=== PATIENT | male | born 1960 | race American Indian/Alaskan Native ===

== ENCOUNTER 2016-06-05 17:28 | Emergency (ER) | payer OTHER ==
[2016-06-05] MEDS ORDERED: Sodium Chloride 0.9% 10 ML Syringe FLUSH PRN (17:48)
[2016-06-05] MEDS ORDERED: Nitroglycerin 0.4 MG Tab.SL SL ONE (17:48)
[2016-06-05] MEDS ORDERED: Aspirin 81 MG Tab.Chew PO ONE (17:48)
[2016-06-05 18:03] VITALS: BP 148/91
[2016-06-05 18:21] LABS: CHLORIDE,CL 102 mmol/L (101-111); SODIUM,NA 136 mmol/L (135-145)
--- NOTE | 2016-06-05 18:34 | EDM.PDOC ---
ED HISTORY OF PRESENT ILLNESS - General Chief Complaint: Chest Pain Stated Complaint: HARD TIME BREATHING Time Seen by Provider: 06/05/16 17:44 Source of Information: Reports: Patient, RN, RN notes reviewed History Limitations: Reports: No limitations - History of Present Illness INITIAL COMMENTS - FREE TEXT/NARRATIVE: Patient complaining of shortness of breath with exertion x2 months, and getting worse. Seen 05/28/16 for similar symptoms. Treated at [facility] about 2 months ago. They gave him Zithromax x7 days for pneumonia. Went back to [facility] as on 05/30/16 and treated with prednisone and doxycycline. Admits to substernal chest pressure and dyspnea at rest. Severity: severe Location, General: Reports: chest Quality: Reports: Ache Improves with: Reports: None Worsens with: Reports: None Associated Symptoms (General): Reports: no other symptoms - Related Data Allergies/ADRs: Allergies Allergy/AdvReac Type Severity Reaction Status Date / Time No Known Allergies Allergy Verified 06/05/16 17:39 Home Meds: Home Meds Gabapentin [Neurontin] 600 mg PO TID 03/13/13 [History] Past Medical History HEENT History: Reports: Impaired vision Other HEENT History: wears reading glasses Cardiovascular History: Reports: Hypertension Respiratory History: Reports: None Gastrointestinal History: Reports: None Genitourinary History: Reports: None Musculoskeletal History: Reports: None Neurological History: Reports: Neuropathy, diabetic Psychiatric History: Reports: None Endocrine/Metabolic History: Reports: Diabetes, type II (insulin dependent) Hematologic History: Reports: None Immunologic History: Reports: None Oncologic (Cancer) History: Reports: None Dermatologic History: Reports: None - Infectious Disease History Infectious Disease History: Reports: Hepatitis C - Past Surgical History Musculoskeletal Surgical History: Reports: Amputation (right and left 5th toes.) Other Musculoskeletal Surgeries/Procedures:: bilateral small toe Social & Family History - Family History Family Medical History: Noncontributory - Tobacco Use Smoking Status *Q: Former Smoker Second Hand Smoke Exposure: No - Caffeine Use Caffeine Use: Reports: Coffee, Soda, Tea - Alcohol Use Days Per Week of Alcohol Use: 0 - Recreational Drug Use Recreational Drug Use: No - Living Situation & Occupation Living situation: Reports: Occupation: unemployed (recently lost job and as well) ED ROS GENERAL - Review of Systems Review Of Systems: ROS reveals no pertinent complaints other than HPI. ED EXAM, GENERAL - Physical Exam Exam: See Below Exam Limited By: No limitations General Appearance: other (chronically ill appearing. No distress.) Eye Exam: bilateral eye: normal inspection Ears: normal external exam, normal canal, hearing grossly normal, normal TMs Nose: normal inspection, normal mucosa, no blood Throat/Mouth: Normal inspection, Normal lips, Normal teeth, Normal gums, Normal oropharynx, Normal voice, No airway compromise Head: atraumatic, normocephalic Neck: normal inspection, supple, non-tender, full range of motion Respiratory/Chest: crackles (bibasilar cracles. ), wheezing (rare mild scattered wheezes.) Cardiovascular: normal peripheral pulses, regular rate, rhythm, no edema, no gallop, no JVD, no murmur, no rub GI/Abdominal: normal bowel sounds, soft, non tender, no organomegaly, no distention, no abnormal bruit, no mass Back Exam: normal inspection, full range of motion, NT Extremities: no pedal edema Neurological: alert, oriented, CN II-XII intact, normal cognition, normal gait, normal reflexes, no motor/sensory deficits Psychiatric: normal affect, normal mood Skin Exam: Warm, Dry, Intact, Normal color, No rash EKG INTERPRETATION EKG Date: 06/05/16 Time: 17:49 Rhythm: other (sinus rhythm) Rate (beats/min): 79 [place]: normal P-wave: present QRS: LBBB ST-T: normal QT: normal Comparison: NA - no prior EKG Course - Vital Signs Last Recorded V/S: Last Vital Signs Temp 36.8 C 06/05/16 17:36 Pulse 76 06/05/16 17:36 Resp 20 06/05/16 17:36 BP 148/91 H 06/05/16 18:03 Pulse Ox 100 06/05/16 17:36 - Orders/Labs/Meds Orders: Active Orders 24 hr Category Date Time Status EKG 12 Lead [EKG Documentation Completion] [RC] STAT Care 06/05/16 17:47 Active Overnight Pulse Oximetry [RC] Click To Edit Care 06/05/16 17:48 Active Peripheral IV Care [RC] . DIRECTED Care 06/05/16 17:48 Active Chest 1V Frontal [CR] Stat Exams 06/05/16 17:47 Taken CULTURE STREP A CONFIRMATION [RM] Stat Lab 06/05/16 18:10 Results STREP SCRN A RAPID W CULT CONF [] Stat Lab 06/05/16 18:10 Results Sodium Chloride 0.9% [Saline Flush] Med 06/05/16 17:48 Active 10 ml FLUSH ASDIRECTED PRN Peripheral IV Insertion Adult [OM.PC] Stat Oth 06/05/16 17:47 Ordered Pulse Oximetry Continuous Monitoring [OM.PC] Routine Oth 06/05/16 17:47 Ordered RT Supplemental Oxygen Titration [RESPCARE] Stat Ot 06/05/16 17:47 Active Medication Orders Sodium Chloride (Saline Flush) 10 ml FLUSH ASDIRECTED PRN PRN Reason: Keep Vein Open Last Admin: 06/05/16 18:02 Dose: 10 ml Labs: Laboratory Tests 06/05/16 06/05/16 06/05/16 Range/Units 17:50 17:50 17:50 WBC 6.8 (5.0-10.0) 10^3/uL RBC 4.59 L (4.6-6.2) 10^6/uL Hgb 13.0 L (14.0-18.0) g/dL Hct 37.5 L (40.0-54.0) % MCV 81.7 (80-100) fL MCH 28.3 (27.0-34.0) pg MCHC 34.7 (33.0-35.0) g/dL Plt Count 167 (150-450) 10^3/uL Neut % (Auto) 58.5 (42.2-75.2) % Lymph % (Auto) 26.7 (20.5-50.1) % [place] % (Auto) 10.4 H (2-8) % Eos % (Auto) 3.7 H (1.0-3.0) % Baso % (Auto) 0.7 (0.0-1.0) % PT 10.6 (9.0-12.0) SEC INR 1.1 (0.9-1.2) APTT 27.4 (22.0-34.0) SEC D-Dimer, Quantitative (0-400) ng/mL Sodium 136 (135-145) mmol/L Potassium 3.8 (3.6-5.0) mmol/L Chloride 102 (101-111) mmol/L Carbon Dioxide 27.0 (21.0-31.0) mmol/L Anion Gap 10.8 BUN 15 (7-18) mg/dL Creatinine 1.0 (0.6-1.3) mg/dL Est Cr Clr Drug Dosing 88.90 mL/min Estimated GFR (MDRD) > 60 BUN/Creatinine Ratio 15.00 Glucose 397 H (74-105) mg/dL Calcium 8.5 (8.4-10.2) mg/dl Total Bilirubin 0.6 (0.2-1.0) mg/dL AST 24 (10-42) IU/L ALT 15 (10-60) IU/L Alkaline Phosphatase 93 (42-121) IU/L Creatine Kinase (26-174) IU/L Creatine Kinase Index (0-2.4) % CK-MB (CK-2) (0.4-4.7) ng/mL Troponin I 0.03 H* (0.00-0.02) ng/ml B-Natriuretic Peptide 241 H (0-100) pg/ml Total Protein 6.7 (6.7-8.2) g/dl Albumin 3.2 (3.2-5.5) g/dl Globulin 3.5 Albumin/Globulin Ratio 0.91 Amylase 43 (28-100) U/L Lipase 26 (22-51) U/L Urine Color (YELLOW) Urine Appearance (CLEAR) Urine pH (5.0-9.0) Ur Specific [place] (1.005-1.030) Urine Protein (NEGATIVE) Urine Glucose (UA) (NEGATIVE) Urine Ketones (NEGATIVE) Urine Occult Blood (NEGATIVE) Urine Nitrite (NEGATIVE) Urine Bilirubin (NEGATIVE) Urine Urobilinogen (0.2-1.0) mg/dL Ur Leukocyte Esterase (NEGATIVE) Urine RBC /HPF Urine WBC (0-5/HPF) /HPF Urine Bacteria (0-FEW/HPF) /HPF Urine Opiates Screen (NEGATIVE) Ur Oxycodone Screen (NEGATIVE) Urine Methadone Screen (NEGATIVE) Ur Barbiturates Screen (NEGATIVE) U Tricyclic Antidepress (NEGATIVE) Ur Phencyclidine Scrn (NEGATIVE) Ur Amphetamine Screen (NEGATIVE) U Methamphetamines Scrn (NEGATIVE) Urine MDMA Screen (NEGATIVE) U Benzodiazepines Scrn (NEGATIVE) Urine Cocaine Screen (NEGATIVE) U Marijuana (THC) Screen (NEGATIVE) Ethyl Alcohol < 5 mg/dL 03/05/17 03/05/17 03/05/17 Range/Units 17:50 17:50 18:10 WBC (5.0-10.0) 10^3/uL RBC (4.6-6.2) 10^6/uL Hgb (14.0-18.0) g/dL Hct (40.0-54.0) % MCV (80-100) fL MCH (27.0-34.0) pg MCHC (33.0-35.0) g/dL Plt Count (150-450) 10^3/uL Neut % (Auto) (42.2-75.2) % Lymph % (Auto) (20.5-50.1) % [place] % (Auto) (2-8) % Eos % (Auto) (1.0-3.0) % Baso % (Auto) (0.0-1.0) % PT (9.0-12.0) SEC INR (0.9-1.2) APTT (22.0-34.0) SEC D-Dimer, Quantitative 656 H (0-400) ng/mL Sodium (135-145) mmol/L Potassium (3.6-5.0) mmol/L Chloride (101-111) mmol/L Carbon Dioxide (21.0-31.0) mmol/L Anion Gap BUN (7-18) mg/dL Creatinine (0.6-1.3) mg/dL Est Cr Clr Drug Dosing mL/min Estimated GFR (MDRD) BUN/Creatinine Ratio Glucose (74-105) mg/dL Calcium (8.4-10.2) mg/dl Total Bilirubin (0.2-1.0) mg/dL AST (10-42) IU/L ALT (10-60) IU/L Alkaline Phosphatase (42-121) IU/L Creatine Kinase 88 (26-174) IU/L Creatine Kinase Index 3.5 H (0-2.4) % CK-MB (CK-2) 3.10 (0.4-4.7) ng/mL Troponin I (0.00-0.02) ng/ml B-Natriuretic Peptide (0-100) pg/ml Total Protein (6.7-8.2) g/dl Albumin (3.2-5.5) g/dl Globulin Albumin/Globulin Ratio Amylase (28-100) U/L Lipase (22-51) U/L Urine Color Yellow (YELLOW) Urine Appearance Clear (CLEAR) Urine pH 5.5 (5.0-9.0) Ur Specific [place] 1.020 (1.005-1.030) Urine Protein >=300 H (NEGATIVE) Urine Glucose (UA) 500 H (NEGATIVE) Urine Ketones Negative (NEGATIVE) Urine Occult Blood Trace-intact H (NEGATIVE) Urine Nitrite Negative (NEGATIVE) Urine Bilirubin Negative (NEGATIVE) Urine Urobilinogen 1.0 (0.2-1.0) mg/dL Ur Leukocyte Esterase Negative (NEGATIVE) Urine RBC 0-5 /HPF Urine WBC 0-5 (0-5/HPF) /HPF Urine Bacteria Occasional (0-FEW/HPF) /HPF Urine Opiates Screen (NEGATIVE) Ur Oxycodone Screen (NEGATIVE) Urine Methadone Screen (NEGATIVE) Ur Barbiturates Screen (NEGATIVE) U Tricyclic Antidepress (NEGATIVE) Ur Phencyclidine Scrn (NEGATIVE) Ur Amphetamine Screen (NEGATIVE) U Methamphetamines Scrn (NEGATIVE) Urine MDMA Screen (NEGATIVE) U Benzodiazepines Scrn (NEGATIVE) Urine Cocaine Screen (NEGATIVE) U Marijuana (THC) Screen (NEGATIVE) Ethyl Alcohol mg/dL 06/05/16 Range/Units 18:10 WBC (5.0-10.0) 10^3/uL RBC (4.6-6.2) 10^6/uL Hgb (14.0-18.0) g/dL Hct (40.0-54.0) % MCV (80-100) fL MCH (27.0-34.0) pg MCHC (33.0-35.0) g/dL Plt Count (150-450) 10^3/uL Neut % (Auto) (42.2-75.2) % Lymph % (Auto) (20.5-50.1) % [place] % (Auto) (2-8) % Eos % (Auto) (1.0-3.0) % Baso % (Auto) (0.0-1.0) % PT (9.0-12.0) SEC INR (0.9-1.2) APTT (22.0-34.0) SEC D-Dimer, Quantitative (0-400) ng/mL Sodium (135-145) mmol/L Potassium (3.6-5.0) mmol/L Chloride (101-111) mmol/L Carbon Dioxide (21.0-31.0) mmol/L Anion Gap BUN (7-18) mg/dL Creatinine (0.6-1.3) mg/dL Est Cr Clr Drug Dosing mL/min Estimated GFR (MDRD) BUN/Creatinine Ratio Glucose (74-105) mg/dL Calcium (8.4-10.2) mg/dl Total Bilirubin (0.2-1.0) mg/dL AST (10-42) IU/L ALT (10-60) IU/L Alkaline Phosphatase (42-121) IU/L Creatine Kinase (26-174) IU/L Creatine Kinase Index (0-2.4) % CK-MB (CK-2) (0.4-4.7) ng/mL Troponin I (0.00-0.02) ng/ml B-Natriuretic Peptide (0-100) pg/ml Total Protein (6.7-8.2) g/dl Albumin (3.2-5.5) g/dl Globulin Albumin/Globulin Ratio Amylase (28-100) U/L Lipase (22-51) U/L Urine Color (YELLOW) Urine Appearance (CLEAR) Urine pH (5.0-9.0) Ur Specific [place] (1.005-1.030) Urine Protein (NEGATIVE) Urine Glucose (UA) (NEGATIVE) Urine Ketones (NEGATIVE) Urine Occult Blood (NEGATIVE) Urine Nitrite (NEGATIVE) Urine Bilirubin (NEGATIVE) Urine Urobilinogen (0.2-1.0) mg/dL Ur Leukocyte Esterase (NEGATIVE) Urine RBC /HPF Urine WBC (0-5/HPF) /HPF Urine Bacteria (0-FEW/HPF) /HPF Urine Opiates Screen Negative (NEGATIVE) Ur Oxycodone Screen Negative (NEGATIVE) Urine Methadone Screen Negative (NEGATIVE) Ur Barbiturates Screen Negative (NEGATIVE) U Tricyclic Antidepress Negative (NEGATIVE) Ur Phencyclidine Scrn Negative (NEGATIVE) Ur Amphetamine Screen Negative (NEGATIVE) U Methamphetamines Scrn Negative (NEGATIVE) Urine MDMA Screen Negative (NEGATIVE) U Benzodiazepines Scrn Negative (NEGATIVE) Urine Cocaine Screen Negative (NEGATIVE) U Marijuana (THC) Screen Negative (NEGATIVE) Ethyl Alcohol mg/dL Meds: Medications Generic Name Dose Route Start Last Admin Trade Name Freq PRN Reason Stop Dose Admin Sodium Chloride 10 ml 06/05/16 17:48 06/05/16 18:02 Saline Flush FLUSH 10 ml ASDIRECTED PRN Administration Keep Vein Open Discontinued Medications Generic Name Dose Route Start Last Admin Trade Name Freq PRN Reason Stop Dose Admin Aspirin 324 mg 06/05/16 17:48 06/05/16 18:03 Aspirin PO 06/05/16 17:49 324 mg ONETIME ONE Administration Nitroglycerin 0.4 mg 06/05/16 17:48 06/05/16 18:03 Nitrostat SL 06/05/16 17:49 0.4 mg Q5M ONE Administration - Radiology Interpretation Free Text/Narrative:: Chest x-ray per rad report shows no active disease of the chest. No significant interval change when compared to film of 05/28/16. Departure - Departure Time of Disposition: 18:45 Disposition: DC/Tfer to Acute Hospital 02 Reason for Transfer *Q: Primary PCI Indicated Condition: serious Clinical Impression: Acute coronary syndrome Forms: ED Department Discharge, Interfacility Transfer EMTALA - My Orders Last 24 Hours: My Active Orders 06/05/16 17:47 EKG 12 Lead [EKG Documentation Completion] [RC] STAT Chest 1V Frontal [CR] Stat Peripheral IV Insertion Adult [OM.PC] Stat Pulse Oximetry Continuous Monitoring [OM.PC] Routine RT Supplemental Oxygen Titration [RESPCARE] Stat 06/05/16 17:48 Overnight Pulse Oximetry [RC] Click To Edit Peripheral IV Care [RC] . DIRECTED Sodium Chloride 0.9% [Saline Flush] 10 ml FLUSH ASDIRECTED PRN 06/05/16 18:10 CULTURE STREP A CONFIRMATION [RM] Stat STREP SCRN A RAPID W CULT CONF [RM] Stat - Assessment/Plan Last 24 Hours: My Active Orders 06/05/16 17:47 EKG 12 Lead [EKG Documentation Completion] [RC] STAT Chest 1V Frontal [CR] Stat Peripheral IV Insertion Adult [OM.PC] Stat Pulse Oximetry Continuous Monitoring [OM.PC] Routine RT Supplemental Oxygen Titration [RESPCARE] Stat 06/05/16 17:48 Overnight Pulse Oximetry [RC] Click To Edit Peripheral IV Care [RC] . DIRECTED Sodium Chloride 0.9% [Saline Flush] 10 ml FLUSH ASDIRECTED PRN 06/05/16 18:10 CULTURE STREP A CONFIRMATION [RM] Stat STREP SCRN A RAPID W CULT CONF [RM] Stat
--- NOTE | 2016-06-12 15:02 | EKG ---
06/05/2016 - MIAH CAIN - TIME OF EK hours. I reviewed the EKG and agree with the machine's reading. [facility] /[id number]
== END 2016-06-05 19:13 ==
LOC: DL.ED 17:28
DX: I24.9 Acute ischemic heart disease, unspecified (principal); I10 Essential (primary) hypertension; E11.40 Type 2 diabetes mellitus with diabetic neuropathy, unspecified; Z79.4 Long term (current) use of insulin; B19.20 Unspecified viral hepatitis C without hepatic coma; Z87.891 Personal history of nicotine dependence; Z79.899 Other long term (current) drug therapy
CPT/HCPCS: 36415; 71010; 80053; 80305; 81001; 82150; 82550; 82553; 83690; 83880; 84484; 85025; 85379; 85610; 85730; 87081; 87430; 87804; 93005; 99285; A9270; G0480; J7050

== ENCOUNTER 2016-07-30 13:00 | Emergency (ER) | payer OTHER ==
[2016-07-30 13:14] VITALS: BP 164/92
--- NOTE | 2016-07-30 14:15 | EDM.PDOC ---
ED HISTORY OF PRESENT ILLNESS - General Chief Complaint: Chest Pain Stated Complaint: [id number] TIGHTNESS IN CHEST STINTS PUT IN JUNE Time Seen by Provider: 07/30/16 14:20 Source of Information: Reports: Patient, Family History Limitations: Reports: No limitations - History of Present Illness INITIAL COMMENTS - FREE TEXT/NARRATIVE: He developed left anterior chest pain today initially rated at 3/10 and gradually decreased to 0/10 similar to that for which 2 stents were placed at [facility]. No nausea. No diaphoresis. He and his noted wheezing. They have noticed ankle swelling. 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.) Associated Symptoms (General): Denies: cough (wheezing), nausea/vomiting, rash Treatments TAKER [employer]RAK[employer] MACHINE: Denies: Aspirin - Related Data Allergies/ADRs: Allergies Allergy/AdvReac Type Severity Reaction Status Date / Time No Known Allergies Allergy Verified 07/30/16 13:14 Home Meds: Home Meds Gabapentin [Neurontin] 600 mg PO TID 03/13/13 [History] Lisinopril [Lisinopril] 1 tab PO DAILY 06/08/16 [History] metFORMIN HCl [Metformin HCl] 2 tab PO BID 06/08/16 [History] Clopidogrel [Plavix] 75 mg PO DAILY 07/30/16 [History] Insulin Detemir [Levemir Flextouch] 35 unit SQ DAILY 07/30/16 [History] Metoprolol Succinate [Toprol Xl] 100 mg PO DAILY 07/30/16 [History] atorvaSTATin [Lipitor] 40 mg PO DAILY 07/30/16 [History] Past Medical History HEENT History: Reports: Impaired vision Other HEENT History: wears reading glasses Cardiovascular History: Reports: Heart Failure, Hypertension, Stents Respiratory History: Reports: None Gastrointestinal History: Reports: None Genitourinary History: Reports: None Musculoskeletal History: Reports: None Neurological History: Reports: Neuropathy, diabetic Psychiatric History: Reports: None Endocrine/Metabolic History: Reports: Diabetes, type II Hematologic History: Reports: None Immunologic History: Reports: None Oncologic (Cancer) History: Reports: None Dermatologic History: Reports: None - Infectious Disease History Infectious Disease History: Reports: Hepatitis C - Past Surgical History Head Surgeries/Procedures: Reports: None Cardiovascular Surgical History: Reports: Coronary artery stent Other Cardiovascular Surgeries/Procedures: in June Musculoskeletal Surgical History: Reports: Amputation Other Musculoskeletal Surgeries/Procedures:: bilateral small toe Social & Family History - Family History Family Medical History: Noncontributory - Tobacco Use Smoking Status *Q: Never Smoker Second Hand Smoke Exposure: No - Caffeine Use Caffeine Use: Reports: Coffee, Tea - Alcohol Use Days Per Week of Alcohol Use: 0 - Recreational Drug Use Recreational Drug Use: No - Living Situation & Occupation Living situation: Reports: Occupation: unemployed (recently lost job and as well) ED ROS GENERAL - Review of Systems Review Of Systems: See Below Constitutional: Reports: no symptoms HEENT: Reports: No symptoms Respiratory: Reports: No Symptoms Cardiovascular: Reports: Chest pain, Other (wheeing). Denies: Lightheadedness, Orthopnea, Palpitations Musculoskeletal: Reports: other (swellng in legs/ ankles) Skin: Reports: no symptoms Neurological: Reports: No Symptoms ED EXAM, GENERAL - Physical Exam Exam: See Below Exam Limited By: No limitations General Appearance: alert Eye Exam: bilateral eye: normal inspection, PERRL Ears: normal external exam Nose: normal inspection Throat/Mouth: Normal inspection, Normal lips, Normal teeth, Normal gums, Normal oropharynx, Normal voice, No airway compromise Head: atraumatic, normocephalic Neck: normal inspection, supple, non-tender, full range of motion Respiratory/Chest: no respiratory distress, lungs clear, normal breath sounds, no accessory muscle use, rhonchi (bibasilar crackles). No: chest non-tender Cardiovascular: normal peripheral pulses. No: no edema (1-2 mm ankle and distal leg edema) GI/Abdominal: normal bowel sounds, soft, non tender, no organomegaly, no distention, no abnormal bruit, no mass Extremities: normal inspection Neurological: alert, oriented, normal cognition Psychiatric: normal affect, normal mood Skin Exam: Warm, Dry, Intact, Normal color, No rash Lymphatic: no adenopathy Course - Vital Signs Last Recorded V/S: Last Vital Signs Temp 97.2 F 07/30/16 13:10 Pulse 70 07/30/16 13:10 Resp 14 07/30/16 13:10 BP 164/92 H 07/30/16 13:10 Pulse Ox 99 07/30/16 13:10 - Orders/Labs/Meds Labs: Laboratory Tests 07/30/16 07/30/16 Range/Units 14:12 14:12 WBC 7.7 (5.0-10.0) 10^3/uL RBC 4.20 L (4.6-6.2) 10^6/uL Hgb 12.2 L (14.0-18.0) g/dL Hct 35.3 L (40.0-54.0) % MCV 84.0 (80-100) fL MCH 29.0 (27.0-34.0) pg MCHC 34.6 (33.0-35.0) g/dL Plt Count 209 (150-450) 10^3/uL Neut % (Auto) 65.6 (42.2-75.2) % Lymph % (Auto) 23.2 (20.5-50.1) % [place] % (Auto) 7.6 (2-8) % Eos % (Auto) 3.1 H (1.0-3.0) % Baso % (Auto) 0.5 (0.0-1.0) % Sodium 138 (135-145) mmol/L Potassium 4.1 (3.6-5.0) mmol/L Chloride 105 (101-111) mmol/L Carbon Dioxide 28.0 (21.0-31.0) mmol/L Anion Gap 9.1 BUN 16 (7-18) mg/dL Creatinine 0.9 (0.6-1.3) mg/dL Est Cr Clr Drug Dosing 97.61 mL/min Estimated GFR (MDRD) > 60 BUN/Creatinine Ratio 17.77 Glucose 228 H (74-105) mg/dL Calcium 8.5 (8.4-10.2) mg/dl Total Bilirubin 0.8 (0.2-1.0) mg/dL AST 23 (10-42) IU/L ALT 18 (10-60) IU/L Alkaline Phosphatase 80 (42-121) IU/L Troponin I 0.02 (0.00-0.02) ng/ml Total Protein 6.6 L (6.7-8.2) g/dl Albumin 3.2 (3.2-5.5) g/dl Globulin 3.4 Albumin/Globulin Ratio 0.94 Meds: Medications Discontinued Medications Generic Name Dose Route Start Last Admin Trade Name [place] PRN Reason Stop Dose Admin Aspirin 325 mg 07/30/16 15:01 07/30/16 15:08 Aspirin PO 07/30/16 15:02 325 mg ONETIME ONE Administration Departure - Departure Time of Disposition: 15:15 Disposition: DC/Tfer to Acute Hospital 02 Reason for Transfer *Q: Primary PCI Indicated Condition: good Clinical Impression: Chest pain, Chest pain Instructions: Angina Pectoris, [id number] Forms: ED Department Discharge Additional Instructions: Go to [facility] to the admitting area.
[2016-07-30 14:39] LABS: CHLORIDE,CL 105 mmol/L (101-111); SODIUM,NA 138 mmol/L (135-145)
[2016-07-30] MEDS ORDERED: Aspirin 325 MG Tab PO ONE (15:01)
--- NOTE | 2016-10-03 08:58 | EKG ---
07/30/2016- MIAH CANI PAVEL - This is a standard 12-lead EKG showing normal sinus rhythm. Ventricular rate 71 beats per minute. Normal PA interval. Normal QRS duration and showing left bundle branch block. [facility] /[id number]
== END 2016-07-30 15:30 ==
LOC: DL.ED 13:00
DX: R07.9 Chest pain, unspecified (principal); I50.9 Heart failure, unspecified; I10 Essential (primary) hypertension; Z95.5 Presence of coronary angioplasty implant and graft; E11.40 Type 2 diabetes mellitus with diabetic neuropathy, unspecified; Z79.84 Long term (current) use of oral hypoglycemic drugs; Z79.4 Long term (current) use of insulin; Z79.899 Other long term (current) drug therapy
CPT/HCPCS: 36415; 71020; 80053; 84484; 85025; 99285; A9270

== ENCOUNTER 2017-05-01 02:57 | Emergency (ER) | payer OTHER ==
[2017-05-01 03:02] VITALS: BP 197/110
--- NOTE | 2017-05-01 03:14 | EDM.PDOC ---
ED HPI GENERAL MEDICAL PROBLEM - General Chief Complaint: Cardiovascular Problem Stated Complaint: SOB [id number] Time Seen by Provider: 05/01/17 03:09 Source of Information: Reports: Patient History Limitations: Reports: No Limitations - History of Present Illness INITIAL COMMENTS - FREE TEXT/NARRATIVE: 2 days h/o sob not getting better and last episode last year and req' stent placement. denies pain perse. - Related Data Allergies Allergy/AdvReac Type Severity Reaction Status Date / Time No Known Allergies Allergy Verified 05/01/17 03:02 Home Meds: Home Meds Gabapentin [Neurontin] 600 mg PO TID 03/13/13 [History] Lisinopril [Lisinopril] 1 tab PO DAILY 06/08/16 [History] metFORMIN HCl [Metformin HCl] 2 tab PO BID 06/08/16 [History] Clopidogrel [Plavix] 75 mg PO DAILY 07/30/16 [History] Insulin Detemir [Levemir Flextouch] 35 unit SQ DAILY 07/30/16 [History] Metoprolol Succinate [Toprol Xl] 100 mg PO DAILY 07/30/16 [History] atorvaSTATin [Lipitor] 40 mg PO DAILY 07/30/16 [History] Past Medical History HEENT History: Reports: Impaired Vision Other HEENT History: wears reading glasses Cardiovascular History: Reports: Heart Failure, Hypertension, Stents Respiratory History: Reports: None Gastrointestinal History: Reports: None Genitourinary History: Reports: None Musculoskeletal History: Reports: None Neurological History: Reports: Neuropathy, Diabetic Psychiatric History: Reports: None Endocrine/Metabolic History: Reports: Diabetes, Type II Hematologic History: Reports: None Immunologic History: Reports: None Oncologic (Cancer) History: Reports: None Dermatologic History: Reports: None - Infectious Disease History Infectious Disease History: Reports: Hepatitis C - Past Surgical History Cardiovascular Surgical History: Reports: Coronary Artery Stent Social & Family History - Family History Family Medical History: Noncontributory - Tobacco Use Smoking Status *Q: Never Smoker Second Hand Smoke Exposure: No - Caffeine Use Caffeine Use: Reports: Coffee, Tea - Alcohol Use Days Per Week of Alcohol Use: 0 - Recreational Drug Use Recreational Drug Use: No - Living Situation & Occupation Living situation: Reports: Occupation: Unemployed ED ROS GENERAL - Review of Systems Review Of Systems: ROS reveals no pertinent complaints other than HPI. ED EXAM, GENERAL - Physical Exam Exam: See Below Exam Limited By: No Limitations General Appearance: Alert, WD/WN, Anxious Ears: Hearing Grossly Normal Throat/Mouth: Normal Voice, No Airway Compromise Head: Atraumatic Neck: Non-Tender, Full Range of Motion Respiratory/Chest: No Respiratory Distress, No Accessory Muscle Use, Rales, Rhonchi Cardiovascular: Regular Rate, Rhythm GI/Abdominal: Soft, Non-Tender Extremities: Pedal Edema, Other (1+) Neurological: Alert, Oriented, Normal Cognition, Normal Gait, No Motor/Sensory Deficits Psychiatric: Anxious Skin Exam: Warm, Dry, Normal Color Lymphatic: No Adenopathy Course - Vital Signs Last Recorded V/S: Last Vital Signs Temp 36.2 C 05/01/17 02:59 Pulse 87 05/01/17 02:59 Resp 20 05/01/17 02:59 BP 197/110 H 05/01/17 02:59 Pulse Ox 96 05/01/17 02:59 - Orders/Labs/Meds Orders: Active Orders 24 hr Category Date Time Status EKG 12 Lead [EKG Documentation Completion] [RC] STAT Care 05/01/17 03:07 Ordered B-TYPE NATRIURETIC PEPTIDE,BNP [CHEM] Stat Lab 05/01/17 03:12 Received Labs: Laboratory Tests 05/01/17 05/01/17 Range/Units 03:12 03:12 WBC 8.4 (5.0-10.0) 10^3/uL RBC 5.25 (4.6-6.2) 10^6/uL Hgb 14.9 D (14.0-18.0) g/dL Hct 42.5 (40.0-54.0) % MCV 81.0 D (80-100) fL MCH 28.4 (27.0-34.0) pg MCHC 35.1 H (33.0-35.0) g/dL Plt Count 169 (150-450) 10^3/uL Neut % (Auto) 55.6 (42.2-75.2) % Lymph % (Auto) 29.3 (20.5-50.1) % [place] % (Auto) 8.1 H (2-8) % Eos % (Auto) 6.0 H (1.0-3.0) % Baso % (Auto) 1.0 (0.0-1.0) % Sodium 136 (135-145) mmol/L Potassium 3.1 L (3.6-5.0) mmol/L Chloride 99 L (101-111) mmol/L Carbon Dioxide 31.0 (21.0-31.0) mmol/L Anion Gap 9.1 BUN 15 (7-18) mg/dL Creatinine 1.1 (0.6-1.3) mg/dL Est Cr Clr Drug Dosing 79.86 mL/min Estimated GFR (MDRD) > 60 BUN/Creatinine Ratio 13.63 Glucose 390 H (74-105) mg/dL Calcium 8.6 (8.4-10.2) mg/dl Total Bilirubin 0.8 (0.2-1.0) mg/dL AST 21 (10-42) IU/L ALT 15 (10-60) IU/L Alkaline Phosphatase 114 (42-121) IU/L Troponin I 0.03 H* (0.00-0.02) ng/ml Total Protein 7.5 (6.7-8.2) g/dl Albumin 3.6 (3.2-5.5) g/dl Globulin 3.9 Albumin/Globulin Ratio 0.92 Meds: Medications Discontinued Medications Generic Name Dose Route Start Last Admin Trade Name Freq PRN Reason Stop Dose Admin Furosemide 40 mg 05/01/17 03:56 Lasix IVPUSH 05/01/17 03:57 NOW ONE - Re-Assessments/Exams Free Text/Narrative Re-Assessment/Exam: 05/01/17 03:[address] Laboy who kindly accepted pt. Departure - Departure Time of Disposition: 03:58 Disposition: DC/Tfer to Acute Hospital 02 Reason for Transfer *Q: Other Condition: Fair Clinical Impression: Pulmonary edema cardiac cause, Elevated troponin I level, Hyperglycemia Dyspnea Qualifiers: Dyspnea type: shortness of breath Qualified Code(s): R06.02 - Shortness of breath; R06.00 - Dyspnea, unspecified; R06.01 - Orthopnea Forms: Interfacility Transfer EMTALA - My Orders Last 24 Hours: My Active Orders 05/01/17 03:07 EKG 12 Lead [EKG Documentation Completion] [RC] STAT 05/01/17 03:12 B-TYPE NATRIURETIC PEPTIDE,BNP [CHEM] Stat - Assessment/Plan Last 24 Hours: My Active Orders 05/01/17 03:07 EKG 12 Lead [EKG Documentation Completion] [RC] STAT 05/01/17 03:12 B-TYPE NATRIURETIC PEPTIDE,BNP [CHEM] Stat
[2017-05-01 03:37] LABS: ANION GAP 9.1; CHLORIDE,CL 99 mmol/L (101-111); SODIUM,NA 136 mmol/L (135-145)
[2017-05-01] MEDS ORDERED: Furosemide 40 MG/4 ML VIAL IVPUSH ONE (03:56)
--- NOTE | 2017-05-02 14:19 | EKG ---
05/01/2017 - MIAH CAIN - FINDINGS: EKG done on a 56-year-old male showing sinus rhythm, heart rate of 77 beats per minute, right bundle branch block and left anterior fascicular block noted, left ventricular hypertrophy noted, PVCs noted. [facility] /[id number]
== END 2017-05-01 04:36 ==
LOC: DL.ED 02:57
DX: J81.1 Chronic pulmonary edema (principal); E11.65 Type 2 diabetes mellitus with hyperglycemia; R79.89 Other specified abnormal findings of blood chemistry; I11.0 Hypertensive heart disease with heart failure; I50.9 Heart failure, unspecified; E11.40 Type 2 diabetes mellitus with diabetic neuropathy, unspecified; Z95.5 Presence of coronary angioplasty implant and graft; Z79.02 Long term (current) use of antithrombotics/antiplatelets; Z79.4 Long term (current) use of insulin; Z79.899 Other long term (current) drug therapy
CPT/HCPCS: 36415; 71045; 80053; 83880; 84484; 85025; 93005; 96374; 99285; J1940

== ENCOUNTER 2017-05-08 12:50 | Emergency (ER) | payer OTHER ==
--- NOTE | 2017-05-08 12:52 | EDM.PDOC ---
ED HPI GENERAL MEDICAL PROBLEM - General Chief Complaint: Chest Pain Stated Complaint: CHEST PAIN- BY AMBULANCE Time Seen by Provider: 05/08/17 12:51 Source of Information: Reports: Patient, EMS, Old Records, RN, RN Notes Reviewed History Limitations: Reports: No Limitations - History of Present Illness INITIAL COMMENTS - FREE TEXT/NARRATIVE: Arrives by ambulance from [facility] where he was seeing the brush painter for care of a foot ulcer when he developed a sharp chest pain while at rest. The paramedics gave him aspirin 324mg x1 and NTG 0.4mg SL x1. Pt does not think the nitroglycerin relieved the pain, but by the time he arrived to the ER the was completely gone. He denies radiating pain, shortness of breath, N/V, cough, or any other symptoms. Onset: Today Duration: Resolved Prior to Arrival Location: Reports: Chest Quality: Reports: Sharp Severity: Mild Improves with: Reports: None Worsens with: Reports: None Associated Symptoms: Reports: No Other Symptoms Treatments ADOPTION MANAGER: Reports: Aspirin, Nitroglycerin Chest Pain Score (Numeric/FACES): 0 - Related Data Allergies Allergy/AdvReac Type Severity Reaction Status Date / Time No Known Allergies Allergy Verified 05/08/17 12:55 Home Meds: Home Meds Gabapentin [Neurontin] 600 mg PO TID 03/13/13 [History] metFORMIN HCl [Metformin HCl] 500 tab PO BID 06/08/16 [History] Clopidogrel [Plavix] 75 mg PO DAILY 07/30/16 [History] Insulin Detemir [Levemir Flextouch] 30 unit SQ DAILY 07/30/16 [History] Metoprolol Succinate [Toprol Xl] 100 mg PO DAILY 07/30/16 [History] atorvaSTATin [Lipitor] 40 mg PO DAILY 07/30/16 [History] Insuln Asp Prot/Insulin Aspart [NovoLOG Mix 70-30] 6 unit SQ TID 05/08/17 [ History] Past Medical History HEENT History: Reports: Impaired Vision Other HEENT History: wears reading glasses Cardiovascular History: Reports: Heart Failure, Hypertension, Stents Respiratory History: Reports: None Gastrointestinal History: Reports: None Genitourinary History: Reports: None Musculoskeletal History: Reports: None Neurological History: Reports: Neuropathy, Diabetic Psychiatric History: Reports: None Endocrine/Metabolic History: Reports: Diabetes, Type II Hematologic History: Reports: None Immunologic History: Reports: None Oncologic (Cancer) History: Reports: None Dermatologic History: Reports: None - Infectious Disease History Infectious Disease History: Reports: Hepatitis C - Past Surgical History Cardiovascular Surgical History: Reports: Coronary Artery Stent Social & Family History - Family History Family Medical History: Noncontributory - Tobacco Use Smoking Status *Q: Never Smoker Second Hand Smoke Exposure: No - Caffeine Use Caffeine Use: Reports: Coffee, Tea - Alcohol Use Days Per Week of Alcohol Use: 0 - Recreational Drug Use Recreational Drug Use: No - Living Situation & Occupation Living situation: Reports: Occupation: Unemployed ED ROS GENERAL - Review of Systems Review Of Systems: ROS reveals no pertinent complaints other than HPI. ED EXAM, GENERAL - Physical Exam Exam: See Below Exam Limited By: No Limitations General Appearance: Alert, WD/WN, No Apparent Distress Nose: Normal Inspection Throat/Mouth: Normal Inspection, Normal Lips, Normal Oropharynx, Normal Voice, No Airway Compromise Head: Atraumatic, Normocephalic Neck: Normal Inspection, Supple, Non-Tender, Full Range of Motion Respiratory/Chest: No Respiratory Distress, Lungs Clear, Normal Breath Sounds, No Accessory Muscle Use, Chest Non-Tender Cardiovascular: Normal Peripheral Pulses, Regular Rate, Rhythm, No Edema, No Gallop, No JVD, No Murmur, No Rub GI/Abdominal: Normal Bowel Sounds, Soft, Non-Tender, No Distention, No Abnormal Bruit Back Exam: Normal Inspection. No: CVA Tenderness (L), CVA Tenderness (R) Extremities: Normal Range of Motion, No Pedal Edema, Normal Capillary Refill Neurological: Alert, Oriented, CN II-XII Intact, Normal Cognition, Normal Gait, No Motor/Sensory Deficits Psychiatric: Normal Affect, Normal Mood Skin Exam: Warm, Dry, Normal Color, No Rash EKG INTERPRETATION EKG Date: 05/08/17 Time: 12:55 Rhythm: Other (SR) Rate (Beats/Min): 73 [place]: Normal P-Wave: Present QRS: RBBB (and LAFB) ST-T: Normal QT: Normal Comparison: No Change Course - Vital Signs Last Recorded V/S: Last Vital Signs Temp 36.8 C 05/08/17 12:56 Pulse 74 05/08/17 13:26 Resp 16 05/08/17 13:26 BP 151/87 H 05/08/17 13:26 Pulse Ox 99 05/08/17 13:26 - Orders/Labs/Meds Orders: Active Orders 24 hr Category Date Time Status EKG 12 Lead [EKG Documentation Completion] [] STAT Care 05/08/17 12:55 Active Peripheral IV Care [RC] . DIRECTED Care 05/08/17 12:55 Active Sodium Chloride 0.9% [Saline Flush] Med 05/08/17 12:54 Active 10 ml FLUSH ASDIRECTED PRN Peripheral IV Insertion Adult [OM.PC] Stat Oth 05/08/17 12:55 Ordered Medication Orders Sodium Chloride (Saline Flush) 10 ml FLUSH ASDIRECTED PRN PRN Reason: Keep Vein Open Last Admin: 05/08/17 13:01 Dose: 10 ml Labs: Laboratory Tests 05/08/17 05/08/17 05/08/17 Range/Units 13:07 13:07 13:07 WBC 7.5 (5.0-10.0) 10^3/uL RBC 4.86 (4.6-6.2) 10^6/uL Hgb 13.9 L (14.0-18.0) g/dL Hct 40.7 (40.0-54.0) % MCV 83.7 (80-100) fL MCH 28.6 (27.0-34.0) pg MCHC 34.2 (33.0-35.0) g/dL Plt Count 184 (150-450) 10^3/uL Neut % (Auto) 60.4 (42.2-75.2) % Lymph % (Auto) 24.1 (20.5-50.1) % [place] % (Auto) 9.2 H (2-8) % Eos % (Auto) 5.2 H (1.0-3.0) % Baso % (Auto) 1.1 H (0.0-1.0) % PT 10.0 (9.0-12.0) SEC INR 1.0 (0.9-1.2) APTT 28.3 (22.0-34.0) SEC Sodium 137 (135-145) mmol/L Potassium 4.2 (3.6-5.0) mmol/L Chloride 104 (101-111) mmol/L Carbon Dioxide 29.0 (21.0-31.0) mmol/L Anion Gap 8.2 BUN 33 H (7-18) mg/dL Creatinine 1.4 H (0.6-1.3) mg/dL Est Cr Clr Drug Dosing 62.75 mL/min Estimated GFR (MDRD) 52 BUN/Creatinine Ratio 23.57 Glucose 215 H (74-105) mg/dL Calcium 8.3 L (8.4-10.2) mg/dl Total Bilirubin 0.4 (0.2-1.0) mg/dL AST 23 (10-42) IU/L ALT 15 (10-60) IU/L Alkaline Phosphatase 78 (42-121) IU/L Troponin I 0.02 (0.00-0.02) ng/ml Total Protein 6.7 (6.7-8.2) g/dl Albumin 3.2 (3.2-5.5) g/dl Globulin 3.5 Albumin/Globulin Ratio 0.91 Meds: Medications Generic Name Dose Route Start Last Admin Trade Name Freq PRN Reason Stop Dose Admin Sodium Chloride 10 ml 05/08/17 12:54 05/08/17 13:01 Saline Flush FLUSH 10 ml ASDIRECTED PRN Administration Keep Vein Open - Radiology Interpretation Free Text/Narrative:: CXR: no acute process, see Rad. report. - Re-Assessments/Exams Free Text/Narrative Re-Assessment/Exam: 05/08/17 14:51 Discussed extended stay ER for chest pain rule out with pt. He declines and prefers to be d/c'd home. He agrees to f/u this week with his clinic doctor for recheck and to return to the ER if any chest pain returns. Departure - Departure Time of Disposition: 14:25 Disposition: Home, Self-Care 01 Condition: Good Clinical Impression: Chest pain Qualifiers: Chest pain type: unspecified Qualified Code(s): R07.9 - Chest pain, unspecified Instructions: Nonspecific Chest Pain, [id number] Forms: ED Department Discharge Additional Instructions: Follow up in clinic for recheck this week. Return to ER if any chest pain returns. - My Orders Last 24 Hours: My Active Orders 05/08/17 12:54 Sodium Chloride 0.9% [Saline Flush] 10 ml FLUSH ASDIRECTED PRN 05/08/17 12:55 EKG 12 Lead [EKG Documentation Completion] [RC] STAT Peripheral IV Care [RC] . DIRECTED Peripheral IV Insertion Adult [OM.PC] Stat - Assessment/Plan Last 24 Hours: My Active Orders 05/08/17 12:54 Sodium Chloride 0.9% [Saline Flush] 10 ml FLUSH ASDIRECTED PRN 05/08/17 12:55 EKG 12 Lead [EKG Documentation Completion] [RC] STAT Peripheral IV Care [RC] . DIRECTED Peripheral IV Insertion Adult [OM.PC] Stat
[2017-05-08] MEDS ORDERED: Sodium Chloride 0.9% 10 ML Syringe FLUSH PRN (12:54)
[2017-05-08 13:27] VITALS: BP 151/87
--- NOTE | 2017-05-08 13:53 | CR ---
CLINICAL HISTORY: 56-year-old male with chest pain. INTERPRETATION: Less than optimal inspiratory effort and mild ectasia dorsal aorta. Ross thorax unre markable this AP projection. Normal cardiac silhouette and no new signs of heart failure, lung mass, hilar lymphadenopathy or foca l lobar pneumonia when compared directly to 01 May 2017 AP chest (no residual evidence of apparen t congestion demonstrated earlier). CONCLUSION: No acute cardiopulmonary abnormality.
--- NOTE | 2017-05-10 13:37 | EKG ---
05/08/2017- MIAH CAIN PAVEL - FINDINGS: A 12-lead EKG shows normal sinus rhythm with heart rate of 73. No significant ST elevation or ST depression noted on this 12-lead EKG. Shows some changes for right bundle-branch block and left anterior fascicular block. [facility] /[id number]
== END 2017-05-08 14:40 | disposition home or self-care (01) ==
LOC: DL.ED 12:50
DX: R07.9 Chest pain, unspecified (principal); I11.0 Hypertensive heart disease with heart failure; I50.9 Heart failure, unspecified; E11.40 Type 2 diabetes mellitus with diabetic neuropathy, unspecified; Z79.82 Long term (current) use of aspirin; Z79.4 Long term (current) use of insulin; Z79.899 Other long term (current) drug therapy
CPT/HCPCS: 36415; 71045; 80053; 84484; 85025; 85610; 85730; 93005; 99285; J7050

== ENCOUNTER 2017-05-14 19:31 | Emergency (ER) | payer OTHER ==
--- NOTE | 2017-05-14 20:04 | EDM.PDOC ---
ED HPI GENERAL MEDICAL PROBLEM - General Chief Complaint: Respiratory Problem Stated Complaint: HARD TIME BREATHING [id number] Time Seen by Provider: 05/14/17 20:03 Source of Information: Reports: Patient History Limitations: Reports: No Limitations - History of Present Illness INITIAL COMMENTS - FREE TEXT/NARRATIVE: ED with c/o high blood pressure after using Albuterol inhaler. Had been SOB after lying flat this gus, got up used inhaler then checked BP. Denied chest pain. Recent hospitalization for pneumonia and CHF. Notes weight increased approximately 10#. Has not taken this eves dose of lasix as takes with bedtime medications. Continues on Augmentin for diabetic ulcer that was debrided last week. Had completed course for pneumonia. Blood sugar 118 yesterday. 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 TRAINING: Reports: Breathing Treatments - Related Data Allergies Allergy/AdvReac Type Severity Reaction Status Date / Time No Known Allergies Allergy Verified 05/08/17 12:55 Home Meds: Home Meds Gabapentin [Neurontin] 600 mg PO TID 03/13/13 [History] metFORMIN HCl [Metformin HCl] 500 tab PO BID 06/08/16 [History] Clopidogrel [Plavix] 75 mg PO DAILY 07/30/16 [History] Insulin Detemir [Levemir Flextouch] 30 unit SQ DAILY 07/30/16 [History] Metoprolol Succinate [Toprol Xl] 100 mg PO DAILY 07/30/16 [History] atorvaSTATin [Lipitor] 40 mg PO DAILY 07/30/16 [History] Insuln Asp Prot/Insulin Aspart [NovoLOG Mix 70-30] 6 unit SQ TID 05/08/17 [ History] Albuterol [Proventil HFA] 200 puff INH Q6H 05/14/17 [History] Enalapril [Vasotec] 10 mg PO BID 05/14/17 [History] Past Medical History HEENT History: Reports: Impaired Vision Other HEENT History: wears reading glasses Cardiovascular History: Reports: Heart Failure, Hypertension, Stents Respiratory History: Reports: None Gastrointestinal History: Reports: None Genitourinary History: Reports: None Musculoskeletal History: Reports: None Neurological History: Reports: Neuropathy, Diabetic Psychiatric History: Reports: None Endocrine/Metabolic History: Reports: Diabetes, Type II Hematologic History: Reports: None Immunologic History: Reports: None Oncologic (Cancer) History: Reports: None Dermatologic History: Reports: None - Infectious Disease History Infectious Disease History: Reports: Hepatitis C - Past Surgical History Head Surgeries/Procedures: Reports: None Cardiovascular Surgical History: Reports: Coronary Artery Stent Social & Family History - Family History Family Medical History: Noncontributory - Tobacco Use Smoking Status *Q: Never Smoker Second Hand Smoke Exposure: No - Caffeine Use Caffeine Use: Reports: Coffee - Alcohol Use Days Per Week of Alcohol Use: 0 - Recreational Drug Use Recreational Drug Use: No - Living Situation & Occupation Living situation: Reports: Occupation: Unemployed ED ROS GENERAL - Review of Systems Review Of Systems: ROS reveals no pertinent complaints other than HPI. ED EXAM, GENERAL - Physical Exam Exam: See Below Exam Limited By: No Limitations General Appearance: Alert, No Apparent Distress Eye Exam: Bilateral Eye: EOMI Ears: Normal External Exam Back Exam: Normal Inspection Extremities: Pedal Edema (trace) Neurological: Alert, Oriented, Normal Cognition Psychiatric: Flat Affect Skin Exam: Warm, Dry, Wound/Incision (diabetic ulcer right lateral metatarsal open 5mm clean scant clear pink drainage.) Course - Vital Signs Last Recorded V/S: Last Vital Signs Temp 96.2 F 05/14/17 20:55 Pulse 66 05/14/17 20:55 Resp 19 05/14/17 20:55 BP 156/89 H 05/14/17 20:55 Pulse Ox 99 05/14/17 20:55 - Orders/Labs/Meds Orders: Active Orders 24 hr Category Date Time Status EKG 12 Lead [EKG Documentation Completion] [RC] URGENT Care 05/14/17 19:47 Active Labs: Laboratory Tests 05/14/17 05/14/17 Range/Units 19:56 19:56 WBC 7.9 (5.0-10.0) 10^3/uL RBC 4.91 (4.6-6.2) 10^6/uL Hgb 14.0 (14.0-18.0) g/dL Hct 40.9 (40.0-54.0) % MCV 83.3 (80-100) fL MCH 28.5 (27.0-34.0) pg MCHC 34.2 (33.0-35.0) g/dL Plt Count 170 (150-450) 10^3/uL Neut % (Auto) 59.7 (42.2-75.2) % Lymph % (Auto) 26.6 (20.5-50.1) % [place] % (Auto) 7.9 (2-8) % Eos % (Auto) 5.2 H (1.0-3.0) % Baso % (Auto) 0.6 (0.0-1.0) % Sodium 138 (135-145) mmol/L Potassium 4.2 (3.6-5.0) mmol/L Chloride 104 (101-111) mmol/L Carbon Dioxide 28.0 (21.0-31.0) mmol/L Anion Gap 10.2 BUN 25 H (7-18) mg/dL Creatinine 1.1 (0.6-1.3) mg/dL Est Cr Clr Drug Dosing 79.86 mL/min Estimated GFR (MDRD) > 60 BUN/Creatinine Ratio 22.72 Glucose 191 H (74-105) mg/dL Calcium 8.3 L (8.4-10.2) mg/dl Total Bilirubin 0.6 (0.2-1.0) mg/dL AST 27 (10-42) IU/L ALT 15 (10-60) IU/L Alkaline Phosphatase 86 (42-121) IU/L Troponin I < 0.02 (0.00-0.02) ng/ml B-Natriuretic Peptide 451 H (0-100) pg/ml Total Protein 7.0 (6.7-8.2) g/dl Albumin 3.4 (3.2-5.5) g/dl Globulin 3.6 Albumin/Globulin Ratio 0.94 Meds: Medications Discontinued Medications Generic Name Dose Route Start Last Admin Trade Name Freq PRN Reason Stop Dose Admin Furosemide 40 mg 05/14/17 20:37 05/14/17 20:43 Lasix IVPUSH 05/14/17 20:38 40 mg NOW ONE Administration - Radiology Interpretation Free Text/Narrative:: CXR negative - Re-Assessments/Exams Free Text/Narrative Re-Assessment/Exam: 05/14/17 21:31 BP improved upon presentation and through ED stay. Mild elevation of BNP. IV dose Lasix with good urine output following. Symptoms resolved at discharge. Departure - Departure Time of Disposition: 21:33 Disposition: Home, Self-Care 01 Condition: Good Clinical Impression: CHF (congestive heart failure) Qualifiers: Congestive heart failure type: unspecified Congestive heart failure chronicity : acute on chronic Qualified Code(s): I50.9 - Heart failure, unspecified Hypertension Qualifiers: Hypertension type: unspecified Qualified Code(s): I10 - Essential (primary) hypertension - Discharge Information Instructions: Heart Failure, [id number] Forms: ED Department Discharge Additional Instructions: Monitor fluid intake Limit sodium and salt intake continue to monitor weights follow up with primary care if weights continue to increase Do not take Furosemide tonight - My Orders Last 24 Hours: My Active Orders 05/14/17 19:47 EKG 12 Lead [EKG Documentation Completion] [RC] URGENT - Assessment/Plan Last 24 Hours: My Active Orders 05/14/17 19:47 EKG 12 Lead [EKG Documentation Completion] [RC] URGENT
[2017-05-14 20:21] LABS: CHLORIDE,CL 104 mmol/L (101-111); SODIUM,NA 138 mmol/L (135-145)
[2017-05-14] MEDS ORDERED: Furosemide 40 MG/4 ML VIAL IVPUSH ONE (20:37)
[2017-05-14 20:55] VITALS: BP 156/89
--- NOTE | 2017-05-17 19:12 | EKG ---
05/14/2017 - MIAH CAIN I reviewed the EKG and agree with the machine reading. [facility] /[id number]
== END 2017-05-14 21:29 | disposition home or self-care (01) ==
LOC: DL.ED 19:31
DX: I11.0 Hypertensive heart disease with heart failure (principal); I50.9 Heart failure, unspecified; E11.40 Type 2 diabetes mellitus with diabetic neuropathy, unspecified; Z79.899 Other long term (current) drug therapy; Z79.4 Long term (current) use of insulin
CPT/HCPCS: 36415; 71045; 80053; 83880; 84484; 85025; 93005; 96374; 99285; J1940

== ENCOUNTER 2017-06-08 17:14 | Emergency (ER) | payer OTHER ==
[2017-06-08 18:14] VITALS: BP 156/84
--- NOTE | 2017-06-08 18:49 | EDM.PDOC ---
Scribed by Jeanne Ambriz 06/08/17 [id number] for Juarez Whittington MD ED HPI GENERAL MEDICAL PROBLEM - General Chief Complaint: Cardiovascular Problem Stated Complaint: [id number] BP REALLY HIGH TODAY CHF Time Seen by Provider: 06/08/17 17:35 Source of Information: Reports: Patient, RN, RN Notes Reviewed History Limitations: Reports: No Limitations - History of Present Illness INITIAL COMMENTS - FREE TEXT/NARRATIVE: Patient arrives from home by POV with patient stating that he feels completely fine but was instructed to come to the emergency department by home health nurse because his blood pressure was found to be 174/110 earlier today when the nurse was at his home. The patient states that he has congestive heart failure and is on a pioneer drug trial. Patient states that he forgot to take his trial medication today at noon. Home health nurse reported to the triage nurse that according to instruction of the patient's medication dispenser at home he has forgot to take the medication for the past 4 days. Patient denies any chest pain , shortness of breath, orthopnea or edema. Patient denies any symptoms or complaints at this time. Severity: Mild - Related Data Allergies Allergy/AdvReac Type Severity Reaction Status Date / Time No Known Allergies Allergy Verified 06/08/17 17:41 Home Meds: Home Meds Gabapentin [Neurontin] 600 mg PO TID 03/13/13 [History] metFORMIN HCl [Metformin HCl] 500 tab PO BID 06/08/16 [History] Clopidogrel [Plavix] 75 mg PO DAILY 07/30/16 [History] Insulin Detemir [Levemir Flextouch] 40 unit SQ DAILY 07/30/16 [History] Metoprolol Succinate [Toprol Xl] 100 mg PO DAILY 07/30/16 [History] atorvaSTATin [Lipitor] 40 mg PO DAILY 07/30/16 [History] Insuln Asp Prot/Insulin Aspart [NovoLOG Mix 70-30] 6 unit SQ TID 05/08/17 [ History] Albuterol [Proventil HFA] 200 puff INH Q6H 05/14/17 [History] Enalapril [Vasotec] 10 mg PO BID 05/14/17 [History] Furosemide [Lasix] 40 mg PO BID 06/08/17 [History] Past Medical History HEENT History: Reports: Impaired Vision Other HEENT History: wears reading glasses Cardiovascular History: Reports: Heart Failure, Hypertension, Stents Respiratory History: Reports: None Gastrointestinal History: Reports: None Genitourinary History: Reports: None Musculoskeletal History: Reports: None Neurological History: Reports: Neuropathy, Diabetic Psychiatric History: Reports: None Endocrine/Metabolic History: Reports: Diabetes, Type II Hematologic History: Reports: None Immunologic History: Reports: None Oncologic (Cancer) History: Reports: None Dermatologic History: Reports: None - Infectious Disease History Infectious Disease History: Reports: Hepatitis C - Past Surgical History Head Surgeries/Procedures: Reports: None Cardiovascular Surgical History: Reports: Coronary Artery Stent Social & Family History - Family History Family Medical History: Noncontributory - Tobacco Use Smoking Status *Q: Never Smoker Second Hand Smoke Exposure: No - Caffeine Use Caffeine Use: Reports: Coffee - Alcohol Use Days Per Week of Alcohol Use: 0 - Recreational Drug Use Recreational Drug Use: No - Living Situation & Occupation Living situation: Reports: Occupation: Unemployed ED ROS GENERAL - Review of Systems Review Of Systems: ROS reveals no pertinent complaints other than HPI. ED EXAM, GENERAL - Physical Exam Exam: See Below Exam Limited By: No Limitations General Appearance: Alert, WD/WN, No Apparent Distress Head: Atraumatic, Normocephalic Neck: Normal Inspection, Supple, Non-Tender, Full Range of Motion Respiratory/Chest: No Respiratory Distress, Lungs Clear, Normal Breath Sounds, No Accessory Muscle Use, Chest Non-Tender Cardiovascular: Regular Rate, Rhythm, No Edema. No: JVD GI/Abdominal: Normal Bowel Sounds, Soft, Non-Tender Extremities: Normal Inspection, Normal Range of Motion, Non-Tender, Normal Capillary Refill, No Pedal Edema Neurological: Alert, Oriented, CN II-XII Intact, Normal Cognition, Normal Gait, No Motor/Sensory Deficits Psychiatric: Normal Mood Skin Exam: Warm, Dry, Intact, Normal Color, No Rash Course - Vital Signs Last Recorded V/S: Last Vital Signs Temp 36.9 C 06/08/17 17:31 Pulse 67 06/08/17 17:31 Resp 18 06/08/17 17:31 BP 156/84 H 06/08/17 18:14 Pulse Ox 100 06/08/17 17:31 - Re-Assessments/Exams Free Text/Narrative Re-Assessment/Exam: 06/08/17 18:05 Patient with no complaints. Blood pressure 161/82, heart rate 67, oxygen saturation 100% on room air. Patient has missed at least one dose of his antihypertensive and CHF medications today. I find no indication for further diagnostic evaluation at this time. I have advised the patient to take his next scheduled dose of medication and monitor his blood pressure tomorrow. Follow up with his primary doctor and/or teradata developer if any further concerns. Departure - Departure Time of Disposition: 18:07 Disposition: Home, Self-Care 01 Condition: Good Clinical Impression: Noncompliance with medication regimen Hypertension Qualifiers: Hypertension type: unspecified Qualified Code(s): I10 - Essential (primary) hypertension CHF (congestive heart failure) Qualifiers: Heart failure type: unspecified Heart failure chronicity: chronic Qualified Code(s): I50.9 - Heart failure, unspecified Instructions: Hypertension, [id number], Heart Failure, [id number] Referrals: Ron Isbell MD [Primary Care Provider] - Forms: ED Department Discharge Additional Instructions: Take your next scheduled dose of medications as prescribed. Monitor your blood pressure tomorrow. Report the findings to your primary doctor or teradata developer if higher then expected. Return to the emergency department if you develop blood pressure readings with the top number greater than 200 or less than 90, or the bottom number greater than 110 or less than 50. Also return to the emergency room if you develop chest pain, shortness of breath , increasing leg edema or weight gain of more than 2.5 pounds in a 24 hours period. I have read and agree with the documentation that has been completed regarding this visit. By signing this record, I attest that the documentation was completed in my physical presence and is an accurate record of the encounter.
== END 2017-06-08 18:14 | disposition home or self-care (01) ==
LOC: DL.ED 17:14
DX: I11.0 Hypertensive heart disease with heart failure (principal); I50.9 Heart failure, unspecified; E11.40 Type 2 diabetes mellitus with diabetic neuropathy, unspecified; Z79.4 Long term (current) use of insulin; Z79.899 Other long term (current) drug therapy; Z91.14 Patient's other noncompliance with medication regimen
CPT/HCPCS: 99283

== ENCOUNTER 2017-08-22 09:14 | Observation (INO) | payer OTHER ==
[2017-08-22] MEDS ORDERED: Sodium Chloride 0.9% 10 ML Syringe FLUSH PRN (09:22)
--- NOTE | 2017-08-22 09:29 | EDM.PDOC ---
ED HPI GENERAL MEDICAL PROBLEM - General Chief Complaint: Chest Pain Stated Complaint: IN BY AMBULANCE CHEST PAIN Time Seen by Provider: 08/22/17 09:15 Source of Information: Reports: Patient, EMS, EMS Notes Reviewed, RN, RN Notes Reviewed History Limitations: Reports: No Limitations - History of Present Illness INITIAL COMMENTS - FREE TEXT/NARRATIVE: Pt presents to the ER per [facility] from the [facility] with c/o chest pain and SOB. Patient states his mid sternal chest pressure began about 5am today. He states he went to the clinic as soon as it opened. He states after being given Nitro, oxygen, and ASA, the patient felt somewhat better and his breathing began to get better. Dr. Isbell from [facility] reports Twave inversion in anterior leads new from EKG in May. Patient reportedly has hx of uncontrolled DM, CAD, CHF, hx of stents. Denies fever, chills, N/V/D. States he has had a cough for a couple of weeks. Onset: Today, Sudden Duration: Constant Location: Reports: Chest Quality: Reports: Dull, Pressure Severity: Moderate Improves with: Reports: Medication (Nitro and O2) Worsens with: Reports: None Associated Symptoms: Reports: Chest Pain, Shortness of Breath Treatments [employer] EXECUTIVE DIRECTOR: Reports: Aspirin, Nitroglycerin, Oxygen - Related Data Allergies Allergy/AdvReac Type Severity Reaction Status Date / Time No Known Allergies Allergy Verified 08/22/17 09:27 Home Meds: Home Meds Gabapentin [Neurontin] 600 mg PO TID 03/13/13 [History] metFORMIN HCl [Metformin HCl] 500 tab PO BID 06/08/16 [History] Clopidogrel [Plavix] 75 mg PO DAILY 07/30/16 [History] Insulin Detemir [Levemir Flextouch] 40 unit SQ DAILY 07/30/16 [History] Metoprolol Succinate [Toprol Xl] 100 mg PO DAILY 07/30/16 [History] atorvaSTATin [Lipitor] 40 mg PO DAILY 07/30/16 [History] Insuln Asp Prot/Insulin Aspart [NovoLOG Mix 70-30] 8 unit SQ TID 05/08/17 [ History] Albuterol [Proventil HFA] 200 puff INH Q6H 05/14/17 [History] Furosemide [Lasix] 40 mg PO BID 06/08/17 [History] Amoxicillin/Clavulanate K [Augmentin 875-125 MG] 1 tab PO BID 08/22/17 [History] Aspirin 1 tab PO DAILY 08/22/17 [History] Brimonidine Tartrate [Brimonidine Tartrate 0.2% Ophth Soln] 1 drop EYEBOTH BID 08/22/17 [History] DULoxetine HCl [Duloxetine HCl] 1 cap PO DAILY 08/22/17 [History] Magnesium Oxide [Magnesium] 1 tab PO DAILY 08/22/17 [History] Potassium Chloride 1 tab PO DAILY 08/22/17 [History] Saxagliptin HCl [Onglyza] 1 tab PO DAILY 08/22/17 [History] Timolol Maleate [Timoptic 0.5% Ophth Soln] 1 drop EYEBOTH BID 08/22/17 [History] Past Medical History HEENT History: Reports: Impaired Vision Other HEENT History: wears reading glasses Cardiovascular History: Reports: Heart Failure, Hypertension, Stents Respiratory History: Reports: None Gastrointestinal History: Reports: None Genitourinary History: Reports: None Musculoskeletal History: Reports: None Neurological History: Reports: Neuropathy, Diabetic Psychiatric History: Reports: None Endocrine/Metabolic History: Reports: Diabetes, Type II Hematologic History: Reports: None Immunologic History: Reports: None Oncologic (Cancer) History: Reports: None Dermatologic History: Reports: None - Infectious Disease History Infectious Disease History: Reports: Hepatitis C - Past Surgical History Head Surgeries/Procedures: Reports: None Cardiovascular Surgical History: Reports: Coronary Artery Stent Social & Family History - Family History Family Medical History: Noncontributory - Caffeine Use Caffeine Use: Reports: Coffee - Living Situation & Occupation Living situation: Reports: Occupation: Unemployed ED ROS GENERAL - Review of Systems Review Of Systems: ROS reveals no pertinent complaints other than HPI. ED EXAM, GENERAL - Physical Exam Exam: See Below Exam Limited By: No Limitations General Appearance: Alert, WD/WN, No Apparent Distress Eye Exam: Bilateral Eye: EOMI, Normal Inspection Ears: Normal External Exam, Hearing Grossly Normal Nose: Normal Inspection Throat/Mouth: Normal Inspection, Normal Voice, No Airway Compromise Head: Atraumatic, Normocephalic Neck: Normal Inspection, Supple, Non-Tender, Full Range of Motion Respiratory/Chest: No Respiratory Distress, No Accessory Muscle Use, Chest Non- Tender, Rhonchi (throughout, bilateral) Cardiovascular: Normal Peripheral Pulses, Regular Rate, Rhythm, No Edema, No Gallop, No JVD, No Murmur, No Rub Peripheral Pulses: 2+: Radial (L), Radial (R) GI/Abdominal: Normal Bowel Sounds, Soft, Non-Tender (Male) Exam: Deferred Rectal (Males) Exam: Deferred Back Exam: Normal Inspection, Full Range of Motion Extremities: Normal Inspection, Normal Range of Motion, Non-Tender, No Pedal Edema, Normal Capillary Refill Neurological: Alert, Oriented, CN II-XII Intact, Normal Cognition, Normal Gait, Normal Reflexes, No Motor/Sensory Deficits Psychiatric: Normal Affect, Normal Mood Skin Exam: Wound/Incision (diabetic ulcer, right foot) Lymphatic: No Adenopathy EKG INTERPRETATION EKG Date: 08/22/17 Time: 09:19 Rhythm: Other (sinus rhythm, PAC, RBBB, LBBB) Rate (Beats/Min): 74 P-Wave: Present Comparison: Change From Previous EKG (Twave inversion in V1, V2, V3, new from 02-18) Course - Vital Signs Last Recorded V/S: Last Vital Signs Temp 98 F 08/22/17 09:17 Pulse 74 08/22/17 09:17 Resp 22 H 08/22/17 09:17 BP 152/99 H 08/22/17 09:17 Pulse Ox 94 L 08/22/17 09:17 - Orders/Labs/Meds Orders: Active Orders 24 hr Category Date Time Status EKG Documentation Completion [RC] STAT Care 08/22/17 09:22 Active Peripheral IV Care [RC] . DIRECTED Care 08/22/17 09:22 Active Chest 1V Frontal [CR] Stat Exams 08/22/17 09:22 Taken UA W/MICROSCOPIC [URIN] Stat Lab 08/22/17 09:22 Ordered Sodium Chloride 0.9% [Saline Flush] Med 08/22/17 09:22 Active 10 ml FLUSH ASDIRECTED PRN Peripheral IV Insertion Adult [OM.PC] Stat Oth 08/22/17 09:22 Ordered Medication Orders Sodium Chloride (Saline Flush) 10 ml FLUSH ASDIRECTED PRN PRN Reason: Keep Vein Open Labs: Laboratory Tests 08/22/17 08/22/17 08/22/17 Range/Units 09:34 09:34 09:34 WBC 7.2 (5.0-10.0) 10^3/uL RBC 4.23 L (4.6-6.2) 10^6/uL Hgb 12.1 L D (14.0-18.0) g/dL Hct 36.6 L (40.0-54.0) % MCV 86.5 D (80-100) fL MCH 28.6 (27.0-34.0) pg MCHC 33.1 (33.0-35.0) g/dL Plt Count 162 (150-450) 10^3/uL Neut % (Auto) 62.4 (42.2-75.2) % Lymph % (Auto) 21.1 (20.5-50.1) % Weber % (Auto) 10.7 H (2-8) % Eos % (Auto) 4.7 H (1.0-3.0) % Baso % (Auto) 1.1 H (0.0-1.0) % PT 10.5 (9.0-12.0) SEC INR 1.1 (0.9-1.2) Sodium 140 (135-145) mmol/L Potassium 4.3 (3.6-5.0) mmol/L Chloride 104 (101-111) mmol/L Carbon Dioxide 27.0 (21.0-31.0) mmol/L Anion Gap 13.3 BUN 27 H (7-18) mg/dL Creatinine 1.1 (0.6-1.3) mg/dL Est Cr Clr Drug Dosing 78.91 mL/min Estimated GFR (MDRD) > 60 BUN/Creatinine Ratio 24.54 Glucose 125 H (74-105) mg/dL Calcium 8.8 (8.4-10.2) mg/dl Total Bilirubin 0.6 (0.2-1.0) mg/dL AST 26 (10-42) IU/L ALT 13 (10-60) IU/L Alkaline Phosphatase 80 (42-121) IU/L Troponin I 0.02 (0.00-0.02) ng/ml B-Natriuretic Peptide 2330 H (0-100) pg/ml Total Protein 7.6 (6.7-8.2) g/dl Albumin 3.5 (3.2-5.5) g/dl Globulin 4.1 Albumin/Globulin Ratio 0.85 Meds: Medications Generic Name Dose Route Start Last Admin Trade Name Freq PRN Reason Stop Dose Admin Sodium Chloride 10 ml 08/22/17 09:22 Saline Flush FLUSH ASDIRECTED PRN Keep Vein Open - Radiology Interpretation Free Text/Narrative:: Chest xray: See Rad report Departure - Departure Time of Disposition: 10:19 Disposition: Home, Self-Care 01 Condition: Fair Clinical Impression: Chest pain Qualifiers: Chest pain type: unspecified Qualified Code(s): R07.9 - Chest pain, unspecified CHF (congestive heart failure) Qualifiers: Heart failure type: unspecified Heart failure chronicity: chronic Qualified Code(s): I50.9 - Heart failure, unspecified Diabetes mellitus Qualifiers: Diabetes mellitus type: type 2 Diabetes mellitus longterm insulin use: with longterm use Diabetes mellitus complication status: with skin complications Diabetes mellitus complication detail: with foot ulcer Qualified Code(s): E11.621 - Type 2 diabetes mellitus with foot ulcer; L97.509 - Non-pressure chronic ulcer of other part of unspecified foot with unspecified severity; 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 DIRECTED Chest 1V Frontal [CR] Stat UA W/MICROSCOPIC [URIN] Stat Sodium Chloride 0.9% [Saline Flush] 10 ml FLUSH ASDIRECTED PRN Peripheral IV Insertion Adult [OM.PC] Stat - Assessment/Plan Last 24 Hours: My Active Orders 08/22/17 09:22 EKG Documentation Completion [RC] STAT Peripheral IV Care [RC] . DIRECTED Chest 1V Frontal [CR] Stat UA W/MICROSCOPIC [URIN] Stat Sodium Chloride 0.9% [Saline Flush] 10 ml FLUSH ASDIRECTED PRN Peripheral IV Insertion Adult [OM.PC] Stat
[2017-08-22 10:03] LABS: CHLORIDE,CL 104 mmol/L (101-111); SODIUM,NA 140 mmol/L (135-145)
--- NOTE | 2017-08-22 10:25 | CR ---
CLINICAL HISTORY: 57-year-old male with chest pain. INTERPRETATION: Poor inspiratory effort crowding and accentuating the perihilar and left lower lobe l bailey markings when compared to 14 May 2014 exam. Perihilar pneumonitis a differential considerati on and close clinical correlation requested. Normal cardiac silhouette without alveolar edema or dependent pleural effusion. Ross thorax unremark able. No new lung mass or peripheral focal lobar consolidation. CONCLUSION: Pulmonary venous congestion (versus perihilar pneumonitis). Clinical? No current signs of alveolar edema, dependent pleural effusion or peripheral pneumonic consolidation. See interval change described above since 14 May 2017 AP portable chest film.
--- NOTE | 2017-08-22 11:17 | PCM.HP ---
H&P History of Present Illness - General Date of Service: 08/22/17 - History of Present Illness Initial Comments - Free Text/Narative: The patient is a 57-year-old gentleman with a history of hypertension, dyslipidemia, diabetes with complication of retinopathy and neuropathy. He has a history of chronic congestive heart failure with systolic dysfunction, last echocardiogram (04/2017) has shown an ejection fraction of 30-35%, moderate global hypokinesis of the left ventricle. The patient's last hospitalization for CHF exacerbation was in May at [facility]. She has been followed by cardiology at [facility] and are dissipating in an open label trial of Entresto versus enalapril. The patient presented on the morning of 22 August with onset of shortness of breath associated with chest tightness. Symptoms started 2-3 days prior to admission, were worse at night, improved after oxygen, nitroglycerin, aspirin administration. He also noted increased lower extremity swelling. Shortness of breath was better when he was laying on his abdomen. He denies cough, fever, sputum production. He went to the local clinic from where he was sent to the emergency room at [facility]. - Related Data Allergies/Adverse Reactions: Allergies Allergy/AdvReac Type Severity Reaction Status Date / Time No Known Allergies Allergy Verified 08/22/17 09:27 Home Medications: Home Meds Gabapentin [Neurontin] 600 mg PO TID 03/13/13 [History] metFORMIN HCl [Metformin HCl] 500 mg PO BID 06/08/16 [History] Clopidogrel [Plavix] 75 mg PO DAILY 07/30/16 [History] Insulin Detemir [Levemir Flextouch] 40 unit SQ BEDTIME 07/30/16 [History] Metoprolol Succinate [Toprol Xl] 100 mg PO DAILY 07/30/16 [History] atorvaSTATin [Lipitor] 40 mg PO BEDTIME 07/30/16 [History] Insuln Asp Prot/Insulin Aspart [NovoLOG Mix 70-30] 8 unit SQ TID 05/08/17 [ History] Furosemide [Lasix] 40 mg PO BID 06/08/17 [History] Aspirin 81 mg PO DAILY 08/22/17 [History] Brimonidine Tartrate [Brimonidine Tartrate 0.2% Ophth Soln] 1 drop EYEBOTH BID 08/22/17 [History] DULoxetine HCl [Duloxetine HCl] 60 mg PO DAILY 08/22/17 [History] Magnesium Oxide [Magnesium] 400 mg PO DAILY 08/22/17 [History] Potassium Chloride 10 meq PO DAILY 08/22/17 [History] Saxagliptin HCl [Onglyza] 5 mg PO DAILY 08/22/17 [History] Timolol Maleate [Timoptic 0.5% Ophth Soln] 1 drop EYEBOTH BID 08/22/17 [History] Past Medical History HEENT History: Reports: Cataract, Glaucoma, Impaired Vision Other HEENT History: wears reading glasses Cardiovascular History: Reports: Heart Failure, Hypertension, Stents Other Cardiovascular History: LBBB Respiratory History: Reports: SOB, Other (See Below) Other Respiratory History: with CHF Gastrointestinal History: Reports: None Genitourinary History: Reports: None Musculoskeletal History: Reports: None Neurological History: Reports: Neuropathy, Diabetic Other Neuro History: memory lapses Psychiatric History: Reports: None Endocrine/Metabolic History: Reports: Diabetes, Type II Hematologic History: Reports: None Immunologic History: Reports: None Oncologic (Cancer) History: Reports: None Dermatologic History: Reports: None Other Dermatologic History: Diabetic foot ulcer - Infectious Disease History Infectious Disease History: Reports: Hepatitis C - Past Surgical History Head Surgeries/Procedures: Reports: None HEENT Surgical History: Reports: Cataract Surgery, Other (See Below) Other HEENT Surgeries/Procedures: scheduled for September 2017 Cardiovascular Surgical History: Reports: Coronary Artery Stent Respiratory Surgical History: Reports: None GI Surgical History: Reports: None Male Surgical History: Reports: None Neurological Surgical History: Reports: None Musculoskeletal Surgical History: Reports: None Social & Family History - Family History Family Medical History: Noncontributory - Caffeine Use Caffeine Use: Reports: Coffee - Living Situation & Occupation Living situation: Reports: Occupation: Unemployed H&P Review of Systems - Review of Systems: Review Of Systems: See Below General: Denies: Fever, Chills Pulmonary: Reports: Shortness of Breath. Denies: Wheezing, Pleuritic Chest Pain , Cough, Sputum Cardiovascular: Reports: Chest Pain (Chest tightness), Dyspnea on Exertion, Orthopnea, Edema Gastrointestinal: Denies: Abdominal Pain Genitourinary: Denies: Dysuria Musculoskeletal: Denies: Neck Pain Skin: Reports: No Symptoms Psychiatric: Reports: No Symptoms Neurological: Reports: No Symptoms Exam - Exam Exam: See Below - Vital Signs Vital Signs: Last Vital Signs Temp 36.6 C 08/22/17 09:17 Pulse 74 08/22/17 09:17 Resp 22 H 08/22/17 09:17 BP 152/99 H 08/22/17 09:17 Pulse Ox 94 L 08/22/17 09:17 Weight: 107.501 kg - Exam General: Alert, Oriented HEENT: EOMI Neck: Supple Lungs: Rales (Bilateral) Cardiovascular: Regular Rate, Regular Rhythm GI/Abdominal Exam: Normal Bowel Sounds, Soft, Non-Tender Extremities: Pedal Edema (Trace to 1+ bilateral) Neuro Extensive - Mental Status: Alert, Oriented x3, Normal Mood/Affect Psychiatric: Alert, Normal Affect, Normal Mood - Patient Data Lab Results Last 24 hrs: Laboratory Results - last 24 hr 08/22/17 08/22/17 08/22/17 Range/Units 09:34 09:34 09:34 WBC 7.2 (5.0-10.0) 10^3/uL RBC 4.23 L (4.6-6.2) 10^6/uL Hgb 12.1 L D (14.0-18.0) g/dL Hct 36.6 L (40.0-54.0) % MCV 86.5 D (80-100) fL MCH 28.6 (27.0-34.0) pg MCHC 33.1 (33.0-35.0) g/dL Plt Count 162 (150-450) 10^3/uL Neut % (Auto) 62.4 (42.2-75.2) % Lymph % (Auto) 21.1 (20.5-50.1) % [place] % (Auto) 10.7 H (2-8) % Eos % (Auto) 4.7 H (1.0-3.0) % Baso % (Auto) 1.1 H (0.0-1.0) % PT 10.5 (9.0-12.0) SEC INR 1.1 (0.9-1.2) Sodium 140 (135-145) mmol/L Potassium 4.3 (3.6-5.0) mmol/L Chloride 104 (101-111) mmol/L Carbon Dioxide 27.0 (21.0-31.0) mmol/L Anion Gap 13.3 BUN 27 H (7-18) mg/dL Creatinine 1.1 (0.6-1.3) mg/dL Est Cr Clr Drug Dosing 78.91 mL/min Estimated GFR (MDRD) > 60 BUN/Creatinine Ratio 24.54 Glucose 125 H (74-105) mg/dL Calcium 8.8 (8.4-10.2) mg/dl Total Bilirubin 0.6 (0.2-1.0) mg/dL AST 26 (10-42) IU/L ALT 13 (10-60) IU/L Alkaline Phosphatase 80 (42-121) IU/L Troponin I 0.02 (0.00-0.02) ng/ml B-Natriuretic Peptide 2330 H (0-100) pg/ml Total Protein 7.6 (6.7-8.2) g/dl Albumin 3.5 (3.2-5.5) g/dl Globulin 4.1 Albumin/Globulin Ratio 0.85 Result Diagrams: 08/22/17 09:34 08/22/17 09:34 Imaging Impressions Last 24 hrs: Chest x-ray per reading showed congestive heart failure. No effusions. - Problem List (1) CHF (congestive heart failure) SNOMED Code(s): 49581918 ICD Code: I50.9 - HEART FAILURE, UNSPECIFIED Status: Acute Current Visit : No Qualifiers: Qualified Code(s): I50.9 - Heart failure, unspecified (2) Chest pain SNOMED Code(s): 88946700 ICD Code: R07.9 - CHEST PAIN, UNSPECIFIED Status: Acute Current Visit: No Qualifiers: Chest pain type: unspecified Qualified Code(s): R07.9 - Chest pain, unspecified Problem List Initiated/Reviewed/Updated: Yes Orders Last 24hrs: Active Orders 24 hr Category Date Time Status EKG Documentation Completion [RC] STAT Care 08/22/17 09:22 Active Peripheral IV Care [RC] . DIRECTED Care 08/22/17 09:22 Active TROPONIN I [CHEM] AM Lab 08/23/17 05:11 Ordered TROPONIN I [CHEM] Timed Lab 08/22/17 15:00 Ordered UA W/MICROSCOPIC [URIN] Stat Lab 08/22/17 09:22 Ordered Sodium Chloride 0.9% [Saline Flush] Med 08/22/17 09:22 Active 10 ml FLUSH ASDIRECTED PRN Peripheral IV Insertion Adult [OM.PC] Stat [facility] 08/22/17 09:22 Ordered Medication Orders Sodium Chloride (Saline Flush) 10 ml FLUSH ASDIRECTED PRN PRN Reason: Keep Vein Open Assessment/Plan Comment:: The patient is a 57-year-old gentleman with a history of hypertension, dyslipidemia, diabetes with complication of retinopathy and neuropathy. He has a history of chronic congestive heart failure with systolic dysfunction, last echocardiogram (04/2017) has shown an ejection fraction of 30-35%, moderate global hypokinesis of the left ventricle. The patient's last hospitalization for CHF exacerbation was in May at [facility]. She has been followed by cardiology at [facility] and are dissipating in an open label trial of Entresto versus enalapril. The patient presented on the morning of 22 August with onset of shortness of breath associated with chest tightness. Symptoms started 2-3 days prior to admission, were worse at night, improved after oxygen, nitroglycerin, aspirin administration. He also noted increased lower extremity swelling. Shortness of breath was better when he was laying on his abdomen. Acute exacerbation of systolic congestive heart failure Last ejection fraction 30-35% The patient ran out of his study medication. He thinks this was enalapril. I will increase the patient's diuretic, use IV Lasix. Resume enalapril Continue metoprolol Coronary artery disease With chest tightness, likely related to CHF Monitor troponins Continue aspirin, beta dora, SKYLA inhibitor, Lipitor Monitor on telemetry Diabetes Hold metformin Continue Lantus and short-acting Humalog Follow blood sugars DVT prophylaxis will be with subcutaneous heparin
[2017-08-22] MEDS ORDERED: Zolpidem 5 MG Tab PO PRN (11:19)
[2017-08-22] MEDS ORDERED: Acetaminophen 325 MG Tab PO PRN (11:19)
[2017-08-22] MEDS: [UNRECOGNIZED DRUG - REMARK] SUBCUT SCH ×2 (13:08→17:43)
[2017-08-22] MEDS: Heparin Sodium 5,000 Units/ML Vial SUBCUT SCH ×2 (13:10→21:02)
[2017-08-22] MEDS: Gabapentin 300 MG Cap PO SCH ×2 (13:10→20:31)
[2017-08-22] MEDS: Furosemide 40 MG/4 ML VIAL IVPUSH SCH ×2 (13:12→20:32)
[2017-08-22] MEDS: Sodium Chloride 0.9% 10 ML Syringe FLUSH PRN ×2 (13:13→20:32)
[2017-08-22] MEDS ORDERED: Furosemide 40 MG/4 ML VIAL IVPUSH ONE (14:00)
[2017-08-22] MEDS: Insulin Aspart 100 Units/ML 3 ML Pen SUBCUT SCH (17:44)
--- NOTE | 2017-08-22 19:17 | EKG ---
08/22/2017 - MIAH CAIN - FINDINGS: EKG per my reading, shows sinus rhythm, with PVC. There is right bundle branch block. [facility] /[id number]
[2017-08-22] MEDS: Timolol Maleate 0.5% Ophth Soln 5 ML Bottle EYEBOTH SCH (20:32)
[2017-08-22] MEDS ORDERED: atorvaSTATin 20 MG Tab PO SCH (21:00)
[2017-08-22] MEDS ORDERED: BRIMONIDINE TARTRATE EYEBOTH SCH (21:00)
[2017-08-22] MEDS ORDERED: Insulin Detemir 100 Units/ML 3 ML Pen SUBCUT SCH (21:00)
[2017-08-23] MEDS: Heparin Sodium 5,000 Units/ML Vial SUBCUT SCH (05:44)
[2017-08-23 06:52] LABS: CHLORIDE,CL 102 mmol/L (101-111); SODIUM,NA 137 mmol/L (135-145)
[2017-08-23] MEDS: Insulin Aspart 100 Units/ML 3 ML Pen SUBCUT SCH ×2 (07:33→11:35)
[2017-08-23] MEDS: [UNRECOGNIZED DRUG - REMARK] SUBCUT SCH ×2 (07:54→12:19)
[2017-08-23] MEDS ORDERED: Potassium Chloride 10 MEQ Tab.ER PO SCH (08:00)
[2017-08-23] MEDS: Gabapentin 300 MG Cap PO SCH (08:50)
[2017-08-23] MEDS: Furosemide 40 MG/4 ML VIAL IVPUSH SCH (08:52)
[2017-08-23] MEDS: Timolol Maleate 0.5% Ophth Soln 5 ML Bottle EYEBOTH SCH (08:52)
[2017-08-23] MEDS: Sodium Chloride 0.9% 10 ML Syringe FLUSH PRN (08:53)
[2017-08-23] MEDS ORDERED: DULoxetine 30 MG Cap PO SCH (09:00)
[2017-08-23] MEDS ORDERED: Clopidogrel 75 MG Tab PO SCH (09:00)
[2017-08-23] MEDS ORDERED: Metoprolol Succinate 50 MG Tab.ER PO SCH (09:00)
[2017-08-23] MEDS ORDERED: Enalapril 5 MG Tab PO SCH (09:00)
[2017-08-23] MEDS ORDERED: Aspirin 81 MG Tab.Chew PO SCH (09:00)
--- NOTE | 2017-08-23 11:09 | PCM.DCSUM1 ---
Discharge Summary - Hospital Course Free Text/Narrative:: The patient is a 57-year-old gentleman with a history of hypertension, dyslipidemia, diabetes with complication of retinopathy and neuropathy. He has a history of chronic congestive heart failure with systolic dysfunction, last echocardiogram (04/2017) has shown an ejection fraction of 30-35%, moderate global hypokinesis of the left ventricle. The patient's last hospitalization for CHF exacerbation was in May at [facility]. She has been followed by cardiology at [facility] and are participating in an open label trial of Entresto versus enalapril. The patient presented on the morning of 22 August with onset of shortness of breath associated with chest tightness. Symptoms started 2-3 days prior to admission, were worse at night, improved after oxygen, nitroglycerin, aspirin administration. He also noted increased lower extremity swelling. Shortness of breath was better when he was laying on his abdomen. Acute exacerbation of systolic congestive heart failure Last ejection fraction 30-35% The patient ran out of his study medication. He thinks this was enalapril. I increased the dose of diuretics to 60 mg 2 times a day, Lasix Coronary artery disease Chest tightness is probably related to congestive heart failure Cardiac enzymes were obtained and they were negative Diabetes Restart patient on metformin Also restart patient on insulin Lantus and Humalog - Discharge Data Discharge Date: 08/23/17 Discharge Disposition: Home, Self-Care 01 Condition: Good - Patient Instructions Fluid Restriction: 2000 mL Driving: May Drive Today Showering/Bathing: August Shower Notify Provider of: Swelling and Redness, Nausea and/or Vomiting - Discharge Plan Prescriptions/Med Rec: Furosemide [Lasix] 60 mg PO BID #90 tablet Home Medications: Home Meds Gabapentin [Neurontin] 600 mg PO TID 03/13/13 [History] metFORMIN HCl [Metformin HCl] 500 mg PO BID 06/08/16 [History] Clopidogrel [Plavix] 75 mg PO DAILY 07/30/16 [History] Insulin Detemir [Levemir Flextouch] 40 unit SQ BEDTIME 07/30/16 [History] Metoprolol Succinate [Toprol Xl] 100 mg PO DAILY 07/30/16 [History] atorvaSTATin [Lipitor] 40 mg PO BEDTIME 07/30/16 [History] Insuln Asp Prot/Insulin Aspart [NovoLOG Mix 70-30] 8 unit SQ TID 05/08/17 [ History] Aspirin 81 mg PO DAILY 08/22/17 [History] Brimonidine Tartrate [Brimonidine Tartrate 0.2% Ophth Soln] 1 drop EYEBOTH BID 08/22/17 [History] DULoxetine HCl [Duloxetine HCl] 60 mg PO DAILY 08/22/17 [History] Magnesium Oxide [Magnesium] 400 mg PO DAILY 08/22/17 [History] Potassium Chloride 10 meq PO DAILY 08/22/17 [History] Saxagliptin HCl [Onglyza] 5 mg PO DAILY 08/22/17 [History] Timolol Maleate [Timoptic 0.5% Ophth Soln] 1 drop EYEBOTH BID 08/22/17 [History] Enalapril [Vasotec] 5 mg PO DAILY tablet 08/23/17 [Rx] Furosemide [Lasix] 60 mg PO BID #90 tablet 08/23/17 [Rx] Referrals: PCP,Unobtain [Primary Care Provider] - - Patient Data Vitals - Most Recent: Last Vital Signs Temp 36.7 C 08/23/17 07:41 Pulse 88 08/23/17 08:51 Resp 20 08/23/17 07:41 BP 151/87 H 08/23/17 08:51 Pulse Ox 98 08/23/17 07:41 Weight - Most Recent: 102.603 kg I&O - Last 24 hours: Intake & Output 08/22/17 08/23/17 08/23/17 22:59 06:59 14:59 Intake Total 240 600 560 Output Total 2000 250 Balance -1760 350 560 Lab Results - Last 24 hrs: Laboratory Results - last 24 hr 08/22/17 08/22/17 08/22/17 Range/Units 15:00 16:45 20:48 WBC (5.0-10.0) 10^3/uL RBC (4.6-6.2) 10^6/uL Hgb (14.0-18.0) g/dL Hct (40.0-54.0) % MCV (80-100) fL MCH (27.0-34.0) pg MCHC (33.0-35.0) g/dL Plt Count (150-450) 10^3/uL Neut % (Auto) (42.2-75.2) % Lymph % (Auto) (20.5-50.1) % [place] % (Auto) (2-8) % Eos % (Auto) (1.0-3.0) % Baso % (Auto) (0.0-1.0) % Sodium (135-145) mmol/L Potassium (3.6-5.0) mmol/L Chloride (101-111) mmol/L Carbon Dioxide (21.0-31.0) mmol/L Anion Gap BUN (7-18) mg/dL Creatinine (0.6-1.3) mg/dL Est Cr Clr Drug Dosing mL/min Estimated GFR (MDRD) Glucose (74-105) mg/dL POC Glucose 151 H 110 H (70-105) mg/dl Calcium (8.4-10.2) mg/dl Troponin I < 0.02 (0.00-0.08) ng/mL Urine Color (YELLOW) Urine Appearance (CLEAR) Urine pH (5.0-9.0) Ur Specific [place] (1.005-1.030) Urine Protein (NEGATIVE) Urine Glucose (UA) (NEGATIVE) Urine Ketones (NEGATIVE) Urine Occult Blood (NEGATIVE) Urine Nitrite (NEGATIVE) Urine Bilirubin (NEGATIVE) Urine Urobilinogen (0.2-1.0) mg/dL Ur Leukocyte Esterase (NEGATIVE) Urine RBC /HPF Urine WBC (0-5/HPF) /HPF Ur Epithelial Cells /HPF Urine Bacteria (0-FEW/HPF) /HPF Urine Mucus /LPF 08/22/17 08/23/17 08/23/17 Range/Units 20:55 02:31 03:20 WBC (5.0-10.0) 10^3/uL RBC (4.6-6.2) 10^6/uL Hgb (14.0-18.0) g/dL Hct (40.0-54.0) % MCV (80-100) fL MCH (27.0-34.0) pg MCHC (33.0-35.0) g/dL Plt Count (150-450) 10^3/uL Neut % (Auto) (42.2-75.2) % Lymph % (Auto) (20.5-50.1) % [place] % (Auto) (2-8) % Eos % (Auto) (1.0-3.0) % Baso % (Auto) (0.0-1.0) % Sodium (135-145) mmol/L Potassium (3.6-5.0) mmol/L Chloride (101-111) mmol/L Carbon Dioxide (21.0-31.0) mmol/L Anion Gap BUN (7-18) mg/dL Creatinine (0.6-1.3) mg/dL Est Cr Clr Drug Dosing mL/min Estimated GFR (MDRD) Glucose (74-105) mg/dL POC Glucose 67 L 79 (70-105) mg/dl Calcium (8.4-10.2) mg/dl Troponin I (0.00-0.08) ng/mL Urine Color Yellow (YELLOW) Urine Appearance Clear (CLEAR) Urine pH 5.5 (5.0-9.0) Ur Specific [place] 1.015 (1.005-1.030) Urine Protein >=300 H (NEGATIVE) Urine Glucose (UA) Negative (NEGATIVE) Urine Ketones Negative (NEGATIVE) Urine Occult Blood Negative (NEGATIVE) Urine Nitrite Negative (NEGATIVE) Urine Bilirubin Negative (NEGATIVE) Urine Urobilinogen 1.0 (0.2-1.0) mg/dL Ur Leukocyte Esterase Negative (NEGATIVE) Urine RBC 0-5 /HPF Urine WBC 0-5 (0-5/HPF) /HPF Ur Epithelial Cells Rare /HPF Urine Bacteria Rare (0-FEW/HPF) /HPF Urine Mucus Rare /LPF 08/23/17 08/23/17 08/23/17 Range/Units 04:00 06:23 06:23 WBC 8.0 (5.0-10.0) 10^3/uL RBC 4.35 L (4.6-6.2) 10^6/uL Hgb 12.4 L (14.0-18.0) g/dL Hct 37.2 L (40.0-54.0) % MCV 85.5 (80-100) fL MCH 28.5 (27.0-34.0) pg MCHC 33.3 (33.0-35.0) g/dL Plt Count 165 (150-450) 10^3/uL Neut % (Auto) 73.7 (42.2-75.2) % Lymph % (Auto) 16.0 L (20.5-50.1) % [place] % (Auto) 7.1 (2-8) % Eos % (Auto) 2.6 (1.0-3.0) % Baso % (Auto) 0.6 (0.0-1.0) % Sodium 137 (135-145) mmol/L Potassium 3.6 (3.6-5.0) mmol/L Chloride 102 (101-111) mmol/L Carbon Dioxide 30.0 (21.0-31.0) mmol/L Anion Gap 8.6 BUN 30 H (7-18) mg/dL Creatinine 1.1 (0.6-1.3) mg/dL Est Cr Clr Drug Dosing 78.91 mL/min Estimated GFR (MDRD) > 60 Glucose 169 H (74-105) mg/dL POC Glucose 146 H (70-105) mg/dl Calcium 8.8 (8.4-10.2) mg/dl Troponin I 0.02 (0.00-0.08) ng/mL Urine Color (YELLOW) Urine Appearance (CLEAR) Urine pH (5.0-9.0) Ur Specific [place] (1.005-1.030) Urine Protein (NEGATIVE) Urine Glucose (UA) (NEGATIVE) Urine Ketones (NEGATIVE) Urine Occult Blood (NEGATIVE) Urine Nitrite (NEGATIVE) Urine Bilirubin (NEGATIVE) Urine Urobilinogen (0.2-1.0) mg/dL Ur Leukocyte Esterase (NEGATIVE) Urine RBC /HPF Urine WBC (0-5/HPF) /HPF Ur Epithelial Cells /HPF Urine Bacteria (0-FEW/HPF) /HPF Urine Mucus /LPF 08/23/17 Range/Units 07:25 WBC (5.0-10.0) 10^3/uL RBC (4.6-6.2) 10^6/uL Hgb (14.0-18.0) g/dL Hct (40.0-54.0) % MCV (80-100) fL MCH (27.0-34.0) pg MCHC (33.0-35.0) g/dL Plt Count (150-450) 10^3/uL Neut % (Auto) (42.2-75.2) % Lymph % (Auto) (20.5-50.1) % [place] % (Auto) (2-8) % Eos % (Auto) (1.0-3.0) % Baso % (Auto) (0.0-1.0) % Sodium (135-145) mmol/L Potassium (3.6-5.0) mmol/L Chloride (101-111) mmol/L Carbon Dioxide (21.0-31.0) mmol/L Anion Gap BUN (7-18) mg/dL Creatinine (0.6-1.3) mg/dL Est Cr Clr Drug Dosing mL/min Estimated GFR (MDRD) Glucose (74-105) mg/dL POC Glucose 141 H (70-105) mg/dl Calcium (8.4-10.2) mg/dl Troponin I (0.00-0.08) ng/mL Urine Color (YELLOW) Urine Appearance (CLEAR) Urine pH (5.0-9.0) Ur Specific [place] (1.005-1.030) Urine Protein (NEGATIVE) Urine Glucose (UA) (NEGATIVE) Urine Ketones (NEGATIVE) Urine Occult Blood (NEGATIVE) Urine Nitrite (NEGATIVE) Urine Bilirubin (NEGATIVE) Urine Urobilinogen (0.2-1.0) mg/dL Ur Leukocyte Esterase (NEGATIVE) Urine RBC /HPF Urine WBC (0-5/HPF) /HPF Ur Epithelial Cells /HPF Urine Bacteria (0-FEW/HPF) /HPF Urine Mucus /LPF Med Orders - Current: Current Medications Acetaminophen (Tylenol) 650 mg PO Q4H PRN PRN Reason: Pain (Mild 1-3)/fever Aspirin (Aspirin) 81 mg PO DAILY [facility] Last Admin: 08/23/17 08:49 Dose: 81 mg Atorvastatin Calcium (Lipitor) 40 mg PO BEDTIME [facility] Last Admin: 08/22/17 20:31 Dose: 40 mg Clopidogrel Bisulfate (Plavix) 75 mg PO DAILY [facility] Last Admin: 08/23/17 08:50 Dose: 75 mg Duloxetine HCl (Cymbalta) 60 mg PO DAILY [facility] Last Admin: 08/23/17 08:50 Dose: 60 mg Enalapril Maleate (Vasotec) 5 mg PO DAILY [facility] Last Admin: 08/23/17 08:51 Dose: 5 mg Furosemide (Lasix) 40 mg IVPUSH TID [facility] Last Admin: 08/23/17 08:52 Dose: 40 mg Gabapentin (Neurontin) 600 mg PO TID [facility] Last Admin: 08/23/17 08:50 Dose: 600 mg Heparin Sodium (Porcine) (Heparin Sodium) 5,000 units SUBCUT Q8HR [facility] Last Admin: 08/23/17 05:44 Dose: 5,000 units Insulin Aspart (Novolog) 0 unit SUBCUT TIDAC [facility]; Protocol Last Admin: 08/23/17 07:33 Dose: Not Given Insulin Detemir (Levemir) 40 unit SUBCUT BEDTIME [facility] Last Admin: 08/22/17 21:00 Dose: 40 units Magnesium Oxide (Magnesium Oxide) 500 mg PO DAILY [facility] Last Admin: 08/23/17 08:50 Dose: 500 mg Metoprolol Succinate (Toprol Xl) 150 mg PO DAILY [facility] Last Admin: 08/23/17 08:51 Dose: 150 mg Non-Formulary Medication (Brimonidine Tartrate [Brimonidine Tartrate 0.2% Ophth Soln]) 1 drop EYEBOTH BID [facility] Insuln Asp Prot/Insulin Aspart [ Novolog Mix 70-30] * Non Form Med 8 each SUBCUT TIDMEALS [facility] Last Admin: 08/23/17 07:54 Dose: 8 each Potassium Chloride (Klor-Con 10) 10 meq PO DAILY@0800 [facility] Last Admin: 08/23/17 07:56 Dose: 10 meq Sodium Chloride (Saline Flush) 10 ml FLUSH ASDIRECTED PRN PRN Reason: Keep Vein Open Last Admin: 08/23/17 08:53 Dose: 10 ml Timolol Maleate (Timoptic 0.5% Ophth Soln) 0 ml EYEBOTH BID [facility] Last Admin: 08/23/17 08:52 Dose: 1 drop Zolpidem Tartrate (Ambien) 5 mg PO BEDTIME PRN PRN Reason: Sleep Discontinued Medications Furosemide (Lasix) 40 mg IVPUSH TID ONE Stop: 08/22/17 14:01
[2017-08-23 11:37] VITALS: BP 148/84
== END 2017-08-23 13:15 | disposition home or self-care (01) ==
LOC: DL.ED 09:14 → UNDOADMOB 10:23 → DL.MS 10:23 → EEVIPCON 11:20 → DL.MS 11:20
PROVIDERS: ADMIT Internal Medicine; ATTEND Internal Medicine
DX: I11.0 Hypertensive heart disease with heart failure (principal); I50.23 Acute on chronic systolic (congestive) heart failure; E11.40 Type 2 diabetes mellitus with diabetic neuropathy, unspecified; E11.319 Type 2 diabetes mellitus with unspecified diabetic retinopathy without macular edema; E11.621 Type 2 diabetes mellitus with foot ulcer; L97.509 Non-pressure chronic ulcer of other part of unspecified foot with unspecified severity; E78.5 Hyperlipidemia, unspecified; I25.10 Atherosclerotic heart disease of native coronary artery without angina pectoris; Z79.899 Other long term (current) drug therapy; Z79.4 Long term (current) use of insulin; Z79.02 Long term (current) use of antithrombotics/antiplatelets; Z79.82 Long term (current) use of aspirin; Z95.5 Presence of coronary angioplasty implant and graft
CPT/HCPCS: 36415; 71045; 80048; 80053; 81001; 82962; 83880; 84484; 85025; 85610; 93005; 93010; 96372; 96374; 96376; 99284; 99285; A9270; G0378; J1644; J1815; J1940; J7050

== ENCOUNTER 2017-10-23 18:29 | Inpatient (IN) | payer OTHER ==
[2017-10-23 19:58] LABS: ANION GAP 14.2
--- NOTE | 2017-10-23 19:58 | EDM.PDOC ---
ED HPI GENERAL MEDICAL PROBLEM - General Chief Complaint: General Stated Complaint: BODY ACHES [id number] Time Seen by Provider: 10/23/17 19:40 Source of Information: Reports: Patient, Family History Limitations: Reports: No Limitations - History of Present Illness INITIAL COMMENTS - FREE TEXT/NARRATIVE: This 57 yo male patient reports to the ED with increased weakness, generalized body aches and a headache over the past 2 days. The patient's reports that he looks more pale than normally. The patient reports he was seen in the [facility] last week, but was advised to wait for possible future referral due to his history (previous [place], CHF and reduced EF). The patient reports he has been bitten by several mosquitos this year. The patient denies any dark stools and denies any blood in his stools. The patient reports he has also had an intermittent fever with aching in all of his joints. This morning the patient reports that he did have some left lower quadrant pain that lasted for about 2 hours, but he currently does not have any abdominal pain or tenderness. Onset Date: 10/22/17 Duration: Constant, Getting Worse Location: Reports: Head, Generalized Quality: Reports: Ache, Dull Severity: Moderate Improves with: Reports: None Worsens with: Reports: None Context: Reports: Other Associated Symptoms: Reports: Fever/Chills, Weakness Generalized Pain Score (Numeric/FACES): 7 - Related Data Allergies Allergy/AdvReac Type Severity Reaction Status Date / Time No Known Allergies Allergy Verified 10/23/17 19:06 Home Meds: Home Meds Gabapentin [Neurontin] 600 mg PO TID 03/13/13 [History] metFORMIN HCl [Metformin HCl] 500 mg PO BID 06/08/16 [History] Clopidogrel [Plavix] 75 mg PO DAILY 07/30/16 [History] Insulin Detemir [Levemir Flextouch] 40 unit SQ BEDTIME 07/30/16 [History] Metoprolol Succinate [Toprol Xl] 100 mg PO DAILY 07/30/16 [History] atorvaSTATin [Lipitor] 40 mg PO BEDTIME 07/30/16 [History] Aspirin 81 mg PO DAILY 08/22/17 [History] Brimonidine Tartrate [Brimonidine Tartrate 0.2% Ophth Soln] 1 drop EYEBOTH BID 08/22/17 [History] DULoxetine HCl [Duloxetine HCl] 60 mg PO DAILY 08/22/17 [History] Magnesium Oxide [Magnesium] 400 mg PO DAILY 08/22/17 [History] Potassium Chloride 10 meq PO DAILY 08/22/17 [History] Saxagliptin HCl [Onglyza] 5 mg PO DAILY 08/22/17 [History] Timolol Maleate [Timoptic 0.5% Ophth Soln] 1 drop EYEBOTH BID 08/22/17 [History] Enalapril [Vasotec] 5 mg PO DAILY tablet 08/23/17 [Rx] Insulin Aspart [NovoLOG] 8 unit SUBCUT TIDMEALS 09/30/17 [History] Furosemide [Lasix] 80 mg PO BID #90 tablet 10/02/17 [Rx] Past Medical History HEENT History: Reports: Cataract, Glaucoma, Impaired Vision Other HEENT History: wears reading glasses Cardiovascular History: Reports: Heart Failure, Hypertension, [place], Stents Other Cardiovascular History: LBBB Respiratory History: Reports: SOB, Other (See Below) Other Respiratory History: with CHF Gastrointestinal History: Reports: None Genitourinary History: Reports: None Musculoskeletal History: Reports: None Neurological History: Reports: Neuropathy, Diabetic Other Neuro History: memory lapses Psychiatric History: Reports: None Endocrine/Metabolic History: Reports: Diabetes, Type II Hematologic History: Reports: None Immunologic History: Reports: None Oncologic (Cancer) History: Reports: None Dermatologic History: Reports: None Other Dermatologic History: Diabetic foot ulcer - Infectious Disease History Infectious Disease History: Reports: Hepatitis C - Past Surgical History Head Surgeries/Procedures: Reports: None HEENT Surgical History: Reports: Cataract Surgery, Other (See Below) Other HEENT Surgeries/Procedures: scheduled for 2017 Cardiovascular Surgical History: Reports: Coronary Artery Stent Respiratory Surgical History: Reports: None GI Surgical History: Reports: None Male Surgical History: Reports: None Neurological Surgical History: Reports: None Musculoskeletal Surgical History: Reports: None, Other (See Below) Other Musculoskeletal Surgeries/Procedures:: maryann toe amp. Little toe maryann. Social & Family History - Family History Family Medical History: Noncontributory - Tobacco Use Smoking Status *Q: Never Smoker - Caffeine Use Caffeine Use: Reports: Coffee - Recreational Drug Use Recreational Drug Use: No - Living Situation & Occupation Living situation: Reports: Occupation: Unemployed ED ROS GENERAL - Review of Systems Review Of Systems: ROS reveals no pertinent complaints other than HPI. ED EXAM, GENERAL - Physical Exam Exam: See Below Exam Limited By: No Limitations General Appearance: Alert, WD/WN, Moderate Distress Eye Exam: Bilateral Eye: EOMI, Normal Inspection, PERRL Ears: Normal External Exam, Normal Canal, Hearing Grossly Normal, Normal TMs Nose: Normal Inspection, Normal Mucosa, No Blood Throat/Mouth: Normal Inspection, Normal Lips, Normal Teeth, Normal Gums, Normal Oropharynx, Normal Voice, No Airway Compromise Head: Atraumatic, Normocephalic Neck: Normal Inspection, Supple, Non-Tender, Full Range of Motion Respiratory/Chest: No Respiratory Distress, Lungs Clear, Normal Breath Sounds, No Accessory Muscle Use, Chest Non-Tender Cardiovascular: Normal Peripheral Pulses, Regular Rate, Rhythm, No Edema, No Gallop, No JVD, No Murmur, No Rub GI/Abdominal: Normal Bowel Sounds, Soft, Non-Tender, No Organomegaly, No Distention, No Abnormal Bruit, No Mass (Male) Exam: Deferred Rectal (Males) Exam: Deferred Back Exam: Normal Inspection, Full Range of Motion, NT Extremities: Normal Inspection, Normal Range of Motion, Non-Tender, Normal Capillary Refill, No Pedal Edema Neurological: Alert, Oriented, CN II-XII Intact, Normal Cognition, Normal Gait, Normal Reflexes, No Motor/Sensory Deficits Psychiatric: Normal Affect, Normal Mood Skin Exam: Warm, Dry, Intact, No Rash, Pallor Lymphatic: No Adenopathy Course - Vital Signs Last Recorded V/S: Last Vital Signs Temp 36.9 C 10/23/17 19:58 Pulse 89 10/23/17 19:58 Resp 30 H 10/23/17 19:58 BP 170/105 H 10/23/17 19:58 Pulse Ox 96 10/23/17 19:58 - Orders/Labs/Meds Orders: Active Orders 24 hr Category Date Time Status EKG Documentation Completion [RC] URGENT Care 10/23/17 19:20 Active CULTURE BLOOD [BC] Stat Lab 10/23/17 19:29 Received CULTURE BLOOD [BC] Stat Lab 10/23/17 20:25 Received PROCALCITONIN [REF] Urgent Lab 10/23/17 20:34 Ordered [facility] [REF] Urgent Lab 10/23/17 18:29 Received Blood Culture x2 Reflex Set [OM.PC] Stat Oth 10/23/17 20:01 Ordered Labs: Laboratory Tests 10/23/17 10/23/17 10/23/17 Range/Units 19:13 19:29 19:29 WBC 12.7 H (5.0-10.0) 10^3/uL RBC 4.85 (4.6-6.2) 10^6/uL Hgb 13.4 L (14.0-18.0) g/dL Hct 41.7 (40.0-54.0) % MCV 86.0 (80-100) fL MCH 27.6 (27.0-34.0) pg MCHC 32.1 L (33.0-35.0) g/dL Plt Count 161 (150-450) 10^3/uL Neut % (Auto) 90.1 H (42.2-75.2) % Lymph % (Auto) 4.8 L (20.5-50.1) % [place] % (Auto) 4.7 (2-8) % Eos % (Auto) 0.2 L (1.0-3.0) % Baso % (Auto) 0.2 (0.0-1.0) % Sodium 136 (135-145) mmol/L Potassium 4.2 (3.6-5.0) mmol/L Chloride 99 L (101-111) mmol/L Carbon Dioxide 27.0 (21.0-31.0) mmol/L Anion Gap 14.2 BUN 28 H (7-18) mg/dL Creatinine 1.5 H (0.6-1.3) mg/dL Est Cr Clr Drug Dosing 57.87 mL/min Estimated GFR (MDRD) 48 BUN/Creatinine Ratio 18.66 Glucose 199 H (74-105) mg/dL POC Glucose 159 H (70-105) mg/dl Lactic Acid (0.5-2.2) mmol/L Calcium 8.9 (8.4-10.2) mg/dl Total Bilirubin 1.5 H (0.2-1.0) mg/dL AST 61 H (10-42) IU/L ALT 26 (10-60) IU/L Alkaline Phosphatase 95 (42-121) IU/L Troponin I 0.02 (0.00-0.02) ng/ml B-Natriuretic Peptide 3130 H (0-100) pg/ml Total Protein 8.7 H (6.7-8.2) g/dl Albumin 3.8 (3.2-5.5) g/dl Globulin 4.9 Albumin/Globulin Ratio 0.78 Amylase 42 (28-100) U/L Lipase 18 L (22-51) U/L 07//18 Range/Units 19:29 WBC (5.0-10.0) 10^3/uL RBC (4.6-6.2) 10^6/uL Hgb (14.0-18.0) g/dL Hct (40.0-54.0) % MCV (80-100) fL MCH (27.0-34.0) pg MCHC (33.0-35.0) g/dL Plt Count (150-450) 10^3/uL Neut % (Auto) (42.2-75.2) % Lymph % (Auto) (20.5-50.1) % [place] % (Auto) (2-8) % Eos % (Auto) (1.0-3.0) % Baso % (Auto) (0.0-1.0) % Sodium (135-145) mmol/L Potassium (3.6-5.0) mmol/L Chloride (101-111) mmol/L Carbon Dioxide (21.0-31.0) mmol/L Anion Gap BUN (7-18) mg/dL Creatinine (0.6-1.3) mg/dL Est Cr Clr Drug Dosing mL/min Estimated GFR (MDRD) BUN/Creatinine Ratio Glucose (74-105) mg/dL POC Glucose (70-105) mg/dl Lactic Acid 2.1 (0.5-2.2) mmol/L Calcium (8.4-10.2) mg/dl Total Bilirubin (0.2-1.0) mg/dL AST (10-42) IU/L ALT (10-60) IU/L Alkaline Phosphatase (42-121) IU/L Troponin I (0.00-0.02) ng/ml B-Natriuretic Peptide (0-100) pg/ml Total Protein (6.7-8.2) g/dl Albumin (3.2-5.5) g/dl Globulin Albumin/Globulin Ratio Amylase (28-100) U/L Lipase (22-51) U/L Departure - Departure Time of Disposition: 20:50 Disposition: Admitted As Inpatient 66 Condition: Fair Clinical Impression: Generalized weakness, Elevated brain natriuretic peptide (BNP) level Leukocytosis Qualifiers: Leukocytosis type: bandemia Qualified Code(s): D72.825 - Bandemia - Discharge Information *PRESCRIPTION DRUG MONITORING PROGRAM REVIEWED*: Not Applicable *COPY OF PRESCRIPTION DRUG MONITORING REPORT IN PATIENT [place]: Not Applicable Care Plan Goals: Discussed the examination, history, lab, EKG and x-ray results with Dr. Laws. Dr. Laws accepted the patient for continued evaluation and further management as an inpatient at [facility]. - My Orders Last 24 Hours: My Active Orders 10/23/17 18:29 [facility] [REF] Urgent 10/23/17 19:20 EKG Documentation Completion [RC] URGENT 10/23/17 19:29 CULTURE BLOOD [BC] Stat 10/23/17 20:01 Blood Culture x2 Reflex Set [OM.PC] Stat 10/23/17 20:25 CULTURE BLOOD [BC] Stat 10/23/17 20:34 PROCALCITONIN [REF] Urgent - Assessment/Plan Last 24 Hours: My Active Orders 10/23/17 18:29 [facility] [REF] Urgent 10/23/17 19:20 EKG Documentation Completion [RC] URGENT 10/23/17 19:29 CULTURE BLOOD [BC] Stat 10/23/17 20:01 Blood Culture x2 Reflex Set [OM.PC] Stat 10/23/17 20:25 CULTURE BLOOD [BC] Stat 10/23/17 20:34 PROCALCITONIN [REF] Urgent
[2017-10-23] MEDS ORDERED: Ondansetron 4 MG/2 ML SDV IVPUSH PRN (21:35)
[2017-10-23] MEDS ORDERED: Sodium Chloride 0.9% 10 ML Syringe FLUSH PRN (21:35)
[2017-10-23] MEDS ORDERED: oxyCODONE 5 MG Tab PO PRN (21:35)
[2017-10-23] MEDS ORDERED: Ondansetron 4 MG Tab.DIS PO PRN (21:35)
[2017-10-23] MEDS ORDERED: Acetaminophen 325 MG Tab PO PRN (21:35)
[2017-10-23] MEDS ORDERED: Albuterol 0.083% 2.5 MG/3 ML Neb Soln NEB PRN (21:35)
[2017-10-23] MEDS ORDERED: Zolpidem 5 MG Tab PO PRN (21:35)
--- NOTE | 2017-10-23 21:47 | PCM.HP ---
H&P History of Present Illness - General Date of Service: 10/23/17 Admit Problem/Dx: Admission Diagnosis/Problem Admission Diagnosis/Problem Leukocytosis Source of Information: Patient - History of Present Illness Initial Comments - Free Text/Narative: The patient is a 57-year-old gentleman with a history of CVA systolic congestive heart failure with ejection fraction around 25-30%, diabetes, hypertension, diabetic neuropathy The patient presented to the emergency room with the complaints of generalized achiness, mostly the joints, no associated joint swelling, When reviewing the review of system the patient admits sore throat that has resolved lower left-sided abdominal pain today that has resolved, 2 loose bowel movements today, No chest pain, no shortness of breath. No unusual redness or swelling in the lower extremities. The did notice some areas with the small wounds and scabs but there is no erythema around these. Has chronic wounds on the lower extremities which did not change recently. The patient lives with a grand child who has had upper respiratory tract infections with the stuffy nose lately. Generalized Pain Score (Numeric/FACES): 7 - Related Data Allergies/Adverse Reactions: Allergies Allergy/AdvReac Type Severity Reaction Status Date / Time No Known Allergies Allergy Verified 10/23/17 19:06 Home Medications: Home Meds Gabapentin [Neurontin] 600 mg PO TID 03/13/13 [History] metFORMIN HCl [Metformin HCl] 500 mg PO BID 06/08/16 [History] Clopidogrel [Plavix] 75 mg PO DAILY 07/30/16 [History] Insulin Detemir [Levemir Flextouch] 40 unit SQ BEDTIME 07/30/16 [History] Metoprolol Succinate [Toprol Xl] 100 mg PO DAILY 07/30/16 [History] atorvaSTATin [Lipitor] 40 mg PO BEDTIME 07/30/16 [History] Aspirin 81 mg PO DAILY 08/22/17 [History] Brimonidine Tartrate [Brimonidine Tartrate 0.2% Ophth Soln] 1 drop EYEBOTH BID 08/22/17 [History] DULoxetine HCl [Duloxetine HCl] 60 mg PO DAILY 08/22/17 [History] Magnesium Oxide [Magnesium] 400 mg PO DAILY 08/22/17 [History] Potassium Chloride 10 meq PO DAILY 08/22/17 [History] Saxagliptin HCl [Onglyza] 5 mg PO DAILY 08/22/17 [History] Timolol Maleate [Timoptic 0.5% Ophth Soln] 1 drop EYEBOTH BID 08/22/17 [History] Enalapril [Vasotec] 5 mg PO DAILY tablet 08/23/17 [Rx] Insulin Aspart [NovoLOG] 8 unit SUBCUT TIDMEALS 09/30/17 [History] Furosemide [Lasix] 80 mg PO BID #90 tablet 10/02/17 [Rx] Past Medical History HEENT History: Reports: Cataract, Glaucoma, Impaired Vision Other HEENT History: wears reading glasses Cardiovascular History: Reports: Heart Failure, Hypertension, ID, Stents Other Cardiovascular History: LBBB Respiratory History: Reports: SOB, Other (See Below) Other Respiratory History: with CHF Gastrointestinal History: Reports: None Genitourinary History: Reports: None Musculoskeletal History: Reports: None Neurological History: Reports: Neuropathy, Diabetic Other Neuro History: memory lapses Psychiatric History: Reports: None Endocrine/Metabolic History: Reports: Diabetes, Type II Hematologic History: Reports: None Immunologic History: Reports: None Oncologic (Cancer) History: Reports: None Dermatologic History: Reports: None Other Dermatologic History: Diabetic foot ulcer - Infectious Disease History Infectious Disease History: Reports: Hepatitis C - Past Surgical History Head Surgeries/Procedures: Reports: None HEENT Surgical History: Reports: Cataract Surgery, Other (See Below) Other HEENT Surgeries/Procedures: scheduled for 2017 Cardiovascular Surgical History: Reports: Coronary Artery Stent Respiratory Surgical History: Reports: None GI Surgical History: Reports: None Male Surgical History: Reports: None Neurological Surgical History: Reports: None Musculoskeletal Surgical History: Reports: None, Other (See Below) Other Musculoskeletal Surgeries/Procedures:: maryann toe amp. Little toe maryann. Social & Family History - Family History Family Medical History: Noncontributory - Tobacco Use Smoking Status *Q: Never Smoker - Caffeine Use Caffeine Use: Reports: Coffee - Recreational Drug Use Recreational Drug Use: No - Living Situation & Occupation Living situation: Reports: Occupation: Unemployed H&P Review of Systems - Review of Systems: Review Of Systems: See Below General: Reports: Fever (99 Fahrenheit), Chills, Weakness Pulmonary: Denies: Shortness of Breath, Wheezing Cardiovascular: Denies: Chest Pain Gastrointestinal: Reports: Abdominal Pain (Left-sided lower quadrant lasted about 2 hours has resolved), Diarrhea (2 loose bowel movements on the day of admission), Nausea. Denies: Vomiting Genitourinary: Denies: Dysuria Psychiatric: Denies: Confusion Neurological: Reports: Other (Headache which is improving now). Denies: Dizziness Exam - Exam Exam: See Below - Vital Signs Vital Signs: Last Vital Signs Temp 37.7 C 10/23/17 20:49 Pulse 88 10/23/17 20:49 Resp 17 10/23/17 20:49 BP 164/100 H 10/23/17 20:49 Pulse Ox 98 10/23/17 20:49 Weight: 99.337 kg - Exam Quality Assessment: No: Supplemental Oxygen General: Alert, Oriented HEENT: EOMI. No: Rhinitis, Scleral Icterus Neck: Supple Lungs: Clear to Auscultation, Normal Respiratory Effort. No: Rhonchi, Wheezing Cardiovascular: Regular Rate, Regular Rhythm GI/Abdominal Exam: Normal Bowel Sounds, Soft, Non-Tender Extremities: No Pedal Edema Skin: Warm, Dry, Other (Bilateral lower extremity with areas of the dry scab but no redness or cellulitis changes) Neuro Extensive - Mental Status: Alert, Oriented x3 - Patient Data Lab Results Last 24 hrs: Laboratory Results - last 24 hr 10/23/17 10/23/17 10/23/17 Range/Units 19:13 19:29 19:29 WBC 12.7 H (5.0-10.0) 10^3/uL RBC 4.85 (4.6-6.2) 10^6/uL Hgb 13.4 L (14.0-18.0) g/dL Hct 41.7 (40.0-54.0) % MCV 86.0 (80-100) fL MCH 27.6 (27.0-34.0) pg MCHC 32.1 L (33.0-35.0) g/dL Plt Count 161 (150-450) 10^3/uL Neut % (Auto) 90.1 H (42.2-75.2) % Lymph % (Auto) 4.8 L (20.5-50.1) % Geary % (Auto) 4.7 (2-8) % Eos % (Auto) 0.2 L (1.0-3.0) % Baso % (Auto) 0.2 (0.0-1.0) % Sodium 136 (135-145) mmol/L Potassium 4.2 (3.6-5.0) mmol/L Chloride 99 L (101-111) mmol/L Carbon Dioxide 27.0 (21.0-31.0) mmol/L Anion Gap 14.2 BUN 28 H (7-18) mg/dL Creatinine 1.5 H (0.6-1.3) mg/dL Est Cr Clr Drug Dosing 57.87 mL/min Estimated GFR (MDRD) 48 BUN/Creatinine Ratio 18.66 Glucose 199 H (74-105) mg/dL POC Glucose 159 H (70-105) mg/dl Lactic Acid (0.5-2.2) mmol/L Calcium 8.9 (8.4-10.2) mg/dl Total Bilirubin 1.5 H (0.2-1.0) mg/dL AST 61 H (10-42) IU/L ALT 26 (10-60) IU/L Alkaline Phosphatase 95 (42-121) IU/L Troponin I 0.02 (0.00-0.02) ng/ml B-Natriuretic Peptide 3130 H (0-100) pg/ml Total Protein 8.7 H (6.7-8.2) g/dl Albumin 3.8 (3.2-5.5) g/dl Globulin 4.9 Albumin/Globulin Ratio 0.78 Amylase 42 (28-100) U/L Lipase 18 L (22-51) U/L 07/23/18 Range/Units 19:29 WBC (5.0-10.0) 10^3/uL RBC (4.6-6.2) 10^6/uL Hgb (14.0-18.0) g/dL Hct (40.0-54.0) % MCV (80-100) fL MCH (27.0-34.0) pg MCHC (33.0-35.0) g/dL Plt Count (150-450) 10^3/uL Neut % (Auto) (42.2-75.2) % Lymph % (Auto) (20.5-50.1) % Geary % (Auto) (2-8) % Eos % (Auto) (1.0-3.0) % Baso % (Auto) (0.0-1.0) % Sodium (135-145) mmol/L Potassium (3.6-5.0) mmol/L Chloride (101-111) mmol/L Carbon Dioxide (21.0-31.0) mmol/L Anion Gap BUN (7-18) mg/dL Creatinine (0.6-1.3) mg/dL Est Cr Clr Drug Dosing mL/min Estimated GFR (MDRD) BUN/Creatinine Ratio Glucose (74-105) mg/dL POC Glucose (70-105) mg/dl Lactic Acid 2.1 (0.5-2.2) mmol/L Calcium (8.4-10.2) mg/dl Total Bilirubin (0.2-1.0) mg/dL AST (10-42) IU/L ALT (10-60) IU/L Alkaline Phosphatase (42-121) IU/L Troponin I (0.00-0.02) ng/ml B-Natriuretic Peptide (0-100) pg/ml Total Protein (6.7-8.2) g/dl Albumin (3.2-5.5) g/dl Globulin Albumin/Globulin Ratio Amylase (28-100) U/L Lipase (22-51) U/L Result Diagrams: 10/23/17 19:29 10/23/17 19:29 Problem List Initiated/Reviewed/Updated: Yes Orders Last 24hrs: Active Orders 24 hr Category Date Time Status Patient Status [ADT] Routine ADT 10/23/17 21:35 Ordered EKG Documentation Completion [RC] URGENT Care 10/23/17 19:20 Active Glucose [Blood Glucose Check, Bedside] [RC] QIDACANDBED Care 10/23/17 21:32 Ordered Oxygen Therapy [RC] PRN Care 10/23/17 21:35 Ordered Peripheral IV Care [RC] . DIRECTED Care 10/23/17 21:37 Ordered RT Aerosol Therapy [RC] ASDIRECTED Care 10/23/17 21:37 Ordered Up With Assistance [RC] ASDIRECTED Care 10/23/17 21:35 Ordered VTE/DVT Education [RC] PER UNIT ROUTINE Care 10/23/17 21:35 Ordered Vital Signs [RC] Q4H Care 10/23/17 21:35 Ordered Consistent Carbohydrate Diet [DIET] Diet 10/23/17 Breakfast Ordered BASIC METABOLIC PANEL,BMP [CHEM] AM Lab 10/24/17 05:15 Ordered CBC WITH AUTO DIFF [HEME] AM Lab 10/24/17 05:15 Ordered CULTURE BLOOD [BC] Stat Lab 10/23/17 19:29 Received CULTURE BLOOD [BC] Stat Lab 10/23/17 20:25 Received CULTURE URINE [RM] Routine Lab 10/23/17 21:27 Ordered PROCALCITONIN [REF] Urgent Lab 10/23/17 19:29 Received UA W/MICROSCOPIC [URIN] Routine Lab 10/23/17 21:27 Ordered [facility] [REF] Urgent Lab 10/23/17 18:29 Received Acetaminophen [Tylenol] Med 10/23/17 21:35 Ordered 650 mg PO Q4H PRN Albuterol [Proventil Neb Soln] Med 10/23/17 21:35 Ordered 2.5 mg NEB Q2H PRN Aspirin Med 10/24/17 09:00 Ordered 81 mg PO DAILY Brimonidine Tartrate [Brimonidine Tartrate 0.2% Ophth Med 10/24/17 09:00 Ordered Soln] 1 drop EYEBOTH BID Clopidogrel [Plavix] Med 10/24/17 09:00 Ordered 75 mg PO DAILY DULoxetine HCl [Duloxetine HCl] Med 10/24/17 09:00 Ordered 60 mg PO DAILY Enalapril [Vasotec] Med 10/24/17 09:00 Ordered 5 mg PO DAILY Furosemide [Lasix] Med 10/23/17 21:30 Ordered 80 mg PO BID Gabapentin [Neurontin] Med 10/23/17 22:00 Ordered 600 mg PO TID Heparin Sodium Med 10/23/17 22:00 Ordered 5,000 units SUBCUT Q8HR Insulin Aspart [NovoLOG] Med 10/24/17 08:00 Ordered 8 unit SUBCUT TIDMEALS Insulin Aspart [NovoLOG] Med 10/23/17 21:45 Ordered See Protocol SUBCUT .QID Insulin Detemir [Levemir] Med 10/23/17 22:00 Ordered 40 unit SUBCUT BEDTIME Magnesium Oxide [Magnesium] Med 10/24/17 09:00 Ordered 400 mg PO DAILY Metoprolol Succinate [Toprol Xl] Med 10/24/17 09:00 Ordered 100 mg PO DAILY Ondansetron [Zofran ODT] Med 10/23/17 21:35 Ordered 4 mg PO Q6H PRN Ondansetron [Zofran] Med 10/23/17 21:35 Ordered 4 mg IVPUSH Q6H PRN Potassium Chloride [Potassium Chloride] Med 10/24/17 09:00 Ordered 10 meq PO DAILY Sodium Chloride 0.9% [Saline Flush] Med 10/23/17 21:35 Ordered 10 ml FLUSH ASDIRECTED PRN Timolol Maleate [Timoptic 0.5% Ophth Soln] Med 10/23/17 22:00 Ordered 1 drop EYEBOTH BID Zolpidem [Ambien] Med 10/23/17 21:35 Ordered 5 mg PO BEDTIME PRN atorvaSTATin [Lipitor] Med 10/24/17 21:00 Ordered 40 mg PO BEDTIME oxyCODONE Med 10/23/17 21:35 Ordered 5 mg PO Q4H PRN Antiembolic Hose [OM.PC] Per Unit Routine Ot 10/23/17 21:36 Ordered Blood Culture x2 Reflex Set [OM.PC] Stat Ot 10/23/17 20:01 Ordered Peripheral IV Insertion Adult [OM.PC] Routine Oth 10/23/17 21:35 Ordered Saline Lock Insert [OM.PC] Routine Oth 10/23/17 21:35 Ordered Resuscitation Status Routine Resus Stat 10/23/17 21:35 Ordered Medication Orders Acetaminophen (Tylenol) 650 mg PO Q4H PRN PRN Reason: Pain (Mild 1-3)/fever Albuterol (Proventil Neb Soln) 2.5 mg NEB Q2H PRN PRN Reason: shortness of breath/wheezing Aspirin (Aspirin) 81 mg PO DAILY [facility] Clopidogrel Bisulfate (Plavix) 75 mg PO DAILY [facility] Enalapril Maleate (Vasotec) 5 mg PO DAILY [facility] Furosemide (Lasix) 80 mg PO BID [facility] Gabapentin (Neurontin) 600 mg PO TID [facility] Heparin Sodium (Porcine) (Heparin Sodium) 5,000 units SUBCUT Q8HR [facility] Insulin Aspart (Novolog) 8 unit SUBCUT TIDMEALS [facility] Insulin Aspart (Novolog) 0 unit SUBCUT .QID [facility]; Protocol Insulin Detemir (Levemir) 40 unit SUBCUT BEDTIME [facility] Non-Formulary Medication (Atorvastatin [Lipitor]) 40 mg PO BEDTIME [facility] Non-Formulary Medication (Brimonidine Tartrate [Brimonidine Tartrate 0.2% Ophth Soln]) 1 drop EYEBOTH BID [facility] Non-Formulary Medication (Duloxetine Hcl [Duloxetine Hcl]) 60 mg PO DAILY [facility] Non-Formulary Medication (Magnesium Oxide [Magnesium]) 400 mg PO DAILY [facility] Non-Formulary Medication (Metoprolol Succinate [Toprol Xl]) 100 mg PO DAILY [facility] Non-Formulary Medication (Potassium Chloride [Potassium Chloride]) 10 meq PO DAILY [facility] Ondansetron HCl (Zofran Odt) 4 mg PO Q6H PRN PRN Reason: nausea, able to take PO Ondansetron HCl (Zofran) 4 mg IVPUSH Q6H PRN PRN Reason: Nausea/Vomiting Oxycodone HCl (Oxycodone) 5 mg PO Q4H PRN PRN Reason: Pain (moderate 4-6) Sodium Chloride (Saline Flush) 10 ml FLUSH ASDIRECTED PRN PRN Reason: Keep Vein Open Timolol Maleate (Timoptic 0.5% Ophth Soln) ml EYEBOTH BID [facility] Zolpidem Tartrate (Ambien) 5 mg PO BEDTIME PRN PRN Reason: Sleep Assessment/Plan Comment:: The patient presented with nonspecific symptoms of subjective fever, temperature of 99, chills, headache, transient left lower quadrant pain, Joint pain. The patient is noted to have leukocytosis, neutrophil predominance At this point had a source of an infection is unclear This might be a viral infection, sick contact is a grandchild with upper respiratory tract infection symptoms Obtain blood cultures Obtain urinalysis and culture Obtain pro-calcitonin Chest x-ray shows no infiltrate No apparent cellulitis or infected wounds The patient had transient abdominal pain but it has resolved, has a benign examination now For now I will hold off on antibiotic Admit for observation and follow temperature elevation and use symptoms Repeat CBC in the morning Chronic systolic congestive heart failure with ejection fraction of around 30% This appears compensated Continue the patient on ARB, Statin, Lasix, aspirin, Diabetes Due to elevated creatinine we will hold the metformin Continue on Levemir and short-acting insulin Chronic kidney disease stage III Baseline creatinine around 1.3-1.5 we'll follow the electrolytes in the morning Coronary artery disease Appears compensated Treat with aspirin, Cozaar, metoprolol, Lipitor, Plavix DVT prophylaxis will be with subcutaneous heparin
[2017-10-23] MEDS: Heparin Sodium 5,000 Units/ML Vial SUBCUT SCH (23:07)
[2017-10-23] MEDS: Insulin Aspart 100 Units/ML 3 ML Pen SUBCUT SCH (23:31)
[2017-10-23] MEDS: Insulin Detemir 100 Units/ML 3 ML Pen SUBCUT SCH (23:47)
[2017-10-23] MEDS: Timolol Maleate 0.5% Ophth Soln 5 ML Bottle EYEBOTH SCH (23:50)
[2017-10-23] MEDS: Furosemide 80 MG Tab PO SCH (23:51)
[2017-10-23] MEDS: Gabapentin 300 MG Cap PO SCH (23:52)
[2017-10-24] MEDS: Heparin Sodium 5,000 Units/ML Vial SUBCUT SCH ×4 (06:03→22:14)
[2017-10-24 06:58] LABS: ANION GAP 13.2
[2017-10-24] MEDS: Insulin Aspart 100 Units/ML 3 ML Pen SUBCUT SCH ×7 (08:07→22:15)
[2017-10-24] MEDS: Gabapentin 300 MG Cap PO SCH ×2 (08:21→14:58)
[2017-10-24] MEDS: Furosemide 80 MG Tab PO SCH (08:21)
[2017-10-24] MEDS: Aspirin 81 MG Tab.Chew PO SCH (08:21)
[2017-10-24] MEDS: Potassium Chloride 10 MEQ Tab.ER PO SCH (08:21)
[2017-10-24] MEDS: DULoxetine 30 MG Cap PO SCH (08:22)
[2017-10-24] MEDS: Metoprolol Succinate 50 MG Tab.ER PO SCH (08:22)
[2017-10-24] MEDS: Clopidogrel 75 MG Tab PO SCH (08:22)
[2017-10-24] MEDS: Timolol Maleate 0.5% Ophth Soln 5 ML Bottle EYEBOTH SCH ×2 (08:30→22:17)
[2017-10-24] MEDS ORDERED: Enalapril 5 MG Tab PO SCH (09:00)
[2017-10-24] MEDS ORDERED: Non-Formulary Medication 1 Each (Magnesium Oxide [Magnesium] 400 MG) PO SCH (09:00)
[2017-10-24] MEDS ORDERED: BRIMONIDINE TARTRATE EYEBOTH SCH (09:00)
--- NOTE | 2017-10-24 11:51 | PCM.PN ---
- General Info Date of Service: 10/24/17 Admission Dx/Problem (Free Text): Admission Diagnosis/Problem Admission Diagnosis/Problem Leukocytosis Subjective Update: Had no fever overnight. He is feeling well. No diarrhea, no shortness of breath, no chest pain. Noted to have redness on the right lower extremity. No nasal drainage, no headache, no sore throat. No abdominal pain Functional Status: Reports: Pain Controlled, Tolerating Diet - Review of Systems General: Denies: Fever, Weakness Pulmonary: Denies: Shortness of Breath Cardiovascular: Denies: Chest Pain Gastrointestinal: Denies: Abdominal Pain Genitourinary: Denies: Dysuria Musculoskeletal: Denies: Joint Swelling Skin: Reports: Other (Right lower extremity erythematous area noted) Neurological: Denies: Confusion - Patient Data Vitals - Most Recent: Last Vital Signs Temp 37.0 C 10/24/17 10:46 Pulse 71 10/24/17 10:46 Resp 20 10/24/17 10:46 BP 128/79 10/24/17 10:46 Pulse Ox 97 10/24/17 10:46 Weight - Most Recent: 99.881 kg I&O - Last 24 Hours: Intake & Output 10/23/17 10/24/17 10/24/17 22:59 06:59 14:59 Intake Total 500 200 Output Total 100 Balance 400 200 Lab Results Last 24 Hours: Laboratory Results - last 24 hr 10/23/17 10/23/17 10/23/17 Range/Units 19:13 19:29 19:29 WBC 12.7 H (5.0-10.0) 10^3/uL RBC 4.85 (4.6-6.2) 10^6/uL Hgb 13.4 L (14.0-18.0) g/dL Hct 41.7 (40.0-54.0) % MCV 86.0 (80-100) fL MCH 27.6 (27.0-34.0) pg MCHC 32.1 L (33.0-35.0) g/dL Plt Count 161 (150-450) 10^3/uL Neut % (Auto) 90.1 H (42.2-75.2) % Lymph % (Auto) 4.8 L (20.5-50.1) % Coos % (Auto) 4.7 (2-8) % Eos % (Auto) 0.2 L (1.0-3.0) % Baso % (Auto) 0.2 (0.0-1.0) % Sodium 136 (135-145) mmol/L Potassium 4.2 (3.6-5.0) mmol/L Chloride 99 L (101-111) mmol/L Carbon Dioxide 27.0 (21.0-31.0) mmol/L Anion Gap 14.2 BUN 28 H (7-18) mg/dL Creatinine 1.5 H (0.6-1.3) mg/dL Est Cr Clr Drug Dosing 57.87 mL/min Estimated GFR (MDRD) 48 BUN/Creatinine Ratio 18.66 Glucose 199 H (74-105) mg/dL POC Glucose 159 H (70-105) mg/dl Lactic Acid (0.5-2.2) mmol/L Calcium 8.9 (8.4-10.2) mg/dl Total Bilirubin 1.5 H (0.2-1.0) mg/dL AST 61 H (10-42) IU/L ALT 26 (10-60) IU/L Alkaline Phosphatase 95 (42-121) IU/L Troponin I 0.02 (0.00-0.02) ng/ml B-Natriuretic Peptide 3130 H (0-100) pg/ml Total Protein 8.7 H (6.7-8.2) g/dl Albumin 3.8 (3.2-5.5) g/dl Globulin 4.9 Albumin/Globulin Ratio 0.78 Amylase 42 (28-100) U/L Lipase 18 L (22-51) U/L Urine Color (YELLOW) Urine Appearance (CLEAR) Urine pH (5.0-9.0) Ur Specific Section (1.005-1.030) Urine Protein (NEGATIVE) Urine Glucose (UA) (NEGATIVE) Urine Ketones (NEGATIVE) Urine Occult Blood (NEGATIVE) Urine Nitrite (NEGATIVE) Urine Bilirubin (NEGATIVE) Urine Urobilinogen (0.2-1.0) mg/dL Ur Leukocyte Esterase (NEGATIVE) Urine RBC /HPF Urine WBC (0-5/HPF) /HPF Ur Epithelial Cells /HPF Amorphous Sediment (0/HPF) /HPF Urine Bacteria (0-FEW/HPF) /HPF 07/23/18 07/23/18 07/24/18 Range/Units 19:29 22:48 00:55 WBC (5.0-10.0) 10^3/uL RBC (4.6-6.2) 10^6/uL Hgb (14.0-18.0) g/dL Hct (40.0-54.0) % MCV (80-100) fL MCH (27.0-34.0) pg MCHC (33.0-35.0) g/dL Plt Count (150-450) 10^3/uL Neut % (Auto) (42.2-75.2) % Lymph % (Auto) (20.5-50.1) % Coos % (Auto) (2-8) % Eos % (Auto) (1.0-3.0) % Baso % (Auto) (0.0-1.0) % Sodium (135-145) mmol/L Potassium (3.6-5.0) mmol/L Chloride (101-111) mmol/L Carbon Dioxide (21.0-31.0) mmol/L Anion Gap BUN (7-18) mg/dL Creatinine (0.6-1.3) mg/dL Est Cr Clr Drug Dosing mL/min Estimated GFR (MDRD) BUN/Creatinine Ratio Glucose (74-105) mg/dL POC Glucose 138 H (70-105) mg/dl Lactic Acid 2.1 (0.5-2.2) mmol/L Calcium (8.4-10.2) mg/dl Total Bilirubin (0.2-1.0) mg/dL AST (10-42) IU/L ALT (10-60) IU/L Alkaline Phosphatase (42-121) IU/L Troponin I (0.00-0.02) ng/ml B-Natriuretic Peptide (0-100) pg/ml Total Protein (6.7-8.2) g/dl Albumin (3.2-5.5) g/dl Globulin Albumin/Globulin Ratio Amylase (28-100) U/L Lipase (22-51) U/L Urine Color Dark yellow (YELLOW) Urine Appearance Slightly cloudy (CLEAR) Urine pH 5.0 (5.0-9.0) Ur Specific Section >= 1.030 (1.005-1.030) Urine Protein >=300 H (NEGATIVE) Urine Glucose (UA) Negative (NEGATIVE) Urine Ketones Trace H (NEGATIVE) Urine Occult Blood Moderate H (NEGATIVE) Urine Nitrite Negative (NEGATIVE) Urine Bilirubin Moderate H (NEGATIVE) Urine Urobilinogen 2.0 H (0.2-1.0) mg/dL Ur Leukocyte Esterase Negative (NEGATIVE) Urine RBC 5-10 H /HPF Urine WBC 0-5 (0-5/HPF) /HPF Ur Epithelial Cells Rare /HPF Amorphous Sediment Moderate (0/HPF) /HPF Urine Bacteria Moderate H (0-FEW/HPF) /HPF 10/24/17 10/24/17 10/24/17 Range/Units 06:07 06:07 07:58 WBC 14.8 H (5.0-10.0) 10^3/uL RBC 4.66 (4.6-6.2) 10^6/uL Hgb 12.8 L (14.0-18.0) g/dL Hct 40.1 (40.0-54.0) % MCV 86.1 (80-100) fL MCH 27.5 (27.0-34.0) pg MCHC 31.9 L (33.0-35.0) g/dL Plt Count 135 L (150-450) 10^3/uL Neut % (Auto) 86.8 H (42.2-75.2) % Lymph % (Auto) 7.0 L (20.5-50.1) % Coos % (Auto) 6.1 (2-8) % Eos % (Auto) 0.0 L (1.0-3.0) % Baso % (Auto) 0.1 (0.0-1.0) % Sodium 134 L (135-145) mmol/L Potassium 4.2 (3.6-5.0) mmol/L Chloride 98 L (101-111) mmol/L Carbon Dioxide 27.0 (21.0-31.0) mmol/L Anion Gap 13.2 BUN 33 H (7-18) mg/dL Creatinine 1.9 H (0.6-1.3) mg/dL Est Cr Clr Drug Dosing 45.69 mL/min Estimated GFR (MDRD) 37 BUN/Creatinine Ratio Glucose 146 H (74-105) mg/dL POC Glucose 127 H (70-105) mg/dl Lactic Acid (0.5-2.2) mmol/L Calcium 8.7 (8.4-10.2) mg/dl Total Bilirubin (0.2-1.0) mg/dL AST (10-42) IU/L ALT (10-60) IU/L Alkaline Phosphatase (42-121) IU/L Troponin I (0.00-0.02) ng/ml B-Natriuretic Peptide (0-100) pg/ml Total Protein (6.7-8.2) g/dl Albumin (3.2-5.5) g/dl Globulin Albumin/Globulin Ratio Amylase (28-100) U/L Lipase (22-51) U/L Urine Color (YELLOW) Urine Appearance (CLEAR) Urine pH (5.0-9.0) Ur Specific Section (1.005-1.030) Urine Protein (NEGATIVE) Urine Glucose (UA) (NEGATIVE) Urine Ketones (NEGATIVE) Urine Occult Blood (NEGATIVE) Urine Nitrite (NEGATIVE) Urine Bilirubin (NEGATIVE) Urine Urobilinogen (0.2-1.0) mg/dL Ur Leukocyte Esterase (NEGATIVE) Urine RBC /HPF Urine WBC (0-5/HPF) /HPF Ur Epithelial Cells /HPF Amorphous Sediment (0/HPF) /HPF Urine Bacteria (0-FEW/HPF) /HPF Med Orders - Current: Current Medications Acetaminophen (Tylenol) 650 mg PO Q4H PRN PRN Reason: Pain (Mild 1-3)/fever Albuterol (Proventil Neb Soln) 2.5 mg NEB Q2H PRN PRN Reason: shortness of breath/wheezing Aspirin (Aspirin) 81 mg PO DAILY [facility] Last Admin: 10/24/17 08:21 Dose: 81 mg Clopidogrel Bisulfate (Plavix) 75 mg PO DAILY [facility] Last Admin: 10/24/17 08:22 Dose: 75 mg Duloxetine HCl (Cymbalta) 60 mg PO DAILY [facility] Last Admin: 10/24/17 08:22 Dose: 60 mg Enalapril Maleate (Vasotec) 5 mg PO DAILY [facility] Last Admin: 10/24/17 08:22 Dose: 5 mg Furosemide (Lasix) 80 mg PO BIDDIURETIC [facility] Gabapentin (Neurontin) 600 mg PO TID [facility] Last Admin: 10/24/17 08:21 Dose: 600 mg Heparin Sodium (Porcine) (Heparin Sodium) 5,000 units SUBCUT Q8HR [facility] Last Admin: 10/24/17 06:03 Dose: 5,000 units Ceftriaxone Sodium 1,000 mg/ (Sodium Chloride) 100 mls @ 200 mls/hr IV Q24H [facility] Insulin Aspart (Novolog) 8 unit SUBCUT TIDMEALS [facility] Last Admin: 10/24/17 08:24 Dose: 8 units Insulin Aspart (Novolog) 0 unit SUBCUT QIDACANDBED [facility]; Protocol Last Admin: 10/24/17 08:07 Dose: Not Given Insulin Detemir (Levemir) 40 unit SUBCUT BEDTIME [facility] Last Admin: 10/23/17 23:47 Dose: 40 units Magnesium Oxide (Magnesium Oxide) 250 mg PO WITHBREAKFAST [facility] Metoprolol Succinate (Toprol Xl) 100 mg PO DAILY [facility] Last Admin: 10/24/17 08:22 Dose: 100 mg Non-Formulary Medication (Atorvastatin [Lipitor]) 40 mg PO BEDTIME [facility] Non-Formulary Medication (Brimonidine Tartrate [Brimonidine Tartrate 0.2% Ophth Soln]) 1 drop EYEBOTH BID [facility] Ondansetron HCl (Zofran Odt) 4 mg PO Q6H PRN PRN Reason: nausea, able to take PO Ondansetron HCl (Zofran) 4 mg IVPUSH Q6H PRN PRN Reason: Nausea/Vomiting Last Admin: 10/23/17 23:06 Dose: 4 mg Oxycodone HCl (Oxycodone) 5 mg PO Q4H PRN PRN Reason: Pain (moderate 4-6) Potassium Chloride (Klor-Con 10) 10 meq PO DAILY@0800 [facility] Last Admin: 10/24/17 08:21 Dose: 10 meq Sodium Chloride (Saline Flush) 10 ml FLUSH ASDIRECTED PRN PRN Reason: Keep Vein Open Timolol Maleate (Timoptic 0.5% Ophth Soln) 0 ml EYEBOTH BID [facility] Last Admin: 10/24/17 08:30 Dose: 1 drop Trimethoprim/Sulfamethoxazole (Septra Ds) 1 tab PO BID [facility] Zolpidem Tartrate (Ambien) 5 mg PO BEDTIME PRN PRN Reason: Sleep Discontinued Medications Furosemide (Lasix) 80 mg PO BIDDIURETIC [facility] Last Admin: 10/24/17 08:21 Dose: 80 mg Non-Formulary Medication (Magnesium Oxide [Magnesium]) 400 mg PO DAILY [facility] - Exam General: Alert, Oriented Neck: Supple Lungs: Clear to Auscultation, Normal Respiratory Effort. No: Rales, Wheezing Cardiovascular: Regular Rate, Regular Rhythm GI/Abdominal Exam: Normal Bowel Sounds, Soft, Non-Tender Extremities: No Pedal Edema Skin: Warm, Other (Right leg erythematous area) Psy/Mental Status: Alert, Normal Affect, Normal Mood - Problem List Review Problem List Initiated/Reviewed/Updated: Yes - My Orders Last 24 Hours: My Active Orders 10/23/17 21:32 Glucose [Blood Glucose Check, Bedside] [RC] QIDACANDBED 10/23/17 21:35 Patient Status [ADT] Routine Oxygen Therapy [RC] PRN Up With Assistance [RC] ASDIRECTED VTE/DVT Education [RC] PER UNIT ROUTINE Vital Signs [RC] Q4H Acetaminophen [Tylenol] 650 mg PO Q4H PRN Albuterol [Proventil Neb Soln] 2.5 mg NEB Q2H PRN Ondansetron [Zofran ODT] 4 mg PO Q6H PRN Ondansetron [Zofran] 4 mg IVPUSH Q6H PRN Sodium Chloride 0.9% [Saline Flush] 10 ml FLUSH ASDIRECTED PRN Zolpidem [Ambien] 5 mg PO BEDTIME PRN oxyCODONE 5 mg PO Q4H PRN Peripheral IV Insertion Adult [OM.PC] Routine Saline Lock Insert [OM.PC] Routine Resuscitation Status Routine 10/23/17 21:36 Antiembolic Hose [OM.PC] Per Unit Routine 10/23/17 21:37 Peripheral IV Care [RC] 0820 RT Aerosol Therapy [RC] ASDIRECTED 10/23/17 22:00 Gabapentin [Neurontin] 600 mg PO TID Heparin Sodium 5,000 units SUBCUT Q8HR Insulin Aspart [NovoLOG] See Protocol SUBCUT QIDACANDBED Insulin Detemir [Levemir] 40 unit SUBCUT BEDTIME Timolol Maleate [Timoptic 0.5% Ophth Soln] 0 ml EYEBOTH BID 10/24/17 00:55 CULTURE URINE [RM] Routine UA W/MICROSCOPIC [URIN] Routine 10/24/17 08:00 Insulin Aspart [NovoLOG] 8 unit SUBCUT TIDMEALS Potassium Chloride [Klor-Con 10] 10 meq PO DAILY@0800 10/24/17 09:00 Aspirin 81 mg PO DAILY Brimonidine Tartrate [Brimonidine Tartrate 0.2% Ophth Soln] 1 drop EYEBOTH BID Clopidogrel [Plavix] 75 mg PO DAILY DULoxetine [Cymbalta] 60 mg PO DAILY Enalapril [Vasotec] 5 mg PO DAILY Metoprolol Succinate [Toprol XL] 100 mg PO DAILY 10/24/17 11:45 Sulfamethoxazole/Trimethoprim [Septra DS] 1 tab PO BID cefTRIAXone [Rocephin] 1,000 mg Sodium Chloride 0.9% [Normal Saline] 100 ml IV Q24H 10/24/17 21:00 atorvaSTATin [Lipitor] 40 mg PO BEDTIME 10/25/17 05:15 BASIC METABOLIC PANEL,BMP [CHEM] AM CBC WITH AUTO DIFF [HEME] AM 10/25/17 08:00 Furosemide [Lasix] 80 mg PO BIDDIURETIC Magnesium Oxide 250 mg PO WITHBREAKFAST - Plan Plan:: The patient presented with nonspecific symptoms of subjective fever, temperature of 99, chills, headache, transient left lower quadrant pain, Joint pain. The patient is noted to have leukocytosis, neutrophil predominance Appears to have right lower extremity cellulitis Pending blood cultures urinalysis: Appears contaminant. Urine culture is pending Pending pro-calcitonin Chest x-ray shows no infiltrate The patient had transient abdominal pain but it has resolved, has a benign examination now Start ceftriaxone and Bactrim for cellulitis The patient is in an area where MRSA is common Repeat CBC in the morning Chronic systolic congestive heart failure with ejection fraction of around 30% This appears compensated Continue the patient on ARB, Statin, Lasix, aspirin, Diabetes Due to elevated creatinine we will hold the metformin Continue on Levemir and short-acting insulin Chronic kidney disease stage III with acute renal failure component Baseline creatinine around 1.3-1.5 We'll hold off on diuretic tonight we'll follow the electrolytes in the morning Coronary artery disease Appears compensated Treat with aspirin, Cozaar, metoprolol, Lipitor, Plavix DVT prophylaxis will be with subcutaneous heparin
[2017-10-24] MEDS: Sulfamethoxazole/Trimethoprim 800-160 MG Tab PO SCH ×3 (13:40→22:14)
[2017-10-24] MEDS: cefTRIAXone 1 GM Vial IV SCH ×2 (13:40→14:13)
[2017-10-24] MEDS ORDERED: Albuterol/Ipratropium 3.0-0.5 MG/3 ML Neb Soln NEB ONE (13:57)
[2017-10-24 15:13] LABS: BASE EXCESS ARTERIAL -1 mmol/L ((-2)-(+3)); BICARBONATE,ARTERIAL 20.5 mmol/L (22-26); O2 DELIVERY DEVICE NASAL CANNULA; O2 SATURATION ARTERIAL 96 % (95-100); PCO2 ARTERIAL 27 mmHg (35-45); PO2 ARTERIAL 71 mmHg (70-100)
[2017-10-24 15:16] LABS: O2 FLOW RATE 0
[2017-10-24] MEDS: Sodium Chloride 0.9% 1,000 ML IV SCH (16:40)
[2017-10-24] MEDS ORDERED: atorvaSTATin 20 MG Tab PO SCH (21:00)
[2017-10-24] MEDS: Insulin Detemir 100 Units/ML 3 ML Pen SUBCUT SCH (22:15)
[2017-10-25] MEDS: Sodium Chloride 0.9% 1,000 ML IV SCH (03:22)
[2017-10-25] MEDS: Heparin Sodium 5,000 Units/ML Vial SUBCUT SCH (06:33)
[2017-10-25 06:59] LABS: ANION GAP 12.6
[2017-10-25] MEDS ORDERED: Furosemide 80 MG Tab PO SCH (08:00)
[2017-10-25] MEDS: Insulin Aspart 100 Units/ML 3 ML Pen SUBCUT SCH ×4 (08:37→14:08)
[2017-10-25] MEDS: Aspirin 81 MG Tab.Chew PO SCH (08:38)
[2017-10-25] MEDS: DULoxetine 30 MG Cap PO SCH (08:38)
[2017-10-25] MEDS: Sulfamethoxazole/Trimethoprim 800-160 MG Tab PO SCH (08:38)
[2017-10-25] MEDS: Clopidogrel 75 MG Tab PO SCH (08:38)
[2017-10-25] MEDS: Potassium Chloride 10 MEQ Tab.ER PO SCH (08:38)
[2017-10-25] MEDS: Metoprolol Succinate 50 MG Tab.ER PO SCH (08:39)
[2017-10-25] MEDS: Timolol Maleate 0.5% Ophth Soln 5 ML Bottle EYEBOTH SCH (08:40)
[2017-10-25 11:04] VITALS: BP 143/101
--- NOTE | 2017-10-25 12:04 | PCM.DCSUM1 ---
Discharge Summary - Hospital Course Free Text/Narrative:: The patient presented with nonspecific symptoms of subjective fever, temperature of 99, chills, headache, transient left lower quadrant pain, Joint pain. The patient is noted to have leukocytosis, neutrophil predominance Appeared to have right lower extremity cellulitis Pending blood cultures urinalysis: Appears contaminant. Urine culture is pending pro-calcitonin .17 Chest x-ray shows no infiltrate The patient had transient abdominal pain but it has resolved, has a benign examination now Started ceftriaxone and Bactrim for cellulitis on 10/24 The patient is in an area where MRSA is common Chronic systolic congestive heart failure with ejection fraction of around 30% This appears compensated Continue the patient on metoprolol, Statin, Lasix, aspirin, Diabetes Due to elevated creatinine we will hold the metformin Continue on Levemir and short-acting insulin Chronic kidney disease stage III with acute renal failure component with oliguria Baseline creatinine around 1.3-1.5 - on admission 1.5 - 10/24 Cr. 1.9 - 10/25 cr 2.9 started IVFluids - still low Uo balance fluids with renal failure, low uo and CHF with EF 30% Coronary artery disease Appears compensated Treat with aspirin, metoprolol, Lipitor, Plavix DVT prophylaxis will be with subcutaneous heparin Diagnosis: Stroke: No - Discharge Data Discharge Date: 10/25/17 Discharge Disposition: DC/Tfer to Acute Hospital 02 Condition: Fair - Patient Instructions Diet: Usual Diet as Tolerated Activity: As Tolerated - Discharge Plan *PRESCRIPTION DRUG MONITORING PROGRAM REVIEWED*: Not Applicable *COPY OF PRESCRIPTION DRUG MONITORING REPORT IN PATIENT GUA[place]: Not Applicable Home Medications: Home Meds Clopidogrel [Plavix] 75 mg PO DAILY 07/30/16 [History] Insulin Detemir [Levemir Flextouch] 40 unit SQ BEDTIME 07/30/16 [History] Metoprolol Succinate [Toprol Xl] 100 mg PO DAILY 07/30/16 [History] atorvaSTATin [Lipitor] 40 mg PO BEDTIME 07/30/16 [History] Aspirin 81 mg PO DAILY 08/22/17 [History] Brimonidine Tartrate [Brimonidine Tartrate 0.2% Ophth Soln] 1 drop EYEBOTH BID 08/22/17 [History] DULoxetine HCl [Duloxetine HCl] 60 mg PO DAILY 08/22/17 [History] Magnesium Oxide [Magnesium] 400 mg PO DAILY 08/22/17 [History] Potassium Chloride 10 meq PO DAILY 08/22/17 [History] Timolol Maleate [Timoptic 0.5% Ophth Soln] 1 drop EYEBOTH BID 08/22/17 [History] Insulin Aspart [NovoLOG] 8 unit SUBCUT TIDMEALS 09/30/17 [History] Furosemide [Lasix] 80 mg PO BID #90 tablet 10/02/17 [Rx] Acetaminophen [Tylenol] 650 mg PO Q4H PRN tablet 10/25/17 [Rx] Albuterol [Proventil Neb Soln] 2.5 mg NEB Q2H PRN neb 10/25/17 [Rx] Heparin Sodium 5,000 units SUBCUT Q8HR vial 10/25/17 [Rx] Insulin Aspart [NovoLOG] 0 unit SUBCUT QIDACANDBED pen 10/25/17 [Rx] Magnesium Oxide 250 mg PO WITHBREAKFAST tablet 10/25/17 [Rx] Ondansetron [Zofran ODT] 4 mg PO Q6H PRN tab.dis 10/25/17 [Rx] Sodium Chloride 0.9% [Saline Flush] 10 ml FLUSH ASDIRECTED PRN syringe [Rx] Sulfamethoxazole/Trimethoprim [Septra DS] 1 tab PO BID tablet 10/25/17 [Rx] cefTRIAXone [Rocephin] 1 gm IV Q24H vial 10/25/17 [Rx] oxyCODONE 5 mg PO Q4H PRN tablet 10/25/17 [Rx] Referrals: PCP,None [Ordering Only Provider] - - Discharge Summary/Plan Comment DC Time >30 min.: Yes (arranging transfer to [facility]) - General Info Date of Service: 10/25/17 Functional Status: Reports: Pain Controlled, Tolerating Diet - Review of Systems General: Reports: Weakness. Denies: Fever Pulmonary: Denies: Shortness of Breath Cardiovascular: Denies: Chest Pain Gastrointestinal: Denies: Abdominal Pain Genitourinary: Reports: Other (low uo) Neurological: Denies: Dizziness - Patient Data Vitals - Most Recent: Last Vital Signs Temp 36.2 C 10/25/17 11:04 Pulse 92 10/25/17 11:04 Resp 20 10/25/17 11:04 BP 143/101 H 10/25/17 11:04 Pulse Ox 100 10/25/17 11:04 Weight - Most Recent: 101.605 kg I&O - Last 24 hours: Intake & Output 10/24/17 10/25/17 10/25/17 22:59 06:59 14:59 Intake Total 100 900 625 Output Total 200 Balance 100 700 625 Lab Results - Last 24 hrs: Laboratory Results - last 24 hr 10/23/17 10/24/17 10/24/17 Range/Units 19:29 11:04 13:46 WBC (5.0-10.0) 10^3/uL RBC (4.6-6.2) 10^6/uL Hgb (14.0-18.0) g/dL Hct (40.0-54.0) % MCV (80-100) fL MCH (27.0-34.0) pg MCHC (33.0-35.0) g/dL Plt Count (150-450) 10^3/uL Neut % (Auto) (42.2-75.2) % Lymph % (Auto) (20.5-50.1) % [place] % (Auto) (2-8) % Eos % (Auto) (1.0-3.0) % Baso % (Auto) (0.0-1.0) % ABG pH (7.35-7.45) ABG pCO2 (35-45) mmHg ABG pO2 (70-100) mmHg ABG HCO3 (22-26) mmol/L ABG O2 Saturation (95-100) % ABG Base Excess ((-2)-(+3)) mmol/L O2 Delivery Device Oxygen Flow Rate Sodium (135-145) mmol/L Potassium (3.6-5.0) mmol/L Chloride (101-111) mmol/L Carbon Dioxide (21.0-31.0) mmol/L Anion Gap BUN (7-18) mg/dL Creatinine (0.6-1.3) mg/dL Est Cr Clr Drug Dosing mL/min Estimated GFR (MDRD) Glucose (74-105) mg/dL POC Glucose 97 88 (70-105) mg/dl Calcium (8.4-10.2) mg/dl Procalcitonin 0.17 H (<0.10) ng/mL 10/24/17 10/24/1718 Range/Units 15:10 16:58 21:00 WBC (5.0-10.0) 10^3/uL RBC (4.6-6.2) 10^6/uL Hgb (14.0-18.0) g/dL Hct (40.0-54.0) % MCV (80-100) fL MCH (27.0-34.0) pg MCHC (33.0-35.0) g/dL Plt Count (150-450) 10^3/uL Neut % (Auto) (42.2-75.2) % Lymph % (Auto) (20.5-50.1) % [place] % (Auto) (2-8) % Eos % (Auto) (1.0-3.0) % Baso % (Auto) (0.0-1.0) % ABG pH 7.49 H (7.35-7.45) ABG pCO2 27 L (35-45) mmHg ABG pO2 71 (70-100) mmHg ABG HCO3 20.5 L (22-26) mmol/L ABG O2 Saturation 96 (95-100) % ABG Base Excess -1 ((-2)-(+3)) mmol/L O2 Delivery Device Nasal cannula Oxygen Flow Rate 0 Sodium (135-145) mmol/L Potassium (3.6-5.0) mmol/L Chloride (101-111) mmol/L Carbon Dioxide (21.0-31.0) mmol/L Anion Gap BUN (7-18) mg/dL Creatinine (0.6-1.3) mg/dL Est Cr Clr Drug Dosing mL/min Estimated GFR (MDRD) Glucose (74-105) mg/dL POC Glucose 96 124 H (70-105) mg/dl Calcium (8.4-10.2) mg/dl Procalcitonin (<0.10) ng/mL 10/25/17 10/25/17 10/25/17 Range/Units 06:12 06:12 08:09 WBC 12.8 H (5.0-10.0) 10^3/uL RBC 4.81 (4.6-6.2) 10^6/uL Hgb 13.2 L (14.0-18.0) g/dL Hct 41.1 (40.0-54.0) % MCV 85.4 (80-100) fL MCH 27.4 (27.0-34.0) pg MCHC 32.1 L (33.0-35.0) g/dL Plt Count 123 L (150-450) 10^3/uL Neut % (Auto) 74.3 (42.2-75.2) % Lymph % (Auto) 13.2 L (20.5-50.1) % [place] % (Auto) 12.0 H (2-8) % Eos % (Auto) 0.2 L (1.0-3.0) % Baso % (Auto) 0.3 (0.0-1.0) % ABG pH (7.35-7.45) ABG pCO2 (35-45) mmHg ABG pO2 (70-100) mmHg ABG HCO3 (22-26) mmol/L ABG O2 Saturation (95-100) % ABG Base Excess ((-2)-(+3)) mmol/L O2 Delivery Device Oxygen Flow Rate Sodium 135 (135-145) mmol/L Potassium 4.6 (3.6-5.0) mmol/L Chloride 99 L (101-111) mmol/L Carbon Dioxide 28.0 (21.0-31.0) mmol/L Anion Gap 12.6 BUN 48 H (7-18) mg/dL Creatinine 2.9 H (0.6-1.3) mg/dL Est Cr Clr Drug Dosing 29.93 mL/min Estimated GFR (MDRD) 23 Glucose 95 (74-105) mg/dL POC Glucose 80 (70-105) mg/dl Calcium 8.8 (8.4-10.2) mg/dl Procalcitonin (<0.10) ng/mL 10/25/17 10/25/17 Range/Units 11:03 11:44 WBC (5.0-10.0) 10^3/uL RBC (4.6-6.2) 10^6/uL Hgb (14.0-18.0) g/dL Hct (40.0-54.0) % MCV (80-100) fL MCH (27.0-34.0) pg MCHC (33.0-35.0) g/dL Plt Count (150-450) 10^3/uL Neut % (Auto) (42.2-75.2) % Lymph % (Auto) (20.5-50.1) % [place] % (Auto) (2-8) % Eos % (Auto) (1.0-3.0) % Baso % (Auto) (0.0-1.0) % ABG pH (7.35-7.45) ABG pCO2 (35-45) mmHg ABG pO2 (70-100) mmHg ABG HCO3 (22-26) mmol/L ABG O2 Saturation (95-100) % ABG Base Excess ((-2)-(+3)) mmol/L O2 Delivery Device Oxygen Flow Rate Sodium (135-145) mmol/L Potassium (3.6-5.0) mmol/L Chloride (101-111) mmol/L Carbon Dioxide (21.0-31.0) mmol/L Anion Gap BUN (7-18) mg/dL Creatinine (0.6-1.3) mg/dL Est Cr Clr Drug Dosing mL/min Estimated GFR (MDRD) Glucose (74-105) mg/dL POC Glucose 55 L 81 (70-105) mg/dl Calcium (8.4-10.2) mg/dl Procalcitonin (<0.10) ng/mL SIM Results - Last 24 hrs: Microbiology 10/24/17 00:55 Urine Culture - Preliminary Urine, Clean Catch NO GROWTH AFTER 1 DAY 10/23/17 20:25 Aerobic Blood Culture - Preliminary Blood - Venous - Lab Draw NO GROWTH AFTER 1 DAY Anaerobic Blood Culture - Preliminary NO GROWTH AFTER 1 DAY 10/23/17 19:29 Aerobic Blood Culture - Preliminary Blood - Venous NO GROWTH AFTER 1 DAY Anaerobic Blood Culture - Preliminary NO GROWTH AFTER 1 DAY Med Orders - Current: Current Medications Acetaminophen (Tylenol) 650 mg PO Q4H PRN PRN Reason: Pain (Mild 1-3)/fever Albuterol (Proventil Neb Soln) 2.5 mg NEB Q2H PRN PRN Reason: shortness of breath/wheezing Aspirin (Aspirin) 81 mg PO DAILY [facility] Last Admin: 10/25/17 08:38 Dose: 81 mg Atorvastatin Calcium (Lipitor) 40 mg PO BEDTIME [facility] Last Admin: 10/24/17 22:14 Dose: 40 mg Ceftriaxone Sodium (Rocephin) 1 gm IV Q24H [facility] Last Admin: 10/24/17 14:13 Dose: 1 gm Clopidogrel Bisulfate (Plavix) 75 mg PO DAILY [facility] Last Admin: 10/25/17 08:38 Dose: 75 mg Duloxetine HCl (Cymbalta) 60 mg PO DAILY [facility] Last Admin: 10/25/17 08:38 Dose: 60 mg Furosemide (Lasix) 80 mg PO BIDDIURETIC [facility] Last Admin: 10/25/17 08:37 Dose: 80 mg Heparin Sodium (Porcine) (Heparin Sodium) 5,000 units SUBCUT Q8HR [facility] Last Admin: 10/25/17 06:33 Dose: 5,000 units Sodium Chloride (Normal Saline) 1,000 mls @ 100 mls/hr IV ASDIRECTED [facility] Last Admin: 10/25/17 03:22 Dose: 100 mls/hr Insulin Aspart (Novolog) 8 unit SUBCUT TIDMEALS [facility] Last Admin: 10/25/17 08:45 Dose: 8 units Insulin Aspart (Novolog) 0 unit SUBCUT QIDACANDBED [facility]; Protocol Last Admin: 10/25/17 08:37 Dose: Not Given Insulin Detemir (Levemir) 40 unit SUBCUT BEDTIME [facility] Last Admin: 10/24/17 22:15 Dose: 40 units Magnesium Oxide (Magnesium Oxide) 250 mg PO WITHBREAKFAST [facility] Last Admin: 10/25/17 08:37 Dose: 250 mg Metoprolol Succinate (Toprol Xl) 100 mg PO DAILY [facility] Last Admin: 10/25/17 08:39 Dose: 100 mg Non-Formulary Medication (Brimonidine Tartrate [Brimonidine Tartrate 0.2% [facility]]) 1 drop EYEBOTH BID [facility] Ondansetron HCl (Zofran Odt) 4 mg PO Q6H PRN PRN Reason: nausea, able to take PO Ondansetron HCl (Zofran) 4 mg IVPUSH Q6H PRN PRN Reason: Nausea/Vomiting Last Admin: 10/23/17 23:06 Dose: 4 mg Oxycodone HCl (Oxycodone) 5 mg PO Q4H PRN PRN Reason: Pain (moderate 4-6) Potassium Chloride (Klor-Con 10) 10 meq PO DAILY@0800 [facility] Last Admin: 10/25/17 08:38 Dose: 10 meq Sodium Chloride (Saline Flush) 10 ml FLUSH ASDIRECTED PRN PRN Reason: Keep Vein Open Timolol Maleate (Timoptic 0.5% Ophth Soln) 0 ml EYEBOTH BID [facility] Last Admin: 10/25/17 08:40 Dose: 2 drop Trimethoprim/Sulfamethoxazole (Septra Ds) 1 tab PO BID [facility] Last Admin: 10/25/17 08:38 Dose: 1 tab Zolpidem Tartrate (Ambien) 5 mg PO BEDTIME PRN PRN Reason: Sleep Discontinued Medications Albuterol/Ipratropium (Duoneb 3.0-0.5 Mg/3 Ml) 3 ml NEB ONETIME ONE Stop: 10/24/17 13:58 Last Admin: 10/24/17 14:26 Dose: 3 ml Enalapril Maleate (Vasotec) 5 mg PO DAILY [facility] Last Admin: 10/24/17 08:22 Dose: 5 mg Furosemide (Lasix) 80 mg PO BIDDIURETIC [facility] Last Admin: 10/24/17 08:21 Dose: 80 mg Gabapentin (Neurontin) 600 mg PO TID [facility] Last Admin: 10/24/17 14:58 Dose: Not Given Non-Formulary Medication (Magnesium Oxide [Magnesium]) 400 mg PO DAILY [facility] Last Admin: 10/24/17 12:55 Dose: Not Given - Exam General: Reports: Alert, Oriented Neck: Reports: Supple Lungs: Reports: Clear to Auscultation, Normal Respiratory Effort Cardiovascular: Reports: Regular Rate GI/Abdominal Exam: Normal Bowel Sounds, Soft, Non-Tender Extremities: No Pedal Edema Skin: Reports: Other (r. leg erythema)
[2017-10-25] MEDS: cefTRIAXone 1 GM Vial IV SCH (14:08)
--- NOTE | 2017-10-25 19:25 | EKG ---
10/24/2017 - MIAH CAIN - TIME: 2:11 p.m. FINDINGS: EKG per my reading, shows sinus rhythm at a rate of 67 with left bundle-branch block. [facility] /[id number]
--- NOTE | 2017-10-26 11:46 | EKG ---
10/23/2017 - MIAH CAIN - TIME: 7:22 p.m. FINDINGS: EKG per my reading, shows sinus rhythm at the rate of 90. [facility] /[id number]
== END 2017-10-25 12:08 | DRG 603 ==
LOC: DL.ED 18:29 → DL.MS 21:08 → UNDOADMOB 21:08 → DL.MS 21:35 → OBSVTOIN 10-24 11:53
PROVIDERS: ADMIT Internal Medicine; ATTEND Internal Medicine
DX: R53.1 Weakness (principal); R79.89 Other specified abnormal findings of blood chemistry; D72.825 Bandemia; L03.115 Cellulitis of right lower limb; I11.0 Hypertensive heart disease with heart failure; I50.9 Heart failure, unspecified; I13.0 Hypertensive heart and chronic kidney disease with heart failure and stage 1 through stage 4 chronic kidney disease, or unspecified chronic kidney disease; Z95.5 Presence of coronary angioplasty implant and graft; I50.22 Chronic systolic (congestive) heart failure; N17.9 Acute kidney failure, unspecified; R06.02 Shortness of breath; N18.3 Chronic kidney disease, stage 3 (moderate); E11.22 Type 2 diabetes mellitus with diabetic chronic kidney disease; R10.32 Left lower quadrant pain; E11.40 Type 2 diabetes mellitus with diabetic neuropathy, unspecified; E11.621 Type 2 diabetes mellitus with foot ulcer; H40.9 Unspecified glaucoma; H54.7 Unspecified visual loss; I44.7 Left bundle-branch block, unspecified; B19.20 Unspecified viral hepatitis C without hepatic coma; I25.2 Old myocardial infarction; Z79.4 Long term (current) use of insulin; Z79.899 Other long term (current) drug therapy; Z79.02 Long term (current) use of antithrombotics/antiplatelets; Z89.422 Acquired absence of other left toe(s); Z89.421 Acquired absence of other right toe(s)
CPT/HCPCS: 36415 ×2; 71045; 80048; 80053; 81001; 82150; 82962 ×4; 83605; 83690; 83880; 84145; 84484; 85025 ×2; 86788; 87040 ×2; 87086; 93005; 93010; 99285; A9270 ×11; J1644 ×2; J1815 ×3; J2405; 36600; 82803; 96372; 96374; 99284; G0378; J0696; J7030

== ENCOUNTER 2018-11-24 23:18 | Emergency (ER) | payer OTHER ==
[2018-11-24 23:54] VITALS: BP 129/83
[2018-11-25 00:40] LABS: ANION GAP 11.1; CHLORIDE,CL 102 mmol/L (101-111); SODIUM,NA 137 mmol/L (135-145)
[2018-11-25] MEDS ORDERED: Furosemide 40 MG Tab PO ONE (00:52)
--- NOTE | 2018-11-25 00:56 | EDM.PDOC ---
ED HPI GENERAL MEDICAL PROBLEM - General Chief Complaint: Respiratory Problem Stated Complaint: SHORT WINDED Time Seen by Provider: 11/25/18 00:53 Source of Information: Reports: Patient History Limitations: Reports: No Limitations - History of Present Illness INITIAL COMMENTS - FREE TEXT/NARRATIVE: c/o sob and unable find his neb. - Related Data Allergies Allergy/AdvReac Type Severity Reaction Status Date / Time No Known Allergies Allergy Verified 11/12/18 11:05 Home Meds: Home Meds Clopidogrel [Plavix] 75 mg PO DAILY 07/30/16 [History] Metoprolol Succinate [Toprol Xl] 200 mg PO DAILY 07/30/16 [History] atorvaSTATin [Lipitor] 40 mg PO BEDTIME 07/30/16 [History] Aspirin 81 mg PO DAILY 08/22/17 [History] Brimonidine Tartrate [Brimonidine Tartrate 0.2% Ophth Soln] 1 drop EYEBOTH BID 08/22/17 [History] DULoxetine HCl [Duloxetine HCl] 60 mg PO DAILY 08/22/17 [History] Magnesium Oxide [Magnesium] 400 mg PO DAILY 08/22/17 [History] Potassium Chloride 20 meq PO BIDMEALS 08/22/17 [History] Timolol Maleate [Timoptic 0.5% Ophth Soln] 1 drop EYEBOTH BID 08/22/17 [History] Acetaminophen [Tylenol] 650 mg PO Q4H PRN tablet 10/25/17 [Rx] Albuterol [Proventil Neb Soln] 2.5 mg NEB Q2H PRN neb 10/25/17 [Rx] Insulin Aspart [NovoLOG] 0 unit SUBCUT QIDACANDBED pen 10/25/17 [Rx] Gabapentin [Neurontin] 600 mg PO TID 01/19/18 [History] Ondansetron [Zofran ODT] 4 mg PO Q6H PRN 04/23/18 [History] Albuterol Sulfate [Proair Hfa] 1 - 2 inh INH Q4HR PRN 11/20/18 [History] Bumetanide 2 mg PO BID 11/20/18 [History] Calcitriol 0.25 mcg PO DAILY 11/20/18 [History] Losartan [Cozaar] 100 mg PO DAILY 11/20/18 [History] Nitroglycerin 0.4 mg PO ASDIRECTED PRN 11/20/18 [History] metOLazone [Zaroxolyn] 2.5 mg PO Q3D 11/20/18 [History] Past Medical History HEENT History: Reports: Cataract, Glaucoma, Impaired Vision Other HEENT History: Will obtain new glasses after cataract surgery Cardiovascular History: Reports: Heart Failure, Hypertension, [place], Pacemaker, Stents Other Cardiovascular History: LBBB Respiratory History: Reports: SOB Other Respiratory History: with CHF Gastrointestinal History: Reports: None Genitourinary History: Reports: Renal Disease Other Genitourinary History: stage 3 renal failure Musculoskeletal History: Reports: None Neurological History: Reports: Neuropathy, Diabetic Other Neuro History: memory lapses rarely Psychiatric History: Reports: Depression Other Psychiatric History: Pt states that he has an appt with [facility] in [place] this coming week Endocrine/Metabolic History: Reports: Diabetes, Type II Hematologic History: Reports: None Immunologic History: Reports: None Oncologic (Cancer) History: Reports: None Dermatologic History: Reports: Other (See Below) Other Dermatologic History: Diabetic foot ulcer. Pt states 6 months of skin itching to the back, arms and legs - Infectious Disease History Infectious Disease History: Reports: None Other Infectious Disease History: Pt states that he has been treated for HepC when he was 21 years of age - Past Surgical History Head Surgeries/Procedures: Reports: None Respiratory Surgical History: Reports: None GI Surgical History: Reports: None Male Surgical History: Reports: None Other Male Surgeries/Procedures: kidney biopsy done Neurological Surgical History: Reports: None Musculoskeletal Surgical History: Reports: Amputation, Other (See Below) Other Musculoskeletal Surgeries/Procedures:: maryann toe amp. 5th toe maryann. Social & Family History - Family History Family Medical History: Noncontributory - Tobacco Use Smoking Status *Q: Unknown Ever Smoked - Caffeine Use Caffeine Use: Reports: Coffee Caffeine Use Comment: 1-2cups per day - Recreational Drug Use Recreational Drug Use: No - Living Situation & Occupation Living situation: Reports: Occupation: Unemployed ED ROS GENERAL - Review of Systems Review Of Systems: ROS reveals no pertinent complaints other than HPI. ED EXAM, GENERAL - Physical Exam Exam: See Below Exam Limited By: No Limitations General Appearance: Alert, WD/WN, No Apparent Distress Ears: Hearing Grossly Normal Throat/Mouth: Normal Voice, No Airway Compromise Head: Atraumatic Neck: Non-Tender, Full Range of Motion Respiratory/Chest: No Respiratory Distress, No Accessory Muscle Use, Rales. No : Decreased Breath Sounds Cardiovascular: Regular Rate, Rhythm GI/Abdominal: Soft, Non-Tender Extremities: Pedal Edema, Other (2+ bilateral) Neurological: Alert, Oriented, Normal Cognition, Normal Gait, No Motor/Sensory Deficits Psychiatric: Normal Affect, Normal Mood Skin Exam: Warm, Dry, Normal Color Lymphatic: No Adenopathy Course - Vital Signs Last Recorded V/S: Last Vital Signs Temp 36.8 C 11/24/18 23:52 Pulse 71 11/24/18 23:52 Resp 18 11/24/18 23:52 BP 129/83 11/24/18 23:52 Pulse Ox 96 11/24/18 23:52 - Orders/Labs/Meds Orders: Active Orders 24 hr Category Date Time Status Chest 1V Frontal [CR] Urgent Exams 11/25/18 00:00 Taken Furosemide [Lasix] Med 11/25/18 00:52 Once 40 mg PO ONETIME ONE Labs: Laboratory Tests 11/25/18 11/25/18 11/25/18 Range/Units 00:10 00:10 00:10 WBC 10.6 H (5.0-10.0) 10^3/uL RBC 4.11 L (4.6-6.2) 10^6/uL Hgb 12.0 L (14.0-18.0) g/dL Hct 37.3 L (40.0-54.0) % MCV 90.8 (80-100) fL MCH 29.2 (27.0-34.0) pg MCHC 32.2 L (33.0-35.0) g/dL Plt Count 182 (150-450) 10^3/uL Neut % (Auto) 82.8 H (42.2-75.2) % Lymph % (Auto) 8.2 L (20.5-50.1) % [place] % (Auto) 8.1 H (2-8) % Eos % (Auto) 0.5 L (1.0-3.0) % Baso % (Auto) 0.4 (0.0-1.0) % Sodium 137 (135-145) mmol/L Potassium 4.1 (3.6-5.0) mmol/L Chloride 102 (101-111) mmol/L Carbon Dioxide 28.0 (21.0-31.0) mmol/L Anion Gap 11.1 BUN 27 H (7-18) mg/dL Creatinine 1.8 H (0.6-1.3) mg/dL Est Cr Clr Drug Dosing TNP Estimated GFR (MDRD) 39 BUN/Creatinine Ratio 15.00 Glucose 131 H (74-105) mg/dL Lactic Acid 1.5 (0.5-2.2) mmol/L Calcium 7.9 L (8.4-10.2) mg/dl Total Bilirubin 0.8 (0.2-1.0) mg/dL AST 42 (10-42) IU/L ALT 14 (10-60) IU/L Alkaline Phosphatase 139 H (42-121) IU/L B-Natriuretic Peptide 3760 H (0-100) pg/ml Total Protein 8.4 H (6.7-8.2) g/dl Albumin 2.5 L (3.2-5.5) g/dl Globulin 5.9 Albumin/Globulin Ratio 0.42 - Re-Assessments/Exams Free Text/Narrative Re-Assessment/Exam: 11/25/18 00:54 results discussed with pt. Departure - Departure Time of Disposition: 00:55 Disposition: Home, Self-Care 01 Condition: Good Clinical Impression: CHF (congestive heart failure) Qualifiers: Heart failure type: unspecified Heart failure chronicity: chronic Qualified Code(s): I50.9 - Heart failure, unspecified - Discharge Information Additional Instructions: 1) continue home meds 2) don't sleep flat at night. sleep in recliner if able 3) follow up at clinic - My Orders Last 24 Hours: My Active Orders 11/25/18 00:00 Chest 1V Frontal [CR] Urgent 11/25/18 00:52 Furosemide [Lasix] 40 mg PO ONETIME ONE - Assessment/Plan Last 24 Hours: My Active Orders 11/25/18 00:00 Chest 1V Frontal [CR] Urgent 11/25/18 00:52 Furosemide [Lasix] 40 mg PO ONETIME ONE
== END 2018-11-25 01:02 | disposition home or self-care (01) ==
LOC: DL.ED 23:18
DX: I13.0 Hypertensive heart and chronic kidney disease with heart failure and stage 1 through stage 4 chronic kidney disease, or unspecified chronic kidney disease (principal); E11.22 Type 2 diabetes mellitus with diabetic chronic kidney disease; N18.3 Chronic kidney disease, stage 3 (moderate); I50.9 Heart failure, unspecified; E11.40 Type 2 diabetes mellitus with diabetic neuropathy, unspecified; E11.621 Type 2 diabetes mellitus with foot ulcer; L97.509 Non-pressure chronic ulcer of other part of unspecified foot with unspecified severity; I25.2 Old myocardial infarction; F32.9 Major depressive disorder, single episode, unspecified; Z79.4 Long term (current) use of insulin; Z79.82 Long term (current) use of aspirin; Z79.02 Long term (current) use of antithrombotics/antiplatelets; Z79.899 Other long term (current) drug therapy
CPT/HCPCS: 36415; 71045; 80053; 83605; 83880; 85025; 99284; A9270

== ENCOUNTER 2018-12-18 23:05 | Observation (INO) | payer MEDICAID, OTHER ==
--- NOTE | 2018-12-18 23:52 | EDM.PDOC ---
ED HPI GENERAL MEDICAL PROBLEM - General Chief Complaint: Respiratory Problem Stated Complaint: BAD RASH ON BACK, SOB Time Seen by Provider: 12/18/18 23:15 Source of Information: Reports: Patient, Family, RN History Limitations: Reports: No Limitations - History of Present Illness INITIAL COMMENTS - FREE TEXT/NARRATIVE: ED with family with c/o generalized body rash, greater on back. has been seen in clinic for this and "treated for scabies" Stated it didn't help, reports no other family members with rash or itching, patient states has had for a few months. Additional c/o of diabetic ulcer on foot, SOB and swelling to legs. SOB ongoing, more SOB with activity. Orthopnea, Not on home oxygen. Legs swollen and right lower red. 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 Lat saw securities sales associate at endo of November, was told did not need to come back for a month. Previously being seen every 2 weeks Right Foot Pain Score (Numeric/FACES): 4 - Related Data Allergies Allergy/AdvReac Type Severity Reaction Status Date / Time No Known Allergies Allergy Verified 12/19/18 01:41 Home Meds: Home Meds Metoprolol Succinate [Toprol Xl] 200 mg PO DAILY 07/30/16 [History] atorvaSTATin [Lipitor] 40 mg PO BEDTIME 07/30/16 [History] Aspirin 81 mg PO DAILY 08/22/17 [History] Brimonidine Tartrate [Brimonidine Tartrate 0.2% Ophth Soln] 2 drop EYEBOTH BID 08/22/17 [History] DULoxetine HCl [Duloxetine HCl] 60 mg PO DAILY 08/22/17 [History] Magnesium Oxide [Magnesium] 400 mg PO DAILY 08/22/17 [History] Potassium Chloride 20 meq PO BIDMEALS 08/22/17 [History] Timolol Maleate [Timoptic 0.5% Ophth Soln] 1 drop EYEBOTH BID 08/22/17 [History] Acetaminophen [Tylenol] 650 mg PO Q4H PRN tablet 10/25/17 [Rx] Albuterol [Proventil Neb Soln] 2.5 mg NEB Q2H PRN neb 10/25/17 [Rx] Insulin Aspart [NovoLOG] 0 unit SUBCUT QIDACANDBED pen 10/25/17 [Rx] Gabapentin [Neurontin] 600 mg PO TID 01/19/18 [History] Ondansetron [Zofran ODT] 4 mg PO Q6H PRN 04/23/18 [History] Albuterol Sulfate [Proair Hfa] 1 - 2 inh INH Q4HR PRN 11/20/18 [History] Bumetanide 2 mg PO BID 11/20/18 [History] Calcitriol 0.25 mcg PO DAILY 11/20/18 [History] Losartan [Cozaar] 100 mg PO DAILY 11/20/18 [History] Nitroglycerin 0.4 mg PO ASDIRECTED PRN 11/20/18 [History] metOLazone [Zaroxolyn] 2.5 mg PO Q3D 11/20/18 [History] Past Medical History HEENT History: Reports: Cataract, Glaucoma, Impaired Vision Other HEENT History: Will obtain new glasses after cataract surgery Cardiovascular History: Reports: Heart Failure, Hypertension, [place], Pacemaker, Stents Other Cardiovascular History: LBBB Respiratory History: Reports: SOB Other Respiratory History: with CHF Gastrointestinal History: Reports: None Genitourinary History: Reports: Renal Disease Other Genitourinary History: stage 3 renal failure Musculoskeletal History: Reports: None Neurological History: Reports: Neuropathy, Diabetic Other Neuro History: memory lapses rarely Psychiatric History: Reports: Depression Other Psychiatric History: Pt states that he has an appt with mental [facility] in [place] this coming week Endocrine/Metabolic History: Reports: Diabetes, Type II Hematologic History: Reports: None Immunologic History: Reports: None Oncologic (Cancer) History: Reports: None Dermatologic History: Reports: Other (See Below) Other Dermatologic History: Diabetic foot ulcer. Pt states 6 months of skin itching to the back, arms and legs - Infectious Disease History Infectious Disease History: Reports: None, Chicken Pox, Hepatitis C Other Infectious Disease History: Pt states that he has been treated for HepC when he was 21 years of age - Past Surgical History Head Surgeries/Procedures: Reports: None Respiratory Surgical History: Reports: None GI Surgical History: Reports: None Male Surgical History: Reports: None Other Male Surgeries/Procedures: kidney biopsy done Neurological Surgical History: Reports: None Musculoskeletal Surgical History: Reports: Amputation, Other (See Below) Other Musculoskeletal Surgeries/Procedures:: maryann toe amp. 5th toe maryann. Social & Family History - Family History Family Medical History: Noncontributory - Tobacco Use Smoking Status *Q: Never Smoker Second Hand Smoke Exposure: No - Caffeine Use Caffeine Use: Reports: Coffee Caffeine Use Comment: 1-2cups per day - Recreational Drug Use Recreational Drug Use: No - Living Situation & Occupation Living situation: Reports: Occupation: Unemployed ED ROS GENERAL - Review of Systems Review Of Systems: ROS reveals no pertinent complaints other than HPI. ED EXAM, GENERAL - Physical Exam Exam: See Below Exam Limited By: No Limitations General Appearance: Alert, No Apparent Distress Eye Exam: Bilateral Eye: EOMI, PERRL Ears: Normal External Exam Nose: Normal Inspection Throat/Mouth: Normal Inspection Head: Atraumatic, Normocephalic Neck: Normal Inspection Respiratory/Chest: No Respiratory Distress, Crackles (right base) Cardiovascular: Normal Peripheral Pulses, Regular Rate, Rhythm GI/Abdominal: Normal Bowel Sounds, Soft, Non-Tender Extremities: Pedal Edema (3+ to mid calf) Neurological: Alert, Oriented, Normal Cognition Psychiatric: Flat Affect Skin Exam: Warm, Other (diabetic ulcer right lateral foot plantar surface, scant clear yellow drainage, large surrounding callous 5mm center wound, 3mm depth) Course - Vital Signs Last Recorded V/S: Last Vital Signs Temp 97.6 F 12/19/18 01:32 Pulse 64 12/19/18 01:32 Resp 16 12/19/18 01:32 BP 134/71 12/19/18 01:32 Pulse Ox 100 12/19/18 01:32 - Orders/Labs/Meds Orders: Active Orders 24 hr Category Date Time Status Chest 1V Frontal [CR] Urgent Exams 12/18/18 23:08 Taken Foot Comp Min 3V Rt [CR] Urgent Exams 12/18/18 23:14 Taken CULTURE BLOOD [BC] Stat Lab 12/18/18 23:30 Received CULTURE BLOOD [BC] Stat Lab 12/18/18 23:37 Received CULTURE WOUND [RM] Stat Lab 12/18/18 23:10 Received Blood Culture x2 Reflex Set [OM.PC] Stat Oth 12/18/18 23:08 Ordered Medication Orders Aspirin (Aspirin) 81 mg PO DAILY [facility] Calcitriol (Rocaltrol) 0.25 mcg PO DAILY [facility] Diphenhydramine HCl (Benadryl) 25 mg PO QID PRN PRN Reason: Itching Heparin Sodium (Porcine) (Heparin Sodium) 5,000 units SUBCUT Q8HR [facility] Insulin Human Lispro (Humalog) 0 unit SUBCUT QIDACANDBED [facility]; Protocol Metolazone (Zaroxolyn) 2.5 mg PO Q3D [facility] Non-Formulary Medication (Atorvastatin [Lipitor]) 40 mg PO BEDTIME [facility] Non-Formulary Medication (Brimonidine Tartrate [Brimonidine Tartrate 0.2% Ophth Soln]) 2 drop EYEBOTH BID [facility] Non-Formulary Medication (Bumetanide [Bumetanide]) 2 mg PO BID [facility] Non-Formulary Medication (Duloxetine Hcl [Duloxetine Hcl]) 60 mg PO DAILY [facility] Non-Formulary Medication (Gabapentin) 600 mg PO TID [facility] Non-Formulary Medication (Magnesium Oxide [Magnesium]) 400 mg PO DAILY [facility] Non-Formulary Medication (Metoprolol Succinate [Toprol Xl]) 200 mg PO DAILY [facility] Timolol Maleate (Timoptic 0.5% Ophth Soln) ml EYEBOTH BID [facility] Triamcinolone Acetonide (Triamcinolone Acetonide 0.1% Oint) 0 gm TOP BID [facility] Labs: Laboratory Tests 12/18/18 12/18/18 12/18/18 Range/Units 23:12 23:30 23:30 WBC 6.9 (5.0-10.0) 10^3/uL RBC 4.06 L (4.6-6.2) 10^6/uL Hgb 11.6 L (14.0-18.0) g/dL Hct 36.6 L (40.0-54.0) % MCV 90.1 (80-100) fL MCH 28.6 (27.0-34.0) pg MCHC 31.7 L (33.0-35.0) g/dL Plt Count 179 (150-450) 10^3/uL Neut % (Auto) 64.9 (42.2-75.2) % Lymph % (Auto) 14.9 L (20.5-50.1) % [place] % (Auto) 12.8 H (2-8) % Eos % (Auto) 6.5 H (1.0-3.0) % Baso % (Auto) 0.9 (0.0-1.0) % Sodium 137 (135-145) mmol/L Potassium 4.0 (3.6-5.0) mmol/L Chloride 104 (101-111) mmol/L Carbon Dioxide 27.0 (21.0-31.0) mmol/L Anion Gap 10.0 BUN 39 H (7-18) mg/dL Creatinine 1.7 H (0.6-1.3) mg/dL Est Cr Clr Drug Dosing 50.45 mL/min Estimated GFR (MDRD) 42 BUN/Creatinine Ratio 22.94 Glucose 131 H (74-105) mg/dL POC Glucose 139 H (70-105) mg/dl Lactic Acid (0.5-2.2) mmol/L Calcium 7.8 L (8.4-10.2) mg/dl Total Bilirubin 0.8 (0.2-1.0) mg/dL AST 31 (10-42) IU/L ALT 13 (10-60) IU/L Alkaline Phosphatase 153 H (42-121) IU/L Troponin I 0.04 H* (0.00-0.02) ng/ml B-Natriuretic Peptide 4300 H (0-100) pg/ml Total Protein 8.3 H (6.7-8.2) g/dl Albumin 2.3 L (3.2-5.5) g/dl Globulin 6.0 Albumin/Globulin Ratio 0.38 09/17/19 Range/Units 23:30 WBC (5.0-10.0) 10^3/uL RBC (4.6-6.2) 10^6/uL Hgb (14.0-18.0) g/dL Hct (40.0-54.0) % MCV (80-100) fL MCH (27.0-34.0) pg MCHC (33.0-35.0) g/dL Plt Count (150-450) 10^3/uL Neut % (Auto) (42.2-75.2) % Lymph % (Auto) (20.5-50.1) % [place] % (Auto) (2-8) % Eos % (Auto) (1.0-3.0) % Baso % (Auto) (0.0-1.0) % Sodium (135-145) mmol/L Potassium (3.6-5.0) mmol/L Chloride (101-111) mmol/L Carbon Dioxide (21.0-31.0) mmol/L Anion Gap BUN (7-18) mg/dL Creatinine (0.6-1.3) mg/dL Est Cr Clr Drug Dosing mL/min Estimated GFR (MDRD) BUN/Creatinine Ratio Glucose (74-105) mg/dL POC Glucose (70-105) mg/dl Lactic Acid 1.2 (0.5-2.2) mmol/L Calcium (8.4-10.2) mg/dl Total Bilirubin (0.2-1.0) mg/dL AST (10-42) IU/L ALT (10-60) IU/L Alkaline Phosphatase (42-121) IU/L Troponin I (0.00-0.02) ng/ml B-Natriuretic Peptide (0-100) pg/ml Total Protein (6.7-8.2) g/dl Albumin (3.2-5.5) g/dl Globulin Albumin/Globulin Ratio Meds: Medications Generic Name Dose Route Start Last Admin Trade Name Freq PRN Reason Stop Dose Admin Aspirin 81 mg 12/19/18 09:00 Aspirin PO DAILY [facility] Calcitriol 0.25 mcg 12/19/18 09:00 Rocaltrol PO DAILY [facility] Diphenhydramine HCl 25 mg 12/19/18 02:48 Benadryl PO QID PRN Itching Heparin Sodium (Porcine) 5,000 units 12/19/18 06:00 Heparin Sodium SUBCUT Q8HR [facility] Insulin Human Lispro 0 unit 12/19/18 07:00 Humalog SUBCUT QIDACANDBED [facility] Protocol Metolazone 2.5 mg 12/19/18 02:45 Zaroxolyn PO Q3D [facility] Non-Formulary Medication 40 mg 12/19/18 21:00 Atorvastatin [Lipitor] PO BEDTIME [facility] Non-Formulary Medication 2 drop 12/19/18 09:00 Brimonidine Tartrate [Brimonidine Tartrate 0.2% Ophth Soln] EYEBOTH BID [facility] Non-Formulary Medication 2 mg 12/19/18 09:00 Bumetanide [Bumetanide] PO BID [facility] Non-Formulary Medication 60 mg 12/19/18 09:00 Duloxetine Hcl [Duloxetine Hcl] PO DAILY [facility] Non-Formulary Medication 600 mg 12/19/18 09:00 Gabapentin PO TID [facility] Non-Formulary Medication 400 mg 12/19/18 09:00 Magnesium Oxide [Magnesium] PO DAILY [facility] Non-Formulary Medication 200 mg 12/19/18 09:00 Metoprolol Succinate [Toprol Xl] PO DAILY [facility] Timolol Maleate ml 12/19/18 09:00 Timoptic 0.5% Ophth Soln EYEBOTH BID [facility] Triamcinolone Acetonide 0 gm 12/19/18 02:45 Triamcinolone Acetonide 0.1% Oint TOP BID [facility] Discontinued Medications Generic Name Dose Route Start Last Admin Trade Name Freq PRN Reason Stop Dose Admin Furosemide 40 mg 12/19/18 00:32 12/19/18 00:37 Lasix IVPUSH 12/19/18 00:33 40 mg NOW ONE Administration - Radiology Interpretation Free Text/Narrative:: [facility] Final Radiology Report Call: [phone] assistance Online chat: [email or web address] Name: MIAH CAIN Age: 58Years M Date: 12/18/2018 SSN: -- : 1960 Study: XR CHEST 1 VIEW FRONTAL Requesting Physician: CELESTINA SAMUELS Images: 1 Addl Studies: Provided Clinical History: Contrast: Contrast Medium: Contrast Amount: Contrast Method: CONFIDENTIALITY STATEMENT This report is intended only for use by the referring physician, and only in accordance with law. If you received this in error, call [phone]. Page 1 of 1 EXAM: XR Chest, 1 View EXAM DATE/TIME: 12/18/2018 11:20 PM CLINICAL HISTORY: 58 years old, male; Shortness of breath TECHNIQUE: Imaging protocol: XR of the chest Views: 1 view. COMPARISON: CR Chest 1V Frontal 11/25/2018 12:29 AM FINDINGS: Tubes, catheters and devices: ICD. Lungs: Unremarkable. No consolidation. Left base poorly visualized. Pleural space: Unremarkable. No evidence of pneumothorax. Heart/Mediastinum: Unremarkable. Heart size within normal limits for technique. Bones/joints: Unremarkable. IMPRESSION: No acute findings. Thank you for allowing us to participate in the care of your patient. Dictated and Authenticated by: Yefri Cunningham MD 12/18/2018 11:59 PM Central Time ([place] & [place]) [facility] [place] [facility] Final Radiology Report Call: [phone] assistance Online chat: [email or web address] Name: MIAH CAIN Age: 58Years M Date: 12/18/2018 SSN: -- : [id number] Study: XR FOOT COMPLETE MIN 3 VIEWS RIGHT Requesting Physician: CELESTINA SAMUELS Images: 3 Addl Studies: Provided Clinical History: Contrast: Contrast Medium: Contrast Amount: Contrast Method: CONFIDENTIALITY STATEMENT This report is intended only for use by the referring physician, and only in accordance with law. If you received this in error, call [phone]. Page 1 of 1 EXAM: XR Right Foot Complete EXAM DATE/TIME: 12/18/2018 11:21 PM CLINICAL HISTORY: 58 years old, male; Condition or disease; Other: Diabetic ulcer TECHNIQUE: Imaging protocol: XR Right foot. Views: 3 or more views. COMPARISON: CR Foot Comp Min 3V Rt 02/07/2018 9:31 PM FINDINGS: Bones/joints: Transmetatarsal fifth digit amputation, unchanged. Small calcaneal spur. No evidence of acute fracture. No significant degenerative changes. Soft tissues: Localized focus of soft tissue gas adjacent to the fifth metatarsal bone . Vasculature: Small vessels calcified. IMPRESSION: Soft tissue swelling and soft tissue gas at the ulcer site. No acute bony pathology. Thank you for allowing us to participate in the care of your patient. Dictated and Authenticated by: Yefri Cunningham MD 12/19/2018 12:02 AM Central Time ([place] & [place]) Departure - Departure Time of Disposition: 01:20 Disposition: Admitted As Inpatient 66 Condition: Good Clinical Impression: CHF (congestive heart failure) Qualifiers: Heart failure type: unspecified Heart failure chronicity: chronic Qualified Code(s): I50.9 - Heart failure, unspecified Diabetic foot ulcer Qualifiers: Diabetic foot ulcer location: unspecified part of foot Diabetes mellitus type: type 2 Laterality: right Non-pressure ulcer stage: unspecified non-pressure ulcer stage Qualified Code(s): E11.621 - Type 2 diabetes mellitus with foot ulcer Diabetes mellitus Qualifiers: Diabetes mellitus type: type 2 Diabetes mellitus 911 emergency services dispatcher insulin use: with fci use Diabetes mellitus complication status: with skin complications Diabetes mellitus complication detail: with foot ulcer Qualified Code(s): E11.621 - Type 2 diabetes mellitus with foot ulcer - Discharge Information *PRESCRIPTION DRUG MONITORING PROGRAM REVIEWED*: No *COPY OF PRESCRIPTION DRUG MONITORING REPORT IN PATIENT GUANACO: No - My Orders Last 24 Hours: My Active Orders 12/18/18 23:08 Chest 1V Frontal [CR] Urgent Blood Culture x2 Reflex Set [OM.PC] Stat 12/18/18 23:10 CULTURE WOUND [RM] Stat 12/18/18 23:14 Foot Comp Min 3V Rt [CR] Urgent 12/18/18 23:30 CULTURE BLOOD [BC] Stat 12/18/18 23:37 CULTURE BLOOD [BC] Stat - Assessment/Plan Last 24 Hours: My Active Orders 12/18/18 23:08 Chest 1V Frontal [CR] Urgent Blood Culture x2 Reflex Set [OM.PC] Stat 12/18/18 23:10 CULTURE WOUND [RM] Stat 12/18/18 23:14 Foot Comp Min 3V Rt [CR] Urgent 12/18/18 23:30 CULTURE BLOOD [BC] Stat 12/18/18 23:37 CULTURE BLOOD [BC] Stat
[2018-12-19] MEDS ORDERED: Furosemide 40 MG/4 ML VIAL IVPUSH ONE (00:32)
--- NOTE | 2018-12-19 02:46 | PCM.HP ---
H&P History of Present Illness - General Date of Service: 12/19/18 Admit Problem/Dx: Admission Diagnosis/Problem Admission Diagnosis/Problem Chronic heart failure Source of Information: Patient, Family History Limitations: Reports: No Limitations - History of Present Illness Initial Comments - Free Text/Narative: 58 yo M with PMH of low EF CHF, DM, HTN, HLD, glaucoma who presents with pruritic rash on back, bilateral leg swelling, ambulatory dysfunction with falls. Pruritic rash on back started a few days ago. Similar to rash he has had in the past that comes and goes on it's own. No fever, no chills or rigors. Main reason he comes to the ER tonight. Bilateral leg swelling is chronic, 2/2 CHF. Had appointment with CHF clinic this month. On bumex but non-compliant. No chest pain, SOB with exertion, no cough, not on oxygen. No abdominal pain, no urinary symptoms. Has reported a few falls in the past few weeks. +ambulatory dysfunction Has a chronic ulcer on the plantar surface of right foot, has been ongoing for a year, sees arborer in clinic who treats it with collagen dressing. Right Foot Pain Score (Numeric/FACES): 4 - Related Data Allergies/Adverse Reactions: Allergies Allergy/AdvReac Type Severity Reaction Status Date / Time No Known Allergies Allergy Verified 12/19/18 01:41 Home Medications: Home Meds Metoprolol Succinate [Toprol Xl] 200 mg PO DAILY 07/30/16 [History] atorvaSTATin [Lipitor] 40 mg PO BEDTIME 07/30/16 [History] Aspirin 81 mg PO DAILY 08/22/17 [History] Brimonidine Tartrate [Brimonidine Tartrate 0.2% Ophth Soln] 2 drop EYEBOTH BID 08/22/17 [History] DULoxetine HCl [Duloxetine HCl] 60 mg PO DAILY 08/22/17 [History] Magnesium Oxide [Magnesium] 400 mg PO DAILY 08/22/17 [History] Potassium Chloride 20 meq PO BIDMEALS 08/22/17 [History] Timolol Maleate [Timoptic 0.5% Ophth Soln] 1 drop EYEBOTH BID 08/22/17 [History] Acetaminophen [Tylenol] 650 mg PO Q4H PRN tablet 10/25/17 [Rx] Albuterol [Proventil Neb Soln] 2.5 mg NEB Q2H PRN neb 10/25/17 [Rx] Insulin Aspart [NovoLOG] 0 unit SUBCUT QIDACANDBED pen 10/25/17 [Rx] Gabapentin [Neurontin] 600 mg PO TID 01/19/18 [History] Ondansetron [Zofran ODT] 4 mg PO Q6H PRN 04/23/18 [History] Albuterol Sulfate [Proair Hfa] 1 - 2 inh INH Q4HR PRN 11/20/18 [History] Bumetanide 2 mg PO BID 11/20/18 [History] Calcitriol 0.25 mcg PO DAILY 11/20/18 [History] Losartan [Cozaar] 100 mg PO DAILY 11/20/18 [History] Nitroglycerin 0.4 mg PO ASDIRECTED PRN 11/20/18 [History] metOLazone [Zaroxolyn] 2.5 mg PO Q3D 11/20/18 [History] Past Medical History HEENT History: Reports: Cataract, Glaucoma, Impaired Vision Other HEENT History: Will obtain new glasses after cataract surgery Cardiovascular History: Reports: Heart Failure, Hypertension, [place], Pacemaker, Stents Other Cardiovascular History: LBBB Respiratory History: Reports: SOB Other Respiratory History: with CHF Gastrointestinal History: Reports: None Genitourinary History: Reports: Renal Disease Other Genitourinary History: stage 3 renal failure Musculoskeletal History: Reports: None Neurological History: Reports: Neuropathy, Diabetic Other Neuro History: memory lapses rarely Psychiatric History: Reports: Depression Other Psychiatric History: Pt states that he has an appt with mental health in [place] this coming week Endocrine/Metabolic History: Reports: Diabetes, Type II Hematologic History: Reports: None Immunologic History: Reports: None Oncologic (Cancer) History: Reports: None Dermatologic History: Reports: Other (See Below) Other Dermatologic History: Diabetic foot ulcer. Pt states 6 months of skin itching to the back, arms and legs - Infectious Disease History Infectious Disease History: Reports: None, Chicken Pox, Hepatitis C Other Infectious Disease History: Pt states that he has been treated for HepC when he was 21 years of age - Past Surgical History Head Surgeries/Procedures: Reports: None Respiratory Surgical History: Reports: None GI Surgical History: Reports: None Male Surgical History: Reports: None Other Male Surgeries/Procedures: kidney biopsy done Neurological Surgical History: Reports: None Musculoskeletal Surgical History: Reports: Amputation, Other (See Below) Other Musculoskeletal Surgeries/Procedures:: maryann toe amp. 5th toe maryann. Social & Family History - Family History Family Medical History: Noncontributory - Tobacco Use Smoking Status *Q: Never Smoker Second Hand Smoke Exposure: No - Caffeine Use Caffeine Use: Reports: None Caffeine Use Comment: 1-2cups per day - Recreational Drug Use Recreational Drug Use: No - Living Situation & Occupation Living situation: Reports: Occupation: Unemployed H&P Review of Systems - Review of Systems: Review Of Systems: ROS reveals no pertinent complaints other than HPI. General: Denies: Fever, Chills HEENT: Reports: No Symptoms Pulmonary: Reports: No Symptoms Cardiovascular: Reports: No Symptoms Gastrointestinal: Reports: No Symptoms Genitourinary: Reports: No Symptoms Musculoskeletal: Reports: Other (leg swelling) Skin: Reports: Rash Psychiatric: Reports: No Symptoms Neurological: Reports: No Symptoms Exam - Exam Exam: See Below - Vital Signs Vital Signs: Last Vital Signs Temp 36.4 C 12/19/18 01:32 Pulse 64 12/19/18 01:32 Resp 16 12/19/18 01:32 BP 134/71 12/19/18 01:32 Pulse Ox 100 12/19/18 01:32 Weight: 111.947 kg - Exam General: Alert, Oriented HEENT: Conjunctiva Clear, EACs Clear Neck: Supple, Trachea Midline. No: JVD Lungs: Clear to Auscultation, Normal Respiratory Effort Cardiovascular: Regular Rate, Regular Rhythm, Normal S1, Normal S2 GI/Abdominal Exam: Normal Bowel Sounds, Soft, Non-Tender, No Organomegaly Extremities: Pedal Edema Skin: Rash Neurological: Cranial Nerves Intact Neuro Extensive - Mental Status: Alert, Oriented x3, Normal Mood/Affect, Normal Cognition, Memory Intact Neuro Extensive - Motor, Sensory, Reflexes: CN II-XII Intact - Patient Data Lab Results Last 24 hrs: Laboratory Results - last 24 hr 12/18/18 12/18/18 12/18/18 Range/Units 23:12 23:30 23:30 WBC 6.9 (5.0-10.0) 10^3/uL RBC 4.06 L (4.6-6.2) 10^6/uL Hgb 11.6 L (14.0-18.0) g/dL Hct 36.6 L (40.0-54.0) % MCV 90.1 (80-100) fL MCH 28.6 (27.0-34.0) pg MCHC 31.7 L (33.0-35.0) g/dL Plt Count 179 (150-450) 10^3/uL Neut % (Auto) 64.9 (42.2-75.2) % Lymph % (Auto) 14.9 L (20.5-50.1) % Snyder % (Auto) 12.8 H (2-8) % Eos % (Auto) 6.5 H (1.0-3.0) % Baso % (Auto) 0.9 (0.0-1.0) % Sodium 137 (135-145) mmol/L Potassium 4.0 (3.6-5.0) mmol/L Chloride 104 (101-111) mmol/L Carbon Dioxide 27.0 (21.0-31.0) mmol/L Anion Gap 10.0 BUN 39 H (7-18) mg/dL Creatinine 1.7 H (0.6-1.3) mg/dL Est Cr Clr Drug Dosing 50.45 mL/min Estimated GFR (MDRD) 42 BUN/Creatinine Ratio 22.94 Glucose 131 H (74-105) mg/dL POC Glucose 139 H (70-105) mg/dl Lactic Acid (0.5-2.2) mmol/L Calcium 7.8 L (8.4-10.2) mg/dl Total Bilirubin 0.8 (0.2-1.0) mg/dL AST 31 (10-42) IU/L ALT 13 (10-60) IU/L Alkaline Phosphatase 153 H (42-121) IU/L Troponin I 0.04 H* (0.00-0.02) ng/ml B-Natriuretic Peptide 4300 H (0-100) pg/ml Total Protein 8.3 H (6.7-8.2) g/dl Albumin 2.3 L (3.2-5.5) g/dl Globulin 6.0 Albumin/Globulin Ratio 0.38 // Range/Units 23:30 WBC (5.0-10.0) 10^3/uL RBC (4.6-6.2) 10^6/uL Hgb (14.0-18.0) g/dL Hct (40.0-54.0) % MCV (80-100) fL MCH (27.0-34.0) pg MCHC (33.0-35.0) g/dL Plt Count (150-450) 10^3/uL Neut % (Auto) (42.2-75.2) % Lymph % (Auto) (20.5-50.1) % Snyder % (Auto) (2-8) % Eos % (Auto) (1.0-3.0) % Baso % (Auto) (0.0-1.0) % Sodium (135-145) mmol/L Potassium (3.6-5.0) mmol/L Chloride (101-111) mmol/L Carbon Dioxide (21.0-31.0) mmol/L Anion Gap BUN (7-18) mg/dL Creatinine (0.6-1.3) mg/dL Est Cr Clr Drug Dosing mL/min Estimated GFR (MDRD) BUN/Creatinine Ratio Glucose (74-105) mg/dL POC Glucose (70-105) mg/dl Lactic Acid 1.2 (0.5-2.2) mmol/L Calcium (8.4-10.2) mg/dl Total Bilirubin (0.2-1.0) mg/dL AST (10-42) IU/L ALT (10-60) IU/L Alkaline Phosphatase (42-121) IU/L Troponin I (0.00-0.02) ng/ml B-Natriuretic Peptide (0-100) pg/ml Total Protein (6.7-8.2) g/dl Albumin (3.2-5.5) g/dl Globulin Albumin/Globulin Ratio Result Diagrams: 12/18/18 23:30 12/18/18 23:30 Problem List Initiated/Reviewed/Updated: Yes Orders Last 24hrs: Active Orders 24 hr Category Date Time Status Admission Diagnosis [ADT] Routine ADT 12/19/18 01:14 Ordered Admission Status [Patient Status] [ADT] Routine ADT 12/19/18 01:14 Active Accu Check [Blood Glucose Check, Bedside] [] Care 12/19/18 02:33 Ordered QIDACANDBED Ambulate [] ASDIRECTED Care 12/19/18 02:33 Ordered Height and Weight [] DAILY Care 12/19/18 02:33 Ordered Oxygen Therapy [RC] PRN Care 12/19/18 02:33 Ordered Up With Assistance [RC] ASDIRECTED Care 12/19/18 02:33 Ordered VTE/DVT Education [RC] PER UNIT ROUTINE Care 12/19/18 02:33 Ordered Vital Signs [RC] Q4H Care 12/19/18 02:33 Ordered OT Evaluation and Treatment [CONS] Routine Cons 12/19/18 02:33 Ordered PT Evaluation and Treatment [CONS] Routine Cons 12/19/18 02:33 Ordered Consistent Carbohydrate Diet [DIET] Diet 12/19/18 Breakfast Ordered Fluid Restriction [DIET] Diet 12/19/18 Breakfast Ordered Low Salt [Sodium Restricted Diet] [DIET] Diet 12/19/18 Breakfast Ordered Chest 1V Frontal [CR] Urgent Exams 12/18/18 23:08 Taken Foot Comp Min 3V Rt [CR] Urgent Exams 12/18/18 23:14 Taken CULTURE BLOOD [BC] Stat Lab 12/18/18 23:30 Received CULTURE BLOOD [BC] Stat Lab 12/18/18 23:37 Received CULTURE WOUND [RM] Stat Lab 12/18/18 23:10 Received Aspirin Med 12/19/18 09:00 Ordered 81 mg PO DAILY Brimonidine Tartrate [Brimonidine Tartrate 0.2% Ophth Med 12/19/18 09:00 Ordered Soln] 2 drop EYEBOTH BID Bumetanide [Bumetanide] Med 12/19/18 09:00 Ordered 2 mg PO BID Calcitriol [Rocaltrol] Med 12/19/18 09:00 Ordered 0.25 mcg PO DAILY DULoxetine HCl [Duloxetine HCl] Med 12/19/18 09:00 Ordered 60 mg PO DAILY Gabapentin Med 12/19/18 09:00 Ordered 600 mg PO TID Insulin Lispro [HumaLOG] Med 12/19/18 07:00 Ordered See Protocol SUBCUT QIDACANDBED Magnesium Oxide [Magnesium] Med 12/19/18 09:00 Ordered 400 mg PO DAILY Metoprolol Succinate [Toprol Xl] Med 12/19/18 09:00 Ordered 200 mg PO DAILY Timolol Maleate [Timoptic 0.5% Ophth Soln] Med 12/19/18 09:00 Ordered 1 drop EYEBOTH BID Triamcinolone Acetonide [Triamcinolone Acetonide 0.1% Med 12/19/18 02:45 Ordered Oint] 1 gm TOP BID atorvaSTATin [Lipitor] Med 12/19/18 21:00 Ordered 40 mg PO BEDTIME metOLazone [Zaroxolyn] Med 12/19/18 02:45 Ordered 2.5 mg PO Q3D Blood Culture x2 Reflex Set [OM.PC] Stat Ot 12/18/18 23:08 Ordered Peripheral IV Insertion Adult [OM.PC] Routine Oth 12/19/18 02:33 Ordered Saline Lock Insert [OM.PC] Routine Oth 12/19/18 02:33 Ordered Medication Orders Aspirin (Aspirin) 81 mg PO DAILY [facility] Calcitriol (Rocaltrol) 0.25 mcg PO DAILY [facility] Insulin Human Lispro (Humalog) 0 unit SUBCUT QIDACANDBED [facility]; Protocol Metolazone (Zaroxolyn) 2.5 mg PO Q3D [facility] Non-Formulary Medication (Atorvastatin [Lipitor]) 40 mg PO BEDTIME [facility] Non-Formulary Medication (Brimonidine Tartrate [Brimonidine Tartrate 0.2% Ophth Soln]) 2 drop EYEBOTH BID [facility] Non-Formulary Medication (Bumetanide [Bumetanide]) 2 mg PO BID [facility] Non-Formulary Medication (Duloxetine Hcl [Duloxetine Hcl]) 60 mg PO DAILY [facility] Non-Formulary Medication (Gabapentin) 600 mg PO TID [facility] Non-Formulary Medication (Magnesium Oxide [Magnesium]) 400 mg PO DAILY [facility] Non-Formulary Medication (Metoprolol Succinate [Toprol Xl]) 200 mg PO DAILY [facility] Timolol Maleate (Timoptic 0.5% Ophth Soln) ml EYEBOTH BID [facility] Triamcinolone Acetonide (Triamcinolone Acetonide 0.1% Oint) 1 gm TOP BID [facility] Assessment/Plan Comment:: Rash Likely pityriasis rosea. Start kenalog ointment bid PRN benadryl for itching Chronic CHF not in acute exacerbation continue oral bumex GDMT: continue metoprolol, ARB fluid restriction salt restriction DM2 carb controlled diet ISS, accuchecks Chronic right foot wound f/u with arborer Ambulatory dysfunction PT/OT Might need a walker HLD continue statin HTN continue home BP meds DVT ppx SC heparin
[2018-12-19] MEDS ORDERED: diphenhydrAMINE 25 MG Tab PO PRN (02:48)
[2018-12-19] MEDS: Triamcinolone Acetonide 0.1% Oint 15 GM Tube TOP SCH ×3 (03:10→20:43)
[2018-12-19] MEDS: Heparin Sodium 5,000 Units/ML Vial SUBCUT SCH ×3 (05:44→21:49)
[2018-12-19] MEDS ORDERED: BRIMONIDINE TARTRATE EYEBOTH SCH (09:00)
[2018-12-19] MEDS: DULoxetine 30 MG Cap PO SCH (09:18)
[2018-12-19] MEDS: Calcitriol 0.25 MCG Cap PO SCH (09:18)
[2018-12-19] MEDS: Bumetanide 1 MG Tab PO SCH ×2 (09:18→13:58)
[2018-12-19] MEDS: Gabapentin 300 MG Cap PO SCH ×3 (09:18→20:40)
[2018-12-19] MEDS: Aspirin 81 MG Tab.Chew PO SCH (09:19)
[2018-12-19] MEDS: Metoprolol Succinate 50 MG Tab.ER PO SCH (09:19)
[2018-12-19] MEDS: Timolol Maleate 0.5% Ophth Soln 5 ML Bottle EYEBOTH SCH ×2 (09:20→20:42)
[2018-12-19] MEDS: Insulin Lispro 100 Units/ML 3 ML Vial SUBCUT SCH ×4 (09:23→20:57)
[2018-12-19] MEDS ORDERED: atorvaSTATin 20 MG Tab PO SCH (21:00)
[2018-12-20] MEDS: Heparin Sodium 5,000 Units/ML Vial SUBCUT SCH (06:06)
[2018-12-20 06:57] LABS: ANION GAP 10.3
[2018-12-20] MEDS: Insulin Lispro 100 Units/ML 3 ML Vial SUBCUT SCH ×2 (08:44→12:19)
[2018-12-20] MEDS: Bumetanide 1 MG Tab PO SCH (08:45)
[2018-12-20] MEDS: Aspirin 81 MG Tab.Chew PO SCH (08:46)
[2018-12-20] MEDS: Calcitriol 0.25 MCG Cap PO SCH (08:46)
[2018-12-20] MEDS: DULoxetine 30 MG Cap PO SCH (08:46)
[2018-12-20] MEDS: Gabapentin 300 MG Cap PO SCH (08:47)
[2018-12-20] MEDS: Metoprolol Succinate 50 MG Tab.ER PO SCH (08:47)
[2018-12-20] MEDS: Timolol Maleate 0.5% Ophth Soln 5 ML Bottle EYEBOTH SCH (08:48)
[2018-12-20] MEDS: Triamcinolone Acetonide 0.1% Oint 15 GM Tube TOP SCH (08:49)
[2018-12-20] MEDS ORDERED: Metolazone 2.5 MG Tab PO SCH (09:00)
--- NOTE | 2018-12-20 11:13 | PCM.DCSUM1 ---
Discharge Summary - Hospital Course Free Text/Narrative:: 58 yo M with PMH of low EF CHF, DM, HTN, HLD, glaucoma who presents with pruritic rash on back, bilateral leg swelling, ambulatory dysfunction with falls. Pruritic rash on back started a few days ago. Similar to rash he has had in the past that comes and goes on it's own. No fever, no chills or rigors. Main reason he comes to the ER tonight. Bilateral leg swelling is chronic, 2/2 CHF. Had appointment with CHF clinic this month. On bumex but non-compliant. No chest pain, SOB with exertion, no cough, not on oxygen. No abdominal pain, no urinary symptoms. Has reported a few falls in the past few weeks. +ambulatory dysfunction Has a chronic ulcer on the plantar surface of right foot, has been ongoing for a year, sees nurse clinician in clinic who treats it with collagen dressing. Wound swab growing strept. Started on Keflex. Will treat for ten days Rash on back is likely pityriasis rosea. Started on kenalog cream. Follow up with dermatology clinic Follow up with PCP, Cardiology clinic Patient was evaluated by PT/OT and recommended to get walker for mobility. Diagnosis: Stroke: No Modified Harvey Scale: No Symptoms at All Modified Harvey Scale Score: 0 - Discharge Data Discharge Date: 12/20/18 Discharge Disposition: Home, Self-Care 01 Condition: Good - Referral to Home Health Primary Care Physician: Ron Isbell MD - Patient Summary/Data Consults: Consultations 12/19/18 02:33 OT Evaluation and Treatment [CONS] Routine PT Evaluation and Treatment [CONS] Routine - Patient Instructions Diet: Diabetic Diet Activity: As Tolerated - Discharge Plan *PRESCRIPTION DRUG MONITORING PROGRAM REVIEWED*: No *COPY OF PRESCRIPTION DRUG MONITORING REPORT IN PATIENT GUANACO: No Prescriptions/Med Rec: cephALEXin [Keflex] 500 mg PO Q6HR 10 Days #40 cap Triamcinolone Acetonide [Triamcinolone Acetonide 0.1% Oint] 0 gm TOP BID 14 Days #1 tube Home Medications: Home Meds Metoprolol Succinate [Toprol Xl] 200 mg PO DAILY 07/30/16 [History] atorvaSTATin [Lipitor] 40 mg PO BEDTIME 07/30/16 [History] Aspirin 81 mg PO DAILY 08/22/17 [History] Brimonidine Tartrate [Brimonidine Tartrate 0.2% Ophth Soln] 2 drop EYEBOTH BID 08/22/17 [History] DULoxetine HCl [Duloxetine HCl] 60 mg PO DAILY 08/22/17 [History] Magnesium Oxide [Magnesium] 400 mg PO DAILY 08/22/17 [History] Potassium Chloride 20 meq PO BIDMEALS 08/22/17 [History] Timolol Maleate [Timoptic 0.5% Ophth Soln] 1 drop EYEBOTH BID 08/22/17 [History] Acetaminophen [Tylenol] 650 mg PO Q4H PRN tablet 10/25/17 [Rx] Albuterol [Proventil Neb Soln] 2.5 mg NEB Q2H PRN neb 10/25/17 [Rx] Insulin Aspart [NovoLOG] 0 unit SUBCUT QIDACANDBED pen 10/25/17 [Rx] Gabapentin [Neurontin] 600 mg PO TID 01/19/18 [History] Ondansetron [Zofran ODT] 4 mg PO Q6H PRN 04/23/18 [History] Albuterol Sulfate [Proair Hfa] 1 - 2 inh INH Q4HR PRN 11/20/18 [History] Bumetanide 2 mg PO BID 11/20/18 [History] Calcitriol 0.25 mcg PO DAILY 11/20/18 [History] Losartan [Cozaar] 100 mg PO DAILY 11/20/18 [History] Nitroglycerin 0.4 mg PO ASDIRECTED PRN 11/20/18 [History] metOLazone [Zaroxolyn] 2.5 mg PO Q3D 11/20/18 [History] Triamcinolone Acetonide [Triamcinolone Acetonide 0.1% Oint] 0 gm TOP BID 14 Days #1 tube 12/20/18 [Rx] cephALEXin [Keflex] 500 mg PO Q6HR 10 Days #40 cap 12/20/18 [Rx] Patient Handouts: Cephalexin tablets or capsules, Heart Failure Forms: ED Department Discharge Referrals: PCP,None [Ordering Only Provider] - - Discharge Summary/Plan Comment DC Time >30 min.: Yes - General Info Date of Service: 12/20/18 Admission Dx/Problem (Free Text: Admission Diagnosis/Problem Admission Diagnosis/Problem Chronic heart failure Subjective Update: feels better today needs walker per PT/OT recommendations. Prescribed. - Review of Systems General: Reports: No Symptoms HEENT: Reports: No Symptoms Pulmonary: Reports: No Symptoms Cardiovascular: Reports: No Symptoms Gastrointestinal: Reports: No Symptoms Genitourinary: Reports: No Symptoms Musculoskeletal: Reports: No Symptoms Skin: Reports: No Symptoms - Patient Data Vitals - Most Recent: Last Vital Signs Temp 36.3 C 12/20/18 07:18 Pulse 66 12/20/18 08:47 Resp 18 12/20/18 07:18 BP 150/95 H 12/20/18 08:47 Pulse Ox 98 12/20/18 07:18 Weight - Most Recent: 107.411 kg I&O - Last 24 hours: Intake & Output 12/19/18 12/20/18 12/20/18 22:59 06:59 14:59 Intake Total 620 150 150 Output Total 1600 800 Balance -980 -650 150 Lab Results - Last 24 hrs: Laboratory Results - last 24 hr 12/19/18 12/19/18 12/19/18 Range/Units 12:07 16:54 20:54 WBC (5.0-10.0) 10^3/uL RBC (4.6-6.2) 10^6/uL Hgb (14.0-18.0) g/dL Hct (40.0-54.0) % MCV (80-100) fL MCH (27.0-34.0) pg MCHC (33.0-35.0) g/dL Plt Count (150-450) 10^3/uL Sodium (135-145) mmol/L Potassium (3.6-5.0) mmol/L Chloride (101-111) mmol/L Carbon Dioxide (21.0-31.0) mmol/L Anion Gap BUN (7-18) mg/dL Creatinine (0.6-1.3) mg/dL Est Cr Clr Drug Dosing mL/min Estimated GFR (MDRD) Glucose (74-105) mg/dL POC Glucose 105 112 H 118 H (70-105) mg/dl Calcium (8.4-10.2) mg/dl Phosphorus (2.5-4.6) mg/dL Magnesium (1.8-2.5) mg/dL 12/20/18 12/20/18 12/20/18 Range/Units 06:21 06:21 06:31 WBC 5.4 (5.0-10.0) 10^3/uL RBC 4.02 L (4.6-6.2) 10^6/uL Hgb 11.6 L (14.0-18.0) g/dL Hct 36.1 L (40.0-54.0) % MCV 89.8 (80-100) fL MCH 28.9 (27.0-34.0) pg MCHC 32.1 L (33.0-35.0) g/dL Plt Count 184 (150-450) 10^3/uL Sodium 136 (135-145) mmol/L Potassium 4.3 (3.6-5.0) mmol/L Chloride 100 L (101-111) mmol/L Carbon Dioxide 30.0 (21.0-31.0) mmol/L Anion Gap 10.3 BUN 43 H (7-18) mg/dL Creatinine 1.7 H (0.6-1.3) mg/dL Est Cr Clr Drug Dosing 50.45 mL/min Estimated GFR (MDRD) 42 Glucose 106 H (74-105) mg/dL POC Glucose 111 H (70-105) mg/dl Calcium 8.1 L (8.4-10.2) mg/dl Phosphorus 4.6 (2.5-4.6) mg/dL Magnesium 1.8 (1.8-2.5) mg/dL 12/20/ Range/Units 07:26 WBC (5.0-10.0) 10^3/uL RBC (4.6-6.2) 10^6/uL Hgb (14.0-18.0) g/dL Hct (40.0-54.0) % MCV (80-100) fL MCH (27.0-34.0) pg MCHC (33.0-35.0) g/dL Plt Count (150-450) 10^3/uL Sodium (135-145) mmol/L Potassium (3.6-5.0) mmol/L Chloride (101-111) mmol/L Carbon Dioxide (21.0-31.0) mmol/L Anion Gap BUN (7-18) mg/dL Creatinine (0.6-1.3) mg/dL Est Cr Clr Drug Dosing mL/min Estimated GFR (MDRD) Glucose (74-105) mg/dL POC Glucose 100 (70-105) mg/dl Calcium (8.4-10.2) mg/dl Phosphorus (2.5-4.6) mg/dL Magnesium (1.8-2.5) mg/dL SIM Results - Last 24 hrs: Microbiology 12/19/18 01:15 Wound Culture - Preliminary Foot, Unspecified 12/18/18 23:37 Aerobic Blood Culture - Preliminary Blood - Venous - Lab Draw NO GROWTH AFTER 1 DAY Anaerobic Blood Culture - Preliminary NO GROWTH AFTER 1 DAY 12/18/18 23:30 Aerobic Blood Culture - Preliminary Blood - Venous NO GROWTH AFTER 1 DAY Anaerobic Blood Culture - Preliminary NO GROWTH AFTER 1 DAY Med Orders - Current: Current Medications Aspirin (Aspirin) 81 mg PO DAILY [facility] Last Admin: 12/20/18 08:46 Dose: 81 mg Atorvastatin Calcium (Lipitor) 40 mg PO BEDTIME [facility] Last Admin: 12/19/18 20:39 Dose: 40 mg Bumetanide (Bumex) 2 mg PO BIDDIURETIC [facility] Last Admin: 12/20/18 08:45 Dose: 2 mg Calcitriol (Rocaltrol) 0.25 mcg PO DAILY [facility] Last Admin: 12/20/18 08:46 Dose: 0.25 mcg Cephalexin (Keflex) 500 mg PO Q6HR [facility] Diphenhydramine HCl (Benadryl) 25 mg PO QID PRN PRN Reason: Itching Last Admin: 12/19/18 03:04 Dose: 25 mg Duloxetine HCl (Cymbalta) 60 mg PO DAILY [facility] Last Admin: 12/20/18 08:46 Dose: 60 mg Gabapentin (Neurontin) 600 mg PO TID [facility] Last Admin: 12/20/18 08:47 Dose: 600 mg Heparin Sodium (Porcine) (Heparin Sodium) 5,000 units SUBCUT Q8HR [facility] Last Admin: 12/20/18 06:06 Dose: 5,000 units Insulin Human Lispro (Humalog) 0 unit SUBCUT QIDACANDBED [facility]; Protocol Last Admin: 12/20/18 08:44 Dose: Not Given Magnesium Oxide (Magnesium Oxide) 500 mg PO DAILY [facility] Last Admin: 12/20/18 08:45 Dose: 500 mg Metolazone (Zaroxolyn) 2.5 mg PO Q3D@0900 [facility] Last Admin: 12/20/18 08:46 Dose: 2.5 mg Metoprolol Succinate (Toprol Xl) 200 mg PO DAILY [facility] Last Admin: 12/20/18 08:47 Dose: 200 mg Non-Formulary Medication (Brimonidine Tartrate [Brimonidine Tartrate 0.2% Ophth Soln]) 2 drop EYEBOTH BID [facility] Timolol Maleate (Timoptic 0.5% Ophth Soln) 0 ml EYEBOTH BID [facility] Last Admin: 12/20/18 08:48 Dose: 1 drop Triamcinolone Acetonide (Triamcinolone Acetonide 0.1% Oint) 0 gm TOP BID [facility] Last Admin: 12/20/18 08:49 Dose: 1 applic Discontinued Medications Furosemide (Lasix) 40 mg IVPUSH NOW ONE Stop: 12/19/18 00:33 Last Admin: 12/19/18 00:37 Dose: 40 mg - Exam General: Reports: Alert, Oriented HEENT: Reports: Pupils Equal, Pupils Reactive Neck: Reports: Supple Lungs: Reports: Clear to Auscultation, Normal Respiratory Effort Cardiovascular: Reports: Regular Rate, Regular Rhythm GI/Abdominal Exam: Normal Bowel Sounds, Soft, Non-Tender, No Organomegaly Extremities: Normal Inspection, Normal Range of Motion, Non-Tender, Pedal Edema Skin: Reports: Warm, Dry, Intact, Rash
[2018-12-20 11:44] VITALS: BP 140/82; PULSE 59
[2018-12-20] MEDS ORDERED: Cephalexin 500 MG Cap PO SCH (12:00)
== END 2018-12-20 13:45 | disposition home or self-care (01) ==
LOC: DL.ED 23:05 → DL.MS 12-19 01:14
PROVIDERS: ADMIT Hospitalist; ATTEND Hospitalist
DX: I11.0 Hypertensive heart disease with heart failure (principal); I50.9 Heart failure, unspecified; R21 Rash and other nonspecific skin eruption; E11.9 Type 2 diabetes mellitus without complications; S91.301A Unspecified open wound, right foot, initial encounter; R26.89 Other abnormalities of gait and mobility; E78.5 Hyperlipidemia, unspecified; E11.40 Type 2 diabetes mellitus with diabetic neuropathy, unspecified; F32.9 Major depressive disorder, single episode, unspecified; Z79.899 Other long term (current) drug therapy; Z79.82 Long term (current) use of aspirin
CPT/HCPCS: 36415; 71045; 73630; 80048; 80053; 82962; 83605; 83735; 83880; 84100; 84484; 85025; 85027; 87040; 87070; 87077; 87186; 93005; 96372; 96374; 97162; 97165; 99285; A9270; G0378; J1644; J1815; J1940

== ENCOUNTER 2019-01-05 11:25 | Emergency (ER) | payer MEDICAID, OTHER ==
--- NOTE | 2019-01-05 11:49 | EDM.PDOC ---
ED HPI GENERAL MEDICAL PROBLEM - General Chief Complaint: Lower Extremity Injury/Pain Stated Complaint: UNK Time Seen by Provider: 01/05/19 11:49 Source of Information: Reports: Patient, Family, Old Records, RN, RN Notes Reviewed History Limitations: Reports: Altered Mental Status - History of Present Illness INITIAL COMMENTS - FREE TEXT/NARRATIVE: Pt arrives to ER from home by ambulance with report from that since waking this morning he has been confused, drowsy, and with fevers. Pt states his right lower leg is painful and feels hot. 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 Pt denies chest pain. Admits to orthopnea. Denies cough, nausea, vomiting, abdominal pain. Onset: Today Duration: Constant Location: Reports: Lower Extremity, Right Quality: Reports: Ache Severity: Moderate Improves with: Reports: None Worsens with: Reports: None Associated Symptoms: Reports: No Other Symptoms Right Leg Pain Score (Numeric/FACES): 6 - Related Data Allergies Allergy/AdvReac Type Severity Reaction Status Date / Time No Known Allergies Allergy Verified 01/05/19 11:53 Home Meds: Home Meds Metoprolol Succinate [Toprol Xl] 200 mg PO DAILY 07/30/16 [History] atorvaSTATin [Lipitor] 40 mg PO BEDTIME 07/30/16 [History] Aspirin 81 mg PO DAILY 08/22/17 [History] Brimonidine Tartrate [Brimonidine Tartrate 0.2% Ophth Soln] 2 drop EYEBOTH BID 08/22/17 [History] DULoxetine HCl [Duloxetine HCl] 60 mg PO DAILY 08/22/17 [History] Magnesium Oxide [Magnesium] 400 mg PO DAILY 08/22/17 [History] Potassium Chloride 20 meq PO BIDMEALS 08/22/17 [History] Timolol Maleate [Timoptic 0.5% Ophth Soln] 1 drop EYEBOTH BID 08/22/17 [History] Acetaminophen [Tylenol] 650 mg PO Q4H PRN tablet 10/25/17 [Rx] Albuterol [Proventil Neb Soln] 2.5 mg NEB Q2H PRN neb 10/25/17 [Rx] Insulin Aspart [NovoLOG] 0 unit SUBCUT QIDACANDBED pen 10/25/17 [Rx] Gabapentin [Neurontin] 600 mg PO TID 01/19/18 [History] Ondansetron [Zofran ODT] 4 mg PO Q6H PRN 04/23/18 [History] Albuterol Sulfate [Proair Hfa] 1 - 2 inh INH Q4HR PRN 11/20/18 [History] Bumetanide 2 mg PO BID 11/20/18 [History] Calcitriol 0.25 mcg PO DAILY 11/20/18 [History] Losartan [Cozaar] 100 mg PO DAILY 11/20/18 [History] Nitroglycerin 0.4 mg PO ASDIRECTED PRN 11/20/18 [History] metOLazone [Zaroxolyn] 2.5 mg PO Q3D 11/20/18 [History] Triamcinolone Acetonide [Triamcinolone Acetonide 0.1% Oint] 0 gm TOP BID 14 Days #1 tube 12/20/18 [Rx] cephALEXin [Keflex] 500 mg PO Q6HR 10 Days #40 cap 12/20/18 [Rx] Past Medical History HEENT History: Reports: Cataract, Glaucoma, Impaired Vision Other HEENT History: Will obtain new glasses after cataract surgery Cardiovascular History: Reports: CAD, Heart Failure, Hypertension, [place], Pacemaker , Stents Other Cardiovascular History: LBBB Respiratory History: Reports: SOB Other Respiratory History: with CHF Gastrointestinal History: Reports: None Genitourinary History: Reports: Renal Disease Other Genitourinary History: stage 3 renal failure Musculoskeletal History: Reports: Other (See Below) (Chronic diabetic ulcer Rt foot) Neurological History: Reports: Neuropathy, Diabetic Other Neuro History: memory lapses rarely Psychiatric History: Reports: Depression Other Psychiatric History: Pt states that he has an appt with mental health in [place] this coming week Endocrine/Metabolic History: Reports: Diabetes, Type II Hematologic History: Reports: None Immunologic History: Reports: None Oncologic (Cancer) History: Reports: None Dermatologic History: Reports: Other (See Below) Other Dermatologic History: Diabetic foot ulcer. Pt states 6 months of skin itching to the back, arms and legs - Infectious Disease History Infectious Disease History: Reports: None, Chicken Pox, Hepatitis C Other Infectious Disease History: Pt states that he has been treated for HepC when he was 21 years of age - Past Surgical History Head Surgeries/Procedures: Reports: None Respiratory Surgical History: Reports: None GI Surgical History: Reports: None Male Surgical History: Reports: None Other Male Surgeries/Procedures: kidney biopsy done Neurological Surgical History: Reports: None Musculoskeletal Surgical History: Reports: Amputation, Other (See Below) Other Musculoskeletal Surgeries/Procedures:: maryann toe amp. 5th toe maryann. Social & Family History - Family History Family Medical History: Noncontributory - Caffeine Use Caffeine Use: Reports: Coffee Caffeine Use Comment: 1-2cups per day - Living Situation & Occupation Living situation: Reports: , with Spouse Occupation: Disabled Review of Systems - Review of Systems Review Of Systems: ROS reveals no pertinent complaints other than HPI. ED EXAM, GENERAL - Physical Exam Exam: See Below Exam Limited By: Altered Mental Status General Appearance: Alert, No Apparent Distress, Lethargic, Other (Chronically ill appearing) Eye Exam: Bilateral Eye: Normal Inspection Nose: Normal Inspection Throat/Mouth: Normal Inspection, Normal Lips, Normal Voice, No Airway Compromise Head: Atraumatic, Normocephalic Neck: Normal Inspection, Supple, Non-Tender, Full Range of Motion Respiratory/Chest: No Respiratory Distress, Lungs Clear, No Accessory Muscle Use , Chest Non-Tender, Decreased Breath Sounds Cardiovascular: Regular Rate, Rhythm, No Edema GI/Abdominal: Normal Bowel Sounds, Soft, Non-Tender, No Distention Extremities: Normal Range of Motion, Slow Capillary Refill, Leg Pain (Rt lower leg from ankle to inferior knee with erythema and increased warmth. Chronic appearing ulcer to Rt plantar foot.). No: Joint Swelling, Roscoe's Sign Neurological: Alert (but drowsy, responds to verbal stimuli, answers most questions appropriately with some mild confusion), No Motor/Sensory Deficits EKG INTERPRETATION EKG Date: 01/05/19 Time: 13:07 Rhythm: Other (PACED) Rate (Beats/Min): 72 Comparison: No Change EKG Interpretation Comments: PACED rhythm, no further interpretation attempted. Course - Vital Signs Last Recorded V/S: Last Vital Signs Temp 101.5 F H 01/05/19 11:48 Pulse 70 01/05/19 11:48 Resp 20 01/05/19 11:48 BP 157/92 H 01/05/19 11:48 Pulse Ox 97 01/05/19 11:48 - Orders/Labs/Meds Orders: Active Orders 24 hr Category Date Time Status Blood Glucose Check, Bedside [RC] ONETIME Care 01/05/19 11:50 Active EKG 12 Lead [EKG Documentation Completion] [RC] STAT Care 01/05/19 12:58 Active Peripheral IV Care [RC] . DIRECTED Care 01/05/19 11:52 Active Peripheral IV Care [RC] . DIRECTED Care 01/05/19 12:31 Active Chest 1V Frontal [CR] Stat Exams 01/05/19 11:49 Taken CULTURE BLOOD [BC] Stat Lab 01/05/19 11:41 Received CULTURE BLOOD [BC] Stat Lab 01/05/19 12:16 Received Heparin Sodium/0.45% NaCl [Heparin 25,000 Units in 1/2 Med 01/05/19 13:15 Active NS 500 ML] 25,000 units in 500 ml IV TITRATE Sodium Chloride 0.9% [Saline Flush] Med 01/05/19 11:51 Active 10 ml FLUSH ASDIRECTED PRN Sodium Chloride 0.9% [Saline Flush] Med 01/05/19 12:31 Active 10 ml FLUSH ASDIRECTED PRN Blood Culture x2 Reflex Set [OM.PC] Stat Oth 01/05/19 11:50 Ordered Peripheral IV Insertion Adult [OM.PC] Stat Oth 01/05/19 11:49 Ordered Peripheral IV Insertion Adult [OM.PC] Stat Oth 01/05/19 12:31 Ordered Medication Orders Heparin Sodium/Sodium Chloride (Heparin 25,000 Units In 1/2 Ns 500 Ml) 25,000 units in 500 mls @ 24.407 mls/hr IV TITRATE FELI; Protocol Last Admin: 01/05/19 13:20 Dose: 12 units/kg/hr, 24.407 mls/hr Sodium Chloride (Saline Flush) 10 ml FLUSH ASDIRECTED PRN PRN Reason: Keep Vein Open Last Admin: 01/05/19 11:57 Dose: 10 ml Sodium Chloride (Saline Flush) 10 ml FLUSH ASDIRECTED PRN PRN Reason: Keep Vein Open Last Admin: 01/05/19 13:20 Dose: 10 ml Labs: Laboratory Tests 01/05/19 01/05/19 01/05/19 Range/Units 11:41 11:41 11:41 WBC 18.4 H (5.0-10.0) 10^3/uL RBC 4.26 L (4.6-6.2) 10^6/uL Hgb 12.4 L (14.0-18.0) g/dL Hct 38.3 L (40.0-54.0) % MCV 89.9 (80-100) fL MCH 29.1 (27.0-34.0) pg MCHC 32.4 L (33.0-35.0) g/dL Plt Count 136 L (150-450) 10^3/uL Neut % (Auto) 92.9 H (42.2-75.2) % Lymph % (Auto) 3.6 L (20.5-50.1) % [place] % (Auto) 3.4 (2-8) % Eos % (Auto) 0.0 L (1.0-3.0) % Baso % (Auto) 0.1 (0.0-1.0) % Add Manual Diff Yes Neutrophils % (Manual) 87 H (42-75) % Band Neutrophils % 6 % Lymphocytes % (Manual) 2 L (20-50) % Monocytes % (Manual) 5 (2-8) % PT (9.0-12.0) SEC INR (0.9-1.2) APTT (22.0-34.0) SEC Sodium 137 (135-145) mmol/L Potassium 3.9 (3.6-5.0) mmol/L Chloride 98 L (101-111) mmol/L Carbon Dioxide 26.0 (21.0-31.0) mmol/L Anion Gap 16.9 BUN 60 H (7-18) mg/dL Creatinine 2.3 H (0.6-1.3) mg/dL Est Cr Clr Drug Dosing 37.29 mL/min Estimated GFR (MDRD) 29 BUN/Creatinine Ratio 26.08 Glucose 112 H (74-105) mg/dL Lactic Acid 3.0 H (0.5-2.2) mmol/L Calcium 8.4 (8.4-10.2) mg/dl Total Bilirubin 2.5 H (0.2-1.0) mg/dL AST 99 H (10-42) IU/L ALT 41 (10-60) IU/L Alkaline Phosphatase 151 H (42-121) IU/L Creatine Kinase (26-174) IU/L Creatine Kinase Index (0-2.4) % CK-MB (CK-2) (0.4-4.7) ng/mL Troponin I (0.00-0.02) ng/ml C-Reactive Protein (0.0-1.3) mg/dL B-Natriuretic Peptide > 5000 H (0-100) pg/ml Total Protein 9.0 H (6.7-8.2) g/dl Albumin 3.0 L (3.2-5.5) g/dl Globulin 6.0 Albumin/Globulin Ratio 0.50 Urine Color (YELLOW) Urine Appearance (CLEAR) Urine pH (5.0-9.0) Ur Specific [place] (1.005-1.030) Urine Protein (NEGATIVE) Urine Glucose (UA) (NEGATIVE) Urine Ketones (NEGATIVE) Urine Occult Blood (NEGATIVE) Urine Nitrite (NEGATIVE) Urine Bilirubin (NEGATIVE) Urine Urobilinogen (0.2-1.0) mg/dL Ur Leukocyte Esterase (NEGATIVE) Urine RBC /HPF Urine WBC (0-5/HPF) /HPF Ur Epithelial Cells (NOT SEEN) /HPF Amorphous Sediment (NOT SEEN) /HPF Urine Bacteria (0-FEW/HPF) /HPF Hyaline Casts (NOT SEEN) /LPF Granular Casts (NOT SEEN) /LPF Fine Granular Casts (NOT SEEN) /LPF Urine Mucus (NOT SEEN) /LPF Ethyl Alcohol < 5 mg/dL 01/05/19 01/05/19 01/05/19 Range/Units 11:41 11:41 11:41 WBC (5.0-10.0) 10^3/uL RBC (4.6-6.2) 10^6/uL Hgb (14.0-18.0) g/dL Hct (40.0-54.0) % MCV (80-100) fL MCH (27.0-34.0) pg MCHC (33.0-35.0) g/dL Plt Count (150-450) 10^3/uL Neut % (Auto) (42.2-75.2) % Lymph % (Auto) (20.5-50.1) % [place] % (Auto) (2-8) % Eos % (Auto) (1.0-3.0) % Baso % (Auto) (0.0-1.0) % Add Manual Diff Neutrophils % (Manual) (42-75) % Band Neutrophils % % Lymphocytes % (Manual) (20-50) % Monocytes % (Manual) (2-8) % PT 13.2 H (9.0-12.0) SEC INR 1.3 H (0.9-1.2) APTT 34.3 H (22.0-34.0) SEC Sodium (135-145) mmol/L Potassium (3.6-5.0) mmol/L Chloride (101-111) mmol/L Carbon Dioxide (21.0-31.0) mmol/L Anion Gap BUN (7-18) mg/dL Creatinine (0.6-1.3) mg/dL Est Cr Clr Drug Dosing mL/min Estimated GFR (MDRD) BUN/Creatinine Ratio Glucose (74-105) mg/dL Lactic Acid (0.5-2.2) mmol/L Calcium (8.4-10.2) mg/dl Total Bilirubin (0.2-1.0) mg/dL AST (10-42) IU/L ALT (10-60) IU/L Alkaline Phosphatase (42-121) IU/L Creatine Kinase 379 H (26-174) IU/L Creatine Kinase Index 0.6 (0-2.4) % CK-MB (CK-2) 2.20 (0.4-4.7) ng/mL Troponin I 0.12 H* (0.00-0.02) ng/ml C-Reactive Protein 12.2 H (0.0-1.3) mg/dL B-Natriuretic Peptide (0-100) pg/ml Total Protein (6.7-8.2) g/dl Albumin (3.2-5.5) g/dl Globulin Albumin/Globulin Ratio Urine Color (YELLOW) Urine Appearance (CLEAR) Urine pH (5.0-9.0) Ur Specific [place] (1.005-1.030) Urine Protein (NEGATIVE) Urine Glucose (UA) (NEGATIVE) Urine Ketones (NEGATIVE) Urine Occult Blood (NEGATIVE) Urine Nitrite (NEGATIVE) Urine Bilirubin (NEGATIVE) Urine Urobilinogen (0.2-1.0) mg/dL Ur Leukocyte Esterase (NEGATIVE) Urine RBC /HPF Urine WBC (0-5/HPF) /HPF Ur Epithelial Cells (NOT SEEN) /HPF Amorphous Sediment (NOT SEEN) /HPF Urine Bacteria (0-FEW/HPF) /HPF Hyaline Casts (NOT SEEN) /LPF Granular Casts (NOT SEEN) /LPF Fine Granular Casts (NOT SEEN) /LPF Urine Mucus (NOT SEEN) /LPF Ethyl Alcohol mg/dL 01/05/19 Range/Units 12:00 WBC (5.0-10.0) 10^3/uL RBC (4.6-6.2) 10^6/uL Hgb (14.0-18.0) g/dL Hct (40.0-54.0) % MCV (80-100) fL MCH (27.0-34.0) pg MCHC (33.0-35.0) g/dL Plt Count (150-450) 10^3/uL Neut % (Auto) (42.2-75.2) % Lymph % (Auto) (20.5-50.1) % [place] % (Auto) (2-8) % Eos % (Auto) (1.0-3.0) % Baso % (Auto) (0.0-1.0) % Add Manual Diff Neutrophils % (Manual) (42-75) % Band Neutrophils % % Lymphocytes % (Manual) (20-50) % Monocytes % (Manual) (2-8) % PT (9.0-12.0) SEC INR (0.9-1.2) APTT (22.0-34.0) SEC Sodium (135-145) mmol/L Potassium (3.6-5.0) mmol/L Chloride (101-111) mmol/L Carbon Dioxide (21.0-31.0) mmol/L Anion Gap BUN (7-18) mg/dL Creatinine (0.6-1.3) mg/dL Est Cr Clr Drug Dosing mL/min Estimated GFR (MDRD) BUN/Creatinine Ratio Glucose (74-105) mg/dL Lactic Acid (0.5-2.2) mmol/L Calcium (8.4-10.2) mg/dl Total Bilirubin (0.2-1.0) mg/dL AST (10-42) IU/L ALT (10-60) IU/L Alkaline Phosphatase (42-121) IU/L Creatine Kinase (26-174) IU/L Creatine Kinase Index (0-2.4) % CK-MB (CK-2) (0.4-4.7) ng/mL Troponin I (0.00-0.02) ng/ml C-Reactive Protein (0.0-1.3) mg/dL B-Natriuretic Peptide (0-100) pg/ml Total Protein (6.7-8.2) g/dl Albumin (3.2-5.5) g/dl Globulin Albumin/Globulin Ratio Urine Color Dark yellow (YELLOW) Urine Appearance Cloudy (CLEAR) Urine pH 5.5 (5.0-9.0) Ur Specific [place] >= 1.030 (1.005-1.030) Urine Protein >=300 H (NEGATIVE) Urine Glucose (UA) Negative (NEGATIVE) Urine Ketones Negative (NEGATIVE) Urine Occult Blood Moderate H (NEGATIVE) Urine Nitrite Negative (NEGATIVE) Urine Bilirubin Moderate H (NEGATIVE) Urine Urobilinogen 1.0 (0.2-1.0) mg/dL Ur Leukocyte Esterase Negative (NEGATIVE) Urine RBC 20-30 H /HPF Urine WBC 0-5 (0-5/HPF) /HPF Ur Epithelial Cells Rare (NOT SEEN) /HPF Amorphous Sediment Many (NOT SEEN) /HPF Urine Bacteria Few (0-FEW/HPF) /HPF Hyaline Casts Rare H (NOT SEEN) /LPF Granular Casts Rare (NOT SEEN) /LPF Fine Granular Casts Rare H (NOT SEEN) /LPF Urine Mucus Occasional (NOT SEEN) /LPF Ethyl Alcohol mg/dL Influenza A and B: Negative. Meds: Medications Generic Name Dose Route Start Last Admin Trade Name Freq PRN Reason Stop Dose Admin Heparin Sodium/Sodium Chloride 25,000 units in 500 mls @ 24.407 mls/hr 13:15 01/05/19 13:20 Heparin 25,000 Units In 1/2 Ns 500 Ml IV 12 units/kg/hr TITRATE FELI 24.407 mls/hr Administration Protocol 12 UNITS/KG/HR Sodium Chloride 10 ml 01/05/19 11:51 01/05/19 11:57 Saline Flush FLUSH 10 ml ASDIRECTED PRN Administration Keep Vein Open Sodium Chloride 10 ml 01/05/19 12:31 01/05/19 13:20 Saline Flush FLUSH 10 ml ASDIRECTED PRN Administration Keep Vein Open Discontinued Medications Generic Name Dose Route Start Last Admin Trade Name Freq PRN Reason Stop Dose Admin Acetaminophen 650 mg 01/05/19 12:31 01/05/19 13:24 Tylenol PO 01/05/19 12:32 650 mg NOW ONE Administration Aspirin 324 mg 01/05/19 13:03 01/05/19 13:24 Aspirin PO 01/05/19 13:04 324 mg ONETIME ONE Administration Heparin Sodium (Porcine) 4,000 units 01/05/19 13:03 01/05/19 13:23 Heparin Sodium IVPUSH 01/05/19 13:04 4,000 units .BOLUS ONE Administration Levofloxacin/Dextrose 500 mg/ 100 mls @ 100 mls/hr 01/05/19 12:31 01/05/19 13 :23 Premix IV 01/05/19 13:30 100 mls/hr ONETIME ONE Administration - Radiology Interpretation Free Text/Narrative:: [facility] Final Radiology Report Call: [phone] assistance Online chat: [email or web address] Name: MIAH CAIN Age: 58Years M Date: 01/05/2019 SSN: -- : 1960 Study: XR CHEST 1 VIEW FRONTAL Requesting Physician: DAJUAN MARIA Images: 1 Addl Studies: Provided Clinical History: Contrast: Contrast Medium: Contrast Amount: Contrast Method: CONFIDENTIALITY STATEMENT This report is intended only for use by the referring physician, and only in accordance with law. If you received this in error, call [phone]. Page 1 of 1 PROCEDURE INFORMATION: Exam: XR Chest, 1 View Exam date and time: 01/05/2019 12:21 PM Clinical history: 58 years old, male; Fever and shortness of breath TECHNIQUE: Imaging protocol: XR of the chest Views: 1 view. COMPARISON: CR Chest 1V Frontal 12/18/2018 11:20 PM FINDINGS: Again noted is a similar degree of cardiac enlargement. A left-sided pacemaker is unchanged. There is chronic right basilar opacity likely scar or atelectasis. There is no acute infiltrate or consolidation, effusion or pneumothorax. IMPRESSION: No significant interval change. Thank you for allowing us to participate in the care of your patient. Dictated and Authenticated by: [place] Julian MD 01/05/2019 1:13 PM Central Time ([place] & [place]) Departure - Departure Time of Disposition: 13:16 Disposition: DC/Tfer to [facility] 02 Condition: Serious Clinical Impression: Cellulitis of right lower leg, Elevated troponin Sepsis Qualifiers: Sepsis type: sepsis due to unspecified organism Sepsis acute organ dysfunction status: with acute organ dysfunction Severe sepsis acute organ dysfunction type : acute renal failure Acute renal failure type: unspecified Severe sepsis shock status: without septic shock Qualified Code(s): A41.9 - Sepsis, unspecified organism Chronic CHF (congestive heart failure) Qualifiers: Heart failure type: unspecified Qualified Code(s): I50.9 - Heart failure, unspecified Non-healing ulcer of right foot Qualifiers: Non-pressure ulcer stage: unspecified non-pressure ulcer stage Qualified Code(s ): L97.519 - Non-pressure chronic ulcer of other part of right foot with unspecified severity - Discharge Information *PRESCRIPTION DRUG MONITORING PROGRAM REVIEWED*: Not Applicable *COPY OF PRESCRIPTION DRUG MONITORING REPORT IN PATIENT GUANACO: Not Applicable Forms: ED Department Discharge, Interfacility Transfer EMTALA - My Orders Last 24 Hours: My Active Orders 01/05/19 11:41 CULTURE BLOOD [BC] Stat 01/05/19 11:49 Chest 1V Frontal [CR] Stat Peripheral IV Insertion Adult [OM.PC] Stat 01/05/19 11:50 Blood Glucose Check, Bedside [RC] ONETIME Blood Culture x2 Reflex Set [OM.PC] Stat 01/05/19 11:51 Sodium Chloride 0.9% [Saline Flush] 10 ml FLUSH ASDIRECTED PRN 01/05/19 11:52 Peripheral IV Care [RC] . DIRECTED 01/05/19 12:16 CULTURE BLOOD [BC] Stat 01/05/19 12:31 Peripheral IV Care [RC] . DIRECTED Sodium Chloride 0.9% [Saline Flush] 10 ml FLUSH ASDIRECTED PRN Peripheral IV Insertion Adult [OM.PC] Stat 01/05/19 12:58 EKG 12 Lead [EKG Documentation Completion] [RC] STAT 01/05/19 13:15 Heparin Sodium/0.45% NaCl [Heparin 25,000 Units in 1/2 NS 500 ML] 25,000 units in 500 ml IV TITRATE - Assessment/Plan Last 24 Hours: My Active Orders 01/05/19 11:41 CULTURE BLOOD [BC] Stat 01/05/19 11:49 Chest 1V Frontal [CR] Stat Peripheral IV Insertion Adult [OM.PC] Stat 01/05/19 11:50 Blood Glucose Check, Bedside [RC] ONETIME Blood Culture x2 Reflex Set [OM.PC] Stat 01/05/19 11:51 Sodium Chloride 0.9% [Saline Flush] 10 ml FLUSH ASDIRECTED PRN 01/05/19 11:52 Peripheral IV Care [RC] . DIRECTED 01/05/19 12:16 CULTURE BLOOD [BC] Stat 01/05/19 12:31 Peripheral IV Care [RC] . DIRECTED Sodium Chloride 0.9% [Saline Flush] 10 ml FLUSH ASDIRECTED PRN Peripheral IV Insertion Adult [OM.PC] Stat 01/05/19 12:58 EKG 12 Lead [EKG Documentation Completion] [RC] STAT 01/05/19 13:15 Heparin Sodium/0.45% NaCl [Heparin 25,000 Units in 1/2 NS 500 ML] 25,000 units in 500 ml IV TITRATE
[2019-01-05] MEDS ORDERED: Sodium Chloride 0.9% 10 ML Syringe FLUSH PRN ×2 (11:51→12:31)
[2019-01-05 11:53] VITALS: BP 157/92; PULSE 70
[2019-01-05 12:11] LABS: ANION GAP 16.9; CHLORIDE,CL 98 mmol/L (101-111); SODIUM,NA 137 mmol/L (135-145)
[2019-01-05] MEDS ORDERED: Levofloxacin/Dextrose 5%-Water 500 MG in Premix Bag 1 BAG IV ONE (12:31)
[2019-01-05] MEDS ORDERED: Acetaminophen 325 MG Tab PO ONE (12:31)
[2019-01-05] MEDS ORDERED: Heparin Sodium 5,000 Units/ML Vial IVPUSH ONE (13:03)
[2019-01-05] MEDS ORDERED: Aspirin 81 MG Tab.Chew PO ONE (13:03)
[2019-01-05] MEDS ORDERED: Heparin Sodium/0.45% NaCl 25,000 UNITS/500 ML BAG IV SCH (13:15)
== END 2019-01-05 13:55 ==
LOC: DL.ED 11:25
DX: A41.9 Sepsis, unspecified organism (principal); R65.20 Severe sepsis without septic shock; N17.9 Acute kidney failure, unspecified; L03.115 Cellulitis of right lower limb; L97.519 Non-pressure chronic ulcer of other part of right foot with unspecified severity; I13.0 Hypertensive heart and chronic kidney disease with heart failure and stage 1 through stage 4 chronic kidney disease, or unspecified chronic kidney disease; I50.9 Heart failure, unspecified; N18.3 Chronic kidney disease, stage 3 (moderate); E11.22 Type 2 diabetes mellitus with diabetic chronic kidney disease; R79.89 Other specified abnormal findings of blood chemistry; I25.10 Atherosclerotic heart disease of native coronary artery without angina pectoris; I25.2 Old myocardial infarction; E11.40 Type 2 diabetes mellitus with diabetic neuropathy, unspecified; F32.9 Major depressive disorder, single episode, unspecified; Z79.82 Long term (current) use of aspirin; Z79.4 Long term (current) use of insulin; Z79.899 Other long term (current) drug therapy
CPT/HCPCS: 36415; 71045; 80053; 80320; 81001; 82550; 82553; 82962; 83605; 83880; 84484; 85025; 85610; 85730; 86140; 87040; 87804; 93005; 96365; 96368; 96376; 99285; A9270; J1644; J1956; G0480

== ENCOUNTER 2019-01-23 10:55 | Observation (INO) | payer MEDICAID ==
[2019-01-23] MEDS ORDERED: Acetaminophen 325 MG Tab PO ONE (11:49)
[2019-01-23 11:58] LABS: ANION GAP 12.7
--- NOTE | 2019-01-23 12:01 | EDM.PDOC ---
ED HPI GENERAL MEDICAL PROBLEM - General Chief Complaint: Gastrointestinal Problem Stated Complaint: UNKNOWN-AMBULANCE Time Seen by Provider: 01/23/19 11:00 Source of Information: Reports: Patient, EMS, EMS Notes Reviewed, RN, RN Notes Reviewed History Limitations: Reports: No Limitations - History of Present Illness INITIAL COMMENTS - FREE TEXT/NARRATIVE: Pt to ER with c/o generalized body aches, N/V/D, fever, chills. States it began with nausea and vomiting 4 days ago. States his appetite has been decreased and gets nauseated frequently, so unable to take his pills. States blood sugar yesterday was 118. States he uses insulin on a sliding scale. Patient states he has had a non-productive cough recently. Denies pain, but c/o generalized body weakness and aches. Reports hx of PA with stents and pacemaker placement, hx of DMII, CHF. States he has a chronic wound on the bottom of the right foot that he doctors regularly for. Was seen by podiatry as well as home health yesterday. Report from physician at [facility] is that the Operating Systems Programmer did not feel the fever was coming from the wound on the foot. Reports fever of fever 101-102 yesterday. Onset: Gradual Onset Date: 01/19/19 Duration: Constant Location: Reports: Generalized Quality: Reports: Ache Severity: Moderate Improves with: Reports: None Worsens with: Reports: None Associated Symptoms: Reports: Cough, Fever/Chills, Headaches, Loss of Appetite, Malaise, Nausea/Vomiting Treatments SMALL STOCK FACER: Reports: Acetaminophen Generalized Pain Score (Numeric/FACES): 6 - Related Data Allergies Allergy/AdvReac Type Severity Reaction Status Date / Time No Known Allergies Allergy Verified 01/23/19 11:04 Home Meds: Home Meds Metoprolol Succinate [Toprol Xl] 200 mg PO DAILY 07/30/16 [History] atorvaSTATin [Lipitor] 40 mg PO BEDTIME 07/30/16 [History] Aspirin 81 mg PO DAILY 08/22/17 [History] Brimonidine Tartrate [Brimonidine Tartrate 0.2% Ophth Soln] 2 drop EYEBOTH BID 08/22/17 [History] DULoxetine HCl [Duloxetine HCl] 60 mg PO DAILY 08/22/17 [History] Magnesium Oxide [Magnesium] 400 mg PO DAILY 08/22/17 [History] Potassium Chloride 20 meq PO BIDMEALS 08/22/17 [History] Timolol Maleate [Timoptic 0.5% Ophth Soln] 1 drop EYEBOTH BID 08/22/17 [History] Acetaminophen [Tylenol] 650 mg PO Q4H PRN tablet 10/25/17 [Rx] Albuterol [Proventil Neb Soln] 2.5 mg NEB Q2H PRN neb 10/25/17 [Rx] Insulin Aspart [NovoLOG] 0 unit SUBCUT QIDACANDBED pen 10/25/17 [Rx] Gabapentin [Neurontin] 600 mg PO TID 01/19/18 [History] Albuterol Sulfate [Proair Hfa] 1 - 2 inh INH Q4HR PRN 11/20/18 [History] Bumetanide 2 mg PO BID 11/20/18 [History] Calcitriol 0.25 mcg PO DAILY 11/20/18 [History] Losartan [Cozaar] 100 mg PO DAILY 11/20/18 [History] Nitroglycerin 0.4 mg PO ASDIRECTED PRN 11/20/18 [History] metOLazone [Zaroxolyn] 2.5 mg PO DAILY 11/20/18 [History] Triamcinolone Acetonide [Triamcinolone Acetonide 0.1% Oint] 0 gm TOP BID 14 Days #1 tube 12/20/18 [Rx] cephALEXin [Keflex] 500 mg PO Q6HR 10 Days #40 cap 12/20/18 [Rx] Past Medical History HEENT History: Reports: Cataract, Glaucoma, Impaired Vision Other HEENT History: Will obtain new glasses after cataract surgery Cardiovascular History: Reports: CAD, Heart Failure, Hypertension, PA, Pacemaker , Stents Other Cardiovascular History: LBBB Respiratory History: Reports: SOB Other Respiratory History: with CHF Gastrointestinal History: Reports: None Genitourinary History: Reports: Renal Disease Other Genitourinary History: stage 3 renal failure Musculoskeletal History: Reports: Other (See Below) Neurological History: Reports: Neuropathy, Diabetic Other Neuro History: memory lapses rarely Psychiatric History: Reports: Depression Other Psychiatric History: Pt states that he has an appt with mental health in [place] this coming week Endocrine/Metabolic History: Reports: Diabetes, Type II Hematologic History: Reports: None Immunologic History: Reports: None Oncologic (Cancer) History: Reports: None Dermatologic History: Reports: Other (See Below) Other Dermatologic History: Diabetic foot ulcer. Pt states 6 months of skin itching to the back, arms and legs - Infectious Disease History Infectious Disease History: Reports: None, Chicken Pox, Hepatitis C Other Infectious Disease History: Pt states that he has been treated for HepC when he was 21 years of age - Past Surgical History Head Surgeries/Procedures: Reports: None Respiratory Surgical History: Reports: None GI Surgical History: Reports: None Male Surgical History: Reports: None Other Male Surgeries/Procedures: kidney biopsy done Neurological Surgical History: Reports: None Musculoskeletal Surgical History: Reports: Amputation, Other (See Below) Other Musculoskeletal Surgeries/Procedures:: maryann toe amp. 5th toe maryann. Social & Family History - Family History Family Medical History: Noncontributory - Tobacco Use Smoking Status *Q: Never Smoker Second Hand Smoke Exposure: No - Caffeine Use Caffeine Use: Reports: Coffee Caffeine Use Comment: 1-2cups per day - Recreational Drug Use Recreational Drug Use: No - Living Situation & Occupation Living situation: Reports: , with Spouse Occupation: Disabled ED ROS GENERAL - Review of Systems Review Of Systems: ROS reveals no pertinent complaints other than HPI. ED EXAM, GENERAL - Physical Exam Exam: See Below Exam Limited By: No Limitations General Appearance: Alert, WD/WN, Moderate Distress Eye Exam: Bilateral Eye: EOMI, Normal Inspection Ears: Normal External Exam, Hearing Grossly Normal Nose: Normal Inspection Throat/Mouth: Normal Inspection, Normal Voice, No Airway Compromise Head: Atraumatic, Normocephalic Neck: Normal Inspection, Supple, Non-Tender, Full Range of Motion Respiratory/Chest: No Respiratory Distress, Lungs Clear, Normal Breath Sounds, No Accessory Muscle Use, Chest Non-Tender Cardiovascular: Normal Peripheral Pulses, Regular Rate, Rhythm, No Edema, No Gallop, No JVD, No Murmur, No Rub GI/Abdominal: Normal Bowel Sounds, Soft, No Organomegaly, No Distention, No Abnormal Bruit, No Mass, Pelvis Stable, Tender (throughout) (Male) Exam: Deferred Rectal (Males) Exam: Deferred Back Exam: Normal Inspection, Full Range of Motion, NT Extremities: Normal Inspection, Normal Range of Motion, Non-Tender, Normal Capillary Refill, No Pedal Edema Neurological: Alert, Oriented, CN II-XII Intact, Normal Cognition, Normal Gait, Normal Reflexes, No Motor/Sensory Deficits Psychiatric: Normal Mood, Flat Affect Skin Exam: Warm, Dry, Intact, Normal Color, No Rash Lymphatic: No Adenopathy Course - Vital Signs Last Recorded V/S: Last Vital Signs Temp 99.7 F 01/23/19 10:55 Pulse 85 01/23/19 10:55 Resp 18 01/23/19 10:55 BP 161/88 H 01/23/19 10:55 Pulse Ox 96 01/23/19 10:55 - Orders/Labs/Meds Orders: Active Orders 24 hr Category Date Time Status Admission Diagnosis [ADT] Routine ADT 01/23/19 12:20 Ordered Admission Status [Patient Status] [ADT] Routine ADT 01/23/19 12:20 Active EKG Documentation Completion [RC] STAT Care 01/23/19 10:58 Active CULTURE BLOOD [BC] Stat Lab 01/23/19 10:58 Ordered CULTURE BLOOD [BC] Stat Lab 01/23/19 11:12 Received UA RFX SIM AND CULT IF INDIC [URIN] Stat Lab 01/23/19 10:58 Ordered Blood Culture x2 Reflex Set [OM.PC] Stat Oth 01/23/19 10:58 Ordered Labs: Laboratory Tests 01/23/19 01/23/19 01/23/19 Range/Units 11:25 11:25 11:25 WBC 9.9 (5.0-10.0) 10^3/uL RBC 4.03 L (4.6-6.2) 10^6/uL Hgb 11.7 L (14.0-18.0) g/dL Hct 35.5 L (40.0-54.0) % MCV 88.1 (80-100) fL MCH 29.0 (27.0-34.0) pg MCHC 33.0 (33.0-35.0) g/dL Plt Count 175 (150-450) 10^3/uL Neut % (Auto) 79.1 H (42.2-75.2) % Lymph % (Auto) 9.6 L (20.5-50.1) % [place] % (Auto) 10.8 H (2-8) % Eos % (Auto) 0.2 L (1.0-3.0) % Baso % (Auto) 0.3 (0.0-1.0) % Sodium 134 L (135-145) mmol/L Potassium 3.7 (3.6-5.0) mmol/L Chloride 99 L (101-111) mmol/L Carbon Dioxide 26.0 (21.0-31.0) mmol/L Anion Gap 12.7 BUN 41 H (7-18) mg/dL Creatinine 1.5 H (0.6-1.3) mg/dL Est Cr Clr Drug Dosing 57.17 mL/min Estimated GFR (MDRD) 48 BUN/Creatinine Ratio 27.33 Glucose 125 H (74-105) mg/dL Lactic Acid 1.5 (0.5-2.2) mmol/L Calcium 8.4 (8.4-10.2) mg/dl Total Bilirubin 1.7 H (0.2-1.0) mg/dL AST 34 (10-42) IU/L ALT 17 (10-60) IU/L Alkaline Phosphatase 134 H (42-121) IU/L Troponin I 0.04 H* (0.00-0.02) ng/ml B-Natriuretic Peptide 2730 H (0-100) pg/ml Total Protein 8.5 H (6.7-8.2) g/dl Albumin 2.7 L (3.2-5.5) g/dl Globulin 5.8 Albumin/Globulin Ratio 0.47 Influenza A: Influenza B: Meds: Medications Discontinued Medications Generic Name Dose Route Start Last Admin Trade Name Freq PRN Reason Stop Dose Admin Acetaminophen 650 mg 01/23/19 11:49 01/23/19 11:53 Tylenol PO 01/23/19 11:50 650 mg NOW ONE Administration - Re-Assessments/Exams Free Text/Narrative Re-Assessment/Exam: 01/23/19 12:32 Discussed patient case with Dr. Helms who agreed to accept the patient for observation. Departure - Departure Time of Disposition: 12:30 Disposition: Refer to Observation Condition: Poor Clinical Impression: Gastroenteritis, Elevated troponin, Elevated brain natriuretic peptide (BNP) level Chronic CHF (congestive heart failure) Qualifiers: Heart failure type: unspecified Qualified Code(s): I50.9 - Heart failure, unspecified Diabetic foot ulcer Qualifiers: Diabetic foot ulcer location: unspecified part of foot Diabetes mellitus type: type 2 Laterality: right Non-pressure ulcer stage: unspecified non-pressure ulcer stage Qualified Code(s): E11.621 - Type 2 diabetes mellitus with foot ulcer Hypertension Qualifiers: Hypertension type: unspecified Qualified Code(s): I10 - Essential (primary) hypertension - Discharge Information *PRESCRIPTION DRUG MONITORING PROGRAM REVIEWED*: No *COPY OF PRESCRIPTION DRUG MONITORING REPORT IN PATIENT GUANACO: No Forms: ED Department Discharge - My Orders Last 24 Hours: My Active Orders 01/23/19 10:58 EKG Documentation Completion [RC] STAT CULTURE BLOOD [BC] Stat UA RFX SIM AND CULT IF INDIC [URIN] Stat Blood Culture x2 Reflex Set [OM.PC] Stat 01/23/19 11:12 CULTURE BLOOD [BC] Stat 01/23/19 12:20 Admission Diagnosis [ADT] Routine Admission Status [Patient Status] [ADT] Routine - Assessment/Plan Last 24 Hours: My Active Orders 01/23/19 10:58 EKG Documentation Completion [RC] STAT CULTURE BLOOD [BC] Stat UA RFX SIM AND CULT IF INDIC [URIN] Stat Blood Culture x2 Reflex Set [OM.PC] Stat 01/23/19 11:12 CULTURE BLOOD [BC] Stat 01/23/19 12:20 Admission Diagnosis [ADT] Routine Admission Status [Patient Status] [ADT] Routine
[2019-01-23] MEDS ORDERED: Promethazine 25 MG/ML SDV IM PRN (14:01)
[2019-01-23] MEDS ORDERED: oxyCODONE 5 MG Tab PO PRN (14:01)
[2019-01-23] MEDS ORDERED: Ondansetron 4 MG/2 ML SDV IVPUSH PRN (14:01)
[2019-01-23] MEDS ORDERED: Nitroglycerin 0.4 MG Tab.SL SL PRN (14:04)
[2019-01-23] MEDS ORDERED: 50% Dextrose in Water 50 ML Syringe IVPUSH PRN (14:12)
[2019-01-23] MEDS ORDERED: Sodium Chloride 0.9% 10 ML Syringe FLUSH PRN (14:37)
[2019-01-23] MEDS: Sodium Chloride 0.9% 250 ML IV SCH ×2 (15:44→21:35)
[2019-01-23] MEDS ORDERED: Acetaminophen 325 MG Tab PO PRN (16:00)
--- NOTE | 2019-01-23 16:29 | HP ---
CHIEF COMPLAINT: Nausea, vomiting, diarrhea with weakness. HISTORY OF PRESENTING ILLNESS: Mr. Abbi Valderrama is a 58-year-old male with a medical history significant for hypertension, hyperlipidemia, type 2 diabetes mellitus, coronary artery disease, status post stents placed in the past, status post pacemaker placed, recently admitted to [facility] for evidence of cellulitis and sepsis and got treated and is currently on oral Keflex. He has been dealing with nausea, vomiting, diarrhea in the last 4 days, so came to the ER needing admission to the hospital. At this time, the patient says that the nausea, vomiting, and diarrhea has been going on for the last 4 days. He has been throwing up at least 3 times a day. Had diarrhea 2 days back 3 to 4 times a day. No blood seen in the vomitus or diarrhea. Complains of mild discomfort in the abdomen 3 to 4/10 in intensity. No clear aggravating factors. No clear relieving factors. Associated with nausea and vomiting. Denies any chest pain. No shortness of breath. No fevers, no chills. The patient was evaluated by Podiatry Services yesterday at [facility] and felt that the wound is healing well. The patient denied any history of chest pains on exertion. Has mild dyspnea on exertion. No history of orthopnea or paroxysmal nocturnal dyspnea. The patient denied any history of hematemesis, hematochezia, or melenic stools. Normal bowel and bladder habits, otherwise. REVIEW OF SYSTEMS: A complete review of systems including skin, ear, nose, and throat, cardiovascular system, respiratory system, gastrointestinal system, genitourinary system, hematology, oncology, neurology, allergy, immunology, constitutional were all evaluated and were negative except for the above-said notes. PAST MEDICAL HISTORY: Significant for: 1. Hypertension. 2. Hyperlipidemia. 3. Type 2 diabetes mellitus. 4. Coronary artery disease, status post stents placed in the past. 5. Chronic congestive heart failure with systolic dysfunction. 6. Chronic kidney disease. PAST SURGICAL HISTORY: Significant for: 1. Toe amputation on the right foot. 2. Coronary artery stent placement back in 2017. 3. Status post pacemaker placed. FAMILY HISTORY: None significant as per the patient. SOCIAL HISTORY: No history of smoking tobacco. No history of alcohol intake. ALLERGIES: No known drug allergies. HOME MEDICATIONS: 1. Metolazone 2.5 mg daily. 2. Keflex 500 mg q.6 hourly. 3. Lipitor 40 mg at bedtime. 4. Potassium chloride 20 mEq twice a day. 5. Nitroglycerin 0.4 mg sublingual as needed for chest pain. 6. Toprol-XL 200 mg daily. 7. Magnesium oxide 400 mg daily. 8. Cozaar 100 mg daily. 9. Duloxetine 60 mg daily. 10.Bumetanide 2 mg twice a day. 11.Aspirin 81 mg daily. 12.Albuterol 2.5 mg nebulizer every 2 hours as needed. 13.Tylenol 650 every 4 hours as needed. PHYSICAL EXAMINATION: Vital Signs: Temperature 99.7, pulse of 85, blood pressure 161/80, respiratory rate of 18, and saturating at 96% on room air. General Appearance: Patient is well oriented to time, place, and person. Follows commands spontaneously. Cardiovascular System: S1, S2 heard with normal intensity. No gallops. Respiratory System: Clear to auscultation bilaterally. No wheeze. No crepitations. Abdomen: Soft. Bowel sounds positive. Nontender. No rigidity. Extremities: No edema, bilateral lower extremities. Noted to have wound superficial ulceration with calluses on the lateral plantar aspect of the right foot, small superficial ulcer noted on the second toe dorsal aspect. Neurologic: No gross focal neurological deficit. LABORATORY DATA: WBC 9.9, hemoglobin 11.7, hematocrit 35.5, platelet count 175. Sodium 134, potassium 3.7, chloride 99, bicarb 26, BUN 41, creatinine 1.5, glucose 125, lactic acid 1.5. AST 34, AST 17, alkaline phosphatase 134. Troponin 0.04, B-natriuretic peptide 2730. ASSESSMENT: 1. Acute gastroenteritis. 2. Hypertension. 3. Hyperlipidemia. 4. Type 2 diabetes mellitus. 5. Chronic congestive heart failure with systolic dysfunction. 6. Diabetic foot ulcer on the right foot. 7. Generalized weakness. PLAN: 1. Acute gastroenteritis. The patient presents with increasing nausea, vomiting, and diarrhea, noted to have acute gastroenteritis, unsure if this is viral versus from his antibiotic with Keflex. His labs are within normal limits. The patient will be admitted to the hospital. We will keep him gently hydrated. We will have him on IV normal saline at 50 mL/h for 500 mL and re-evaluate the patient at that time. The patient has underlying chronic congestive heart failure so be cautious with IV hydration. 2. Chronic congestive heart failure. The patient noted to have poor ejection fraction of less than 25% with global hypokinesis from his recent echocardiogram. Be cautious regarding IV hydration. He has been on diuretics. We will resume the diuretics in a.m. 3. Hypertension. The patient's blood pressure seems to be in acceptable range. Continue with current antihypertensive medication. 4. Type 2 diabetes mellitus. The patient's blood sugars will be closely monitored. The patient has been on insulin regimen. Continue the same. Check his fingersticks with each meals and have him on supplemental scale insulin as needed for additional coverage of his blood glucose. 5. Coronary artery disease. The patient had stents placed in the past. The patient denies any ongoing chest pain. Continue beta-dora, aspirin, statin. 6. Diabetic foot ulcer, seems to be stable for now. He was evaluated by Podiatry Services yesterday. He had recent cellulitis and has been on oral Keflex, continue the same. 7. DVT prophylaxis indicated, we will have him on heparin for DVT prophylaxis. 8. Chronic kidney disease, remains stable. Try to avoid nephrotoxic agents. Dose adjust medications for renal function. Try to maintain euvolemic status. 9. Code status: The patient wants to be full code. Discussed with family members at bedside. Discussed with the patient. Discussed with [place], ER physician, regarding the plan of care. Reviewed the labs and medications. Reviewed the old charts. [facility] /[id number]
[2019-01-23] MEDS: Insulin Lispro 100 Units/ML 3 ML Vial SUBCUT SCH ×4 (17:28→21:18)
[2019-01-23] MEDS: Cephalexin 500 MG Cap PO SCH (17:42)
[2019-01-23] MEDS: Potassium Chloride 10 MEQ Tab.ER PO SCH (17:42)
[2019-01-23] MEDS ORDERED: BRIMONIDINE TARTRATE EYEBOTH SCH (21:00)
[2019-01-23] MEDS: atorvaSTATin 20 MG Tab PO SCH (21:08)
[2019-01-23] MEDS: Timolol Maleate 0.5% Ophth Soln 5 ML Bottle EYEBOTH SCH (21:09)
[2019-01-23] MEDS: Gabapentin 300 MG Cap PO SCH (21:09)
[2019-01-23] MEDS: Heparin Sodium 5,000 Units/ML Vial SUBCUT SCH (21:10)
[2019-01-23] MEDS: Triamcinolone Acetonide 0.1% Oint 15 GM Tube TOP SCH (21:19)
[2019-01-24] MEDS: Cephalexin 500 MG Cap PO SCH ×4 (00:35→17:14)
[2019-01-24] MEDS: Heparin Sodium 5,000 Units/ML Vial SUBCUT SCH ×3 (05:47→21:35)
[2019-01-24] MEDS: Timolol Maleate 0.5% Ophth Soln 5 ML Bottle EYEBOTH SCH ×2 (09:00→21:35)
[2019-01-24] MEDS: Insulin Lispro 100 Units/ML 3 ML Vial SUBCUT SCH ×6 (09:45→21:38)
[2019-01-24] MEDS: Gabapentin 300 MG Cap PO SCH ×3 (09:46→21:32)
[2019-01-24] MEDS: Bumetanide 1 MG Tab PO SCH ×2 (09:46→13:21)
[2019-01-24] MEDS: Losartan 50 MG Tab PO SCH (09:47)
[2019-01-24] MEDS: DULoxetine 30 MG Cap PO SCH (09:47)
[2019-01-24] MEDS: Potassium Chloride 10 MEQ Tab.ER PO SCH ×2 (09:48→17:14)
[2019-01-24] MEDS: Metoprolol Succinate 50 MG Tab.ER PO SCH (09:48)
[2019-01-24] MEDS: Aspirin 81 MG Tab.EC PO SCH ×2 (09:48→12:02)
[2019-01-24] MEDS: Metolazone 2.5 MG Tab PO SCH (09:48)
[2019-01-24] MEDS: Calcitriol 0.25 MCG Cap PO SCH (09:48)
[2019-01-24] MEDS: Triamcinolone Acetonide 0.1% Oint 15 GM Tube TOP SCH ×2 (12:04→21:00)
--- NOTE | 2019-01-24 13:40 | PN ---
DATE: 01/24/2019 SUBJECTIVE: [facility] 58[facility] with a medical history significant for hypertension, hyperlipidemia, type 2 diabetes mellitus, coronary artery disease, status post stents placed in the past, status post pacemaker placed, admitted with acute gastroenteritis. For the last 24 hours, the patient's nausea and vomiting have much improved. He had 1 episode of loose stool this morning. No abdominal pain. No nausea. No vomiting. Denies any chest pains. No shortness of breath. REVIEW OF SYSTEMS: Cardiovascular, respiratory, gastrointestinal, neurology, and constitutional were all evaluated. PHYSICAL EXAMINATION: Vital Signs: Temperature of 98.8, pulse of 62, blood pressure 164/89, respiratory rate of 16, saturating at 97%. General Appearance: The patient is well oriented to time, place, and person. Follows commands spontaneously. Cardiovascular System: S1 and S2 heard with normal intensity. No gallops. Respiratory System: Clear to auscultation bilaterally. No wheeze. No crepitations. Abdomen: Soft. Bowel sounds positive. Nontender. No rigidity. Extremities: No edema to bilateral lower extremities. Chronic diabetic foot ulcer noted on the right plantar lateral aspect of the right foot. No active infection noted at this time. MEDICATIONS: Reviewed. Continue with: 1. Tylenol 650 every 4 hours as needed for pain and fever. 2. Aspirin 81 mg daily. 3. Lipitor 40 mg at bedtime. 4. Bumex 2 mg twice a day. 5. Keflex 500 mg every 6 hours. 6. Cymbalta 60 mg daily. 7. Neurontin 300 mg 3 times a day. 8. Heparin 5000 subcutaneous q.8 hourly. We will currently hold the heparin secondary to thrombocytopenia. 9. Humalog. Hold the Humalog scheduled dose secondary to low blood sugars. 10.Cozaar 100 mg daily. 11.Metolazone 2.5 mg oral daily. 12.Toprol-XL 200 mg daily. 13.Oxycodone 5 mg every 4 hours as needed. LABORATORY DATA: Reviewed. WBC 6.8, hemoglobin 11.1, hematocrit 34, platelet count 139. Sodium 136, potassium 4, chloride 102, BUN 38, creatinine 1.4, and glucose 87. ASSESSMENT: 1. Acute gastroenteritis with nausea, vomiting, and diarrhea. 2. Hypertension. 3. Type 2 diabetes mellitus. 4. Hyperlipidemia. 5. Chronic congestive heart failure with systolic dysfunction. 6. Diabetic foot ulcer on the right side. 7. Generalized weakness. PLAN: 1. Acute gastroenteritis. Could be viral in nature, unsure if patient had any diarrhea from his antibiotic. His nausea and vomiting have much improved. He got hydrated with IV fluids. He feels better. His generalized weakness has much improved. We will closely follow. If he continues to have 3 to 4 large loose stools, then one might consider getting a stool for C. diff toxin. 2. Type 2 diabetes mellitus, uncontrolled. The patient noted to have low blood sugars. This could be resulting from poor oral intake. He has been on full liquid diet. Will advance the diet today. We will hold the Humalog and long-acting insulin and use supplemental scale insulin only to address hyperglycemic episodes. We will closely follow. 3. Hypertension. The patient's blood pressure seems to be in acceptable range. He is started back on his antihypertensive medications. Closely follow. 4. Chronic congestive heart failure. He has been on Bumex and metolazone. We will continue the same. Try to avoid any hypotensive episodes. 5. Diabetic foot ulcer. The patient has been doctoring with Podiatry at [place]. He is advised to follow with Podiatry as an outpatient. Continue with daily dressing changes. No active infection noted at this time. He was recently diagnosed with cellulitis and has been on oral Keflex. Continue the same. 6. Discussed with family members at bedside. [facility] /[id number]
[2019-01-24] MEDS: atorvaSTATin 20 MG Tab PO SCH (21:32)
[2019-01-25] MEDS: Heparin Sodium 5,000 Units/ML Vial SUBCUT SCH ×2 (06:17→13:02)
[2019-01-25] MEDS: Bumetanide 1 MG Tab PO SCH ×2 (07:48→13:01)
[2019-01-25] MEDS: Insulin Lispro 100 Units/ML 3 ML Vial SUBCUT SCH ×2 (07:49→11:52)
[2019-01-25] MEDS: Potassium Chloride 10 MEQ Tab.ER PO SCH (07:49)
[2019-01-25] MEDS: Gabapentin 300 MG Cap PO SCH ×2 (08:56→13:02)
[2019-01-25] MEDS: Calcitriol 0.25 MCG Cap PO SCH (08:56)
[2019-01-25] MEDS: Losartan 50 MG Tab PO SCH (08:56)
[2019-01-25] MEDS: Aspirin 81 MG Tab.EC PO SCH (08:57)
[2019-01-25] MEDS: DULoxetine 30 MG Cap PO SCH (08:57)
[2019-01-25] MEDS: Metoprolol Succinate 50 MG Tab.ER PO SCH (08:58)
[2019-01-25] MEDS: Metolazone 2.5 MG Tab PO SCH (08:58)
[2019-01-25] MEDS: Triamcinolone Acetonide 0.1% Oint 15 GM Tube TOP SCH (09:00)
[2019-01-25] MEDS: Timolol Maleate 0.5% Ophth Soln 5 ML Bottle EYEBOTH SCH (09:01)
[2019-01-25 11:32] VITALS: BP 148/85; PULSE 84
--- NOTE | 2019-01-25 20:50 | DISCH ---
ADMITTING DIAGNOSES: 1. Acute gastroenteritis. 2. Generalized weakness. 3. Hypertension. 4. Chronic congestive heart failure with systolic dysfunction, ejection fraction of 25%. 5. Diabetic foot ulcer. DISCHARGE DIAGNOSES: 1. Acute gastroenteritis, possible viral, resolved. 2. Chronic congestive heart failure with systolic dysfunction with ejection fraction of 25%, stable. 3. Diabetic foot ulcer, treated with oral antibiotics, stable. HISTORY OF PRESENTING ILLNESS: Mr. Compa Valderrama [facility] is a 58-year-old male with a medical history significant for hypertension; hyperlipidemia; type 2 diabetes mellitus; coronary artery disease, status post stents placed in the past, status post pacemaker placed, who recently got admitted to [facility] with evidence of cellulitis to the right foot and was treated with oral antibiotics. The patient presented to the ER with complaints of nausea, vomiting, and diarrhea, lasted for 4 days prior to coming to the hospital, possible viral gastroenteritis. The patient was admitted to the hospital and was treated with IV fluids, antiemetic protocol. Nausea, vomiting, and diarrhea got resolved. His blood pressure remained stable. He was able to ambulate well without any difficulty. He was able to tolerate oral feeds well. He was initially put on clear liquid diet and then advanced the diet as tolerated. He is back to his baseline function. He is discharged to home in stable condition. He is advised to follow with his primary care physician next 1 week of time, and he is advised to follow with Podiatry Clinic as scheduled. PHYSICAL EXAMINATION: Vital Signs: On the day of discharge, temperature of 98.2, pulse of 84, blood pressure of 148/85, respiratory rate of 20, saturating at 100%. General Appearance: The patient is well oriented to time, place, and person. Follows commands spontaneously. Cardiovascular System: S1, S2 heard with normal intensity. No gallops. Respiratory System: Clear to auscultation bilaterally. No wheeze. No crepitations. Abdomen: Soft. Bowel sounds positive. Nontender. No rigidity. Extremities: No edema of bilateral lower extremities. Noted to have wound, superficial ulceration, with calluses on the lateral plantar aspect of the right foot. Small superficial ulcer noted on the second toe, dorsal aspect. No active secretions. No evidence of cellulitis noted at this time. DISCHARGE MEDICATIONS: Include Tylenol 650 every 4 hours as needed for pain; albuterol 1 to 2 puffs inhalation every 4 hours as needed for dyspnea; Proventil 2.5 mg nebulizer every 2 hours as needed for shortness of breath; aspirin 81 mg daily; brimonidine tartrate 2 drops in eye, both, twice daily; Bumex 2 mg oral twice daily; calcitriol 0.25 mcg oral daily; duloxetine 60 mg daily; Neurontin 300 mg 3 times a day; NovoLog with each meals as per sliding scale; Cozaar 100 mg daily; magnesium oxide 400 mg daily; Toprol-XL 200 mg daily; nitroglycerin 0.4 mg sublingual as needed for chest pain; potassium chloride 20 mEq twice a day; timolol ophthalmic twice daily; triamcinolone acetonide 15 g topical twice daily; Lipitor 40 mg at bedtime; metolazone 2.5 mg oral daily. CONDITION ON ADMISSION: Poor. CONDITION ON DISCHARGE: Stable. DISPOSITION: Discharged to home. ACTIVITY: As tolerated. DIET: Cardiac healthy diet with consistent carbohydrate diet. FOLLOWUP PLAN: Follow with primary care physician next 1 week of time and to follow with Podiatry Clinic as scheduled. I spent over 35 minutes of time in evaluating and treating this patient and making discharge plans. [facility] /[id number]
== END 2019-01-25 13:15 | disposition home or self-care (01) ==
LOC: DL.ED 10:55 → DL.MS 12:20
PROVIDERS: ADMIT Internal Medicine; ATTEND Internal Medicine
DX: K52.9 Noninfective gastroenteritis and colitis, unspecified (principal); R53.1 Weakness; I13.0 Hypertensive heart and chronic kidney disease with heart failure and stage 1 through stage 4 chronic kidney disease, or unspecified chronic kidney disease; E11.22 Type 2 diabetes mellitus with diabetic chronic kidney disease; I50.22 Chronic systolic (congestive) heart failure; N18.9 Chronic kidney disease, unspecified; E11.621 Type 2 diabetes mellitus with foot ulcer; L97.519 Non-pressure chronic ulcer of other part of right foot with unspecified severity; I25.10 Atherosclerotic heart disease of native coronary artery without angina pectoris; E78.5 Hyperlipidemia, unspecified; Z95.5 Presence of coronary angioplasty implant and graft; Z95.0 Presence of cardiac pacemaker; Z79.82 Long term (current) use of aspirin; Z79.899 Other long term (current) drug therapy
CPT/HCPCS: 36415; 80048; 80053; 81001; 82962; 83605; 83880; 84484; 85025; 85027; 87040; 87804; 93005; 96361; 96372; 96374; 99285-25; A9270-GY; G0378; J1644; J1815; J2405; J7050

== ENCOUNTER 2019-03-13 14:07 | Emergency (ER) | payer MEDICAID ==
[2019-03-13 15:32] VITALS: PULSE 76
--- NOTE | 2019-03-13 16:26 | EDM.PDOC ---
ED HPI GENERAL MEDICAL PROBLEM - General Chief Complaint: General Stated Complaint: SLEEPY ALL THE TIME/BLEEDING FOOT Time Seen by Provider: 03/13/19 16:15 Source of Information: Reports: Patient History Limitations: Reports: No Limitations - History of Present Illness INITIAL COMMENTS - FREE TEXT/NARRATIVE: This 58 yo male patient reports to the ED due to be instructed to come to the ED due to a low hemoglobin level. The patient reports he met with Jaciel Arroyo ( Infectious Disease) yesterday via telemed who advised them to come to the ED " to get blood." The patient did get into the hospital today for a dressing change and was advised to go to the ED to get blood. An attempt to coordinate the patient getting blood as an outpatient was made by [facility] Nursing Staff resulted in being told to send the patient to the ED for blood. Onset: Other Duration: Constant Location: Reports: Generalized Quality: Reports: Other Severity: Moderate Improves with: Reports: None Worsens with: Reports: None Associated Symptoms: Reports: Weakness - Related Data Allergies Allergy/AdvReac Type Severity Reaction Status Date / Time No Known Allergies Allergy Verified 03/03/19 12:18 Home Meds: Home Meds Metoprolol Succinate [Toprol Xl] 200 mg PO DAILY 07/30/16 [History] atorvaSTATin [Lipitor] 40 mg PO BEDTIME 07/30/16 [History] Brimonidine Tartrate [Brimonidine Tartrate 0.2% Ophth Soln] 2 drop EYEBOTH BID 08/22/17 [History] DULoxetine HCl [Duloxetine HCl] 60 mg PO DAILY 08/22/17 [History] Magnesium Oxide [Magnesium] 400 mg PO DAILY 08/22/17 [History] Potassium Chloride 20 meq PO BIDMEALS 08/22/17 [History] Timolol Maleate [Timoptic 0.5% Ophth Soln] 1 drop EYEBOTH BID 08/22/17 [History] Acetaminophen [Tylenol] 650 mg PO Q4H PRN tablet 10/25/17 [Rx] Albuterol [Proventil Neb Soln] 2.5 mg NEB Q2H PRN neb 10/25/17 [Rx] Insulin Aspart [NovoLOG] 0 unit SUBCUT QIDACANDBED pen 10/25/17 [Rx] Gabapentin [Neurontin] 300 mg PO TID 01/19/18 [History] Albuterol Sulfate [Proair Hfa] 1 - 2 inh INH Q4HR PRN 11/20/18 [History] Bumetanide 2 mg PO BID 11/20/18 [History] Calcitriol 0.25 mcg PO DAILY 11/20/18 [History] Losartan [Cozaar] 100 mg PO DAILY 11/20/18 [History] Nitroglycerin 0.4 mg PO ASDIRECTED PRN 11/20/18 [History] metOLazone [Zaroxolyn] 2.5 mg PO DAILY 11/20/18 [History] Triamcinolone Acetonide [Triamcinolone Acetonide 0.1% Oint] 15 gm TOP BID PRN [History] Aspirin [Halfprin] 81 mg PO DAILY #0 tab.ec 01/25/19 [Rx] Past Medical History HEENT History: Reports: Cataract, Glaucoma Other HEENT History: Will obtain new glasses after cataract surgery Cardiovascular History: Reports: CAD, Heart Failure, Hypertension, [place], Pacemaker , Stents Other Cardiovascular History: LBBB Respiratory History: Reports: SOB Other Respiratory History: with CHF Gastrointestinal History: Reports: None Genitourinary History: Reports: Renal Disease Other Genitourinary History: stage 3 renal failure Musculoskeletal History: Reports: Other (See Below) Neurological History: Reports: Neuropathy, Diabetic Other Neuro History: memory lapses rarely Psychiatric History: Reports: Depression Other Psychiatric History: Pt states that he has an appt with mental health in [place] this coming week Endocrine/Metabolic History: Reports: Diabetes, Type II Hematologic History: Reports: None Immunologic History: Reports: None Oncologic (Cancer) History: Reports: None Dermatologic History: Reports: Other (See Below) Other Dermatologic History: Diabetic foot ulcer. Pt states 6 months of skin itching to the back, arms and legs - Infectious Disease History Infectious Disease History: Reports: Other (See Below) Other Infectious Disease History: ecoli - Past Surgical History Head Surgeries/Procedures: Reports: None HEENT Surgical History: Reports: Cataract Surgery Cardiovascular Surgical History: Reports: None Respiratory Surgical History: Reports: None GI Surgical History: Reports: None Male Surgical History: Reports: None Other Male Surgeries/Procedures: kidney biopsy done Neurological Surgical History: Reports: None Musculoskeletal Surgical History: Reports: Amputation, Other (See Below) Other Musculoskeletal Surgeries/Procedures:: maryann toe amp. 5th toe maryann. Dermatological Surgical History: Reports: Other (See Below) Social & Family History - Family History Family Medical History: Noncontributory - Tobacco Use Smoking Status *Q: Former Smoker Used Tobacco, but Quit: Yes Month/Year Tobacco Last Used: ? - Caffeine Use Caffeine Use: Reports: Coffee Caffeine Use Comment: 1-2cups per day - Recreational Drug Use Recreational Drug Use: No - Living Situation & Occupation Living situation: Reports: , with Spouse Occupation: Disabled ED ROS GENERAL - Review of Systems Review Of Systems: Comprehensive ROS is negative, except as noted in HPI. ED EXAM, GENERAL - Physical Exam Exam: See Below Exam Limited By: No Limitations General Appearance: Alert, WD/WN, Mild Distress Eye Exam: Bilateral Eye: EOMI, Normal Inspection, PERRL Ears: Normal External Exam, Normal Canal, Hearing Grossly Normal, Normal TMs Nose: Normal Inspection, Normal Mucosa, No Blood Throat/Mouth: Normal Inspection, Normal Lips, Normal Teeth, Normal Gums, Normal Oropharynx, Normal Voice, No Airway Compromise Head: Atraumatic, Normocephalic Neck: Normal Inspection, Supple, Non-Tender, Full Range of Motion Respiratory/Chest: No Respiratory Distress, Lungs Clear, Normal Breath Sounds, No Accessory Muscle Use, Chest Non-Tender Cardiovascular: Normal Peripheral Pulses, Regular Rate, Rhythm, No Edema, No Gallop, No JVD, No Murmur, No Rub GI/Abdominal: Normal Bowel Sounds, Soft, Non-Tender, No Organomegaly, No Distention, No Abnormal Bruit, No Mass (Male) Exam: Deferred Rectal (Males) Exam: Deferred Back Exam: Normal Inspection, Full Range of Motion, NT Extremities: Leg Pain (Wound vac on right lower extremity) Neurological: Alert, Oriented, CN II-XII Intact, Normal Cognition, Normal Reflexes, No Motor/Sensory Deficits Psychiatric: Normal Affect, Normal Mood Skin Exam: Warm, Dry, Intact, Normal Color, No Rash Lymphatic: No Adenopathy Course - Vital Signs Last Recorded V/S: Last Vital Signs Temp 36.4 C 03/13/19 15:29 Pulse 76 03/13/19 15:29 Resp 16 03/13/19 15:29 BP 166/88 H 03/13/19 15:29 Pulse Ox 100 03/13/19 15:29 - Orders/Labs/Meds Orders: Active Orders 24 hr Category Date Time Status CULTURE BLOOD [BC] Stat Lab 03/13/19 16:52 Received UA RFX SIM AND CULT IF INDIC [URIN] Urgent Lab 03/13/19 16:11 Ordered Labs: Laboratory Tests 03/13/19 03/13/19 03/13/19 Range/Units 16:52 16:52 16:52 WBC 5.2 (5.0-10.0) 10^3/uL RBC 2.50 L (4.6-6.2) 10^6/uL Hgb 7.4 L D (14.0-18.0) g/dL Hct 23.2 L (40.0-54.0) % MCV 92.8 D (80-100) fL MCH 29.6 (27.0-34.0) pg MCHC 31.9 L (33.0-35.0) g/dL Plt Count 352 D (150-450) 10^3/uL Neut % (Auto) 58.3 (42.2-75.2) % Lymph % (Auto) 21.4 (20.5-50.1) % [place] % (Auto) 10.7 H (2-8) % Eos % (Auto) 8.2 H (1.0-3.0) % Baso % (Auto) 1.4 H (0.0-1.0) % Sodium 137 (135-145) mmol/L Potassium 3.8 (3.6-5.0) mmol/L Chloride 107 (101-111) mmol/L Carbon Dioxide 25.0 (21.0-31.0) mmol/L Anion Gap 8.8 BUN 30 H (7-18) mg/dL Creatinine 1.6 H (0.6-1.3) mg/dL Est Cr Clr Drug Dosing 53.60 mL/min Estimated GFR (MDRD) 45 BUN/Creatinine Ratio 18.75 Glucose 104 (74-105) mg/dL Lactic Acid 0.8 (0.5-2.2) mmol/L Calcium 8.0 L (8.4-10.2) mg/dl Total Bilirubin 0.5 (0.2-1.0) mg/dL AST 29 (10-42) IU/L ALT 14 (10-60) IU/L Alkaline Phosphatase 102 (42-121) IU/L Total Protein 9.1 H (6.7-8.2) g/dl Albumin 2.1 L (3.2-5.5) g/dl Globulin 7.0 Albumin/Globulin Ratio 0.30 - Re-Assessments/Exams Free Text/Narrative Re-Assessment/Exam: 03/13/19 18:00 Discussed the examination and lab results with Dr. Miranda. Dr. Miranda requested that the patient get another CBC done tomorrow and have the results sent to [facility] Infectious Disease. Departure - Departure Time of Disposition: 17:59 Disposition: Home, Self-Care 01 Condition: Fair Clinical Impression: Weakness Anemia Qualifiers: Anemia type: unspecified type Qualified Code(s): D64.9 - Anemia, unspecified - Discharge Information *PRESCRIPTION DRUG MONITORING PROGRAM REVIEWED*: Not Applicable *COPY OF PRESCRIPTION DRUG MONITORING REPORT IN PATIENT GUANACO: Not Applicable Forms: ED Department Discharge Care Plan Goals: The patient was advised of the examination and lab results during the visit. The patient was encouraged to folllow-up with his scheduled dressing change tomorrow. During the dressing change, the patient will have a blood draw and the results will be forwarded to infectious disease for continued evaluation and management. Sepsis Event Note - Evaluation Sepsis Screening Result: No Definite Risk - Focused Exam Vital Signs: Vital Signs Temp Pulse Resp BP Pulse Ox 03/13/19 15:29 36.4 C 76 16 166/88 H 100 Date Exam was Performed: 03/13/19 Time Exam was Performed: 17:59 - My Orders Last 24 Hours: My Active Orders 03/13/19 16:11 UA RFX SIM AND CULT IF INDIC [URIN] Urgent 03/13/19 16:52 CULTURE BLOOD [BC] Stat - Assessment/Plan Last 24 Hours: My Active Orders 03/13/19 16:11 UA RFX SIM AND CULT IF INDIC [URIN] Urgent 03/13/19 16:52 CULTURE BLOOD [BC] Stat
[2019-03-13 17:25] LABS: ANION GAP 8.8
[2019-03-13 18:04] VITALS: BP 143/85
== END 2019-03-13 18:08 | disposition home or self-care (01) ==
LOC: DL.ED 14:07
DX: D64.9 Anemia, unspecified (principal); I13.0 Hypertensive heart and chronic kidney disease with heart failure and stage 1 through stage 4 chronic kidney disease, or unspecified chronic kidney disease; I50.9 Heart failure, unspecified; E11.22 Type 2 diabetes mellitus with diabetic chronic kidney disease; N18.3 Chronic kidney disease, stage 3 (moderate); I25.2 Old myocardial infarction; E11.40 Type 2 diabetes mellitus with diabetic neuropathy, unspecified; Z95.5 Presence of coronary angioplasty implant and graft; Z79.899 Other long term (current) drug therapy; Z79.82 Long term (current) use of aspirin; Z87.81 Personal history of (healed) traumatic fracture
CPT/HCPCS: 36415; 80053; 83605; 85025; 87040; 99283

== ENCOUNTER 2019-04-07 18:55 | Emergency (ER) | payer MEDICAID ==
[2019-04-07 20:25] LABS: ANION GAP 11.7
[2019-04-07] MEDS ORDERED: Furosemide 40 MG/4 ML VIAL IVPUSH ONE (20:40)
--- NOTE | 2019-04-07 20:42 | EDM.PDOC ---
ED HPI GENERAL MEDICAL PROBLEM - General Chief Complaint: Respiratory Problem Stated Complaint: FLUID BUILD UP/SOB Time Seen by Provider: 04/07/19 19:30 Source of Information: Reports: Patient History Limitations: Reports: No Limitations - History of Present Illness INITIAL COMMENTS - FREE TEXT/NARRATIVE: ED with c/o SOB, increasing past 2-3 days. Reports has not taken medications as prescribed as make him nauseated and ran out of Zofran and has not gotten in refilled yet. Did take lasix one time today. has not voided since. Rare cough, no fever, no vomiting. Denies chest pain. Swelling to lower extremities getting worse. Wound vac to right foot. - Related Data Allergies Allergy/AdvReac Type Severity Reaction Status Date / Time No Known Allergies Allergy Verified 04/03/19 20:10 Home Meds: Home Meds Metoprolol Succinate [Toprol Xl] 200 mg PO DAILY 07/30/16 [History] atorvaSTATin [Lipitor] 40 mg PO BEDTIME 07/30/16 [History] Brimonidine Tartrate [Brimonidine Tartrate 0.2% Ophth Soln] 2 drop EYEBOTH BID 08/22/17 [History] DULoxetine HCl [Duloxetine HCl] 60 mg PO DAILY 08/22/17 [History] Magnesium Oxide [Magnesium] 400 mg PO DAILY 08/22/17 [History] Potassium Chloride 20 meq PO BIDMEALS 08/22/17 [History] Timolol Maleate [Timoptic 0.5% Ophth Soln] 1 drop EYEBOTH BID 08/22/17 [History] Gabapentin [Neurontin] 300 mg PO TID 01/19/18 [History] Albuterol Sulfate [Proair Hfa] 1 - 2 inh INH Q4HR PRN 11/20/18 [History] Bumetanide 2 mg PO BID 11/20/18 [History] Losartan [Cozaar] 100 mg PO DAILY 11/20/18 [History] Nitroglycerin 0.4 mg PO ASDIRECTED PRN 11/20/18 [History] calcitrioL [Calcitriol] 0.25 mcg PO DAILY 11/20/18 [History] metOLazone [Zaroxolyn] 2.5 mg PO DAILY 11/20/18 [History] Triamcinolone Acetonide [Triamcinolone Acetonide 0.1% Oint] 15 gm TOP BID PRN 10 /24/19 [History] Aspirin [Halfprin] 81 mg PO DAILY #0 tab.ec 01/25/19 [Rx] Furosemide 40 mg PO DAILY 04/07/19 [History] Insulin Aspart [NovoLOG] 0 unit SUBCUT QIDACANDBED 04/07/19 [History] Ondansetron [Zofran ODT] 4 mg PO Q6H PRN 04/07/19 [History] Past Medical History HEENT History: Reports: Cataract, Glaucoma Other HEENT History: Will obtain new glasses after cataract surgery Cardiovascular History: Reports: CAD, Heart Failure, Hypertension, [place], Pacemaker , Stents Other Cardiovascular History: LBBB Respiratory History: Reports: Pneumonia, Recurrent, SOB Other Respiratory History: with CHF Gastrointestinal History: Reports: None Genitourinary History: Reports: Renal Disease Other Genitourinary History: stage 3 renal failure Musculoskeletal History: Reports: Other (See Below) Neurological History: Reports: Neuropathy, Diabetic Other Neuro History: memory lapses rarely Psychiatric History: Reports: Depression Other Psychiatric History: Pt states that he has an appt with mental [facility] in [place] this coming week Endocrine/Metabolic History: Reports: Diabetes, Type II Hematologic History: Reports: None Immunologic History: Reports: None Oncologic (Cancer) History: Reports: None Dermatologic History: Reports: Other (See Below) Other Dermatologic History: Diabetic foot ulcer. Pt states 6 months of skin itching to the back, arms and legs - Infectious Disease History Infectious Disease History: Reports: Other (See Below) Other Infectious Disease History: ecoli - Past Surgical History Head Surgeries/Procedures: Reports: None HEENT Surgical History: Reports: Cataract Surgery Cardiovascular Surgical History: Reports: None Respiratory Surgical History: Reports: None GI Surgical History: Reports: None Male Surgical History: Reports: None Other Male Surgeries/Procedures: kidney biopsy done Neurological Surgical History: Reports: None Musculoskeletal Surgical History: Reports: Amputation, Other (See Below) Other Musculoskeletal Surgeries/Procedures:: maryann toe amp. 5th toe maryann. Dermatological Surgical History: Reports: Other (See Below) Social & Family History - Family History Family Medical History: Noncontributory - Tobacco Use Smoking Status *Q: Never Smoker Second Hand Smoke Exposure: No - Caffeine Use Caffeine Use: Reports: None Caffeine Use Comment: 1-2cups per day - Recreational Drug Use Recreational Drug Use: No - Living Situation & Occupation Living situation: Reports: , with Spouse Occupation: Disabled ED ROS GENERAL - Review of Systems Review Of Systems: Comprehensive ROS is negative, except as noted in HPI. ED EXAM, GENERAL - Physical Exam Exam: See Below Exam Limited By: No Limitations General Appearance: Alert, Mild Distress Eye Exam: Bilateral Eye: EOMI Ears: Normal External Exam Nose: Normal Inspection Throat/Mouth: Normal Inspection, Normal Lips, No Airway Compromise Neck: Normal Inspection, Full Range of Motion Respiratory/Chest: No Respiratory Distress, Crackles (mid to base, greater right ) Cardiovascular: Normal Peripheral Pulses, Regular Rate, Rhythm. No: No Edema (3 + pitting lower, right greater to above knee, ) GI/Abdominal: Normal Bowel Sounds, Soft Neurological: Alert, Oriented, Normal Cognition Course - Vital Signs Last Recorded V/S: Last Vital Signs Temp 97.4 F 04/07/19 20:40 Pulse 90 04/07/19 21:12 Resp 11 L 04/07/19 20:58 BP 172/90 H 04/07/19 21:12 Pulse Ox 100 04/07/19 20:58 - Orders/Labs/Meds Orders: Active Orders 24 hr Category Date Time Status EKG 12 Lead [EKG Documentation Completion] [RC] URGENT Care 04/07/19 19:48 Active CULTURE BLOOD [BC] Stat Lab 04/07/19 19:55 Received Labs: Laboratory Tests 04/07/19 04/07/19 04/07/19 Range/Units 19:55 19:55 19:55 WBC 7.0 (5.0-10.0) 10^3/uL RBC 3.08 L (4.6-6.2) 10^6/uL Hgb 9.1 L (14.0-18.0) g/dL Hct 28.5 L (40.0-54.0) % MCV 92.5 (80-100) fL MCH 29.5 (27.0-34.0) pg MCHC 31.9 L (33.0-35.0) g/dL Plt Count 198 (150-450) 10^3/uL Neut % (Auto) 71.4 (42.2-75.2) % Lymph % (Auto) 13.6 L (20.5-50.1) % [place] % (Auto) 9.1 H (2-8) % Eos % (Auto) 5.3 H (1.0-3.0) % Baso % (Auto) 0.6 (0.0-1.0) % Sodium 136 (135-145) mmol/L Potassium 3.7 (3.6-5.0) mmol/L Chloride 106 (101-111) mmol/L Carbon Dioxide 22.0 (21.0-31.0) mmol/L Anion Gap 11.7 BUN 30 H (7-18) mg/dL Creatinine 1.5 H (0.6-1.3) mg/dL Est Cr Clr Drug Dosing 57.17 mL/min Estimated GFR (MDRD) 48 BUN/Creatinine Ratio 20.00 Glucose 141 H (74-105) mg/dL Lactic Acid 0.9 (0.5-2.0) mmol/L Calcium 8.0 L (8.4-10.2) mg/dl Total Bilirubin 0.8 (0.2-1.0) mg/dL AST 25 (10-42) IU/L ALT 28 (10-60) IU/L Alkaline Phosphatase 108 (42-121) IU/L Troponin I (0.00-0.02) ng/ml B-Natriuretic Peptide 3680 H (0-100) pg/ml Total Protein 9.4 H (6.7-8.2) g/dl Albumin 2.4 L (3.2-5.5) g/dl Globulin 7.0 Albumin/Globulin Ratio 0.34 Amylase 66 (28-100) U/L Lipase 36 (22-51) U/L 04/07/19 Range/Units 19:55 WBC (5.0-10.0) 10^3/uL RBC (4.6-6.2) 10^6/uL Hgb (14.0-18.0) g/dL Hct (40.0-54.0) % MCV (80-100) fL MCH (27.0-34.0) pg MCHC (33.0-35.0) g/dL Plt Count (150-450) 10^3/uL Neut % (Auto) (42.2-75.2) % Lymph % (Auto) (20.5-50.1) % [place] % (Auto) (2-8) % Eos % (Auto) (1.0-3.0) % Baso % (Auto) (0.0-1.0) % Sodium (135-145) mmol/L Potassium (3.6-5.0) mmol/L Chloride (101-111) mmol/L Carbon Dioxide (21.0-31.0) mmol/L Anion Gap BUN (7-18) mg/dL Creatinine (0.6-1.3) mg/dL Est Cr Clr Drug Dosing mL/min Estimated GFR (MDRD) BUN/Creatinine Ratio Glucose (74-105) mg/dL Lactic Acid (0.5-2.0) mmol/L Calcium (8.4-10.2) mg/dl Total Bilirubin (0.2-1.0) mg/dL AST (10-42) IU/L ALT (10-60) IU/L Alkaline Phosphatase (42-121) IU/L Troponin I 0.03 H* (0.00-0.02) ng/ml B-Natriuretic Peptide (0-100) pg/ml Total Protein (6.7-8.2) g/dl Albumin (3.2-5.5) g/dl Globulin Albumin/Globulin Ratio Amylase (28-100) U/L Lipase (22-51) U/L Meds: Medications Discontinued Medications Generic Name Dose Route Start Last Admin Trade Name Freq PRN Reason Stop Dose Admin Furosemide 40 mg 04/07/19 20:40 04/07/19 20:54 Lasix IVPUSH 04/07/19 20:41 40 mg NOW ONE Administration Nitroglycerin/Dextrose 25 mg in 250 mls @ 3 mls/hr 04/07/19 21:15 04/07/19 21 :24 Nitroglycerin 25 Mg/D5w 250 Ml IV 5 mcg/min TITRATE FELI 3 mls/hr Administration Protocol 5 MCG/MIN Metoprolol Tartrate 2.5 mg 04/07/19 20:56 04/07/19 21:12 Lopressor IVPUSH 04/07/19 20:57 2.5 mg ONETIME ONE Administration Ondansetron HCl 4 mg 04/07/19 20:56 04/07/19 21:12 Zofran IV 04/07/19 20:57 4 mg ONETIME ONE Administration - Radiology Interpretation Free Text/Narrative:: [facility] Final Radiology Report Call: [phone] assistance Online chat: [email or web address] Name: MIAH CAIN Age: 58Years M Date: 04/07/2019 SSN: -- : 1960 Study: XR CHEST 2 VIEWS FRONTAL & LAT Requesting Physician: CELESTINA SAMUELS Images: 2 Addl Studies: Provided Clinical History: Contrast: Contrast Medium: Contrast Amount: Contrast Method: CONFIDENTIALITY STATEMENT This report is intended only for use by the referring physician, and only in accordance with law. If you received this in error, call [phone]. Page 1 of 1 PROCEDURE INFORMATION: Exam: XR Chest, 2 Views Exam date and time: 04/07/2019 8:26 PM Age: 58 years old Clinical indication: Shortness of breath TECHNIQUE: Imaging protocol: XR of the chest Views: 2 views. COMPARISON: CR Chest 1V Frontal 01/05/2019 12:21 PM FINDINGS: Tubes, catheters and devices: Left chest wall pacemaker with leads in the right atrium, right ventricle, and coronary sinus. Right subclavian vein approach central venous catheter with tip in the SVC. Lungs: Clear lungs. Pleural space: No pneumothorax. Small left pleural effusion. Heart/Mediastinum: Cardiomegaly. Bones/joints: Unremarkable. IMPRESSION: Small left pleural effusion. Thank you for allowing us to participate in the care of your patient. Dictated and Authenticated by: David García MD 04/07/2019 8:37 PM Central Time ([place] & [place] - Re-Assessments/Exams Free Text/Narrative Re-Assessment/Exam: 04/07/19 21:19 Dr lakhani accepting tx via [facility] Departure - Departure Time of Disposition: 21:45 Disposition: DC/Tfer to Acute Hospital 02 Condition: Fair Clinical Impression: Noncompliance with medication regimen CHF (congestive heart failure) Qualifiers: Heart failure type: unspecified Heart failure chronicity: chronic Qualified Code(s): I50.9 - Heart failure, unspecified Diabetic foot ulcer Qualifiers: Diabetic foot ulcer location: unspecified part of foot Diabetes mellitus type: type 2 Laterality: right Non-pressure ulcer stage: unspecified non-pressure ulcer stage Qualified Code(s): E11.621 - Type 2 diabetes mellitus with foot ulcer Hypertension Qualifiers: Hypertension type: unspecified Qualified Code(s): I10 - Essential (primary) hypertension - Discharge Information *PRESCRIPTION DRUG MONITORING PROGRAM REVIEWED*: No *COPY OF PRESCRIPTION DRUG MONITORING REPORT IN PATIENT GUANACO: No Referrals: PCP,Unobtain [Primary Care Provider] - Forms: ED Department Discharge Sepsis Event Note - Evaluation Sepsis Screening Result: No Definite Risk - Focused Exam Vital Signs: Vital Signs Temp Pulse Pulse Resp BP BP Pulse Ox 04/07/19 21:12 90 172/90 H 04/07/19 20:58 86 11 L 184/103 H 100 04/07/19 20:40 97.4 F 85 20 175/101 H 04/07/19 19:23 98.3 F 91 20 175/97 H 100 Date Exam was Performed: 04/08/19 Time Exam was Performed: 04:48 - My Orders Last 24 Hours: My Active Orders 04/07/19 19:48 EKG 12 Lead [EKG Documentation Completion] [RC] URGENT 04/07/19 19:55 CULTURE BLOOD [BC] Stat - Assessment/Plan Last 24 Hours: My Active Orders 04/07/19 19:48 EKG 12 Lead [EKG Documentation Completion] [RC] URGENT 04/07/19 19:55 CULTURE BLOOD [BC] Stat
[2019-04-07] MEDS ORDERED: Ondansetron 4 MG/2 ML SDV IV ONE (20:56)
[2019-04-07] MEDS ORDERED: Metoprolol Tartrate 5 MG/5 ML SDV IVPUSH ONE (20:56)
[2019-04-07 21:15] VITALS: BP 172/90; PULSE 90
[2019-04-07] MEDS ORDERED: Nitroglycerin/D5W 25 MG/250 ML BOTTLE IV SCH (21:15)
== END 2019-04-07 21:36 ==
LOC: DL.ED 18:55
DX: I11.0 Hypertensive heart disease with heart failure (principal); I50.9 Heart failure, unspecified; E11.621 Type 2 diabetes mellitus with foot ulcer; I25.2 Old myocardial infarction; E11.9 Type 2 diabetes mellitus without complications; I25.10 Atherosclerotic heart disease of native coronary artery without angina pectoris; Z91.14 Patient's other noncompliance with medication regimen; Z79.899 Other long term (current) drug therapy; Z79.4 Long term (current) use of insulin; Z79.82 Long term (current) use of aspirin
CPT/HCPCS: 36415; 71046; 80053; 82150; 83605; 83690; 83880; 84484; 85025; 87040; 93005; 96374; 96375; 99285; J1940; J2405; J3490

== ENCOUNTER 2019-06-02 16:42 | Emergency (ER) | payer MEDICAID ==
[2019-06-02] MEDS ORDERED: Ondansetron 4 MG Tab.DIS PO ONE (16:43)
[2019-06-02] MEDS ORDERED: Sodium Chloride 0.9% 10 ML Syringe FLUSH PRN (17:01)
[2019-06-02 17:12] VITALS: BP 182/98; PULSE 115
[2019-06-02] MEDS ORDERED: Ondansetron 4 MG/2 ML SDV IV ONE (17:15)
[2019-06-02] MEDS ORDERED: Acetaminophen 325 MG Tab PO ONE (17:15)
[2019-06-02 17:34] LABS: ANION GAP 11.4; CHLORIDE,CL 103 mmol/L (101-111); SODIUM,NA 135 mmol/L (135-145)
[2019-06-02] MEDS ORDERED: Oseltamivir 75 MG Cap PO ONE (17:40)
[2019-06-02] MEDS ORDERED: Furosemide 40 MG/4 ML VIAL IVPUSH ONE (17:44)
[2019-06-02] MEDS ORDERED: Ondansetron 4 MG Tab.DIS ONE (17:48)
--- NOTE | 2019-06-02 17:50 | EDM.PDOC ---
Scribed by Jeanne Ambriz 06/02/19 1700 for Dajuan Whittington MD ED HPI GENERAL MEDICAL PROBLEM - General Chief Complaint: Fever Stated Complaint: FEVER AFTER RECENT AMPUTATION Time Seen by Provider: 06/02/19 16:59 Source of Information: Reports: Patient, RN, RN Notes Reviewed History Limitations: Reports: No Limitations - History of Present Illness INITIAL COMMENTS - FREE TEXT/NARRATIVE: Patient presents to ER via POV with c/o sudden onset of fever, dry cough, chills , and generalized body aches early this morning. Pt's grandchildren had Influenza A. Pt denies shortness of breath or difficulty breathing. He admits to nausea and vomited after taking his pills today. 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 He had surgery to right lower extremity. Patient had below knee amputation on 05-09-2019. Patient with pain /10, fever, nausea and vomiting. Patient has wound vac in place. Patient had additional surgery for bleeding 05-23-2019. Onset: Gradual Duration: Getting Worse Location: Reports: Generalized Quality: Reports: Ache Severity: Moderate Improves with: Reports: None Worsens with: Reports: None Associated Symptoms: Reports: No Other Symptoms Right Lower Knee Pain Score (Numeric/FACES): 6 - Related Data Allergies Allergy/AdvReac Type Severity Reaction Status Date / Time No Known Allergies Allergy Verified 06/02/19 17:12 Home Meds: Home Meds Metoprolol Succinate [Toprol Xl] 200 mg PO DAILY 07/30/16 [History] atorvaSTATin [Lipitor] 40 mg PO BEDTIME 07/30/16 [History] Brimonidine Tartrate [Brimonidine Tartrate 0.2% Ophth Soln] 2 drop EYEBOTH BID 08/22/17 [History] DULoxetine HCl [Duloxetine HCl] 60 mg PO DAILY 08/22/17 [History] Magnesium Oxide [Magnesium] 400 mg PO DAILY 08/22/17 [History] Potassium Chloride 20 meq PO BIDMEALS 08/22/17 [History] timoloL maleate [Timoptic 0.5% Ophth Soln] 1 drop EYEBOTH BID 08/22/17 [History] Gabapentin [Neurontin] 300 mg PO TID 01/19/18 [History] Albuterol Sulfate [Proair Hfa] 1 - 2 inh INH Q4HR PRN 08/20/19 [History] Bumetanide 2 mg PO BID 11/20/18 [History] Losartan [Cozaar] 100 mg PO DAILY 11/20/18 [History] Nitroglycerin 0.4 mg PO ASDIRECTED PRN 11/20/18 [History] calcitrioL [Calcitriol] 0.25 mcg PO DAILY 11/20/18 [History] metOLazone [Zaroxolyn] 2.5 mg PO DAILY 11/20/18 [History] Triamcinolone Acetonide [Triamcinolone Acetonide 0.1% Oint] 15 gm TOP BID PRN [History] Aspirin [Halfprin] 81 mg PO DAILY #0 tab.ec 01/25/19 [Rx] Furosemide 40 mg PO DAILY 04/07/19 [History] Insulin Aspart [NovoLOG] 0 unit SUBCUT QIDACANDBED 04/07/19 [History] Ondansetron [Zofran ODT] 4 mg PO Q6H PRN 04/07/19 [History] Past Medical History HEENT History: Reports: Cataract, Glaucoma Other HEENT History: Will obtain new glasses after cataract surgery Cardiovascular History: Reports: CAD, Heart Failure, Hypertension, [place], Pacemaker , Stents Other Cardiovascular History: LBBB Respiratory History: Reports: Pneumonia, Recurrent, SOB Other Respiratory History: with CHF Gastrointestinal History: Reports: None Genitourinary History: Reports: Renal Disease Other Genitourinary History: stage 3 renal failure Musculoskeletal History: Reports: Other (See Below) Neurological History: Reports: Neuropathy, Diabetic Other Neuro History: memory lapses rarely Psychiatric History: Reports: Depression Other Psychiatric History: Pt states that he has an appt with mental health in [place] this coming week Endocrine/Metabolic History: Reports: Diabetes, Type II Hematologic History: Reports: None Immunologic History: Reports: None Oncologic (Cancer) History: Reports: None Dermatologic History: Reports: Other (See Below) Other Dermatologic History: Diabetic foot ulcer. Pt states 6 months of skin itching to the back, arms and legs - Infectious Disease History Infectious Disease History: Reports: Other (See Below) Other Infectious Disease History: ecoli - Past Surgical History Head Surgeries/Procedures: Reports: None HEENT Surgical History: Reports: Cataract Surgery Cardiovascular Surgical History: Reports: None Respiratory Surgical History: Reports: None GI Surgical History: Reports: None Male Surgical History: Reports: None Other Male Surgeries/Procedures: kidney biopsy done Neurological Surgical History: Reports: None Musculoskeletal Surgical History: Reports: Amputation, Other (See Below) Other Musculoskeletal Surgeries/Procedures:: maryann toe amp. 5th toe maryann. Dermatological Surgical History: Reports: Other (See Below) Social & Family History - Family History Family Medical History: Noncontributory - Tobacco Use Smoking Status *Q: Never Smoker Second Hand Smoke Education Provided: No - Caffeine Use Caffeine Use: Reports: None Caffeine Use Comment: 1-2cups per day - Alcohol Use Alcohol Use History: No - Recreational Drug Use Recreational Drug Use: No - Living Situation & Occupation Living situation: Reports: , with Spouse Occupation: Disabled ED ROS GENERAL - Review of Systems Review Of Systems: Comprehensive ROS is negative, except as noted in HPI. ED EXAM, SEPSIS - Physical Exam Exam: See Below Exam Limited By: No Limitations General Appearance: Alert, No Apparent Distress, Other (Chronically ill appearing) Eye Exam: Bilateral Eye: Normal Inspection Nose: No Blood, Nasal Drainage (Mild/clear) Throat/Mouth: Normal Inspection, Normal Lips, Normal Oropharynx, Normal Voice, No Airway Compromise Head: Atraumatic, Normocephalic Neck: Normal Inspection, Supple, Non-Tender, Full Range of Motion. No: Lymphadenopathy (L), Lymphadenopathy (R) Respiratory/Chest: No Respiratory Distress, No Accessory Muscle Use, Chest Non- Tender, Decreased Breath Sounds, Crackles, Rales. No: Rhonchi, Wheezing, Stridor Cardiovascular: Regular Rate, Rhythm, Tachycardia, Other (+1 pitting edema to LLE. S/P Rt BKA w/wound vac. on stump.) GI/Abdominal Exam: Normal Bowel Sounds, Soft, Non-Tender, No Organomegaly, No Distention, No Abnormal Bruit, No Mass, Pelvis Stable Back: Normal Inspection Extremities: Normal Range of Motion, Non-Tender, Other (Wound vac. on Rt BKA stump, no erythema, no increased warmth.) Neurological: Alert, Oriented, No Motor/Sensory Deficits Psychiatric: Depressed Mood, Flat Affect Skin: Warm, Dry, Intact, Normal Color Course - Vital Signs Last Recorded V/S: Last Vital Signs Temp 102 F H 06/02/19 16:59 Pulse 115 H 06/02/19 16:59 Resp 20 06/02/19 16:59 BP 182/98 H 06/02/19 16:59 Pulse Ox 94 L 06/02/19 16:59 - Orders/Labs/Meds Orders: Active Orders 24 hr Category Date Time Status Peripheral IV Care [RC] . DIRECTED Care 06/02/19 17:02 Active CULTURE BLOOD [BC] Stat Lab 06/02/19 16:57 Received CULTURE BLOOD [BC] Stat Lab 06/02/19 17:02 Ordered CULTURE STREP A CONFIRMATION [RM] Stat Lab 06/02/19 17:00 Results REFLEX LACTIC ACID YES OR NO [CHEM] Routine Lab 06/02/19 17:41 Received STREP SCRN A RAPID W CULT CONF [RM] Stat Lab 06/02/19 17:00 Results UA W/MICROSCOPIC [URIN] Stat Lab 06/02/19 17:24 Results Sodium Chloride 0.9% [Saline Flush] Med 06/02/19 17:01 Active 10 ml FLUSH ASDIRECTED PRN Blood Culture x2 Reflex Set [OM.PC] Stat Oth 06/02/19 17:01 Ordered Peripheral IV Insertion Adult [OM.PC] Stat Oth 06/02/19 17:00 Ordered Medication Orders Sodium Chloride (Saline Flush) 10 ml FLUSH ASDIRECTED PRN PRN Reason: Keep Vein Open Last Admin: 06/02/19 17:05 Dose: 10 ml Labs: Laboratory Tests 06/02/19 06/02/19 06/02/19 Range/Units 16:57 16:57 16:57 WBC 8.0 (5.0-10.0) 10^3/uL RBC 3.00 L (4.6-6.2) 10^6/uL Hgb 8.6 L (14.0-18.0) g/dL Hct 26.7 L (40.0-54.0) % MCV 89.0 D (80-100) fL MCH 28.7 (27.0-34.0) pg MCHC 32.2 L (33.0-35.0) g/dL Plt Count 282 D (150-450) 10^3/uL Neut % (Auto) 60.0 (42.2-75.2) % Lymph % (Auto) 16.2 L (20.5-50.1) % [place] % (Auto) 19.9 H (2-8) % Eos % (Auto) 2.9 (1.0-3.0) % Baso % (Auto) 1.0 (0.0-1.0) % Sodium 135 (135-145) mmol/L Potassium 3.4 L (3.6-5.0) mmol/L Chloride 103 (101-111) mmol/L Carbon Dioxide 24.0 (21.0-31.0) mmol/L Anion Gap 11.4 BUN 23 H (7-18) mg/dL Creatinine 1.5 H (0.6-1.3) mg/dL Est Cr Clr Drug Dosing 57.17 mL/min Estimated GFR (MDRD) 48 BUN/Creatinine Ratio 15.33 Glucose 123 H (74-105) mg/dL Lactic Acid 2.1 H* (0.5-2.0) mmol/L Calcium 8.3 L (8.4-10.2) mg/dl Total Bilirubin 0.8 (0.2-1.0) mg/dL AST 40 (10-42) IU/L ALT 13 (10-60) IU/L Alkaline Phosphatase 173 H (42-121) IU/L B-Natriuretic Peptide > 5000 H (0-100) pg/ml Total Protein 10.1 H (6.7-8.2) g/dl Albumin 2.6 L (3.2-5.5) g/dl Globulin 7.5 Albumin/Globulin Ratio 0.35 Urine Color (YELLOW) Urine Appearance (CLEAR) Urine pH (5.0-9.0) Ur Specific [place] (1.005-1.030) Urine Protein (NEGATIVE) Urine Glucose (UA) (NEGATIVE) Urine Ketones (NEGATIVE) Urine Occult Blood (NEGATIVE) Urine Nitrite (NEGATIVE) Urine Bilirubin (NEGATIVE) Urine Urobilinogen (0.2-1.0) mg/dL Ur Leukocyte Esterase (NEGATIVE) Urine Opiates Screen (NEGATIVE) Ur Oxycodone Screen (NEGATIVE) Urine Methadone Screen (NEGATIVE) Ur Barbiturates Screen (NEGATIVE) U Tricyclic Antidepress (NEGATIVE) Ur Phencyclidine Scrn (NEGATIVE) Ur Amphetamine Screen (NEGATIVE) U Methamphetamines Scrn (NEGATIVE) Urine MDMA Screen (NEGATIVE) U Benzodiazepines Scrn (NEGATIVE) Urine Cocaine Screen (NEGATIVE) U Marijuana (THC) Screen (NEGATIVE) Ethyl Alcohol < 5 mg/dL 06/02/19 06/02/19 Range/Units 17:24 17:24 WBC (5.0-10.0) 10^3/uL RBC (4.6-6.2) 10^6/uL Hgb (14.0-18.0) g/dL Hct (40.0-54.0) % MCV (80-100) fL MCH (27.0-34.0) pg MCHC (33.0-35.0) g/dL Plt Count (150-450) 10^3/uL Neut % (Auto) (42.2-75.2) % Lymph % (Auto) (20.5-50.1) % [place] % (Auto) (2-8) % Eos % (Auto) (1.0-3.0) % Baso % (Auto) (0.0-1.0) % Sodium (135-145) mmol/L Potassium (3.6-5.0) mmol/L Chloride (101-111) mmol/L Carbon Dioxide (21.0-31.0) mmol/L Anion Gap BUN (7-18) mg/dL Creatinine (0.6-1.3) mg/dL Est Cr Clr Drug Dosing mL/min Estimated GFR (MDRD) BUN/Creatinine Ratio Glucose (74-105) mg/dL Lactic Acid (0.5-2.0) mmol/L Calcium (8.4-10.2) mg/dl Total Bilirubin (0.2-1.0) mg/dL AST (10-42) IU/L ALT (10-60) IU/L Alkaline Phosphatase (42-121) IU/L B-Natriuretic Peptide (0-100) pg/ml Total Protein (6.7-8.2) g/dl Albumin (3.2-5.5) g/dl Globulin Albumin/Globulin Ratio Urine Color Yellow (YELLOW) Urine Appearance Clear (CLEAR) Urine pH 6.0 (5.0-9.0) Ur Specific [place] 1.025 (1.005-1.030) Urine Protein >=300 H (NEGATIVE) Urine Glucose (UA) Negative (NEGATIVE) Urine Ketones Negative (NEGATIVE) Urine Occult Blood Small H (NEGATIVE) Urine Nitrite Negative (NEGATIVE) Urine Bilirubin Negative (NEGATIVE) Urine Urobilinogen 1.0 (0.2-1.0) mg/dL Ur Leukocyte Esterase Negative (NEGATIVE) Urine Opiates Screen Negative (NEGATIVE) Ur Oxycodone Screen Positive H (NEGATIVE) Urine Methadone Screen Negative (NEGATIVE) Ur Barbiturates Screen Negative (NEGATIVE) U Tricyclic Antidepress Negative (NEGATIVE) Ur Phencyclidine Scrn Negative (NEGATIVE) Ur Amphetamine Screen Negative (NEGATIVE) U Methamphetamines Scrn Negative (NEGATIVE) Urine MDMA Screen Negative (NEGATIVE) U Benzodiazepines Scrn Negative (NEGATIVE) Urine Cocaine Screen Negative (NEGATIVE) U Marijuana (THC) Screen Negative (NEGATIVE) Ethyl Alcohol mg/dL Rapid strep negative. Influenza A: Positive. Influenza B: Negative. Meds: Medications Generic Name Dose Route Start Last Admin Trade Name Freq PRN Reason Stop Dose Admin Sodium Chloride 10 ml 06/02/19 17:01 06/02/19 17:05 Saline Flush FLUSH 10 ml ASDIRECTED PRN Administration Keep Vein Open Discontinued Medications Generic Name Dose Route Start Last Admin Trade Name Freq PRN Reason Stop Dose Admin Acetaminophen 650 mg 06/02/19 17:15 06/02/19 17:30 Tylenol PO 06/02/19 17:16 650 mg NOW ONE Administration Furosemide 40 mg 06/02/19 17:44 Lasix IVPUSH 06/02/19 17:45 NOW ONE Ondansetron HCl 4 mg 06/02/19 17:15 06/02/19 17:28 Zofran IV 06/02/19 17:16 4 mg ONETIME ONE Administration Oseltamivir Phosphate 75 mg 06/02/19 17:40 Tamiflu PO 06/02/19 17:41 ONETIME ONE - Radiology Interpretation Free Text/Narrative:: [facility] Final Radiology Report Call: [phone] assistance Online chat: [email or web address] Name: MIAH CAIN Age: 58Years M Date: 06/02/2019 SSN: -- : [id number] Study: XR CHEST 1 VIEW FRONTAL Requesting Physician: DAJUAN WHITTINGTON Images: 1 Addl Studies: Provided Clinical History: Contrast: Contrast Medium: Contrast Amount: Contrast Method: CONFIDENTIALITY STATEMENT This report is intended only for use by the referring physician, and only in accordance with law. If you received this in error, call [phone]. Page 1 of 1 PROCEDURE INFORMATION: Exam: XR Chest, 1 View Exam date and time: 06/02/2019 5:07 PM Age: 58 years old Clinical indication: Other: Sepsis TECHNIQUE: Imaging protocol: XR of the chest Views: 1 view. COMPARISON: CR Chest 2V 04/07/2019 8:26 PM FINDINGS: Tubes, catheters and devices: There is a pacemaker/AICD with electrodes in stable position. Lungs: There is focal consolidation in the distribution of the left upper lobe. Increased density is present in the right upper lobe, to a lesser extent. Pleural space: There are no pleural effusions. There is no pneumothorax. Heart/Mediastinum: The heart is enlarged but stable. The mediastinal and hilar contours are normal. Bones/joints: No acute osseous pathology is identified. IMPRESSION: Findings are suspicious for left upper lobe pneumonia. Thank you for allowing us to participate in the care of your patient. Dictated and Authenticated by: Tenisha Gomez MD 06/02/2019 5:40 PM Central Time ([place] & [place]) Departure - Departure Time of Disposition: 17:48 Disposition: Home, Self-Care 01 Condition: Fair Clinical Impression: Influenza A Chronic CHF (congestive heart failure) Qualifiers: Heart failure type: unspecified Qualified Code(s): I50.9 - Heart failure, unspecified - Discharge Information *PRESCRIPTION DRUG MONITORING PROGRAM REVIEWED*: Not Applicable *COPY OF PRESCRIPTION DRUG MONITORING REPORT IN PATIENT GUANACO: Not Applicable Instructions: Influenza, Adult, [id number] Forms: ED Department Discharge Additional Instructions: Rx: Tamiflu 75mg Rx: Zofran 4mg ODT Follow up in clinic tomorrow for recheck as scheduled. Return to ER if you develop any breathing difficulty or are worse at any time. Sepsis Event Note - Focused Exam Vital Signs: Vital Signs Temp Pulse Resp BP Pulse Ox 06/02/19 16:59 102 F H 115 H 20 182/98 H 94 L Date Exam was Performed: 06/02/19 Time Exam was Performed: 17:46 - My Orders Last 24 Hours: My Active Orders 06/02/19 16:57 CULTURE BLOOD [BC] Stat 06/02/19 17:00 CULTURE STREP A CONFIRMATION [RM] Stat STREP SCRN A RAPID W CULT CONF [RM] Stat Peripheral IV Insertion Adult [OM.PC] Stat 06/02/19 17:01 Sodium Chloride 0.9% [Saline Flush] 10 ml FLUSH ASDIRECTED PRN Blood Culture x2 Reflex Set [OM.PC] Stat 06/02/19 17:02 Peripheral IV Care [RC] . DIRECTED CULTURE BLOOD [BC] Stat 06/02/19 17:24 UA W/MICROSCOPIC [URIN] Stat 06/02/19 17:41 REFLEX LACTIC ACID YES OR NO [CHEM] Routine - Assessment/Plan Last 24 Hours: My Active Orders 06/02/19 16:57 CULTURE BLOOD [BC] Stat 06/02/19 17:00 CULTURE STREP A CONFIRMATION [RM] Stat STREP SCRN A RAPID W CULT CONF [RM] Stat Peripheral IV Insertion Adult [OM.PC] Stat 06/02/19 17:01 Sodium Chloride 0.9% [Saline Flush] 10 ml FLUSH ASDIRECTED PRN Blood Culture x2 Reflex Set [OM.PC] Stat 06/02/19 17:02 Peripheral IV Care [RC] . DIRECTED CULTURE BLOOD [BC] Stat 06/02/19 17:24 UA W/MICROSCOPIC [URIN] Stat 06/02/19 17:41 REFLEX LACTIC ACID YES OR NO [CHEM] Routine I have read and agree with the documentation that has been completed regarding this visit. By signing this record, I attest that the documentation was completed in my physical presence and is an accurate record of the encounter.
== END 2019-06-02 17:55 | disposition home or self-care (01) ==
LOC: DL.ED 16:42
DX: J10.1 Influenza due to other identified influenza virus with other respiratory manifestations (principal); I13.0 Hypertensive heart and chronic kidney disease with heart failure and stage 1 through stage 4 chronic kidney disease, or unspecified chronic kidney disease; E11.22 Type 2 diabetes mellitus with diabetic chronic kidney disease; N18.3 Chronic kidney disease, stage 3 (moderate); I50.9 Heart failure, unspecified; E11.42 Type 2 diabetes mellitus with diabetic polyneuropathy; I25.10 Atherosclerotic heart disease of native coronary artery without angina pectoris; F32.9 Major depressive disorder, single episode, unspecified; Z79.82 Long term (current) use of aspirin; Z79.4 Long term (current) use of insulin; Z79.899 Other long term (current) drug therapy
CPT/HCPCS: 36415; 71045; 80053; 80305; 80307; 81001; 83605; 83880; 85025; 87040; 87081; 87430; 87804; 96374; 96375; 99283; A9270; J1940; J2405

== ENCOUNTER 2019-10-25 20:19 | Emergency (ER) | payer MEDICAID ==
--- NOTE | 2019-10-25 21:52 | EDM.PDOC ---
ED HPI GENERAL MEDICAL PROBLEM - General Chief Complaint: Respiratory Problem Stated Complaint: GENERAL Time Seen by Provider: 10/25/19 21:50 Source of Information: Reports: Patient History Limitations: Reports: No Limitations - History of Present Illness INITIAL COMMENTS - FREE TEXT/NARRATIVE: c/o recurrent h/o SOB from CHF. left leg been more swollen. no CP. denies covid exposure. - Related Data Allergies Allergy/AdvReac Type Severity Reaction Status Date / Time No Known Allergies Allergy Verified 10/25/19 21:27 Home Meds: Home Meds Metoprolol Succinate [Toprol Xl] 100 mg PO DAILY 07/30/16 [History] atorvaSTATin [Lipitor] 40 mg PO BEDTIME 07/30/16 [History] Brimonidine Tartrate [Brimonidine Tartrate 0.2% Ophth Soln] 2 drop EYEBOTH BID 08/22/17 [History] DULoxetine HCl [Duloxetine HCl] 60 mg PO DAILY 08/22/17 [History] Magnesium Oxide [Magnesium] 400 mg PO DAILY 08/22/17 [History] timoloL maleate [Timoptic 0.5% Ophth Soln] 1 drop EYEBOTH BID 08/22/17 [History] Gabapentin [Neurontin] 300 mg PO TID 01/19/18 [History] Albuterol Sulfate [Proair Hfa] 1 - 2 inh INH Q4HR PRN 11/20/18 [History] Bumetanide 2 mg PO BID 11/20/18 [History] Nitroglycerin 0.4 mg PO ASDIRECTED PRN 11/20/18 [History] calcitrioL [Calcitriol] 0.25 mcg PO DAILY 11/20/18 [History] metOLazone [Zaroxolyn] 2.5 mg PO DAILY 11/20/18 [History] Triamcinolone Acetonide [Triamcinolone Acetonide 0.1% Oint] 15 gm TOP BID PRN 01/24/19 [History] Aspirin [Halfprin] 81 mg PO DAILY #0 tab.ec 01/25/19 [Rx] Ascorbic Acid 250 mg PO BID 10/25/19 [History] Cholecalciferol (Vitamin D3) [Vitamin D3] 1,000 unit PO DAILY 10/25/19 [History] Ferrous Sulfate 325 mg PO DAILY 10/25/19 [History] Isosorbide Mononitrate [Imdur] 30 mg PO DAILY 10/25/19 [History] Multivitamin [Multivitamins] 1 each PO DAILY 10/25/19 [History] Sennosides [Senna] 8.6 mg PO DAILY 10/25/19 [History] amLODIPine [Norvasc] 5 mg PO DAILY 10/25/19 [History] Past Medical History HEENT History: Reports: Cataract, Glaucoma Other HEENT History: Will obtain new glasses after cataract surgery Cardiovascular History: Reports: CAD, Heart Failure, Hypertension, [place], Pacemaker, Stents Other Cardiovascular History: LBBB Respiratory History: Reports: Pneumonia, Recurrent, SOB Other Respiratory History: with CHF Gastrointestinal History: Reports: None Genitourinary History: Reports: Renal Disease Other Genitourinary History: stage 3 renal failure Musculoskeletal History: Reports: Other (See Below) Neurological History: Reports: Neuropathy, Diabetic Other Neuro History: memory lapses rarely Psychiatric History: Reports: Depression Other Psychiatric History: Pt states that he has an appt with mental health in [place] this coming week Endocrine/Metabolic History: Reports: Diabetes, Type II Hematologic History: Reports: None Immunologic History: Reports: None Oncologic (Cancer) History: Reports: None Dermatologic History: Reports: Other (See Below) Other Dermatologic History: Diabetic foot ulcer. Pt states 6 months of skin itching to the back, arms and legs - Infectious Disease History Infectious Disease History: Reports: Other (See Below) Other Infectious Disease History: ecoli - Past Surgical History Head Surgeries/Procedures: Reports: None HEENT Surgical History: Reports: Cataract Surgery Cardiovascular Surgical History: Reports: None Respiratory Surgical History: Reports: None GI Surgical History: Reports: None Male Surgical History: Reports: None Other Male Surgeries/Procedures: kidney biopsy done Neurological Surgical History: Reports: None Musculoskeletal Surgical History: Reports: Amputation, Other (See Below) Other Musculoskeletal Surgeries/Procedures:: maryann toe amp. 5th toe maryann. rt btk amputation Dermatological Surgical History: Reports: Other (See Below) Social & Family History - Family History Family Medical History: Noncontributory - Tobacco Use Smoking Status *Q: Never Smoker Second Hand Smoke Exposure: No - Caffeine Use Caffeine Use: Reports: Coffee Caffeine Use Comment: 1-2cups per day - Recreational Drug Use Recreational Drug Use: No - Living Situation & Occupation Living situation: Reports: , with Spouse Occupation: Disabled ED ROS GENERAL - Review of Systems Review Of Systems: Comprehensive ROS is negative, except as noted in HPI. ED EXAM, GENERAL - Physical Exam Exam: See Below Exam Limited By: No Limitations General Appearance: Alert, WD/WN, Mild Distress, Other (discomfort) Ears: Hearing Grossly Normal Throat/Mouth: Normal Voice, No Airway Compromise Head: Atraumatic Neck: Non-Tender, Full Range of Motion Respiratory/Chest: No Respiratory Distress, No Accessory Muscle Use, Rhonchi Cardiovascular: Regular Rate, Rhythm GI/Abdominal: Soft, Non-Tender Extremities: Pedal Edema, Other (left 2+, right BKA) Neurological: Alert, Oriented, Normal Cognition Psychiatric: Flat Affect Skin Exam: Warm, Dry, Normal Color Lymphatic: No Adenopathy Course - Vital Signs Last Recorded V/S: Last Vital Signs Temp 36.3 C 10/25/19 22:30 Pulse 76 10/25/19 22:30 Resp 20 10/25/19 22:30 BP 175/97 H 10/25/19 22:30 Pulse Ox 98 10/25/19 22:30 - Orders/Labs/Meds Labs: Laboratory Tests 10/25/19 10/25/19 10/25/19 Range/Units 22:00 22:00 22:00 WBC 5.3 (5.0-10.0) 10^3/uL RBC 3.69 L (4.6-6.2) 10^6/uL Hgb 9.7 L (14.0-18.0) g/dL Hct 31.5 L (40.0-54.0) % MCV 85.4 D (80-100) fL MCH 26.3 L (27.0-34.0) pg MCHC 30.8 L (33.0-35.0) g/dL Plt Count 196 D (150-450) 10^3/uL Neut % (Auto) 60.2 (42.2-75.2) % Lymph % (Auto) 16.9 L (20.5-50.1) % [place] % (Auto) 11.8 H (2-8) % Eos % (Auto) 10.0 H (1.0-3.0) % Baso % (Auto) 1.1 H (0.0-1.0) % Sodium 139 (136-145) mmol/L Potassium 3.8 (3.5-5.1) mmol/L Chloride 105 (98-107) mmol/L Carbon Dioxide 26 (21-32) mmol/L Anion Gap 11.8 (7-13) mEq/L BUN 28 H (7-18) mg/dL Creatinine 1.70 H (0.70-1.30) mg/dL Est Cr Clr Drug Dosing 49.83 mL/min Estimated GFR (MDRD) 41 BUN/Creatinine Ratio 16.5 (No establ ref range) Glucose 120 H (74-99) mg/dL Lactic Acid 1.2 (0.4-2.0) mmol/L Calcium 7.9 L (8.5-10.1) mg/dL Total Bilirubin 0.6 (0.2-1.0) mg/dL AST 31 (15-37) U/L ALT 15 L (16-63) U/L Alkaline Phosphatase 139 H (46-116) U/L Troponin I 0.025 (0.000-0.056) ng/mL B-Natriuretic Peptide 3180 H (0-100) pg/ml Total Protein 9.2 H (6.4-8.2) g/dL Albumin 2.5 L (3.4-5.0) g/dL Globulin 6.7 Albumin/Globulin Ratio 0.37 Meds: Medications Discontinued Medications Generic Name Dose Route Start Last Admin Trade Name Vicq PRN Reason Stop Dose Admin Furosemide 20 mg 10/25/19 22:42 Lasix PO 10/25/19 22:43 ONETIME ONE - Re-Assessments/Exams Free Text/Narrative Re-Assessment/Exam: 10/25/19 22:43 results discussed with pt who states normally given lasix. Departure - Departure Time of Disposition: 22:44 Disposition: Home, Self-Care 01 Condition: Good Clinical Impression: CHF (congestive heart failure) Qualifiers: Heart failure type: unspecified Heart failure chronicity: acute on chronic Qualified Code(s): I50.9 - Heart failure, unspecified - Discharge Information Instructions: Heart Failure, Self Care, [id number] Forms: ED Department Discharge Additional Instructions: 1) continue regular meds 2) follow up at clinic 3) recheck if there is any change or concern rx givne; lasix 40mg x 5 Sepsis Event Note (ED) - Evaluation Sepsis Screening Result: No Definite Risk - Focused Exam Vital Signs: Vital Signs Temp Pulse Resp BP Pulse Ox 10/25/19 22:30 36.3 C 76 20 175/97 H 98 10/25/19 20:55 36.6 C 78 16 159/81 H 98
--- NOTE | 2019-10-25 22:17 | CR ---
PROCEDURE INFORMATION: Exam: XR Chest, 1 View Exam date and time: 10/25/2019 10:08 PM Age: 59 years old Clinical indication: Shortness of breath; Additional info: SOB TECHNIQUE: Imaging protocol: XR of the chest Views: 1 view. COMPARISON: CR Chest 1V Frontal 06/02/2019 5:07 PM FINDINGS: Tubes, catheters and devices: Cardiac conduction device remains in place. Lungs: Low lung volumes causes crowding of the bronchovascular structures. Bilateral perihilar patchy and streak like airspace opacities are nevertheless appreciated. Pleural space: Blunting of the right costophrenic angle. Heart/Mediastinum: Stable moderate cardiomegaly. Bones/joints: No acute abnormality or aggressive osseous lesion. IMPRESSION: 1. Bilateral perihilar findings may be related to early acute interstitial/airspace disease for which edema or infectious pneumonia should be entertained. Differential would include crowding of bronchovascular structures due to low lung volumes. 2. Concern for right lung base atelectasis versus a small right pleural effusion.
[2019-10-25 22:31] VITALS: BP 175/97; PULSE 76
[2019-10-25 22:34] LABS: ANION GAP 11.8 mEq/L (7-13)
[2019-10-25] MEDS ORDERED: Furosemide 20 MG Tab PO ONE (22:42)
== END 2019-10-25 23:03 | disposition home or self-care (01) ==
LOC: DL.ED 20:19
DX: I13.0 Hypertensive heart and chronic kidney disease with heart failure and stage 1 through stage 4 chronic kidney disease, or unspecified chronic kidney disease (principal); I50.9 Heart failure, unspecified; N18.3 Chronic kidney disease, stage 3 (moderate); I25.10 Atherosclerotic heart disease of native coronary artery without angina pectoris; E11.40 Type 2 diabetes mellitus with diabetic neuropathy, unspecified; E11.22 Type 2 diabetes mellitus with diabetic chronic kidney disease; F32.9 Major depressive disorder, single episode, unspecified; Z79.899 Other long term (current) drug therapy; Z79.82 Long term (current) use of aspirin; Z95.5 Presence of coronary angioplasty implant and graft
CPT/HCPCS: 36415; 71045; 80053; 83605; 83880; 84484; 85025; 99283; 99285-25; A9270-GY

== ENCOUNTER 2020-01-18 02:35 | Emergency (ER) | payer MEDICAID ==
[2020-01-18 02:46] VITALS: BP 135/93; PULSE 69
[2020-01-18] MEDS ORDERED: Cyclobenzaprine 10 MG Tab PO ONE (02:55)
--- NOTE | 2020-01-18 02:58 | EDM.PDOC ---
ED HPI GENERAL MEDICAL PROBLEM - General Chief Complaint: Flank Pain Stated Complaint: COUGHING/TESTED NEG X2 DAYS AGO FOR COVID Time Seen by Provider: 01/18/20 02:56 Source of Information: Reports: Patient History Limitations: Reports: No Limitations - History of Present Illness INITIAL COMMENTS - FREE TEXT/NARRATIVE: c/o left low back pain been helping friend house move. was sleeping and woke up with pain there. Left Lower Back Pain Score (Numeric/FACES): 9 - Related Data Allergies Allergy/AdvReac Type Severity Reaction Status Date / Time No Known Allergies Allergy Verified 01/18/20 02:45 Home Meds: Home Meds Metoprolol Succinate [Toprol Xl] 100 mg PO DAILY 07/30/16 [History] atorvaSTATin [Lipitor] 40 mg PO BEDTIME 07/30/16 [History] Brimonidine Tartrate [Brimonidine Tartrate 0.2% Ophth Soln] 2 drop EYEBOTH BID 08/22/17 [History] DULoxetine HCl [Duloxetine HCl] 60 mg PO DAILY 08/22/17 [History] Magnesium Oxide [Magnesium] 400 mg PO DAILY 08/22/17 [History] timoloL maleate [Timoptic 0.5% Ophth Soln] 1 drop EYEBOTH BID 08/22/17 [History] Gabapentin [Neurontin] 300 mg PO TID 01/19/18 [History] Albuterol Sulfate [Proair Hfa] 1 - 2 inh INH Q4HR PRN 11/20/18 [History] Bumetanide 2 mg PO BID 11/20/18 [History] Nitroglycerin 0.4 mg PO ASDIRECTED PRN 11/20/18 [History] calcitrioL [Calcitriol] 0.25 mcg PO DAILY 11/20/18 [History] metOLazone [Zaroxolyn] 2.5 mg PO DAILY 11/20/18 [History] Triamcinolone Acetonide [Triamcinolone Acetonide 0.1% Oint] 15 gm TOP BID PRN 01/24/19 [History] Aspirin [Halfprin] 81 mg PO DAILY #0 tab.ec 01/25/19 [Rx] Ascorbic Acid 250 mg PO BID 10/25/19 [History] Cholecalciferol (Vitamin D3) [Vitamin D3] 1,000 unit PO DAILY 07/24/20 [History] Ferrous Sulfate 325 mg PO DAILY 10/25/19 [History] Isosorbide Mononitrate [Imdur] 30 mg PO DAILY 10/25/19 [History] Multivitamin [Multivitamins] 1 each PO DAILY 10/25/19 [History] Sennosides [Senna] 8.6 mg PO DAILY 10/25/19 [History] amLODIPine [Norvasc] 5 mg PO DAILY 10/25/19 [History] Past Medical History HEENT History: Reports: Cataract, Glaucoma Other HEENT History: Will obtain new glasses after cataract surgery Cardiovascular History: Reports: CAD, Heart Failure, Hypertension, [place], Pac emaker, Stents Other Cardiovascular History: LBBB Respiratory History: Reports: Pneumonia, Recurrent, SOB Other Respiratory History: with CHF Gastrointestinal History: Reports: None Genitourinary History: Reports: Renal Disease Other Genitourinary History: stage 3 renal failure Musculoskeletal History: Reports: Other (See Below) Neurological History: Reports: Neuropathy, Diabetic Other Neuro History: memory lapses rarely Psychiatric History: Reports: Depression Other Psychiatric History: Pt states that he has an appt with [facility] in [place] this coming week Endocrine/Metabolic History: Reports: Diabetes, Type II Hematologic History: Reports: None Immunologic History: Reports: None Oncologic (Cancer) History: Reports: None Dermatologic History: Reports: Other (See Below) Other Dermatologic History: Diabetic foot ulcer. Pt states 6 months of skin itching to the back, arms and legs - Infectious Disease History Infectious Disease History: Reports: Other (See Below) Other Infectious Disease History: ecoli - Past Surgical History Head Surgeries/Procedures: Reports: None HEENT Surgical History: Reports: Cataract Surgery Cardiovascular Surgical History: Reports: None Respiratory Surgical History: Reports: None GI Surgical History: Reports: None Male Surgical History: Reports: None Other Male Surgeries/Procedures: kidney biopsy done Neurological Surgical History: Reports: None Musculoskeletal Surgical History: Reports: Amputation, Other (See Below) Other Musculoskeletal Surgeries/Procedures:: maryann toe amp. 5th toe maryann. rt btk amputation Dermatological Surgical History: Reports: Other (See Below) Social & Family History - Family History Family Medical History: Noncontributory - Tobacco Use Tobacco Use Status *Q: Never Tobacco User Second Hand Smoke Exposure: No - Caffeine Use Caffeine Use: Reports: Coffee Caffeine Use Comment: 1-2cups per day - Recreational Drug Use Recreational Drug Use: No - Living Situation & Occupation Living situation: Reports: , with Spouse Occupation: Disabled ED ROS GENERAL - Review of Systems Review Of Systems: Comprehensive ROS is negative, except as noted in HPI. ED EXAM, RENAL/ - Physical Exam Exam: See Below Exam Limited By: No Limitations General Appearance: Alert, WD/WN, Mild Distress, Other (discomfort). No: Active Emesis Ears: Hearing Grossly Normal Throat/Mouth: Normal Voice, No Airway Compromise Head: Atraumatic Neck: Non-Tender, Full Range of Motion Respiratory/Chest: No Respiratory Distress Cardiovascular: Regular Rate, Rhythm GI/Abdominal: Soft, Non-Tender (Male) Exam: Deferred Rectal (Males) Exam: Deferred Back Exam: Muscle Spasm, Other (left L4-5-S1 region) Neurological: Alert, Oriented, Normal Cognition, No Motor/Sensory Deficits, Other (right BKA) Psychiatric: Flat Affect, Tearful Skin Exam: Warm, Dry, Normal Color Lymphatic: No Adenopathy Course - Vital Signs Last Recorded V/S: Last Vital Signs Temp 37.5 C 01/18/20 02:41 Pulse 69 01/18/20 02:41 Resp 22 H 01/18/20 02:41 BP 135/93 H 01/18/20 02:41 Pulse Ox 97 01/18/20 02:41 - Orders/Labs/Meds Labs: Laboratory Tests 01/18/20 01/18/20 Range/Units 02:55 02:55 Urine Color Yellow (YELLOW) Urine Appearance Slightly cloudy (CLEAR) Urine pH 5.5 (5.0-9.0) Ur Specific [place] >= 1.030 (1.005-1.030) Urine Protein >=300 H (NEGATIVE) Urine Glucose (UA) 100 H (NEGATIVE) Urine Ketones Negative (NEGATIVE) Urine Occult Blood Small H (NEGATIVE) Urine Nitrite Negative (NEGATIVE) Urine Bilirubin Small H (NEGATIVE) Urine Urobilinogen 2.0 H (0.2-1.0) mg/dL Ur Leukocyte Esterase Negative (NEGATIVE) Urine RBC 0-5 /HPF Urine WBC 0-5 (0-5/HPF) /HPF Ur Epithelial Cells Moderate H (NOT SEEN) /HPF Amorphous Sediment Moderate (NOT SEEN) /HPF Urine Bacteria Many H (0-FEW/HPF) /HPF Urine Opiates Screen Negative (NEGATIVE) Ur Oxycodone Screen Negative (NEGATIVE) Urine Methadone Screen Negative (NEGATIVE) Ur Barbiturates Screen Negative (NEGATIVE) U Tricyclic Antidepress Negative (NEGATIVE) Ur Phencyclidine Scrn Negative (NEGATIVE) Ur Amphetamine Screen Negative (NEGATIVE) U Methamphetamines Scrn Negative (NEGATIVE) Urine MDMA Screen Negative (NEGATIVE) U Benzodiazepines Scrn Negative (NEGATIVE) Urine Cocaine Screen Negative (NEGATIVE) U Marijuana (THC) Screen Negative (NEGATIVE) Meds: Medications Discontinued Medications Generic Name Dose Route Start Last Admin Trade Name Freq PRN Reason Stop Dose Admin Cyclobenzaprine HCl 10 mg 01/18/20 02:55 01/18/20 03:12 Flexeril PO 01/18/20 02:56 10 mg ONETIME ONE Administration - Re-Assessments/Exams Free Text/Narrative Re-Assessment/Exam: 01/18/20 03:38 re-exam; s/p PO flexeril = much better. Departure - Departure Time of Disposition: 03:38 Disposition: Home, Self-Care 01 Condition: Good Clinical Impression: Lumbar paraspinal muscle spasm - Discharge Information Instructions: Back Injury Prevention Forms: ED Department Discharge Additional Instructions: 1) avoid bending lifting straining 2) try ice or heat to sore areas 3) follow up at clinic rx given; flexeril 10mg bid to tid prn x 12 Sepsis Event Note (ED) - Evaluation Sepsis Screening Result: No Definite Risk - Focused Exam Vital Signs: Vital Signs Temp Pulse Resp BP Pulse Ox 01/18/20 02:41 37.5 C 69 22 H 135/93 H 97
== END 2020-01-18 03:46 | disposition home or self-care (01) ==
LOC: DL.ED 02:35
DX: M62.830 Muscle spasm of back (principal); E11.21 Type 2 diabetes mellitus with diabetic nephropathy; I11.0 Hypertensive heart disease with heart failure; I50.9 Heart failure, unspecified; I25.2 Old myocardial infarction; F32.9 Major depressive disorder, single episode, unspecified; I25.10 Atherosclerotic heart disease of native coronary artery without angina pectoris; Z79.84 Long term (current) use of oral hypoglycemic drugs; Z95.5 Presence of coronary angioplasty implant and graft; Z95.0 Presence of cardiac pacemaker; Z79.899 Other long term (current) drug therapy; Z79.82 Long term (current) use of aspirin
CPT/HCPCS: 80305; 81001; 99283; A9270

== ENCOUNTER 2020-02-29 12:51 | Emergency (ER) | payer MEDICAID ==
[2020-02-29 13:04] VITALS: BP 171/80; PULSE 80
--- NOTE | 2020-02-29 13:36 | EDM.PDOC ---
ED HPI GENERAL MEDICAL PROBLEM - General Chief Complaint: Back Pain or Injury Stated Complaint: SEVRE BACK PAIN Time Seen by Provider: 02/29/20 13:23 Source of Information: Reports: Patient History Limitations: Reports: No Limitations - History of Present Illness INITIAL COMMENTS - FREE TEXT/NARRATIVE: Patient is here for low back pain that started about 1-2 hours ago. He notes his pain is a 8-9/10. He has not taken anything for the pain. He had a similar episode about 3 months ago, came to the ER and was given Flexeril, which really helped. He has some numbness and tingling in his legs, but that is not new, it is due to his diabetes. No known trigger for his pain. Onset: Today, Sudden Duration: Hour(s): (1-2) Quality: Reports: Stabbing, Throbbing Severity: Moderate Lower Back Pain Score (Numeric/FACES): 9 - Related Data Allergies Allergy/AdvReac Type Severity Reaction Status Date / Time No Known Allergies Allergy Verified 02/29/20 13:00 Home Meds: Home Meds Metoprolol Succinate [Toprol Xl] 100 mg PO DAILY 07/30/16 [History] atorvaSTATin [Lipitor] 40 mg PO BEDTIME 07/30/16 [History] Brimonidine Tartrate [Brimonidine Tartrate 0.2% Ophth Soln] 2 drop EYEBOTH BID 08/22/17 [History] DULoxetine HCl [Duloxetine HCl] 60 mg PO DAILY 08/22/17 [History] Magnesium Oxide [Magnesium] 400 mg PO DAILY 08/22/17 [History] timoloL maleate [Timoptic 0.5% Ophth Soln] 1 drop EYEBOTH BID 08/22/17 [History] Gabapentin [Neurontin] 300 mg PO TID 01/19/18 [History] Albuterol Sulfate [Proair Hfa] 1 - 2 inh INH Q4HR PRN 11/20/18 [History] Bumetanide 2 mg PO BID 11/20/18 [History] Nitroglycerin 0.4 mg PO ASDIRECTED PRN 11/20/18 [History] calcitrioL [Calcitriol] 0.25 mcg PO DAILY 11/20/18 [History] metOLazone [Zaroxolyn] 2.5 mg PO DAILY 11/20/18 [History] Triamcinolone Acetonide [Triamcinolone Acetonide 0.1% Oint] 15 gm TOP BID PRN 01/24/19 [History] Aspirin [Halfprin] 81 mg PO DAILY #0 tab.ec 01/25/19 [Rx] Ascorbic Acid 250 mg PO BID 10/25/19 [History] Cholecalciferol (Vitamin D3) [Vitamin D3] 1,000 unit PO DAILY 10/25/19 [History] Ferrous Sulfate 325 mg PO DAILY 10/25/19 [History] Isosorbide Mononitrate [Imdur] 30 mg PO DAILY 10/25/19 [History] Multivitamin [Multivitamins] 1 each PO DAILY 10/25/19 [History] Sennosides [Senna] 8.6 mg PO DAILY 10/25/19 [History] amLODIPine [Norvasc] 5 mg PO DAILY 10/25/19 [History] Past Medical History HEENT History: Reports: Cataract, Glaucoma Other HEENT History: Will obtain new glasses after cataract surgery Cardiovascular History: Reports: CAD, Heart Failure, Hypertension, [place], Pacemaker, Stents Other Cardiovascular History: LBBB Respiratory History: Reports: Pneumonia, Recurrent, SOB Other Respiratory History: with CHF Gastrointestinal History: Reports: None Genitourinary History: Reports: Renal Disease Other Genitourinary History: stage 3 renal failure Musculoskeletal History: Reports: Back Pain, Chronic, Other (See Below) Neurological History: Reports: Neuropathy, Diabetic Other Neuro History: memory lapses rarely Psychiatric History: Reports: Anxiety, Depression Other Psychiatric History: Pt states that he has an appt with mental health in [place] this coming week Endocrine/Metabolic History: Reports: Diabetes, Type II Hematologic History: Reports: None Immunologic History: Reports: None Oncologic (Cancer) History: Reports: None Dermatologic History: Reports: Other (See Below) Other Dermatologic History: Diabetic foot ulcer. Pt states 6 months of skin itching to the back, arms and legs - Infectious Disease History Infectious Disease History: Reports: Other (See Below) Other Infectious Disease History: ecoli - Past Surgical History Head Surgeries/Procedures: Reports: None HEENT Surgical History: Reports: Cataract Surgery Other HEENT Surgeries/Procedures: scheduled for 2017 Cardiovascular Surgical History: Reports: None Other Cardiovascular Surgeries/Procedures: in June Respiratory Surgical History: Reports: None GI Surgical History: Reports: None Male Surgical History: Reports: None Other Male Surgeries/Procedures: kidney biopsy done Endocrine Surgical History: Reports: None Neurological Surgical History: Reports: None Musculoskeletal Surgical History: Reports: Amputation, Other (See Below) Other Musculoskeletal Surgeries/Procedures:: maryann toe amp. 5th toe maryann. rt btk amputation Dermatological Surgical History: Reports: Other (See Below) Social & Family History - Family History Family Medical History: No Pertinent Family History - Tobacco Use Tobacco Use Status *Q: Never Tobacco User Second Hand Smoke Exposure: No - Caffeine Use Caffeine Use: Reports: Coffee Caffeine Use Comment: 1-2cups per day - Recreational Drug Use Recreational Drug Use: No - Living Situation & Occupation Living situation: Reports: , with Spouse Occupation: Disabled ED ROS GENERAL - Review of Systems Review Of Systems: Comprehensive ROS is negative, except as noted in HPI. ED EXAM,LOWER BACK PAIN/INJURY - Physical Exam Exam: See Below Exam Limited By: No Limitations General Appearance: Alert, WD/WN, No Apparent Distress Eye Exam: Bilateral Eye: Normal Inspection Head: Atraumatic, Normocephalic Neck: Normal Inspection, Supple Respiratory/Chest: No Respiratory Distress, Lungs Clear, Normal Breath Sounds, No Accessory Muscle Use, Chest Non-Tender Cardiovascular: Normal Peripheral Pulses, Regular Rate, Rhythm, No Edema, No Murmur GI/Abdominal: Soft, Non-Tender, No Distention (Male) Exam: Deferred Rectal (Males) Exam: Deferred Back Exam: Normal Inspection, Full Range of Motion, Muscle Spasm (left lower back) Extremities: Other (right lower extremity amputation) Neurological: Alert, Normal Mood/Affect, CN II-XII Intact, Normal Reflexes, Oriented x 3 Psychiatric: Normal Affect, Normal Mood Skin Exam: Warm, Dry, Intact, Normal Color, No Rash Lymphatic: No Adenopathy Course - Vital Signs Last Recorded V/S: Last Vital Signs Temp 98.6 F 02/29/20 13:01 Pulse 80 02/29/20 13:01 Resp 18 02/29/20 13:01 BP 171/80 H 02/29/20 13:01 Pulse Ox 98 02/29/20 13:01 Departure - Departure Time of Disposition: 13:36 Disposition: Home, Self-Care 01 Condition: Fair Clinical Impression: Spasm of muscle of lower back - Discharge Information Instructions: Muscle Cramps and Spasms, [id number] Additional Instructions: Flexeril three times a day as needed for muscle spasms Over the counter Tylenol as needed for breakthrough pain Follow up with primary care provider in 3-5 days Sepsis Event Note (ED) - Evaluation Sepsis Screening Result: No Definite Risk - Focused Exam Vital Signs: Vital Signs Temp Pulse Resp BP Pulse Ox 02/29/20 13:01 98.6 F 80 18 171/80 H 98
== END 2020-02-29 13:43 | disposition home or self-care (01) ==
LOC: DL.ED 12:51
DX: M62.830 Muscle spasm of back (principal); I25.10 Atherosclerotic heart disease of native coronary artery without angina pectoris; I11.0 Hypertensive heart disease with heart failure; I50.9 Heart failure, unspecified; I25.2 Old myocardial infarction; E11.40 Type 2 diabetes mellitus with diabetic neuropathy, unspecified; F41.9 Anxiety disorder, unspecified; F32.9 Major depressive disorder, single episode, unspecified; Z95.5 Presence of coronary angioplasty implant and graft; Z79.899 Other long term (current) drug therapy; Z79.82 Long term (current) use of aspirin
CPT/HCPCS: 99283

== ENCOUNTER 2020-02-29 21:42 | Emergency (ER) | payer MEDICAID ==
[2020-02-29 22:07] VITALS: BP 94/56; PULSE 72
--- NOTE | 2020-02-29 22:38 | EDM.PDOC ---
ED HPI GENERAL MEDICAL PROBLEM - General Chief Complaint: Fever Stated Complaint: FEVER, WEAK, TIRED, VOMITING, Time Seen by Provider: 02/29/20 22:33 Source of Information: Reports: Patient History Limitations: Reports: No Limitations - History of Present Illness INITIAL COMMENTS - FREE TEXT/NARRATIVE: was here earlier for LBP got flexeril, but now has fever tired and weak. 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: Acetaminophen Lower Back Pain Score (Numeric/FACES): 5 - Related Data Allergies Allergy/AdvReac Type Severity Reaction Status Date / Time No Known Allergies Allergy Verified 02/29/20 13:00 Home Meds: Home Meds Metoprolol Succinate [Toprol Xl] 100 mg PO DAILY 07/30/16 [History] atorvaSTATin [Lipitor] 40 mg PO BEDTIME 07/30/16 [History] Brimonidine Tartrate [Brimonidine Tartrate 0.2% Ophth Soln] 2 drop EYEBOTH BID 08/22/17 [History] DULoxetine HCl [Duloxetine HCl] 60 mg PO DAILY 08/22/17 [History] Magnesium Oxide [Magnesium] 400 mg PO DAILY 08/22/17 [History] timoloL maleate [Timoptic 0.5% Ophth Soln] 1 drop EYEBOTH BID 08/22/17 [History] Gabapentin [Neurontin] 300 mg PO TID 01/19/18 [History] Albuterol Sulfate [Proair Hfa] 1 - 2 inh INH Q4HR PRN 11/20/18 [History] Bumetanide 2 mg PO BID 11/20/18 [History] Nitroglycerin 0.4 mg PO ASDIRECTED PRN 11/20/18 [History] calcitrioL [Calcitriol] 0.25 mcg PO DAILY 11/20/18 [History] metOLazone [Zaroxolyn] 2.5 mg PO DAILY 11/20/18 [History] Triamcinolone Acetonide [Triamcinolone Acetonide 0.1% Oint] 15 gm TOP BID PRN 01/24/19 [History] Aspirin [Halfprin] 81 mg PO DAILY #0 tab.ec 01/25/19 [Rx] Ascorbic Acid 250 mg PO BID 10/25/19 [History] Cholecalciferol (Vitamin D3) [Vitamin D3] 1,000 unit PO DAILY 10/25/19 [History] Ferrous Sulfate 325 mg PO DAILY 10/25/19 [History] Isosorbide Mononitrate [Imdur] 30 mg PO DAILY 10/25/19 [History] Multivitamin [Multivitamins] 1 each PO DAILY 10/25/19 [History] Sennosides [Senna] 8.6 mg PO DAILY 10/25/19 [History] amLODIPine [Norvasc] 5 mg PO DAILY 10/25/19 [History] Past Medical History HEENT History: Reports: Cataract, Glaucoma, Impaired Vision Other HEENT History: Will obtain new glasses after cataract surgery Cardiovascular History: Reports: CAD, Heart Failure, Hypertension, SC, Pacemaker, Stents Other Cardiovascular History: LBBB Respiratory History: Reports: Pneumonia, Recurrent, SOB Other Respiratory History: with CHF Gastrointestinal History: Reports: None Genitourinary History: Reports: Renal Disease Other Genitourinary History: stage 3 renal failure Musculoskeletal History: Reports: Back Pain, Chronic, Other (See Below) Neurological History: Reports: Neuropathy, Diabetic Other Neuro History: memory lapses rarely Psychiatric History: Reports: Anxiety, Depression Other Psychiatric History: Pt states that he has an appt with mental [employer] in [place] this coming week Endocrine/Metabolic History: Reports: Diabetes, Type II Hematologic History: Reports: None Immunologic History: Reports: None Oncologic (Cancer) History: Reports: None Dermatologic History: Reports: Other (See Below) Other Dermatologic History: Diabetic foot ulcer. Pt states 6 months of skin itching to the back, arms and legs - Infectious Disease History Infectious Disease History: Reports: Other (See Below) Other Infectious Disease History: ecoli - Past Surgical History Head Surgeries/Procedures: Reports: None HEENT Surgical History: Reports: Cataract Surgery Respiratory Surgical History: Reports: None GI Surgical History: Reports: None Male Surgical History: Reports: None Other Male Surgeries/Procedures: kidney biopsy done Endocrine Surgical History: Reports: None Neurological Surgical History: Reports: None Musculoskeletal Surgical History: Reports: Amputation, Other (See Below) Other Musculoskeletal Surgeries/Procedures:: maryann toe amp. 5th toe maryann. rt btk amputation Dermatological Surgical History: Reports: Other (See Below) Social & Family History - Family History Family Medical History: No Pertinent Family History - Tobacco Use Tobacco Use Status *Q: Unknown Ever Used Tobacco - Caffeine Use Caffeine Use: Reports: Coffee Caffeine Use Comment: 1-2cups per day - Living Situation & Occupation Living situation: Reports: , with Spouse Occupation: Disabled ED ROS GENERAL - Review of Systems Review Of Systems: Comprehensive ROS is negative, except as noted in HPI. ED EXAM, GENERAL - Physical Exam Exam: See Below Exam Limited By: No Limitations General Appearance: Alert, WD/WN, Mild Distress, Other (discomfort) Ears: Hearing Grossly Normal Throat/Mouth: Normal Voice, No Airway Compromise Head: Atraumatic Neck: Non-Tender, Full Range of Motion Respiratory/Chest: No Accessory Muscle Use, Decreased Breath Sounds, Rales, Rhonchi Cardiovascular: Regular Rate, Rhythm GI/Abdominal: Soft, Non-Tender (Male) Exam: Deferred Rectal (Males) Exam: Deferred Back Exam: Other (LS region discomfort) Extremities: Pedal Edema, Other (3+, left leg, right AKA) Neurological: Alert, Oriented, Normal Cognition, No Motor/Sensory Deficits Psychiatric: Flat Affect Skin Exam: Warm, Dry, Normal Color Lymphatic: No Adenopathy Course - Vital Signs Last Recorded V/S: Last Vital Signs Temp 38.2 C H 02/29/20 22:04 Pulse 72 02/29/20 22:04 Resp 20 02/29/20 22:04 BP 94/56 L 02/29/20 22:04 Pulse Ox 81 L 02/29/20 22:04 - Orders/Labs/Meds Orders: Active Orders 24 hr Category Date Time Status EKG Documentation Completion [RC] STAT Care 03/01/20 02:33 Ordered Gaviria Catheter Insertion [Insert Urinary Catheter] [OM. Care 03/01/20 01:45 Ordered PC] Q24H Urinary Catheter Assessment [RC] ASDIRECTED Care 03/01/20 01:43 Active CULTURE BLOOD [BC] Stat Lab 02/29/20 22:50 Received TROPONIN I [CHEM] Stat Lab 03/01/20 02:33 Ordered Norepinephrine [Levophed] 4 mg Med 03/01/20 02:15 Active Dextrose 5% in Water 246 ml IV TITRATE Piperacillin/Tazobactam [Zosyn] 3.375 gm Med 03/01/20 02:31 Ordered Sodium Chloride 0.9% [Normal Saline] 100 ml IV ONETIME Vancomycin 1 gm Med 03/01/20 02:31 Ordered Sodium Chloride 0.9% [Normal Saline (AdvBag)] 250 ml IV ONETIME Medication Orders Norepinephrine Bitartrate 4 mg (/ Dextrose/Water) 250 mls @ 7.5 mls/hr IV TITRATE FELI; Protocol Last Admin: 03/01/20 02:29 Dose: 2 mcg/min, 7.5 mls/hr Documented by: ELSA Piperacillin Sod/Tazobactam (Sod 3.375 gm/ Sodium Chloride) 100 mls @ 200 mls/hr IV ONETIME ONE Stop: 03/01/20 03:00 Vancomycin HCl 1 gm/ Sodium (Chloride) 250 mls @ 167 mls/hr IV ONETIME ONE Stop: 03/01/20 04:00 Labs: Laboratory Tests 02/29/20 02/29/20 02/29/20 Range/Units 22:00 22:50 22:50 WBC 9.4 (5.0-10.0) 10^3/uL RBC 3.41 L (4.6-6.2) 10^6/uL Hgb 9.8 L (14.0-18.0) g/dL Hct 30.3 L (40.0-54.0) % MCV 88.9 D (80-100) fL MCH 28.7 (27.0-34.0) pg MCHC 32.3 L (33.0-35.0) g/dL Plt Count 120 L D (150-450) 10^3/uL Neut % (Auto) 87.1 H (42.2-75.2) % Lymph % (Auto) 6.6 L (20.5-50.1) % Pender % (Auto) 5.9 (2-8) % Eos % (Auto) 0.2 L (1.0-3.0) % Baso % (Auto) 0.2 (0.0-1.0) % Sodium 137 (136-145) mmol/L Potassium 3.9 (3.5-5.1) mmol/L Chloride 105 (98-107) mmol/L Carbon Dioxide 23 (21-32) mmol/L Anion Gap 12.9 (7-13) mEq/L BUN 40 H (7-18) mg/dL Creatinine 2.95 H D (0.70-1.30) mg/dL Est Cr Clr Drug Dosing 28.72 mL/min Estimated GFR (MDRD) 22 BUN/Creatinine Ratio 13.6 (No establ ref range) Glucose 77 (74-99) mg/dL Lactic Acid (0.4-2.0) mmol/L Calcium 7.7 L (8.5-10.1) mg/dL Total Bilirubin 0.7 (0.2-1.0) mg/dL AST 54 H (15-37) U/L ALT 17 (16-63) U/L Alkaline Phosphatase 114 (46-116) U/L B-Natriuretic Peptide (0-100) pg/ml Total Protein 7.8 (6.4-8.2) g/dL Albumin 2.2 L (3.4-5.0) g/dL Globulin 5.6 Albumin/Globulin Ratio 0.39 Urine Color (YELLOW) Urine Appearance (CLEAR) Urine pH (5.0-9.0) Ur Specific [place] (1.005-1.030) Urine Protein (NEGATIVE) Urine Glucose (UA) (NEGATIVE) Urine Ketones (NEGATIVE) Urine Occult Blood (NEGATIVE) Urine Nitrite (NEGATIVE) Urine Bilirubin (NEGATIVE) Urine Urobilinogen (0.2-1.0) mg/dL Ur Leukocyte Esterase (NEGATIVE) Urine RBC /HPF Urine WBC (0-5/HPF) /HPF Ur Epithelial Cells (NOT SEEN) /HPF Amorphous Sediment (NOT SEEN) /HPF Urine Bacteria (0-FEW/HPF) /HPF Fine Granular Casts (NOT SEEN) /LPF Urine Opiates Screen (NEGATIVE) Ur Oxycodone Screen (NEGATIVE) Urine Methadone Screen (NEGATIVE) Ur Barbiturates Screen (NEGATIVE) U Tricyclic Antidepress (NEGATIVE) Ur Phencyclidine Scrn (NEGATIVE) Ur Amphetamine Screen (NEGATIVE) U Methamphetamines Scrn (NEGATIVE) Urine MDMA Screen (NEGATIVE) U Benzodiazepines Scrn (NEGATIVE) Urine Cocaine Screen (NEGATIVE) U Marijuana (THC) Screen (NEGATIVE) SARS CoV-2 RNA Rapid [place] Negative (NEGATIVE) 02/29/20 02/29/20 03/01/20 Range/Units 22:50 22:50 02:00 WBC (5.0-10.0) 10^3/uL RBC (4.6-6.2) 10^6/uL Hgb (14.0-18.0) g/dL Hct (40.0-54.0) % MCV (80-100) fL MCH (27.0-34.0) pg MCHC (33.0-35.0) g/dL Plt Count (150-450) 10^3/uL Neut % (Auto) (42.2-75.2) % Lymph % (Auto) (20.5-50.1) % Pender % (Auto) (2-8) % Eos % (Auto) (1.0-3.0) % Baso % (Auto) (0.0-1.0) % Sodium (136-145) mmol/L Potassium (3.5-5.1) mmol/L Chloride (98-107) mmol/L Carbon Dioxide (21-32) mmol/L Anion Gap (7-13) mEq/L BUN (7-18) mg/dL Creatinine (0.70-1.30) mg/dL Est Cr Clr Drug Dosing mL/min Estimated GFR (MDRD) BUN/Creatinine Ratio (No establ ref range) Glucose (74-99) mg/dL Lactic Acid 3.9 H* (0.4-2.0) mmol/L Calcium (8.5-10.1) mg/dL Total Bilirubin (0.2-1.0) mg/dL AST (15-37) U/L ALT (16-63) U/L Alkaline Phosphatase (46-116) U/L B-Natriuretic Peptide 3650 H (0-100) pg/ml Total Protein (6.4-8.2) g/dL Albumin (3.4-5.0) g/dL Globulin Albumin/Globulin Ratio Urine Color Dark yellow (YELLOW) Urine Appearance Slightly cloudy (CLEAR) Urine pH 5.5 (5.0-9.0) Ur Specific [place] >= 1.030 (1.005-1.030) Urine Protein 100 H (NEGATIVE) Urine Glucose (UA) Negative (NEGATIVE) Urine Ketones Negative (NEGATIVE) Urine Occult Blood Trace-intact H (NEGATIVE) Urine Nitrite Negative (NEGATIVE) Urine Bilirubin Small H (NEGATIVE) Urine Urobilinogen 0.2 (0.2-1.0) mg/dL Ur Leukocyte Esterase Negative (NEGATIVE) Urine RBC 10-20 H /HPF Urine WBC 5-10 H (0-5/HPF) /HPF Ur Epithelial Cells Moderate H (NOT SEEN) /HPF Amorphous Sediment Many (NOT SEEN) /HPF Urine Bacteria Many H (0-FEW/HPF) /HPF Fine Granular Casts Moderate H (NOT SEEN) /LPF Urine Opiates Screen (NEGATIVE) Ur Oxycodone Screen (NEGATIVE) Urine Methadone Screen (NEGATIVE) Ur Barbiturates Screen (NEGATIVE) U Tricyclic Antidepress (NEGATIVE) Ur Phencyclidine Scrn (NEGATIVE) Ur Amphetamine Screen (NEGATIVE) U Methamphetamines Scrn (NEGATIVE) Urine MDMA Screen (NEGATIVE) U Benzodiazepines Scrn (NEGATIVE) Urine Cocaine Screen (NEGATIVE) U Marijuana (THC) Screen (NEGATIVE) SARS CoV-2 RNA Rapid [place] (NEGATIVE) 03/01/20 Range/Units 02:00 WBC (5.0-10.0) 10^3/uL RBC (4.6-6.2) 10^6/uL Hgb (14.0-18.0) g/dL Hct (40.0-54.0) % MCV (80-100) fL MCH (27.0-34.0) pg MCHC (33.0-35.0) g/dL Plt Count (150-450) 10^3/uL Neut % (Auto) (42.2-75.2) % Lymph % (Auto) (20.5-50.1) % Pender % (Auto) (2-8) % Eos % (Auto) (1.0-3.0) % Baso % (Auto) (0.0-1.0) % Sodium (136-145) mmol/L Potassium (3.5-5.1) mmol/L Chloride (98-107) mmol/L Carbon Dioxide (21-32) mmol/L Anion Gap (7-13) mEq/L BUN (7-18) mg/dL Creatinine (0.70-1.30) mg/dL Est Cr Clr Drug Dosing mL/min Estimated GFR (MDRD) BUN/Creatinine Ratio (No establ ref range) Glucose (74-99) mg/dL Lactic Acid (0.4-2.0) mmol/L Calcium (8.5-10.1) mg/dL Total Bilirubin (0.2-1.0) mg/dL AST (15-37) U/L ALT (16-63) U/L Alkaline Phosphatase (46-116) U/L B-Natriuretic Peptide (0-100) pg/ml Total Protein (6.4-8.2) g/dL Albumin (3.4-5.0) g/dL Globulin Albumin/Globulin Ratio Urine Color (YELLOW) Urine Appearance (CLEAR) Urine pH (5.0-9.0) Ur Specific [place] (1.005-1.030) Urine Protein (NEGATIVE) Urine Glucose (UA) (NEGATIVE) Urine Ketones (NEGATIVE) Urine Occult Blood (NEGATIVE) Urine Nitrite (NEGATIVE) Urine Bilirubin (NEGATIVE) Urine Urobilinogen (0.2-1.0) mg/dL Ur Leukocyte Esterase (NEGATIVE) Urine RBC /HPF Urine WBC (0-5/HPF) /HPF Ur Epithelial Cells (NOT SEEN) /HPF Amorphous Sediment (NOT SEEN) /HPF Urine Bacteria (0-FEW/HPF) /HPF Fine Granular Casts (NOT SEEN) /LPF Urine Opiates Screen Negative (NEGATIVE) Ur Oxycodone Screen Negative (NEGATIVE) Urine Methadone Screen Negative (NEGATIVE) Ur Barbiturates Screen Negative (NEGATIVE) U Tricyclic Antidepress Negative (NEGATIVE) Ur Phencyclidine Scrn Negative (NEGATIVE) Ur Amphetamine Screen Negative (NEGATIVE) U Methamphetamines Scrn Negative (NEGATIVE) Urine MDMA Screen Negative (NEGATIVE) U Benzodiazepines Scrn Negative (NEGATIVE) Urine Cocaine Screen Negative (NEGATIVE) U Marijuana (THC) Screen Negative (NEGATIVE) SARS CoV-2 RNA Rapid [place] (NEGATIVE) Meds: Medications Generic Name Dose Route Start Last Admin Trade Name Freq PRN Reason Stop Dose Admin Norepinephrine Bitartrate 4 mg 250 mls @ 7.5 mls/hr 03/01/20 02:15 03/01/20 02:29 / Dextrose/Water IV 2 mcg/min TITRATE FELI 7.5 mls/hr Administration Protocol 2 MCG/MIN Piperacillin Sod/Tazobactam 100 mls @ 200 mls/hr 03/01/20 02:31 Sod 3.375 gm/ Sodium Chloride IV 03/01/20 03:00 ONETIME ONE Vancomycin HCl 1 gm/ Sodium 250 mls @ 167 mls/hr 03/01/20 02:31 Chloride IV 03/01/20 04:00 ONETIME ONE Discontinued Medications Generic Name Dose Route Start Last Admin Trade Name Freq PRN Reason Stop Dose Admin Furosemide 20 mg 03/01/20 01:14 03/01/20 01:48 Lasix IVPUSH 03/01/20 01:15 20 mg ONETIME ONE Administration Sodium Chloride 1,000 mls @ 999 mls/hr 02/29/20 22:40 02/29/20 23:37 Normal Saline IV 02/29/20 23:40 999 mls/hr .BOLUS ONE Administration Ceftriaxone Sodium 1,000 mg/ 50 mls @ 100 mls/hr 03/01/20 01:44 03/01/20 01:54 Sodium Chloride IV 03/01/20 02:13 100 mls/hr ONETIME ONE Administration Ketorolac Tromethamine 30 mg 02/29/20 22:40 02/29/20 23:38 Toradol IVPUSH 02/29/20 22:41 30 mg ONETIME ONE Administration - Re-Assessments/Exams Free Text/Narrative Re-Assessment/Exam: 03/01/20 02:[address] Mart @ ICU who kindly accepted pt. Departure - Departure Time of Disposition: 02:40 Disposition: DC/Tfer to Acute Hospital 02 Condition: Fair Clinical Impression: Septic shock - Discharge Information Forms: Interfacility Transfer EMTALA Sepsis Event Note (ED) - Evaluation Sepsis Screening Result: No Definite Risk - Focused Exam Vital Signs: Vital Signs Temp Pulse Resp BP Pulse Ox 02/29/20 22:04 38.2 C H 72 20 94/56 L 81 L - My Orders Last 24 Hours: My Active Orders 02/29/20 22:50 CULTURE BLOOD [BC] Stat 03/01/20 01:43 Urinary Catheter Assessment [RC] ASDIRECTED 03/01/20 01:45 Gaviria Catheter Insertion [Insert Urinary Catheter] [OM.PC] Q24H 03/01/20 02:15 Norepinephrine [Levophed] 4 mg Dextrose 5% in Water 246 ml IV TITRATE 03/01/20 02:31 Piperacillin/Tazobactam [Zosyn] 3.375 gm Sodium Chloride 0.9% [Normal Saline] 100 ml IV ONETIME Vancomycin 1 gm Sodium Chloride 0.9% [Normal Saline (AdvBag)] 250 ml IV ONETIME 03/01/20 02:33 EKG Documentation Completion [RC] STAT TROPONIN I [CHEM] Stat - Assessment/Plan Last 24 Hours: My Active Orders 02/29/20 22:50 CULTURE BLOOD [BC] Stat 03/01/20 01:43 Urinary Catheter Assessment [RC] ASDIRECTED 03/01/20 01:45 Gaviria Catheter Insertion [Insert Urinary Catheter] [OM.PC] Q24H 03/01/20 02:15 Norepinephrine [Levophed] 4 mg Dextrose 5% in Water 246 ml IV TITRATE 03/01/20 02:31 Piperacillin/Tazobactam [Zosyn] 3.375 gm Sodium Chloride 0.9% [Normal Saline] 100 ml IV ONETIME Vancomycin 1 gm Sodium Chloride 0.9% [Normal Saline (AdvBag)] 250 ml IV ONET TOMMY 03/01/20 02:33 EKG Documentation Completion [RC] STAT TROPONIN I [CHEM] Stat
[2020-02-29] MEDS ORDERED: Sodium Chloride 0.9% 1,000 ML IV ONE (22:40)
[2020-02-29] MEDS ORDERED: Ketorolac 30 MG/ML SDV IVPUSH ONE (22:40)
[2020-02-29 23:15] LABS: ANION GAP 12.9 mEq/L (7-13)
[2020-03-01] MEDS ORDERED: Furosemide 20 MG/2 ML VIAL IVPUSH ONE (01:14)
--- NOTE | 2020-03-01 01:33 | CR ---
PROCEDURE INFORMATION: Exam: XR Chest, 1 View Exam date and time: 03/01/2020 1:11 AM Age: 59 years old Clinical indication: Shortness of breath; Additional info: SOB TECHNIQUE: Imaging protocol: XR of the chest Views: 1 view. COMPARISON: CR Chest 1V Frontal 10/25/2019 10:08 PM FINDINGS: Lungs: There is mild prominence and indistinctness of the pulmonary vasculature with strandy opacities present in the lower hemithoraces and some diffuse haziness seen in the upper hemithoraces, findings that suggest cardiac decompensation or volume overload. Pleural space: The left hemidiaphragm is obscured possibly secondary to a small left pleural effusion. Heart/Mediastinum: Unremarkable. No cardiomegaly. Vasculature: A pacemaker is placed via the left subclavian vein. Bones/joints: Unremarkable. IMPRESSION: 1. Indistinct pulmonary vasculature, strandy opacities in the lower hemithoraces and diffuse haziness seen in the upper hemithoraces, findings suggesting volume overload or cardiac decompensation. Superimposed pneumonia cannot be entirely excluded. 2. Left hemidiaphragm obscured possibly secondary to a small left pleural effusion.
[2020-03-01] MEDS ORDERED: cefTRIAXone 1,000 MG in Sodium Chloride 0.9% 50 ML IV ONE (01:44)
[2020-03-01] MEDS ORDERED: Norepinephrine 4 MG in Dextrose 5% in Water 246 ML IV SCH ×2 (02:15)
[2020-03-01] MEDS ORDERED: Piperacillin/Tazobactam 3.375 GM in Sodium Chloride 0.9% 100 ML IV ONE (02:31)
== END 2020-03-01 04:02 ==
LOC: DL.ED 21:42
DX: A41.9 Sepsis, unspecified organism (principal); R65.21 Severe sepsis with septic shock; I25.10 Atherosclerotic heart disease of native coronary artery without angina pectoris; I11.0 Hypertensive heart disease with heart failure; I50.9 Heart failure, unspecified; I25.2 Old myocardial infarction; F41.9 Anxiety disorder, unspecified; F32.9 Major depressive disorder, single episode, unspecified; E11.40 Type 2 diabetes mellitus with diabetic neuropathy, unspecified; Z79.82 Long term (current) use of aspirin; Z79.899 Other long term (current) drug therapy; Z95.5 Presence of coronary angioplasty implant and graft; Z20.828 Contact with and (suspected) exposure to other viral communicable diseases
CPT/HCPCS: 36415; 51702; 71045; 80053; 80305-QW; 81001; 83605; 83880; 84484; 85025; 87040; 87077; 93005; 96365; 96367; 96368; 96375; 99285-25; J0696; J1885; J1940; J2543; J3370; J7030; J7050; J7060; U0002

== ENCOUNTER 2020-06-27 07:32 | Inpatient (IN) | payer MEDICAID ==
[2020-06-27 08:40] LABS: CORONAVIRUS COVID-19 NAA NEGATIVE (NEGATIVE)
[2020-06-27] MEDS ORDERED: Ondansetron 4 MG/2 ML SDV IVPUSH ONE (08:58)
--- NOTE | 2020-06-27 09:29 | EDM.PDOC ---
<PhilLyndsayBritt Osuna - Last Filed: 06/27/20 10:35> ED HPI GENERAL MEDICAL PROBLEM - General Chief Complaint: Fever Stated Complaint: CHILLS,FEVER,BACK NECK PAIN Time Seen by Provider: 06/27/20 09:10 Source of Information: Reports: Patient History Limitations: Reports: No Limitations - History of Present Illness INITIAL COMMENTS - FREE TEXT/NARRATIVE: Patient is a 60 y.o. male who presents to the ED with c/o of fever, chills, body aches, and neck pain. The patient reports his symptoms of chills, fever, body aches, and neck pain began around 5:30 a.m. this morning. He did not take his temperature at home. Soon after the onset of his symptoms he became nauseous at had 2 episodes of emesis. The patient took 2 regular Tylenol at home with no relief. He reports having a runny nose with mild sore throat the last couple days. His grandchildren have been sick at home the last week and were all tested for Covid yesterday. All family members tested negative. The patient was [facility] in the [facility] April, after discharge from the hospital due to sepsis, and has had a catheter since that time. He denies changes in the color of his urine or reports no foul odor. He denies lower abdominal pain or back pain. He was discharge from the jail on 06/12/20 and has been home since. Patient reports no headache, dizziness, difficulty swallowing, cough, chest pain, shortness of breath, or changes in bowel or urinary habits. He denies recent alcohol, tobacco, or illicit drug use. 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 - Related Data Allergies Allergy/AdvReac Type Severity Reaction Status Date / Time No Known Allergies Allergy Verified 06/27/20 11:33 Home Meds: Home Meds atorvaSTATin [Lipitor] 40 mg PO BEDTIME 07/30/16 [History] Magnesium Oxide [Magnesium] 400 mg PO DAILY 08/22/17 [History] Albuterol Sulfate [Proair Hfa] 1 - 2 inh INH Q4HR PRN 11/20/18 [History] Nitroglycerin 0.4 mg PO .[id number] PRN 11/20/18 [History] metOLazone [Zaroxolyn] 2.5 mg PO DAILY 11/20/18 [History] Aspirin [Halfprin] 81 mg PO DAILY #0 tab.ec 01/25/19 [Rx] Ascorbic Acid 250 mg PO BID 10/25/19 [History] Cholecalciferol (Vitamin D3) [Vitamin D3] 1,000 unit PO DAILY 10/25/19 [History] Sennosides [Senna] 8.6 mg PO BID PRN 10/25/19 [History] amLODIPine [Norvasc] 5 mg PO DAILY 10/25/19 [History] B Complex W-C No.20/Folic Acid [Triphrocaps Softgel] 1 cap PO DAILY 06/27/20 [History] Bumetanide 1 mg PO BID 06/27/20 [History] Oxybutynin Chloride [Ditropan Xl] 5 mg PO BID 06/27/20 [History] Sertraline HCl 25 mg PO DAILY 06/27/20 [History] Sevelamer Carbonate [Renvela] 2,400 mg PO TID 06/27/20 [History] Tamsulosin HCl [Flomax] 0.4 mg PO BEDTIME 06/27/20 [History] Past Medical History HEENT History: Reports: Cataract, Glaucoma, Impaired Vision Other HEENT History: Will obtain new glasses after cataract surgery Cardiovascular History: Reports: CAD, Heart Failure, Hypertension, CO, Pacemaker, Stents Other Cardiovascular History: LBBB Respiratory History: Reports: Pneumonia, Recurrent, SOB Other Respiratory History: with CHF Gastrointestinal History: Reports: None Genitourinary History: Reports: Renal Disease Other Genitourinary History: stage 3 renal failure Musculoskeletal History: Reports: Back Pain, Chronic, Other (See Below) Neurological History: Reports: Neuropathy, Diabetic Other Neuro History: memory lapses rarely Psychiatric History: Reports: Anxiety, Depression Other Psychiatric History: Pt states that he has an appt with mental health in [place] this coming week Endocrine/Metabolic History: Reports: Diabetes, Type II Hematologic History: Reports: None Immunologic History: Reports: None Oncologic (Cancer) History: Reports: None Dermatologic History: Reports: Other (See Below) Other Dermatologic History: Diabetic foot ulcer. Pt states 6 months of skin itching to the back, arms and legs - Infectious Disease History Infectious Disease History: Reports: Other (See Below) Other Infectious Disease History: ecoli - Past Surgical History Head Surgeries/Procedures: Reports: None HEENT Surgical History: Reports: Cataract Surgery Other HEENT Surgeries/Procedures: scheduled for 2017 Cardiovascular Surgical History: Reports: None Other Cardiovascular Surgeries/Procedures: in June Respiratory Surgical History: Reports: None GI Surgical History: Reports: None Male Surgical History: Reports: None Other Male Surgeries/Procedures: kidney biopsy done Endocrine Surgical History: Reports: None Neurological Surgical History: Reports: None Musculoskeletal Surgical History: Reports: Amputation, Other (See Below) Other Musculoskeletal Surgeries/Procedures:: 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 ED EXAM, ENT - Physical Exam Exam: See Below Exam Limited By: No Limitations General Appearance: Alert, WD/WN, No Apparent Distress Eye Exam: Bilateral Eye: EOMI, Normal Inspection Ears: Normal External Exam, Normal Canal, Hearing Grossly Normal, Normal TMs Nose: Normal Inspection, Normal Mucousa, No Blood Mouth/Throat: Normal Inspection, Normal Gums, Normal Lips, Normal Oropharynx Head: Atraumatic, Normocephalic Neck: Normal Inspection, Supple, Non-Tender, Full Range of Motion Respiratory/Chest: No Respiratory Distress, Lungs Clear, Normal Breath Sounds, No Accessory Muscle Use, Chest Non-Tender Cardiovascular: Normal Peripheral Pulses, No Edema, No Gallop, No JVD, No Murmur, No Rub, Irregularly Irregular (patient has a pacemaker) GI/Abdominal: Normal Bowel Sounds, Soft, No Organomegaly, No Distention, No Abnormal Bruit, No Mass, Tender (mild diffuse tenderness on palation of abdomen ) (Male) Exam: Deferred Rectal (Males) Exam: Deferred Back: Normal Inspection, Full Range of Motion Extremities: Normal Inspection (the patient had his lower right extremity amputated ), Normal Range of Motion, Non-Tender, No Pedal Edema, Normal Capillary Refill Neurological: Alert, Oriented, CN II-XII Intact, Normal Cognition, Normal Gait, Normal Reflexes, No Motor/Sensory Deficits Psychiatric: Normal Affect, Normal Mood Skin: Warm, Dry, Intact, Normal Color, No Rash Lymphatic: No Adenopathy Course - Re-Assessments/Exams Free Text/Narrative Re-Assessment/Exam: Patient physical exam, x-ray, and lab results were reviewed and discussed with the patient. CBC showed WBC of 11,000. RBC, Hgb, Hct was consistent with patien t's history of chronic anemia. Patient has a brito catheter. Urine Analysis was remarkable for large leukocytes, WBC packed, bacteria was moderate. Patient is febrile at 38.5 degrees celsius, pulse 123, Respirations 20, BP 153/91, O2 saturation was 94% on room air. He has a history of sepsis 4 months ago and was recently just [facility] the jail. 06/27/20 10:55 Departure - Departure Time of Disposition: 10:51 Disposition: Admitted As Inpatient 66 Condition: Poor Clinical Impression: UTI (urinary tract infection) due to urinary indwelling Brito catheter, Chronic anemia - Discharge Information *PRESCRIPTION DRUG MONITORING PROGRAM REVIEWED*: Not Applicable *COPY OF PRESCRIPTION DRUG MONITORING REPORT IN PATIENT GUANACO: Not Applicable Sepsis Event Note (ED) - Evaluation Sepsis Screening Result: Possible Sepsis Risk <Roger Junior - Last Filed: 06/27/20 16:39> Course - Vital Signs Last Recorded V/S: Last Vital Signs Temp 37.3 C 06/27/20 14:42 Pulse 82 06/27/20 14:42 Resp 18 06/27/20 14:42 BP 127/55 L 06/27/20 14:42 Pulse Ox 98 06/27/20 14:42 - Orders/Labs/Meds Orders: Active Orders 24 hr Category Date Time Status Urinary Catheter Assessment [RC] 08,20 Care 06/27/20 10:52 Active Urinary Catheter Insertion [Insert Urinary Catheter] [ Care 06/27/20 11:00 Ordered OM.PC] Q24H CULTURE BLOOD [BC] Stat Lab 06/27/20 09:05 Received CULTURE STREP A CONFIRMATION [RM] Stat Lab 06/27/20 07:39 Results CULTURE URINE [RM] Urgent Lab 06/27/20 08:45 Received STREP SCRN A RAPID W CULT CONF [RM] Stat Lab 06/27/20 07:39 Results Medication Orders Acetaminophen (Acetaminophen 325 Mg Tab) 650 mg PO Q4H PRN PRN Reason: Pain (Mild 1-3)/fever Albuterol (Albuterol 6.7 Gm Inhaler) 0 gm INH Q4HR PRN PRN Reason: Dyspnea Aspirin (Aspirin 81 Mg Tab.Ec) 81 mg PO DAILY [facility] Atorvastatin Calcium (Atorvastatin 20 Mg Tab) 40 mg PO BEDTIME [facility] Ceftriaxone Sodium (Ceftriaxone 1 Gm Vial) 1 gm IVPUSH Q24H [facility] Dextrose/Water (50% Dextrose In Water 50 Ml Syringe) 50 ml IV Q15M PRN PRN Reason: Hypoglycemia Glucagon (Glucagon,Human Recombinant 1 Mg Vial) 1 mg IM Q15M PRN PRN Reason: Hypoglycemia Heparin Sodium (Porcine) (Heparin Sodium 5,000 Units/Ml Vial) 5,000 units SUBCUT Q8HR [facility] Last Admin: 06/27/20 14:46 Dose: 5,000 units Documented by: MADAN Insulin Human Lispro (Insulin Lispro 100 Units/Ml 3 Ml Vial) 0 unit SUBCUT WITHMEALSANDBED [facility]; Protocol Last Admin: 06/27/20 12:18 Dose: Not Given Documented by: MADAN Nitroglycerin (Nitroglycerin 0.4 Mg Tab.Sl) 0.4 mg SL ASDIRECTED PRN PRN Reason: Chest Pain Non-Formulary Medication (Magnesium Oxide [Magnesium]) 400 mg PO DAILY [facility] Non-Formulary Medication (Sennosides [Senna]) 100 mg PO BID PRN PRN Reason: Constipation Non-Formulary Medication (Sevelamer Carbonate) 2,400 mg PO TID [facility] Oxybutynin Chloride (Oxybutynin 5 Mg Tab.Er) 5 mg PO BID [facility] Sertraline HCl (Sertraline 50 Mg Tab) 25 mg PO DAILY [facility] Tamsulosin HCl (Tamsulosin 0.4 Mg Cap.Er) 0.4 mg PO BEDTIME [facility] Labs: Laboratory Tests 06/27/20 06/27/20 06/27/20 Range/Units 07:39 08:45 09:05 WBC 11.0 H (5.0-10.0) 10^3/uL RBC 3.46 L (4.6-6.2) 10^6/uL Hgb 11.0 L (14.0-18.0) g/dL Hct 32.0 L (40.0-54.0) % MCV 92.5 D (80-100) fL MCH 31.8 (27.0-34.0) pg MCHC 34.4 (33.0-35.0) g/dL Plt Count 122 L (150-450) 10^3/uL Neut % (Auto) 83.9 H (42.2-75.2) % Lymph % (Auto) 5.9 L (20.5-50.1) % [place] % (Auto) 7.7 (2-8) % Eos % (Auto) 2.3 (1.0-3.0) % Baso % (Auto) 0.2 (0.0-1.0) % Sodium (136-145) mmol/L Potassium (3.5-5.1) mmol/L Chloride (98-107) mmol/L Carbon Dioxide (21-32) mmol/L Anion Gap (7-13) mEq/L BUN (7-18) mg/dL Creatinine (0.70-1.30) mg/dL Est Cr Clr Drug Dosing Estimated GFR (MDRD) BUN/Creatinine Ratio (No establ ref range) Glucose (74-99) mg/dL Lactic Acid (0.4-2.0) mmol/L Calcium (8.5-10.1) mg/dL Total Bilirubin (0.2-1.0) mg/dL AST (15-37) U/L ALT (16-63) U/L Alkaline Phosphatase (46-116) U/L B-Natriuretic Peptide (0-100) pg/ml Total Protein (6.4-8.2) g/dL Albumin (3.4-5.0) g/dL Globulin Albumin/Globulin Ratio Urine Color Yellow (YELLOW) Urine Appearance Cloudy (CLEAR) Urine pH 5.5 (5.0-9.0) Ur Specific [place] 1.025 (1.005-1.030) Urine Protein >=300 H (NEGATIVE) Urine Glucose (UA) Negative (NEGATIVE) Urine Ketones Negative (NEGATIVE) Urine Occult Blood Moderate H (NEGATIVE) Urine Nitrite Negative (NEGATIVE) Urine Bilirubin Negative (NEGATIVE) Urine Urobilinogen 0.2 (0.2-1.0) mg/dL Ur Leukocyte Esterase Large H (NEGATIVE) Urine RBC >100 H /HPF Urine WBC Packed H (0-5/HPF) /HPF Ur Epithelial Cells Few (NOT SEEN) /HPF Amorphous Sediment Few (NOT SEEN) /HPF Urine Bacteria Moderate H (0-FEW/HPF) /HPF Urine Mucus Few H (NOT SEEN) /LPF Influenza Type A RNA Negative (NEGATIVE) Influenza Type B RNA Negative (NEGATIVE) SARS-CoV-2 RNA ([place]) Negative (NEGATIVE) 06/27/20 06/27/20 06/27/20 Range/Units 09:05 09:05 09:05 WBC (5.0-10.0) 10^3/uL RBC (4.6-6.2) 10^6/uL Hgb (14.0-18.0) g/dL Hct (40.0-54.0) % MCV (80-100) fL MCH (27.0-34.0) pg MCHC (33.0-35.0) g/dL Plt Count (150-450) 10^3/uL Neut % (Auto) (42.2-75.2) % Lymph % (Auto) (20.5-50.1) % [place] % (Auto) (2-8) % Eos % (Auto) (1.0-3.0) % Baso % (Auto) (0.0-1.0) % Sodium 141 (136-145) mmol/L Potassium 4.3 (3.5-5.1) mmol/L Chloride 106 (98-107) mmol/L Carbon Dioxide 27 (21-32) mmol/L Anion Gap 12.3 (7-13) mEq/L BUN 49 H (7-18) mg/dL Creatinine 2.41 H (0.70-1.30) mg/dL Est Cr Clr Drug Dosing TNP Estimated GFR (MDRD) 28 BUN/Creatinine Ratio 20.3 (No establ ref range) Glucose 119 H (74-99) mg/dL Lactic Acid 1.9 (0.4-2.0) mmol/L Calcium 8.4 L (8.5-10.1) mg/dL Total Bilirubin 0.5 (0.2-1.0) mg/dL AST 40 H (15-37) U/L ALT 30 (16-63) U/L Alkaline Phosphatase 126 H (46-116) U/L B-Natriuretic Peptide 196 H (0-100) pg/ml Total Protein 8.3 H (6.4-8.2) g/dL Albumin 3.3 L (3.4-5.0) g/dL Globulin 5.0 Albumin/Globulin Ratio 0.66 Urine Color (YELLOW) Urine Appearance (CLEAR) Urine pH (5.0-9.0) Ur Specific [place] (1.005-1.030) Urine Protein (NEGATIVE) Urine Glucose (UA) (NEGATIVE) Urine Ketones (NEGATIVE) Urine Occult Blood (NEGATIVE) Urine Nitrite (NEGATIVE) Urine Bilirubin (NEGATIVE) Urine Urobilinogen (0.2-1.0) mg/dL Ur Leukocyte Esterase (NEGATIVE) Urine RBC /HPF Urine WBC (0-5/HPF) /HPF Ur Epithelial Cells (NOT SEEN) /HPF Amorphous Sediment (NOT SEEN) /HPF Urine Bacteria (0-FEW/HPF) /HPF Urine Mucus (NOT SEEN) /LPF Influenza Type A RNA (NEGATIVE) Influenza Type B RNA (NEGATIVE) SARS-CoV-2 RNA ([place]) (NEGATIVE) Meds: Medications Generic Name Dose Route Start Last Admin Trade Name Freq PRN Reason Stop Dose Admin Acetaminophen 650 mg 06/27/20 11:05 Acetaminophen 325 Mg Tab PO Q4H PRN Pain (Mild 1-3)/fever Albuterol 0 gm 06/27/20 14:49 Albuterol 6.7 Gm Inhaler INH Q4HR PRN Dyspnea Aspirin 81 mg 06/28/20 09:00 Aspirin 81 Mg Tab.Ec PO DAILY [facility] Atorvastatin Calcium 40 mg 06/27/20 21:00 Atorvastatin 20 Mg Tab PO BEDTIME [facility] Ceftriaxone Sodium 1 gm 06/28/20 09:00 Ceftriaxone 1 Gm Vial IVPUSH Q24H [facility] Dextrose/Water 50 ml 06/27/20 11:14 50% Dextrose In Water 50 Ml Syringe IV Q15M PRN Hypoglycemia Glucagon 1 mg 06/27/20 11:14 Glucagon,Human Recombinant 1 Mg Vial IM Q15M PRN Hypoglycemia Heparin Sodium (Porcine) 5,000 units 06/27/20 14:00 06/27/20 14:46 Heparin Sodium 5,000 Units/Ml Vial SUBCUT 5,000 units Q8HR [facility] Administration Insulin Human Lispro 0 unit 06/27/20 12:00 06/27/20 12:18 Insulin Lispro 100 Units/Ml 3 Ml Vial SUBCUT Not Given WITHMEALSANDBED [facility] Protocol Nitroglycerin 0.4 mg 06/27/20 14:49 Nitroglycerin 0.4 Mg Tab.Sl SL ASDIRECTED PRN Chest Pain Non-Formulary Medication 400 mg 06/28/20 09:00 Magnesium Oxide [Magnesium] PO DAILY [facility] Non-Formulary Medication 100 mg 06/27/20 14:49 Sennosides [Senna] PO BID PRN Constipation Non-Formulary Medication 2,400 mg 06/27/20 21:00 Sevelamer Carbonate PO TID [facility] Oxybutynin Chloride 5 mg 06/27/20 21:00 Oxybutynin 5 Mg Tab.Er PO BID [facility] Sertraline HCl 25 mg 06/28/20 09:00 Sertraline 50 Mg Tab PO DAILY [facility] Tamsulosin HCl 0.4 mg 06/27/20 21:00 Tamsulosin 0.4 Mg Cap.Er PO BEDTIME [facility] Discontinued Medications Generic Name Dose Route Start Last Admin Trade Name Freq PRN Reason Stop Dose Admin Ceftriaxone Sodium 1 gm/ 50 mls @ 100 mls/hr 06/27/20 09:50 06/27/20 10:07 Sodium Chloride IV 06/27/20 10:19 100 mls/hr ONETIME ONE Administration Sodium Chloride 1,000 mls @ 500 mls/hr 06/27/20 10:28 06/27/20 13:48 Normal Saline IV 06/27/20 12:27 Infused .BOLUS ONE Infusion Ceftriaxone Sodium 1 gm/ 50 mls @ 100 mls/hr 06/28/20 09:00 Sodium Chloride IV DAILY [facility] Ondansetron HCl 4 mg 06/27/20 08:58 06/27/20 09:06 Ondansetron 4 Mg/2 Ml Sdv IVPUSH 06/27/20 08:59 4 mg ONETIME ONE Administration - Re-Assessments/Exams Free Text/Narrative Re-Assessment/Exam: 06/27/20 16:39 I have examined the patient. I have discussed findings and treatment plan with the PA student. I agree with the assessment and plan in the following students note. Sepsis Event Note (ED) - Focused Exam Vital Signs: Vital Signs Temp Pulse Resp BP Pulse Ox 06/27/20 10:11 38.0 C 112 H 18 156/62 H 96 06/27/20 07:58 38.5 C H 123 H 20 153/91 H 94 L - My Orders Last 24 Hours: My Active Orders 06/27/20 07:39 CULTURE STREP A CONFIRMATION [RM] Stat STREP SCRN A RAPID W CULT CONF [RM] Stat 06/27/20 08:45 CULTURE URINE [RM] Urgent 06/27/20 09:05 CULTURE BLOOD [BC] Stat 06/27/20 10:52 Urinary Catheter Assessment [RC] 06/27/20 11:00 Urinary Catheter Insertion [Insert Urinary Catheter] [OM.PC] Q24H - Assessment/Plan Last 24 Hours: My Active Orders 06/27/20 07:39 CULTURE STREP A CONFIRMATION [RM] Stat STREP SCRN A RAPID W CULT CONF [RM] Stat 06/27/20 08:45 CULTURE URINE [RM] Urgent 06/27/20 09:05 CULTURE BLOOD [BC] Stat 06/27/20 10:52 Urinary Catheter Assessment [RC] 06/27/20 11:00 Urinary Catheter Insertion [Insert Urinary Catheter] [OM.PC] Q24H
[2020-06-27 09:30] LABS: ANION GAP 12.3 mEq/L (7-13); CHLORIDE,CL 106 mmol/L (98-107); SODIUM,NA 141 mmol/L (136-145)
[2020-06-27] MEDS ORDERED: cefTRIAXone 1 GM in Sodium Chloride 0.9% 50 ML IV ONE (09:50)
--- NOTE | 2020-06-27 10:00 | CR ---
PROCEDURE INFORMATION: Exam: XR Chest Exam date and time: 06/27/2020 9:38 AM Age: 60 years old Clinical indication: Fever; Prior surgery; Surgery date: 6+ months TECHNIQUE: Imaging protocol: XR of the chest Views: 1 view. COMPARISON: CR Chest 1V Frontal 03/01/2020 1:11 AM, 10/25/2019 and 06/02/2019. FINDINGS: Tubes, catheters and devices: Unchanged multi lead left AICD device. Lungs: The lungs are normally expanded and clear. Pleural spaces: No pleural effusion or pneumothorax. Heart/Mediastinum: Chronic unchanged left heart enlargement. Vasculature: Normal pulmonary vessels and width of the vascular pedicle. Bones/joints: Intact and normally aligned. IMPRESSION: Chronic cardiomegaly. No acute disease.
[2020-06-27] MEDS ORDERED: Sodium Chloride 0.9% 1,000 ML IV ONE (10:28)
[2020-06-27] MEDS ORDERED: Acetaminophen 325 MG Tab PO PRN (11:05)
[2020-06-27] MEDS ORDERED: 50% Dextrose in Water 50 ML Syringe IV PRN (11:14)
[2020-06-27] MEDS ORDERED: Glucagon,Human Recombinant 1 MG Vial IM PRN (11:14)
[2020-06-27] MEDS: Insulin Lispro 100 Units/ML 3 ML Vial SUBCUT SCH ×3 (12:18→20:28)
[2020-06-27] MEDS: Heparin Sodium 5,000 Units/ML Vial SUBCUT SCH ×2 (14:46→21:28)
[2020-06-27] MEDS ORDERED: Nitroglycerin 0.4 MG Tab.SL SL PRN (14:49)
[2020-06-27] MEDS ORDERED: Non-Formulary Medication 1 Each (Sennosides [Senna] 8.6 MG Tablet) PO PRN (14:49)
[2020-06-27] MEDS ORDERED: Albuterol 6.7 GM Inhaler INH PRN (14:49)
[2020-06-27] MEDS: Tamsulosin 0.4 MG Cap.ER PO SCH (20:08)
[2020-06-27] MEDS: atorvaSTATin 20 MG Tab PO SCH (20:09)
[2020-06-27] MEDS: Oxybutynin 5 MG Tab.ER PO SCH (20:09)
--- NOTE | 2020-06-27 20:12 | PCM.HP ---
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 Pt has been feeling unwell for 2 days. He c/o body aches, chills, suprapubic abdominal pain. He is febrile in the ED w/ associated tachycardia and leukocytosis. ED work up reveals a catheter associated UTI. Pt states he was discharged w/ brito cath from [facility] in April. He went to a ID from there. Since then the catheter has been changed only once. He was discharged from the NH on 06/12 and a visiting nurse was planned to come and change the brito this week. He has seen a urologist once during this time - he thinks it was sometime in April. At no point was a trial of void ever attempted. - Related Data Allergies/Adverse Reactions: Allergies Allergy/AdvReac Type Severity Reaction Status Date / Time No Known Allergies Allergy Verified 06/27/20 11:33 Home Medications: Home Meds atorvaSTATin [Lipitor] 40 mg PO BEDTIME 07/30/16 [History] Magnesium Oxide [Magnesium] 400 mg PO DAILY 08/22/17 [History] Albuterol Sulfate [Proair Hfa] 1 - 2 inh INH Q4HR PRN 11/20/18 [History] Nitroglycerin 0.4 mg PO [id number] PRN 11/20/18 [History] metOLazone [Zaroxolyn] 2.5 mg PO DAILY 11/20/18 [History] Aspirin [Halfprin] 81 mg PO DAILY #0 tab.ec 01/25/19 [Rx] Ascorbic Acid 250 mg PO BID 10/25/19 [History] Cholecalciferol (Vitamin D3) [Vitamin D3] 1,000 unit PO DAILY 10/25/19 [History] Sennosides [Senna] 8.6 mg PO BID PRN 10/25/19 [History] amLODIPine [Norvasc] 5 mg PO DAILY 10/25/19 [History] B Complex W-C No.20/Folic Acid [Triphrocaps Softgel] 1 cap PO DAILY 06/27/20 [History] Bumetanide 1 mg PO BID 06/27/20 [History] Oxybutynin Chloride [Ditropan Xl] 5 mg PO BID 06/27/20 [History] Sertraline HCl 25 mg PO DAILY 06/27/20 [History] Sevelamer Carbonate [Renvela] 2,400 mg PO TID 06/27/20 [History] Tamsulosin HCl [Flomax] 0.4 mg PO BEDTIME 06/27/20 [History] Past Medical History HEENT History: Reports: Cataract, Glaucoma, Impaired Vision Other HEENT History: Will obtain new glasses after cataract surgery Cardiovascular History: Reports: CAD, Heart Failure, Hypertension, [place], Pacemaker, Stents Other Cardiovascular History: LBBB Respiratory History: Reports: Pneumonia, Recurrent, SOB Other Respiratory History: with CHF Gastrointestinal History: Reports: None Genitourinary History: Reports: Renal Disease Other Genitourinary History: stage 3 renal failure Musculoskeletal History: Reports: Back Pain, Chronic, Other (See Below) Neurological History: Reports: Neuropathy, Diabetic Other Neuro History: memory lapses rarely Psychiatric History: Reports: Anxiety, Depression Other Psychiatric History: Pt states that he has an appt with mental health in [place] this coming week Endocrine/Metabolic History: Reports: Diabetes, Type II Hematologic History: Reports: None Immunologic History: Reports: None Oncologic (Cancer) History: Reports: None Dermatologic History: Reports: Other (See Below) Other Dermatologic History: Diabetic foot ulcer. Pt states 6 months of skin itching to the back, arms and legs - Infectious Disease History Infectious Disease History: Reports: Other (See Below) Other Infectious Disease History: ecoli - Past Surgical History Head Surgeries/Procedures: Reports: None HEENT Surgical History: Reports: Cataract Surgery Other HEENT Surgeries/Procedures: scheduled for 2017 Cardiovascular Surgical History: Reports: None Other Cardiovascular Surgeries/Procedures: in June Respiratory Surgical History: Reports: None GI Surgical History: Reports: None Male Surgical History: Reports: None Other Male Surgeries/Procedures: kidney biopsy done Endocrine Surgical History: Reports: None Neurological Surgical History: Reports: None Musculoskeletal Surgical History: Reports: Amputation, Other (See Below) Other Musculoskeletal Surgeries/Procedures:: Left 5th toe amptutation rt btk amputation Dermatological Surgical History: Reports: Other (See Below) Social & Family History - Family History Family Medical History: No Pertinent Family History - Tobacco Use Tobacco Use Status *Q: Never Tobacco User Second Hand Smoke Exposure: No - Caffeine Use Caffeine Use: Reports: Coffee Caffeine Use Comment: 1-2cups per day - Recreational Drug Use Recreational Drug Use: No - Living Situation & Occupation Living situation: Reports: , with Spouse Occupation: Disabled H&P Review of Systems - Review of Systems: Review Of Systems: See Below General: Reports: Fever, Chills, Malaise, Weakness. Denies: Diaphoresis HEENT: Denies: Headaches Pulmonary: Denies: Shortness of Breath, Wheezing Cardiovascular: Denies: Chest Pain, Edema Gastrointestinal: Reports: Abdominal Pain. Denies: Constipation, Diarrhea Genitourinary: Denies: Dysuria, Hematuria Musculoskeletal: Denies: Neck Pain Skin: Denies: Jaundice Psychiatric: Denies: Confusion Neurological: Denies: Dizziness Hematologic/Lymphatic: Denies: Easy Bleeding Immunologic: Denies: Anaphylaxis Exam - Exam Exam: See Below - Vital Signs Vital Signs: Last Vital Signs Temp 98.9 F 06/27/20 19:29 Pulse 87 06/27/20 19:29 Resp 22 H 06/27/20 19:29 BP 146/65 H 06/27/20 19:29 Pulse Ox 100 06/27/20 19:29 Weight: 181 lb - Exam Quality Assessment: No: Supplemental Oxygen General: Alert, Oriented, Cooperative HEENT: Conjunctiva Clear Neck: Supple Lungs: Clear to Auscultation, Normal Respiratory Effort Cardiovascular: Regular Rate, Regular Rhythm GI/Abdominal Exam: Normal Bowel Sounds, Soft, No Distention, Tender (suprapubic - mild) (Male) Exam: Other (brito in place - no discharge) Back Exam: Normal Inspection. No: CVA Tenderness (L), CVA Tenderness (R) Extremities: No Pedal Edema Skin: Warm, Dry Neurological: Normal Speech Neuro Extensive - Mental Status: Alert, Oriented x3, Normal Mood/Affect Neuro Extensive - Motor, Sensory, Reflexes: No: Tremor Psychiatric: Alert, Normal Affect, Normal Mood - Patient Data Lab Results Last 24 hrs: Laboratory Results - last 24 hr 06/27/20 06/27/20 06/27/20 Range/Units 07:39 08:45 09:05 WBC 11.0 H (5.0-10.0) 10^3/uL RBC 3.46 L (4.6-6.2) 10^6/uL Hgb 11.0 L (14.0-18.0) g/dL Hct 32.0 L (40.0-54.0) % MCV 92.5 D (80-100) fL MCH 31.8 (27.0-34.0) pg MCHC 34.4 (33.0-35.0) g/dL Plt Count 122 L (150-450) 10^3/uL Neut % (Auto) 83.9 H (42.2-75.2) % Lymph % (Auto) 5.9 L (20.5-50.1) % [place] % (Auto) 7.7 (2-8) % Eos % (Auto) 2.3 (1.0-3.0) % Baso % (Auto) 0.2 (0.0-1.0) % Sodium (136-145) mmol/L Potassium (3.5-5.1) mmol/L Chloride (98-107) mmol/L Carbon Dioxide (21-32) mmol/L Anion Gap (7-13) mEq/L BUN (7-18) mg/dL Creatinine (0.70-1.30) mg/dL Est Cr Clr Drug Dosing Estimated GFR (MDRD) BUN/Creatinine Ratio (No establ ref range) Glucose (74-99) mg/dL POC Glucose (70-105) mg/dl Lactic Acid (0.4-2.0) mmol/L Calcium (8.5-10.1) mg/dL Total Bilirubin (0.2-1.0) mg/dL AST (15-37) U/L ALT (16-63) U/L Alkaline Phosphatase (46-116) U/L B-Natriuretic Peptide (0-100) pg/ml Total Protein (6.4-8.2) g/dL Albumin (3.4-5.0) g/dL Globulin Albumin/Globulin Ratio Urine Color Yellow (YELLOW) Urine Appearance Cloudy (CLEAR) Urine pH 5.5 (5.0-9.0) Ur Specific [place] 1.025 (1.005-1.030) Urine Protein >=300 H (NEGATIVE) Urine Glucose (UA) Negative (NEGATIVE) Urine Ketones Negative (NEGATIVE) Urine Occult Blood Moderate H (NEGATIVE) Urine Nitrite Negative (NEGATIVE) Urine Bilirubin Negative (NEGATIVE) Urine Urobilinogen 0.2 (0.2-1.0) mg/dL Ur Leukocyte Esterase Large H (NEGATIVE) Urine RBC >100 H /HPF Urine WBC Packed H (0-5/HPF) /HPF Ur Epithelial Cells Few (NOT SEEN) /HPF Amorphous Sediment Few (NOT SEEN) /HPF Urine Bacteria Moderate H (0-FEW/HPF) /HPF Urine Mucus Few H (NOT SEEN) /LPF Influenza Type A RNA Negative (NEGATIVE) Influenza Type B RNA Negative (NEGATIVE) SARS-CoV-2 RNA ([place]) Negative (NEGATIVE) 06/27/20 06/27/20 06/27/20 Range/Units 09:05 09:05 09:05 WBC (5.0-10.0) 10^3/uL RBC (4.6-6.2) 10^6/uL Hgb (14.0-18.0) g/dL Hct (40.0-54.0) % MCV (80-100) fL MCH (27.0-34.0) pg MCHC (33.0-35.0) g/dL Plt Count (150-450) 10^3/uL Neut % (Auto) (42.2-75.2) % Lymph % (Auto) (20.5-50.1) % [place] % (Auto) (2-8) % Eos % (Auto) (1.0-3.0) % Baso % (Auto) (0.0-1.0) % Sodium 141 (136-145) mmol/L Potassium 4.3 (3.5-5.1) mmol/L Chloride 106 (98-107) mmol/L Carbon Dioxide 27 (21-32) mmol/L Anion Gap 12.3 (7-13) mEq/L BUN 49 H (7-18) mg/dL Creatinine 2.41 H (0.70-1.30) mg/dL Est Cr Clr Drug Dosing TNP Estimated GFR (MDRD) 28 BUN/Creatinine Ratio 20.3 (No establ ref range) Glucose 119 H (74-99) mg/dL POC Glucose (70-105) mg/dl Lactic Acid 1.9 (0.4-2.0) mmol/L Calcium 8.4 L (8.5-10.1) mg/dL Total Bilirubin 0.5 (0.2-1.0) mg/dL AST 40 H (15-37) U/L ALT 30 (16-63) U/L Alkaline Phosphatase 126 H (46-116) U/L B-Natriuretic Peptide 196 H (0-100) pg/ml Total Protein 8.3 H (6.4-8.2) g/dL Albumin 3.3 L (3.4-5.0) g/dL Globulin 5.0 Albumin/Globulin Ratio 0.66 Urine Color (YELLOW) Urine Appearance (CLEAR) Urine pH (5.0-9.0) Ur Specific [place] (1.005-1.030) Urine Protein (NEGATIVE) Urine Glucose (UA) (NEGATIVE) Urine Ketones (NEGATIVE) Urine Occult Blood (NEGATIVE) Urine Nitrite (NEGATIVE) Urine Bilirubin (NEGATIVE) Urine Urobilinogen (0.2-1.0) mg/dL Ur Leukocyte Esterase (NEGATIVE) Urine RBC /HPF Urine WBC (0-5/HPF) /HPF Ur Epithelial Cells (NOT SEEN) /HPF Amorphous Sediment (NOT SEEN) /HPF Urine Bacteria (0-FEW/HPF) /HPF Urine Mucus (NOT SEEN) /LPF Influenza Type A RNA (NEGATIVE) Influenza Type B RNA (NEGATIVE) SARS-CoV-2 RNA ([place]) (NEGATIVE) 06/27/20 06/27/20 Range/Units 11:39 17:01 WBC (5.0-10.0) 10^3/uL RBC (4.6-6.2) 10^6/uL Hgb (14.0-18.0) g/dL Hct (40.0-54.0) % MCV (80-100) fL MCH (27.0-34.0) pg MCHC (33.0-35.0) g/dL Plt Count (150-450) 10^3/uL Neut % (Auto) (42.2-75.2) % Lymph % (Auto) (20.5-50.1) % [place] % (Auto) (2-8) % Eos % (Auto) (1.0-3.0) % Baso % (Auto) (0.0-1.0) % Sodium (136-145) mmol/L Potassium (3.5-5.1) mmol/L Chloride (98-107) mmol/L Carbon Dioxide (21-32) mmol/L Anion Gap (7-13) mEq/L BUN (7-18) mg/dL Creatinine (0.70-1.30) mg/dL Est Cr Clr Drug Dosing Estimated GFR (MDRD) BUN/Creatinine Ratio (No establ ref range) Glucose (74-99) mg/dL POC Glucose 121 H 132 H (70-105) mg/dl Lactic Acid (0.4-2.0) mmol/L Calcium (8.5-10.1) mg/dL Total Bilirubin (0.2-1.0) mg/dL AST (15-37) U/L ALT (16-63) U/L Alkaline Phosphatase (46-116) U/L B-Natriuretic Peptide (0-100) pg/ml Total Protein (6.4-8.2) g/dL Albumin (3.4-5.0) g/dL Globulin Albumin/Globulin Ratio Urine Color (YELLOW) Urine Appearance (CLEAR) Urine pH (5.0-9.0) Ur Specific [place] (1.005-1.030) Urine Protein (NEGATIVE) Urine Glucose (UA) (NEGATIVE) Urine Ketones (NEGATIVE) Urine Occult Blood (NEGATIVE) Urine Nitrite (NEGATIVE) Urine Bilirubin (NEGATIVE) Urine Urobilinogen (0.2-1.0) mg/dL Ur Leukocyte Esterase (NEGATIVE) Urine RBC /HPF Urine WBC (0-5/HPF) /HPF Ur Epithelial Cells (NOT SEEN) /HPF Amorphous Sediment (NOT SEEN) /HPF Urine Bacteria (0-FEW/HPF) /HPF Urine Mucus (NOT SEEN) /LPF Influenza Type A RNA (NEGATIVE) Influenza Type B RNA (NEGATIVE) SARS-CoV-2 RNA ([place]) (NEGATIVE) Result Diagrams: 06/27/20 09:05 06/27/20 09:05 Davi Results Last 24 hrs: Microbiology 06/27/20 07:39 Group A Streptococcus Rapid Screen - Final Throat NEGATIVE STREP A SCREEN REFERENCE RANGE: NEGATIVE Problem List Initiated/Reviewed/Updated: No Orders Last 24hrs: Active Orders 24 hr Category Date Time Status Admission Diagnosis [ADT] Urgent ADT 06/27/20 11:14 Ordered Admission Status [Patient Status] [ADT] Routine ADT 06/27/20 11:14 Active Patient Status [ADT] Routine ADT 06/27/20 11:05 Active Blood Glucose Check, Bedside [RC] WITHMEALSANDBED Care 06/27/20 11:05 Active RT Post Treatment Assessment [RC] Click to Edit Care 06/27/20 14:51 Active RT Pre-Treatment Assessment [RC] Click to Edit Care 06/27/20 14:51 Active Up With Assistance [RC] ASDIRECTED Care 06/27/20 11:05 Active Urinary Catheter Assessment [RC] 08,20 Care 06/27/20 10:52 Active Urinary Catheter Insertion [Insert Urinary Catheter] [ Care 06/27/20 11:00 Ordered OM.PC] Q24H Vital Signs [RC] Q4H Care 06/27/20 11:05 Active PT Evaluation and Treatment [CONS] Routine Cons 06/27/20 11:05 Active Consistent Carbohydrate Diet [DIET] Diet 06/27/20 Lunch Active BASIC METABOLIC PANEL,BMP [CHEM] AM Lab 06/28/20 05:11 Ordered CBC WITH AUTO DIFF [HEME] AM Lab 06/28/20 05:11 Ordered CULTURE BLOOD [BC] Stat Lab 06/27/20 09:05 Received CULTURE STREP A CONFIRMATION [RM] Stat Lab 06/27/20 07:39 Results CULTURE URINE [RM] Urgent Lab 06/27/20 08:45 Received STREP SCRN A RAPID W CULT CONF [RM] Stat Lab 06/27/20 07:39 Results Acetaminophen [TylenoL] Med 06/27/20 11:05 Active 650 mg PO Q4H PRN Albuterol [Proventil HFA] Med 06/27/20 14:49 Active 0 gm INH Q4HR PRN Aspirin [Halfprin] Med 06/28/20 09:00 Active 81 mg PO DAILY Dextrose 50% in Water Med 06/27/20 11:14 Active 50 ml IV Q15M PRN Docusate Sodium/Sennosides [Senna Plus] Med 06/27/20 19:11 Active 1 tab PO BID PRN Glucagon,Human Recombinant [GlucaGen] Med 06/27/20 11:14 Active 1 mg IM Q15M PRN Heparin Sodium Med 06/27/20 14:00 Active 5,000 units SUBCUT Q8HR Insulin Lispro [HumaLOG] Med 06/27/20 12:00 Active See Protocol SUBCUT WITHMEALSANDBED Magnesium Oxide Med 06/28/20 08:00 Active 500 mg PO WITHBREAKFAST Nitroglycerin [Nitrostat] Med 06/27/20 14:49 Active 0.4 mg SL ASDIRECTED PRN Oxybutynin [Oxybutynin ER] Med 06/27/20 21:00 Active 5 mg PO BID Sertraline [Zoloft] Med 06/28/20 09:00 Active 25 mg PO DAILY Sevelamer Carbonate Med 06/27/20 21:00 Pending 2,400 mg PO TID Tamsulosin [Flomax] Med 06/27/20 21:00 Active 0.4 mg PO BEDTIME atorvaSTATin [Lipitor] Med 06/27/20 21:00 Active 40 mg PO BEDTIME cefTRIAXone [Rocephin] Med 06/28/20 09:00 Active 1 gm IVPUSH Q24H Resuscitation Status Routine Resus Stat 06/27/20 11:05 Ordered Medication Orders Acetaminophen (Acetaminophen 325 Mg Tab) 650 mg PO Q4H PRN PRN Reason: Pain (Mild 1-3)/fever Albuterol (Albuterol 6.7 Gm Inhaler) 0 gm INH Q4HR PRN PRN Reason: Dyspnea Aspirin (Aspirin 81 Mg Tab.Ec) 81 mg PO DAILY FELI Atorvastatin Calcium (Atorvastatin 20 Mg Tab) 40 mg PO BEDTIME FELI Ceftriaxone Sodium (Ceftriaxone 1 Gm Vial) 1 gm IVPUSH Q24H FELI Dextrose/Water (50% Dextrose In Water 50 Ml Syringe) 50 ml IV Q15M PRN PRN Reason: Hypoglycemia Glucagon (Glucagon,Human Recombinant 1 Mg Vial) 1 mg IM Q15M PRN PRN Reason: Hypoglycemia Heparin Sodium (Porcine) (Heparin Sodium 5,000 Units/Ml Vial) 5,000 units SUBCUT Q8HR [facility] Last Admin: 06/27/20 14:46 Dose: 5,000 units Documented by: MADAN Insulin Human Lispro (Insulin Lispro 100 Units/Ml 3 Ml Vial) 0 unit SUBCUT WITHMEALSANDBED FELI; Protocol Last Admin: 06/27/20 17:24 Dose: Not Given Documented by: Admin: 06/27/20 12:18 Dose: Not Given Documented by: MADAN Magnesium Oxide (Magnesium Oxide 250 Mg Tab) 500 mg PO WITHBREAKFAST FELI Nitroglycerin (Nitroglycerin 0.4 Mg Tab.Sl) 0.4 mg SL ASDIRECTED PRN PRN Reason: Chest Pain Non-Formulary Medication (Sevelamer Carbonate) 2,400 mg PO TID FELI Oxybutynin Chloride (Oxybutynin 5 Mg Tab.Er) 5 mg PO BID FELI Senna/Docusate Sodium (Docusate Sodium/Sennosides 50-8.6 Mg Tab) 1 tab PO BID PRN PRN Reason: Constipation Sertraline HCl (Sertraline 50 Mg Tab) 25 mg PO DAILY FELI Tamsulosin HCl (Tamsulosin 0.4 Mg Cap.Er) 0.4 mg PO BEDTIME FELI Assessment/Plan Comment:: #sepsis 2/2 CAUTI - present on admission - brito has been changed - c/w ceftriaxone #urinary retention - pt d/c w/ brito from [facility] months ago and as far as pt knows there has not been a trial of void - will defer for next 48-72h to allow bladder drainage in setting of acute infection - he should then have a TOV prior to d/c #CAD / chronic CHF type unknown / HT - hold BP meds today given sepsis - will restart sequentially #DM2 - SUSANNA PPX - [facility] Full code
[2020-06-28] MEDS: Heparin Sodium 5,000 Units/ML Vial SUBCUT SCH ×3 (05:04→21:01)
[2020-06-28] MEDS: Insulin Lispro 100 Units/ML 3 ML Vial SUBCUT SCH ×4 (07:56→21:01)
[2020-06-28] MEDS ORDERED: cefTRIAXone 1 GM in Sodium Chloride 0.9% 50 ML IV SCH (09:00)
[2020-06-28] MEDS ORDERED: Non-Formulary Medication 1 Each (Magnesium Oxide [Magnesium] 400 MG Tablet) PO SCH (09:00)
[2020-06-28] MEDS: Sertraline 50 MG Tab PO SCH (09:02)
[2020-06-28] MEDS: cefTRIAXone 1 GM Vial IVPUSH SCH (09:03)
[2020-06-28] MEDS: Oxybutynin 5 MG Tab.ER PO SCH ×2 (09:03→21:00)
[2020-06-28] MEDS: Aspirin 81 MG Tab.EC PO SCH (09:04)
[2020-06-28] MEDS ORDERED: Metolazone 2.5 MG Tab PO ONE (09:30)
[2020-06-28] MEDS ORDERED: Bumetanide 1 MG Tab PO ONE (10:00)
[2020-06-28] MEDS ORDERED: Levofloxacin/Dextrose 5%-Water 750 MG in Premix Bag 1 BAG IV SCH (12:00)
[2020-06-28] MEDS: Bumetanide 1 MG Tab PO SCH (13:57)
--- NOTE | 2020-06-28 17:13 | PCM.PN ---
- General Info Date of Service: 06/28/20 Admission Dx/Problem (Free Text): Feels well. No complaints. Afebrile. - Patient Data Vitals - Most Recent: Last Vital Signs Temp 98.4 F 06/28/20 16:30 Pulse 70 06/28/20 16:30 Resp 18 06/28/20 16:30 BP 168/73 H 06/28/20 16:30 Pulse Ox 98 06/28/20 16:30 Weight - Most Recent: 183 lb 9.6 oz I&O - Last 24 Hours: Intake & Output 06/28/20 06/28/20 06/28/20 06:59 14:59 22:59 Intake Total 600 1370 240 Output Total 473 791 6515 Balance -250 920 -1010 Lab Results Last 24 Hours: Laboratory Results - last 24 hr 06/27/20 06/27/20 06/28/20 Range/Units 17:01 20:16 06:07 WBC 17.0 H (5.0-10.0) 10^3/uL RBC 3.16 L (4.6-6.2) 10^6/uL Hgb 9.9 L (14.0-18.0) g/dL Hct 29.5 L (40.0-54.0) % MCV 93.4 (80-100) fL MCH 31.3 (27.0-34.0) pg MCHC 33.6 (33.0-35.0) g/dL Plt Count 112 L (150-450) 10^3/uL Neut % (Auto) 79.1 H (42.2-75.2) % Lymph % (Auto) 9.7 L (20.5-50.1) % [place] % (Auto) 9.3 H (2-8) % Eos % (Auto) 1.7 (1.0-3.0) % Baso % (Auto) 0.2 (0.0-1.0) % Sodium (136-145) mmol/L Potassium (3.5-5.1) mmol/L Chloride (98-107) mmol/L Carbon Dioxide (21-32) mmol/L Anion Gap (7-13) mEq/L BUN (7-18) mg/dL Creatinine (0.70-1.30) mg/dL Est Cr Clr Drug Dosing mL/min Estimated GFR (MDRD) Glucose (74-99) mg/dL POC Glucose 132 H 169 H (70-105) mg/dl Calcium (8.5-10.1) mg/dL 06/28/20 06/28/20 06/28/20 Range/Units 06:07 07:45 11:48 WBC (5.0-10.0) 10^3/uL RBC (4.6-6.2) 10^6/uL Hgb (14.0-18.0) g/dL Hct (40.0-54.0) % MCV (80-100) fL MCH (27.0-34.0) pg MCHC (33.0-35.0) g/dL Plt Count (150-450) 10^3/uL Neut % (Auto) (42.2-75.2) % Lymph % (Auto) (20.5-50.1) % [place] % (Auto) (2-8) % Eos % (Auto) (1.0-3.0) % Baso % (Auto) (0.0-1.0) % Sodium 141 (136-145) mmol/L Potassium 4.0 (3.5-5.1) mmol/L Chloride 107 (98-107) mmol/L Carbon Dioxide 26 (21-32) mmol/L Anion Gap 12.0 (7-13) mEq/L BUN 50 H (7-18) mg/dL Creatinine 2.45 H (0.70-1.30) mg/dL Est Cr Clr Drug Dosing 34.15 mL/min Estimated GFR (MDRD) 27 Glucose 104 H (74-99) mg/dL POC Glucose 125 H 141 H (70-105) mg/dl Calcium 8.1 L (8.5-10.1) mg/dL 06/28/20 Range/Units 16:54 WBC (5.0-10.0) 10^3/uL RBC (4.6-6.2) 10^6/uL Hgb (14.0-18.0) g/dL Hct (40.0-54.0) % MCV (80-100) fL MCH (27.0-34.0) pg MCHC (33.0-35.0) g/dL Plt Count (150-450) 10^3/uL Neut % (Auto) (42.2-75.2) % Lymph % (Auto) (20.5-50.1) % [place] % (Auto) (2-8) % Eos % (Auto) (1.0-3.0) % Baso % (Auto) (0.0-1.0) % Sodium (136-145) mmol/L Potassium (3.5-5.1) mmol/L Chloride (98-107) mmol/L Carbon Dioxide (21-32) mmol/L Anion Gap (7-13) mEq/L BUN (7-18) mg/dL Creatinine (0.70-1.30) mg/dL Est Cr Clr Drug Dosing mL/min Estimated GFR (MDRD) Glucose (74-99) mg/dL POC Glucose 161 H (70-105) mg/dl Calcium (8.5-10.1) mg/dL Davi Results Last 24 Hours: Microbiology 06/27/20 07:39 Quick Strep Confirmation Culture - Final Throat NO GROUP A STREP ISOLATED REFERENCE RANGE: NEGATIVE Group A Streptococcus Rapid Screen - Final NEGATIVE STREP A SCREEN REFERENCE RANGE: NEGATIVE 06/27/20 08:45 Urine Culture - Preliminary Urine, Catheterized 06/27/20 09:05 Aerobic Blood Culture - Preliminary Blood - Venous - Iv Start NO GROWTH AFTER 1 DAY Anaerobic Blood Culture - Preliminary NO GROWTH AFTER 1 DAY Med Orders - Current: Current Medications Acetaminophen (Acetaminophen 325 Mg Tab) 650 mg PO Q4H PRN PRN Reason: Pain (Mild 1-3)/fever Albuterol (Albuterol 6.7 Gm Inhaler) 0 gm INH Q4HR PRN PRN Reason: Dyspnea Aspirin (Aspirin 81 Mg Tab.Ec) 81 mg PO DAILY [facility] Last Admin: 06/28/20 09:04 Dose: 81 mg Documented by: Atorvastatin Calcium (Atorvastatin 20 Mg Tab) 40 mg PO BEDTIME [facility] Last Admin: 06/27/20 20:09 Dose: 40 mg Documented by: Bumetanide (Bumetanide 1 Mg Tab) 1 mg PO BIDDIURETIC [facility] Last Admin: 06/28/20 13:57 Dose: 1 mg Documented by: Ceftriaxone Sodium (Ceftriaxone 1 Gm Vial) 1 gm IVPUSH Q24H [facility] Last Admin: 06/28/20 09:03 Dose: 1 gm Documented by: Dextrose/Water (50% Dextrose In Water 50 Ml Syringe) 50 ml IV Q15M PRN PRN Reason: Hypoglycemia Glucagon (Glucagon,Human Recombinant 1 Mg Vial) 1 mg IM Q15M PRN PRN Reason: Hypoglycemia Heparin Sodium (Porcine) (Heparin Sodium 5,000 Units/Ml Vial) 5,000 units SUBCUT Q8HR [facility] Last Admin: 06/28/20 13:57 Dose: 5,000 units Documented by: Levofloxacin/Dextrose 750 mg/ (Premix) 150 mls @ 100 mls/hr IV Q48H [facility] Last Infusion: 06/28/20 13:20 Dose: Infused Documented by: Insulin Human Lispro (Insulin Lispro 100 Units/Ml 3 Ml Vial) 0 unit SUBCUT WITHMEALSANDBED [facility]; Protocol Last Admin: 06/28/20 11:52 Dose: Not Given Documented by: Magnesium Oxide (Magnesium Oxide 250 Mg Tab) 500 mg PO WITHBREAKFAST [facility] Last Admin: 06/28/20 09:02 Dose: 500 mg Documented by: Metolazone (Metolazone 2.5 Mg Tab) 2.5 mg PO Q48H [facility] Nitroglycerin (Nitroglycerin 0.4 Mg Tab.Sl) 0.4 mg SL ASDIRECTED PRN PRN Reason: Chest Pain Non-Formulary Medication (Sevelamer Carbonate) 2,400 mg PO TID [facility] Oxybutynin Chloride (Oxybutynin 5 Mg Tab.Er) 5 mg PO BID [facility] Last Admin: 06/28/20 09:03 Dose: 5 mg Documented by: Senna/Docusate Sodium (Docusate Sodium/Sennosides 50-8.6 Mg Tab) 1 tab PO BID PRN PRN Reason: Constipation Last Admin: 06/27/20 20:08 Dose: 1 tab Documented by: Sertraline HCl (Sertraline 50 Mg Tab) 25 mg PO DAILY [facility] Last Admin: 06/28/20 09:02 Dose: 25 mg Documented by: Tamsulosin HCl (Tamsulosin 0.4 Mg Cap.Er) 0.4 mg PO BEDTIME [facility] Last Admin: 06/27/20 20:08 Dose: 0.4 mg Documented by: Discontinued Medications Bumetanide (Bumetanide 1 Mg Tab) 1 mg PO ONETIME ONE Stop: 06/28/20 10:01 Last Admin: 06/28/20 10:07 Dose: 1 mg Documented by: Ceftriaxone Sodium 1 gm/ (Sodium Chloride) 50 mls @ 100 mls/hr IV ONETIME ONE Stop: 06/27/20 10:19 Last Admin: 06/27/20 10:07 Dose: 100 mls/hr Documented by: Sodium Chloride (Normal Saline) 1,000 mls @ 500 mls/hr IV .BOLUS ONE Stop: 06/27/20 12:27 Last Infusion: 06/27/20 13:48 Dose: Infused Documented by: Ceftriaxone Sodium 1 gm/ (Sodium Chloride) 50 mls @ 100 mls/hr IV DAILY [facility] Metolazone (Metolazone 2.5 Mg Tab) 2.5 mg PO 0830 [facility] Metolazone (Metolazone 2.5 Mg Tab) 2.5 mg PO ONETIME ONE Stop: 06/28/20 09:31 Last Admin: 06/28/20 09:25 Dose: 2.5 mg Documented by: Non-Formulary Medication (Magnesium Oxide [Magnesium]) 400 mg PO DAILY [facility] Non-Formulary Medication (Sennosides [Senna]) 100 mg PO BID PRN PRN Reason: Constipation Ondansetron HCl (Ondansetron 4 Mg/2 Ml Sdv) 4 mg IVPUSH ONETIME ONE Stop: 06/27/20 08:59 Last Admin: 06/27/20 09:06 Dose: 4 mg Documented by: - Exam Quality Assessment: No: Supplemental Oxygen General: Alert, Oriented, Cooperative HEENT: Pupils Equal, Pupils Reactive Neck: Supple Lungs: Clear to Auscultation, Normal Respiratory Effort GI/Abdominal Exam: Normal Bowel Sounds, Soft, Non-Tender, No Distention (Male) Exam: Other (brito in place) Back Exam: No: CVA Tenderness (L), CVA Tenderness (R) Extremities: Other (s/p R BKA) Skin: Warm, Dry Neurological: No New Focal Deficit Psy/Mental Status: Alert, Normal Affect, Normal Mood - Patient Data Lab Results Last 24 hrs: Laboratory Results - last 24 hr 06/27/20 06/27/20 06/28/20 Range/Units 17:01 20:16 06:07 WBC 17.0 H (5.0-10.0) 10^3/uL RBC 3.16 L (4.6-6.2) 10^6/uL Hgb 9.9 L (14.0-18.0) g/dL Hct 29.5 L (40.0-54.0) % MCV 93.4 (80-100) fL MCH 31.3 (27.0-34.0) pg MCHC 33.6 (33.0-35.0) g/dL Plt Count 112 L (150-450) 10^3/uL Neut % (Auto) 79.1 H (42.2-75.2) % Lymph % (Auto) 9.7 L (20.5-50.1) % [place] % (Auto) 9.3 H (2-8) % Eos % (Auto) 1.7 (1.0-3.0) % Baso % (Auto) 0.2 (0.0-1.0) % Sodium (136-145) mmol/L Potassium (3.5-5.1) mmol/L Chloride (98-107) mmol/L Carbon Dioxide (21-32) mmol/L Anion Gap (7-13) mEq/L BUN (7-18) mg/dL Creatinine (0.70-1.30) mg/dL Est Cr Clr Drug Dosing mL/min Estimated GFR (MDRD) Glucose (74-99) mg/dL POC Glucose 132 H 169 H (70-105) mg/dl Calcium (8.5-10.1) mg/dL 06/28/20 06/28/20 06/28/20 Range/Units 06:07 07:45 11:48 WBC (5.0-10.0) 10^3/uL RBC (4.6-6.2) 10^6/uL Hgb (14.0-18.0) g/dL Hct (40.0-54.0) % MCV (80-100) fL MCH (27.0-34.0) pg MCHC (33.0-35.0) g/dL Plt Count (150-450) 10^3/uL Neut % (Auto) (42.2-75.2) % Lymph % (Auto) (20.5-50.1) % [place] % (Auto) (2-8) % Eos % (Auto) (1.0-3.0) % Baso % (Auto) (0.0-1.0) % Sodium 141 (136-145) mmol/L Potassium 4.0 (3.5-5.1) mmol/L Chloride 107 (98-107) mmol/L Carbon Dioxide 26 (21-32) mmol/L Anion Gap 12.0 (7-13) mEq/L BUN 50 H (7-18) mg/dL Creatinine 2.45 H (0.70-1.30) mg/dL Est Cr Clr Drug Dosing 34.15 mL/min Estimated GFR (MDRD) 27 Glucose 104 H (74-99) mg/dL POC Glucose 125 H 141 H (70-105) mg/dl Calcium 8.1 L (8.5-10.1) mg/dL 06/28/20 Range/Units 16:54 WBC (5.0-10.0) 10^3/uL RBC (4.6-6.2) 10^6/uL Hgb (14.0-18.0) g/dL Hct (40.0-54.0) % MCV (80-100) fL MCH (27.0-34.0) pg MCHC (33.0-35.0) g/dL Plt Count (150-450) 10^3/uL Neut % (Auto) (42.2-75.2) % Lymph % (Auto) (20.5-50.1) % [place] % (Auto) (2-8) % Eos % (Auto) (1.0-3.0) % Baso % (Auto) (0.0-1.0) % Sodium (136-145) mmol/L Potassium (3.5-5.1) mmol/L Chloride (98-107) mmol/L Carbon Dioxide (21-32) mmol/L Anion Gap (7-13) mEq/L BUN (7-18) mg/dL Creatinine (0.70-1.30) mg/dL Est Cr Clr Drug Dosing mL/min Estimated GFR (MDRD) Glucose (74-99) mg/dL POC Glucose 161 H (70-105) mg/dl Calcium (8.5-10.1) mg/dL Result Diagrams: 06/28/20 06:07 06/28/20 06:07 Davi Results Last 24 hrs: Microbiology 06/27/20 07:39 Quick Strep Confirmation Culture - Final Throat NO GROUP A STREP ISOLATED REFERENCE RANGE: NEGATIVE Group A Streptococcus Rapid Screen - Final NEGATIVE STREP A SCREEN REFERENCE RANGE: NEGATIVE 06/27/20 08:45 Urine Culture - Preliminary Urine, Catheterized 06/27/20 09:05 Aerobic Blood Culture - Preliminary Blood - Venous - Iv Start NO GROWTH AFTER 1 DAY Anaerobic Blood Culture - Preliminary NO GROWTH AFTER 1 DAY Sepsis Event Note - Evaluation Sepsis Screening Result: No Definite Risk - Focused Exam Vital Signs: Vital Signs Temp Pulse Resp BP Pulse Ox 06/28/20 16:30 98.4 F 70 18 168/73 H 98 06/28/20 12:00 97.9 F 69 16 163/70 H 98 06/28/20 07:36 98.5 F 72 16 146/67 H 99 - Problem List Review Problem List Initiated/Reviewed/Updated: No - My Orders Last 24 Hours: My Active Orders 06/27/20 19:11 Docusate Sodium/Sennosides [Senna Plus] 1 tab PO BID PRN 06/27/20 21:00 Oxybutynin [Oxybutynin ER] 5 mg PO BID Sevelamer Carbonate 2,400 mg PO TID Tamsulosin [Flomax] 0.4 mg PO BEDTIME atorvaSTATin [Lipitor] 40 mg PO BEDTIME 06/28/20 08:00 Magnesium Oxide 500 mg PO WITHBREAKFAST 06/28/20 09:00 Aspirin [Halfprin] 81 mg PO DAILY Sertraline [Zoloft] 25 mg PO DAILY cefTRIAXone [Rocephin] 1 gm IVPUSH Q24H 06/28/20 12:00 Levofloxacin/Dextrose 5%-Water [Levaquin in D5W 750 MG/150 ML] 750 mg Premix Bag 1 bag IV Q48H 06/28/20 14:00 Bumetanide [Bumex] 1 mg PO BIDDIURETIC 06/30/20 07:30 metOLazone [Zaroxolyn] 2.5 mg PO Q48H - Plan Plan:: #sepsis 2/2 CAUTI - present on admission - brito has been changed - urine cultures growing possible pseudomonas - c/w ceftriaxone but add renally dosed levofloxacin to cover pseudomonas - tailor therapy based on final culture/sensitivities #urinary retention - pt d/c w/ brito from [facility] months ago and as far as pt knows there has not been a trial of void - will defer for next 48-72h to allow bladder drainage in setting of acute infection - he should then have a TOV prior to d/c #CAD / chronic CHF type unknown / HT - restart bumex and metolazone today - c/w holding amlodipine #DM2 - SUSANNA PPX - [facility] Full code
[2020-06-28] MEDS: Tamsulosin 0.4 MG Cap.ER PO SCH (21:00)
[2020-06-28] MEDS: atorvaSTATin 20 MG Tab PO SCH (21:00)
[2020-06-29] MEDS: Heparin Sodium 5,000 Units/ML Vial SUBCUT SCH ×3 (05:12→22:16)
[2020-06-29 07:01] LABS: ANION GAP 12.5 mEq/L (7-13)
[2020-06-29] MEDS: Insulin Lispro 100 Units/ML 3 ML Vial SUBCUT SCH ×4 (07:50→22:12)
[2020-06-29] MEDS ORDERED: Metolazone 2.5 MG Tab PO SCH (08:30)
[2020-06-29] MEDS: Bumetanide 1 MG Tab PO SCH ×2 (08:55→14:58)
[2020-06-29] MEDS: cefTRIAXone 1 GM Vial IVPUSH SCH (08:56)
[2020-06-29] MEDS: Aspirin 81 MG Tab.EC PO SCH (08:56)
[2020-06-29] MEDS: Sertraline 50 MG Tab PO SCH (08:56)
[2020-06-29] MEDS: Oxybutynin 5 MG Tab.ER PO SCH ×2 (08:56→22:11)
[2020-06-29] MEDS: cefTRIAXone 1 GM in Sodium Chloride 0.9% 50 ML IV SCH (10:26)
--- NOTE | 2020-06-29 12:49 | PCM.PN ---
- General Info Date of Service: 06/29/20 Admission Dx/Problem (Free Text): Feels well. No complaints. Afebrile. - Review of Systems General: Denies: Fever HEENT: Denies: Headaches Pulmonary: Denies: Shortness of Breath Cardiovascular: Denies: Chest Pain Gastrointestinal: Denies: Abdominal Pain Genitourinary: Denies: Dysuria Neurological: Denies: Confusion - Patient Data Vitals - Most Recent: Last Vital Signs Temp 98.2 F 06/29/20 09:04 Pulse 78 06/29/20 09:04 Resp 20 06/29/20 09:04 BP 138/76 06/29/20 09:04 Pulse Ox 97 06/29/20 09:04 Weight - Most Recent: 183 lb 3.2 oz I&O - Last 24 Hours: Intake & Output 06/28/20 06/29/20 06/29/20 22:59 06:59 14:59 Intake Total 1336 Output Total 2550 1100 Balance -1214 -1100 Lab Results Last 24 Hours: Laboratory Results - last 24 hr 06/28/20 06/28/20 06/29/20 Range/Units 16:54 20:25 06:12 WBC 11.3 H (5.0-10.0) 10^3/uL RBC 3.31 L (4.6-6.2) 10^6/uL Hgb 10.5 L (14.0-18.0) g/dL Hct 30.2 L (40.0-54.0) % MCV 91.2 (80-100) fL MCH 31.7 (27.0-34.0) pg MCHC 34.8 (33.0-35.0) g/dL Plt Count 137 L (150-450) 10^3/uL Neut % (Auto) 76.7 H (42.2-75.2) % Lymph % (Auto) 11.2 L (20.5-50.1) % [place] % (Auto) 8.3 H (2-8) % Eos % (Auto) 3.4 H (1.0-3.0) % Baso % (Auto) 0.4 (0.0-1.0) % Sodium (136-145) mmol/L Potassium (3.5-5.1) mmol/L Chloride (98-107) mmol/L Carbon Dioxide (21-32) mmol/L Anion Gap (7-13) mEq/L BUN (7-18) mg/dL Creatinine (0.70-1.30) mg/dL Est Cr Clr Drug Dosing mL/min Estimated GFR (MDRD) Glucose (74-99) mg/dL POC Glucose 161 H 126 H (70-105) mg/dl Calcium (8.5-10.1) mg/dL 06/29/20 06/29/20 06/29/20 Range/Units 06:12 07:50 11:52 WBC (5.0-10.0) 10^3/uL RBC (4.6-6.2) 10^6/uL Hgb (14.0-18.0) g/dL Hct (40.0-54.0) % MCV (80-100) fL MCH (27.0-34.0) pg MCHC (33.0-35.0) g/dL Plt Count (150-450) 10^3/uL Neut % (Auto) (42.2-75.2) % Lymph % (Auto) (20.5-50.1) % [place] % (Auto) (2-8) % Eos % (Auto) (1.0-3.0) % Baso % (Auto) (0.0-1.0) % Sodium 141 (136-145) mmol/L Potassium 4.5 (3.5-5.1) mmol/L Chloride 106 (98-107) mmol/L Carbon Dioxide 27 (21-32) mmol/L Anion Gap 12.5 (7-13) mEq/L BUN 47 H (7-18) mg/dL Creatinine 2.28 H (0.70-1.30) mg/dL Est Cr Clr Drug Dosing 36.70 mL/min Estimated GFR (MDRD) 29 Glucose 102 H (74-99) mg/dL POC Glucose 108 H 153 H (70-105) mg/dl Calcium 8.4 L (8.5-10.1) mg/dL Davi Results Last 24 Hours: Microbiology 06/27/20 09:05 Aerobic Blood Culture - Preliminary Blood - Venous - Iv Start NO GROWTH AFTER 2 DAYS Anaerobic Blood Culture - Preliminary NO GROWTH AFTER 2 DAYS 06/27/20 08:45 Urine Culture - Final Urine, Catheterized Pseudomonas Aeruginosa 06/27/20 07:39 Quick Strep Confirmation Culture - Final Throat NO GROUP A STREP ISOLATED REFERENCE RANGE: NEGATIVE Group A Streptococcus Rapid Screen - Final NEGATIVE STREP A SCREEN REFERENCE RANGE: NEGATIVE Med Orders - Current: Current Medications Acetaminophen (Acetaminophen 325 Mg Tab) 650 mg PO Q4H PRN PRN Reason: Pain (Mild 1-3)/fever Albuterol (Albuterol 6.7 Gm Inhaler) 0 gm INH Q4HR PRN PRN Reason: Dyspnea Aspirin (Aspirin 81 Mg Tab.Ec) 81 mg PO DAILY [facility] Last Admin: 06/29/20 08:56 Dose: 81 mg Documented by: Atorvastatin Calcium (Atorvastatin 20 Mg Tab) 40 mg PO BEDTIME [facility] Last Admin: 06/28/20 21:00 Dose: 40 mg Documented by: Bumetanide (Bumetanide 1 Mg Tab) 1 mg PO BIDDIURETIC [facility] Last Admin: 06/29/20 08:55 Dose: 1 mg Documented by: Ceftriaxone Sodium (Ceftriaxone 1 Gm Vial) 1 gm IVPUSH Q24H [facility] Last Admin: 06/29/20 08:56 Dose: 1 gm Documented by: Dextrose/Water (50% Dextrose In Water 50 Ml Syringe) 50 ml IV Q15M PRN PRN Reason: Hypoglycemia Glucagon (Glucagon,Human Recombinant 1 Mg Vial) 1 mg IM Q15M PRN PRN Reason: Hypoglycemia Heparin Sodium (Porcine) (Heparin Sodium 5,000 Units/Ml Vial) 5,000 units S UBCUT Q8HR [facility] Last Admin: 06/29/20 05:12 Dose: 5,000 units Documented by: Ceftriaxone Sodium 1 gm/ (Sodium Chloride) 50 mls @ 100 mls/hr IV Q24H [facility] Last Admin: 06/29/20 10:26 Dose: Not Given Documented by: Insulin Human Lispro (Insulin Lispro 100 Units/Ml 3 Ml Vial) 0 unit SUBCUT WITHMEALSANDBED [facility]; Protocol Last Admin: 06/29/20 12:16 Dose: 2 units Documented by: Magnesium Oxide (Magnesium Oxide 250 Mg Tab) 500 mg PO WITHBREAKFAST [facility] Last Admin: 06/29/20 08:55 Dose: 500 mg Documented by: Metolazone (Metolazone 2.5 Mg Tab) 2.5 mg PO Q48H [facility] Nitroglycerin (Nitroglycerin 0.4 Mg Tab.Sl) 0.4 mg SL ASDIRECTED PRN PRN Reason: Chest Pain (Sevelamer Carbonate 800 Mg Tablet) Own Med 2,400 mg PO TID [facility] Last Admin: 06/29/20 08:58 Dose: 2,400 mg Documented by: Oxybutynin Chloride (Oxybutynin 5 Mg Tab.Er) 5 mg PO BID [facility] Last Admin: 06/29/20 08:56 Dose: 5 mg Documented by: Senna/Docusate Sodium (Docusate Sodium/Sennosides 50-8.6 Mg Tab) 1 tab PO BID PRN PRN Reason: Constipation Last Admin: 06/27/20 20:08 Dose: 1 tab Documented by: Sertraline HCl (Sertraline 50 Mg Tab) 25 mg PO DAILY [facility] Last Admin: 06/29/20 08:56 Dose: 25 mg Documented by: Tamsulosin HCl (Tamsulosin 0.4 Mg Cap.Er) 0.4 mg PO BEDTIME [facility] Last Admin: 06/28/20 21:00 Dose: 0.4 mg Documented by: Discontinued Medications Bumetanide (Bumetanide 1 Mg Tab) 1 mg PO ONETIME ONE Stop: 06/28/20 10:01 Last Admin: 06/28/20 10:07 Dose: 1 mg Documented by: Ceftriaxone Sodium 1 gm/ (Sodium Chloride) 50 mls @ 100 mls/hr IV ONETIME ONE Stop: 06/27/20 10:19 Last Admin: 06/27/20 10:07 Dose: 100 mls/hr Documented by: Sodium Chloride (Normal Saline) 1,000 mls @ 500 mls/hr IV .BOLUS ONE Stop: 06/27/20 12:27 Last Infusion: 06/27/20 13:48 Dose: Infused Documented by: Ceftriaxone Sodium 1 gm/ (Sodium Chloride) 50 mls @ 100 mls/hr IV DAILY [facility] Levofloxacin/Dextrose 750 mg/ (Premix) 150 mls @ 100 mls/hr IV Q48H [facility] Last Infusion: 06/28/20 13:20 Dose: Infused Documented by: Metolazone (Metolazone 2.5 Mg Tab) 2.5 mg PO 0830 [facility] Metolazone (Metolazone 2.5 Mg Tab) 2.5 mg PO ONETIME ONE Stop: 06/28/20 09:31 Last Admin: 06/28/20 09:25 Dose: 2.5 mg Documented by: Non-Formulary Medication (Magnesium Oxide [Magnesium]) 400 mg PO DAILY [facility] Non-Formulary Medication (Sennosides [Senna]) 100 mg PO BID PRN PRN Reason: Constipation Ondansetron HCl (Ondansetron 4 Mg/2 Ml Sdv) 4 mg IVPUSH ONETIME ONE Stop: 06/27/20 08:59 Last Admin: 06/27/20 09:06 Dose: 4 mg Documented by: - Exam Quality Assessment: No: Supplemental Oxygen General: Alert, Oriented HEENT: EOMI Neck: Supple Lungs: Clear to Auscultation Cardiovascular: Regular Rate, Regular Rhythm GI/Abdominal Exam: Normal Bowel Sounds, Soft, Non-Tender (Male) Exam: Other (Brito in place) Skin: Warm Neurological: No New Focal Deficit Psy/Mental Status: Alert - Patient Data Lab Results Last 24 hrs: Laboratory Results - last 24 hr 06/28/20 06/28/20 06/29/20 Range/Units 16:54 20:25 06:12 WBC 11.3 H (5.0-10.0) 10^3/uL RBC 3.31 L (4.6-6.2) 10^6/uL Hgb 10.5 L (14.0-18.0) g/dL Hct 30.2 L (40.0-54.0) % MCV 91.2 (80-100) fL MCH 31.7 (27.0-34.0) pg MCHC 34.8 (33.0-35.0) g/dL Plt Count 137 L (150-450) 10^3/uL Neut % (Auto) 76.7 H (42.2-75.2) % Lymph % (Auto) 11.2 L (20.5-50.1) % [place] % (Auto) 8.3 H (2-8) % Eos % (Auto) 3.4 H (1.0-3.0) % Baso % (Auto) 0.4 (0.0-1.0) % Sodium (136-145) mmol/L Potassium (3.5-5.1) mmol/L Chloride (98-107) mmol/L Carbon Dioxide (21-32) mmol/L Anion Gap (7-13) mEq/L BUN (7-18) mg/dL Creatinine (0.70-1.30) mg/dL Est Cr Clr Drug Dosing mL/min Estimated GFR (MDRD) Glucose (74-99) mg/dL POC Glucose 161 H 126 H (70-105) mg/dl Calcium (8.5-10.1) mg/dL 06/29/20 06/29/20 06/29/20 Range/Units 06:12 07:50 11:52 WBC (5.0-10.0) 10^3/uL RBC (4.6-6.2) 10^6/uL Hgb (14.0-18.0) g/dL Hct (40.0-54.0) % MCV (80-100) fL MCH (27.0-34.0) pg MCHC (33.0-35.0) g/dL Plt Count (150-450) 10^3/uL Neut % (Auto) (42.2-75.2) % Lymph % (Auto) (20.5-50.1) % [place] % (Auto) (2-8) % Eos % (Auto) (1.0-3.0) % Baso % (Auto) (0.0-1.0) % Sodium 141 (136-145) mmol/L Potassium 4.5 (3.5-5.1) mmol/L Chloride 106 (98-107) mmol/L Carbon Dioxide 27 (21-32) mmol/L Anion Gap 12.5 (7-13) mEq/L BUN 47 H (7-18) mg/dL Creatinine 2.28 H (0.70-1.30) mg/dL Est Cr Clr Drug Dosing 36.70 mL/min Estimated GFR (MDRD) 29 Glucose 102 H (74-99) mg/dL POC Glucose 108 H 153 H (70-105) mg/dl Calcium 8.4 L (8.5-10.1) mg/dL Result Diagrams: 06/29/20 06:12 06/29/20 06:12 Davi Results Last 24 hrs: Microbiology 06/27/20 09:05 Aerobic Blood Culture - Preliminary Blood - Venous - Iv Start NO GROWTH AFTER 2 DAYS Anaerobic Blood Culture - Preliminary NO GROWTH AFTER 2 DAYS 06/27/20 08:45 Urine Culture - Final Urine, Catheterized Pseudomonas Aeruginosa 06/27/20 07:39 Quick Strep Confirmation Culture - Final Throat NO GROUP A STREP ISOLATED REFERENCE RANGE: NEGATIVE Group A Streptococcus Rapid Screen - Final NEGATIVE STREP A SCREEN REFERENCE RANGE: NEGATIVE Sepsis Event Note - Evaluation Sepsis Screening Result: No Definite Risk - Focused Exam Vital Signs: Vital Signs Temp Pulse Resp BP Pulse Ox 06/29/20 09:04 98.2 F 78 20 138/76 97 06/29/20 04:00 98.6 F 71 20 148/71 H 97 - Problem List & Annotations (1) Sepsis secondary to UTI SNOMED Code(s): 622951348 Code(s): A41.9 - SEPSIS, UNSPECIFIED ORGANISM; N39.0 - URINARY TRACT INFECTION, SITE NOT SPECIFIED Status: Acute Current Visit: Yes - Problem List Review Problem List Initiated/Reviewed/Updated: Yes - My Orders Last 24 Hours: My Active Orders 06/29/20 10:18 Remove Brito Catheter [Urinary Catheter Removal] [RC] ASDIRECTED 06/29/20 11:00 cefTRIAXone [Rocephin] 1 gm Sodium Chloride 0.9% [Normal Saline] 50 ml IV Q24H - Plan Plan:: #sepsis 2/2 CAUTI - present on admission - brito has been changed - urine cultures growing pseudomonas ( guerra sensitive)- DC Levaquin and resume ceftriaxone #urinary retention - pt d/c w/ brito from [facility] months ago and as far as pt knows there has not been a trial of void - voiding trial today and close monitoring for PVR #CAD / chronic CHF type unknown / HT - restart bumex and metolazone today - c/w holding amlodipine #DM2 - SUSANNA PPX - S[facility] Full code
[2020-06-29] MEDS: Tamsulosin 0.4 MG Cap.ER PO SCH (22:11)
[2020-06-29] MEDS: atorvaSTATin 20 MG Tab PO SCH (22:11)
[2020-06-30] MEDS: Heparin Sodium 5,000 Units/ML Vial SUBCUT SCH (06:12)
[2020-06-30] MEDS ORDERED: Metolazone 2.5 MG Tab PO SCH (07:30)
[2020-06-30] MEDS: Insulin Lispro 100 Units/ML 3 ML Vial SUBCUT SCH (07:49)
[2020-06-30] MEDS: Bumetanide 1 MG Tab PO SCH (08:08)
--- NOTE | 2020-06-30 08:13 | PCM.DCSUM1 ---
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 Pt has been feeling unwell for 2 days. He c/o body aches, chills, suprapubic abdominal pain. He is febrile in the ED w/ associated tachycardia and leukocytosis. ED work up reveals a catheter associated UTI. Pt states he was discharged w/ brito cath from [facility] in April. He went to a [facility] from there. Since then the catheter has been changed only once. He was discharged from the [facility] on 06/12 and a visiting nurse was planned to come and change the brito this week. He has seen a urologist once during this time - he thinks it was sometime in April. At no point was a trial of void ever attempted. Pt was found with #sepsis 2/2 CAUTI - present on admission - brito has been changed - urine cultures growing pseudomonas ( guerra sensitive)- treated with IV ceftriaxone. Pt will go with CIpro 250 mg BID for one week #urinary retention - pt d/c w/ brito from [facility] months ago and as far as pt knows there has not been a trial of void - voiding trial yest and close monitoring for PVR: all came wilma Ok with no retention. resume Flomax and DC Detrol #CAD / chronic CHF type unknown / HT - resume bumex and metolazone - resume home amlodipine F/U with PCP and Urology. ER if not better or any change - Discharge Data Discharge Date: 06/30/20 Discharge Disposition: Home, Self-Care 01 Condition: Good - Referral to Home Health Primary Care Physician: Ron Isbell MD - Discharge Diagnosis/Problem(s) (1) Sepsis secondary to UTI SNOMED Code(s): 290525122 ICD Code: A41.9 - SEPSIS, UNSPECIFIED ORGANISM; N39.0 - URINARY TRACT INFECTION, SITE NOT SPECIFIED Status: Acute Current Visit: Yes - Patient Summary/Data Consults: Consultations 06/27/20 11:05 PT Evaluation and Treatment [CONS] Routine - Patient Instructions Diet: Heart Healthy Diet - Discharge Plan *PRESCRIPTION DRUG MONITORING PROGRAM REVIEWED*: Not Applicable *COPY OF PRESCRIPTION DRUG MONITORING REPORT IN PATIENT GUANACO: Not Applicable Prescriptions/Med Rec: Ciprofloxacin HCl [Cipro] 250 mg PO BID 7 Days #14 tablet Tamsulosin HCl [Flomax] 0.4 mg PO BEDTIME 30 Days #30 Albuterol Sulfate [Proair Hfa] 1 - 2 inh INH Q4HR PRN 30 Days #1 inh PRN Reason: Dyspnea Sennosides [Senna] 8.6 mg PO BID PRN 30 Days #60 PRN Reason: Constipation Cholecalciferol (Vitamin D3) [Vitamin D3] 1,000 unit PO DAILY 30 Days #30 Tobacco Cessation Medication: Prescription Given (to come to ER if having difficulty urinating, fever or any symptoms) Home Medications: Home Meds Nitroglycerin 0.4 mg PO [id number] PRN 11/20/18 [History] amLODIPine [Norvasc] 5 mg PO DAILY 10/25/19 [History] Acetaminophen [Tylenol] 650 mg PO Q4H PRN tablet 06/30/20 [Rx] Albuterol Sulfate [Proair Hfa] 1 - 2 inh INH Q4HR PRN 30 Days #1 inh 06/30/20 [Rx] Bumetanide [Bumex] 1 mg PO BIDDIURETIC tablet 06/30/20 [Rx] Cholecalciferol (Vitamin D3) [Vitamin D3] 1,000 unit PO DAILY 30 Days #30 06/30/20 [Rx] Ciprofloxacin HCl [Cipro] 250 mg PO BID 7 Days #14 tablet 06/30/20 [Rx] Magnesium Oxide 500 mg PO WITHBREAKFAST tablet 06/30/20 [Rx] Sennosides [Senna] 8.6 mg PO BID PRN 30 Days #60 06/30/20 [Rx] Sertraline [Zoloft] 25 mg PO DAILY tablet 06/30/20 [Rx] Tamsulosin HCl [Flomax] 0.4 mg PO BEDTIME 30 Days #30 06/30/20 [Rx] atorvaSTATin [Lipitor] 40 mg PO BEDTIME tablet 06/30/20 [Rx] metOLazone [Zaroxolyn] 2.5 mg PO Q48H tablet 06/30/20 [Rx] Oxygen Therapy Mode: Room Air Patient Handouts: Urosepsis, Adult Forms: ED Department Discharge Referrals: Ron Isbell MD [Primary Care Provider] - - Discharge Summary/Plan Comment DC Time >30 min.: Yes - General Info Date of Service: 06/30/20 - Review of Systems General: Denies: Fever Pulmonary: Denies: Shortness of Breath Cardiovascular: Denies: Chest Pain Gastrointestinal: Denies: Abdominal Pain Genitourinary: Denies: Dysuria, Frequency, Burning, Urgency, Incontinence Neurological: Denies: Confusion Psychiatric: Denies: Confusion - Patient Data Vitals - Most Recent: Last Vital Signs Temp 98.0 F 06/30/20 08:00 Pulse 69 06/30/20 08:00 Resp 20 06/30/20 08:00 BP 142/73 H 06/30/20 08:00 Pulse Ox 98 06/30/20 08:00 Weight - Most Recent: 179 lb 6.4 oz I&O - Last 24 hours: Intake & Output 06/29/20 06/30/20 06/30/20 22:59 06:59 14:59 Intake Total 1450 500 Output Total 1420 1470 Balance 30 -970 Lab Results - Last 24 hrs: Laboratory Results - last 24 hr 06/29/20 06/29/20 06/29/20 Range/Units 11:52 16:01 21:12 POC Glucose 153 H 118 H 123 H (70-105) mg/dl 06/30/20 Range/Units 07:42 POC Glucose 103 (70-105) mg/dl SIM Results - Last 24 hrs: Microbiology 06/27/20 09:05 Aerobic Blood Culture - Preliminary Blood - Venous - Iv Start NO GROWTH AFTER 2 DAYS Anaerobic Blood Culture - Preliminary NO GROWTH AFTER 2 DAYS 06/27/20 08:45 Urine Culture - Final Urine, Catheterized Pseudomonas Aeruginosa Med Orders - Current: Current Medications Acetaminophen (Acetaminophen 325 Mg Tab) 650 mg PO Q4H PRN PRN Reason: Pain (Mild 1-3)/fever Albuterol (Albuterol 6.7 Gm Inhaler) 0 gm INH Q4HR PRN PRN Reason: Dyspnea Aspirin (Aspirin 81 Mg Tab.Ec) 81 mg PO DAILY [facility] Last Admin: 06/29/20 08:56 Dose: 81 mg Documented by: Atorvastatin Calcium (Atorvastatin 20 Mg Tab) 40 mg PO BEDTIME [facility] Last Admin: 06/29/20 22:11 Dose: 40 mg Documented by: Bumetanide (Bumetanide 1 Mg Tab) 1 mg PO BIDDIURETIC [facility] Last Admin: 06/29/20 14:58 Dose: 1 mg Documented by: Ceftriaxone Sodium (Ceftriaxone 1 Gm Vial) 1 gm IVPUSH Q24H [facility] Last Admin: 06/29/20 08:56 Dose: 1 gm Documented by: Dextrose/Water (50% Dextrose In Water 50 Ml Syringe) 50 ml IV Q15M PRN PRN Reason: Hypoglycemia Glucagon (Glucagon,Human Recombinant 1 Mg Vial) 1 mg IM Q15M PRN PRN Reason: Hypoglycemia Heparin Sodium (Porcine) (Heparin Sodium 5,000 Units/Ml Vial) 5,000 units SUBCUT Q8HR [facility] Last Admin: 06/30/20 06:12 Dose: 5,000 units Documented by: Ceftriaxone Sodium 1 gm/ (Sodium Chloride) 50 mls @ 100 mls/hr IV Q24H [facility] Last Admin: 06/29/20 10:26 Dose: Not Given Documented by: Insulin Human Lispro (Insulin Lispro 100 Units/Ml 3 Ml Vial) 0 unit SUBCUT WITHMEALSANDBED [facility]; Protocol Last Admin: 06/30/20 07:49 Dose: Not Given Documented by: Magnesium Oxide (Magnesium Oxide 250 Mg Tab) 500 mg PO WITHBREAKFAST [facility] Last Admin: 06/29/20 08:55 Dose: 500 mg Documented by: Metolazone (Metolazone 2.5 Mg Tab) 2.5 mg PO Q48H [facility] Nitroglycerin (Nitroglycerin 0.4 Mg Tab.Sl) 0.4 mg SL ASDIRECTED PRN PRN Reason: Chest Pain (Sevelamer Carbonate 800 Mg Tablet) Own Med 2,400 mg PO TID [facility] Last Admin: 06/29/20 22:13 Dose: 2,400 mg Documented by: Oxybutynin Chloride (Oxybutynin 5 Mg Tab.Er) 5 mg PO BID [facility] Last Admin: 06/29/20 22:11 Dose: 5 mg Documented by: Senna/Docusate Sodium (Docusate Sodium/Sennosides 50-8.6 Mg Tab) 1 tab PO BID PRN PRN Reason: Constipation Last Admin: 06/27/20 20:08 Dose: 1 tab Documented by: Sertraline HCl (Sertraline 50 Mg Tab) 25 mg PO DAILY [facility] Last Admin: 06/29/20 08:56 Dose: 25 mg Documented by: Tamsulosin HCl (Tamsulosin 0.4 Mg Cap.Er) 0.4 mg PO BEDTIME [facility] Last Admin: 06/29/20 22:11 Dose: 0.4 mg Documented by: Discontinued Medications Bumetanide (Bumetanide 1 Mg Tab) 1 mg PO ONETIME ONE Stop: 06/28/20 10:01 Last Admin: 06/28/20 10:07 Dose: 1 mg Documented by: Ceftriaxone Sodium 1 gm/ (Sodium Chloride) 50 mls @ 100 mls/hr IV ONETIME ONE Stop: 06/27/20 10:19 Last Admin: 06/27/20 10:07 Dose: 100 mls/hr Documented by: Sodium Chloride (Normal Saline) 1,000 mls @ 500 mls/hr IV .BOLUS ONE Stop: 06/27/20 12:27 Last Infusion: 06/27/20 13:48 Dose: Infused Documented by: Ceftriaxone Sodium 1 gm/ (Sodium Chloride) 50 mls @ 100 mls/hr IV DAILY [facility] Levofloxacin/Dextrose 750 mg/ (Premix) 150 mls @ 100 mls/hr IV Q48H [facility] Last Infusion: 06/28/20 13:20 Dose: Infused Documented by: Metolazone (Metolazone 2.5 Mg Tab) 2.5 mg PO 0830 [facility] Metolazone (Metolazone 2.5 Mg Tab) 2.5 mg PO ONETIME ONE Stop: 06/28/20 09:31 Last Admin: 06/28/20 09:25 Dose: 2.5 mg Documented by: Non-Formulary Medication (Magnesium Oxide [Magnesium]) 400 mg PO DAILY [facility] Non-Formulary Medication (Sennosides [Senna]) 100 mg PO BID PRN PRN Reason: Constipation Ondansetron HCl (Ondansetron 4 Mg/2 Ml Sdv) 4 mg IVPUSH ONETIME ONE Stop: 06/27/20 08:59 Last Admin: 06/27/20 09:06 Dose: 4 mg Documented by: - Exam Quality Assessment: Denies: Supplemental Oxygen General: Reports: Alert, Oriented Lungs: Reports: Clear to Auscultation Cardiovascular: Reports: Regular Rhythm GI/Abdominal Exam: Soft, Non-Tender (Male) Exam: No: Deferred Back Exam: Reports: CVA Tenderness (R) Extremities: Pedal Edema Skin: Reports: Warm Neurological: Reports: No New Focal Deficit Psy/Mental Status: Reports: Normal Affect
[2020-06-30] MEDS: cefTRIAXone 1 GM Vial IVPUSH SCH (09:54)
[2020-06-30] MEDS: cefTRIAXone 1 GM in Sodium Chloride 0.9% 50 ML IV SCH ×2 (09:54→11:21)
[2020-06-30] MEDS: Sertraline 50 MG Tab PO SCH (09:58)
[2020-06-30] MEDS: Aspirin 81 MG Tab.EC PO SCH (09:58)
[2020-06-30] MEDS: Oxybutynin 5 MG Tab.ER PO SCH (09:58)
[2020-06-30 12:25] VITALS: BP 138/71; PULSE 70
== END 2020-06-30 12:15 | disposition home or self-care (01) | DRG 698 ==
LOC: DL.ED 07:32 → DL.MS 11:05
PROVIDERS: ADMIT Internal Medicine; ATTEND Internal Medicine
DX: T83.511A Infection and inflammatory reaction due to indwelling urethral catheter, initial encounter (principal); D64.9 Anemia, unspecified; A41.9 Sepsis, unspecified organism; I13.0 Hypertensive heart and chronic kidney disease with heart failure and stage 1 through stage 4 chronic kidney disease, or unspecified chronic kidney disease; Z94.0 Kidney transplant status; N39.0 Urinary tract infection, site not specified; Y84.6 Urinary catheterization as the cause of abnormal reaction of the patient, or of later complication, without mention of misadventure at the time of the procedure; Y92.89 Other specified places as the place of occurrence of the external cause; Z20.822 Contact with and (suspected) exposure to COVID-19; R33.9 Retention of urine, unspecified; I25.10 Atherosclerotic heart disease of native coronary artery without angina pectoris; I44.7 Left bundle-branch block, unspecified; I50.9 Heart failure, unspecified; G89.29 Other chronic pain; M54.9 Dorsalgia, unspecified; B96.5 Pseudomonas (aeruginosa) (mallei) (pseudomallei) as the cause of diseases classified elsewhere; Z79.4 Long term (current) use of insulin; Z89.511 Acquired absence of right leg below knee; E11.40 Type 2 diabetes mellitus with diabetic neuropathy, unspecified; Z79.82 Long term (current) use of aspirin; Z79.899 Other long term (current) drug therapy; B18.2 Chronic viral hepatitis C; Z87.01 Personal history of pneumonia (recurrent); I25.2 Old myocardial infarction; Z95.0 Presence of cardiac pacemaker; Z95.5 Presence of coronary angioplasty implant and graft; Z98.42 Cataract extraction status, left eye; Z98.41 Cataract extraction status, right eye; H40.9 Unspecified glaucoma; H54.7 Unspecified visual loss; N18.30 Chronic kidney disease, stage 3 unspecified; E11.22 Type 2 diabetes mellitus with diabetic chronic kidney disease; F41.9 Anxiety disorder, unspecified; F32.9 Major depressive disorder, single episode, unspecified
CPT/HCPCS: 0240U; 36415; 51798; 71045; 80048; 80053; 81001; 82962; 83605; 83880; 85025; 87040; 87081; 87086; 87088; 87186; 87430; 96365; 96375; 97162; 99284; A9270-GY; J0696; J1644; J1815-GY; J1956; J2405; J7030

== ENCOUNTER 2020-09-12 13:04 | Emergency (ER) | payer MEDICAID ==
[2020-09-12 13:26] VITALS: BP 155/79; PULSE 76
--- NOTE | 2020-09-12 14:09 | EDM.PDOC ---
Scribed by Jeanne Ambriz 09/12/20 1332 for Juarez Whittington MD ED HPI GENERAL MEDICAL PROBLEM - General Chief Complaint: Genitourinary Problem Stated Complaint: [id number] WANTS BLADDER CHECKED Time Seen by Provider: 09/12/20 13:20 Source of Information: Reports: Patient, Family (), Old Records, RN, RN Notes Reviewed History Limitations: Reports: No Limitations - History of Present Illness INITIAL COMMENTS - FREE TEXT/NARRATIVE: Patient presents to ED by POV with c/o frequent urination. Pt states he takes two kinds of water pills and has frequent urination, especially at night. He take Bumex every morning and at noon, and takes Metolazone every other day. He had a Gaviria catheter from Apr-August 2020. He has been on Flomax since August. Pt states he urinates a small amount every 2 hours, but doesn't empty his bladder. Denies fever, chills, abdominal pain, flank pain, or hematuria. Pt's was worried about pt developing a UTI. Pt denies pain or burning with urination. Duration: Chronic, Constant Location: Reports: Other (urinary) Quality: Reports: Other (Denies pain) Improves with: Reports: None Worsens with: Reports: None Associated Symptoms: Reports: No Other Symptoms - Related Data Allergies Allergy/AdvReac Type Severity Reaction Status Date / Time No Known Allergies Allergy Verified 06/27/20 11:33 Home Meds: Home Meds Nitroglycerin 0.4 mg PO .[id number] PRN 11/20/18 [History] amLODIPine [Norvasc] 5 mg PO DAILY 10/25/19 [History] Acetaminophen [Tylenol] 650 mg PO Q4H PRN tablet 06/30/20 [Rx] Albuterol Sulfate [Proair Hfa] 1 - 2 inh INH Q4HR PRN 30 Days #1 inh 06/30/20 [Rx] Bumetanide [Bumex] 1 mg PO BIDDIURETIC tablet 06/30/20 [Rx] Cholecalciferol (Vitamin D3) [Vitamin D3] 1,000 unit PO DAILY 30 Days #30 06/30/20 [Rx] Ciprofloxacin HCl [Cipro] 250 mg PO BID 7 Days #14 tablet 06/30/20 [Rx] Magnesium Oxide 500 mg PO WITHBREAKFAST tablet 06/30/20 [Rx] Sennosides [Senna] 8.6 mg PO BID PRN 30 Days #60 06/30/20 [Rx] Sertraline [Zoloft] 25 mg PO DAILY tablet 06/30/20 [Rx] Tamsulosin HCl [Flomax] 0.4 mg PO BEDTIME 30 Days #30 06/30/20 [Rx] atorvaSTATin [Lipitor] 40 mg PO BEDTIME tablet 06/30/20 [Rx] metOLazone [Zaroxolyn] 2.5 mg PO Q48H tablet 06/30/20 [Rx] Past Medical History HEENT History: Reports: Cataract, Glaucoma, Impaired Vision Other HEENT History: Will obtain new glasses after cataract surgery Cardiovascular History: Reports: CAD, Heart Failure, Hypertension, [place], Pacemaker, Stents Other Cardiovascular History: LBBB Respiratory History: Reports: Pneumonia, Recurrent, SOB Other Respiratory History: with CHF Gastrointestinal History: Reports: None Genitourinary History: Reports: Renal Disease Other Genitourinary History: stage 3 renal failure Musculoskeletal History: Reports: Back Pain, Chronic, Other (See Below) Neurological History: Reports: Neuropathy, Diabetic Other Neuro History: memory lapses rarely Psychiatric History: Reports: Anxiety, Depression Other Psychiatric History: Pt states that he has an appt with mental health in [place] this coming week Endocrine/Metabolic History: Reports: Diabetes, Type II Hematologic History: Reports: None Immunologic History: Reports: None Oncologic (Cancer) History: Reports: None Dermatologic History: Reports: Other (See Below) Other Dermatologic History: Diabetic foot ulcer. Pt states 6 months of skin itching to the back, arms and legs - Infectious Disease History Infectious Disease History: Reports: Other (See Below) Other Infectious Disease History: ecoli - Past Surgical History Head Surgeries/Procedures: Reports: None HEENT Surgical History: Reports: Cataract Surgery Other HEENT Surgeries/Procedures: scheduled for 2017 Cardiovascular Surgical History: Reports: None Other Cardiovascular Surgeries/Procedures: in June Respiratory Surgical History: Reports: None GI Surgical History: Reports: None Male Surgical History: Reports: None Other Male Surgeries/Procedures: kidney biopsy done Endocrine Surgical History: Reports: None Neurological Surgical History: Reports: None Musculoskeletal Surgical History: Reports: Amputation, Other (See Below) Other Musculoskeletal Surgeries/Procedures:: Left 5th toe amptutation rt btk amputation Dermatological Surgical History: Reports: Other (See Below) Social & Family History - Family History Family Medical History: No Pertinent Family History - Caffeine Use Caffeine Use: Reports: Coffee Caffeine Use Comment: 1-2cups per day - Living Situation & Occupation Living situation: Reports: , with Spouse Occupation: Disabled ED ROS GENERAL - Review of Systems Review Of Systems: Comprehensive ROS is negative, except as noted in HPI. ED EXAM, RENAL/ - Physical Exam Exam: See Below Exam Limited By: No Limitations General Appearance: Alert, No Apparent Distress, Other (Chronically ill, but non-toxic appearing) Eye Exam: Bilateral Eye: Normal Inspection Nose: Normal Inspection Throat/Mouth: Normal Voice, No Airway Compromise Head: Atraumatic, Normocephalic Neck: Normal Inspection, Non-Tender, Full Range of Motion Respiratory/Chest: No Respiratory Distress, Lungs Clear, Normal Breath Sounds, No Accessory Muscle Use, Chest Non-Tender. No: Crackles, Rales, Rhonchi, Wheezing Cardiovascular: Regular Rate, Rhythm, No Edema GI/Abdominal: Normal Bowel Sounds, Soft, Non-Tender. No: Guarding, Rigid, Rebound (Male) Exam: Deferred Rectal (Males) Exam: Deferred Back Exam: Full Range of Motion. No: CVA Tenderness (L), CVA Tenderness (R), Vertebral Tenderness Extremities: Normal Range of Motion, Non-Tender, Normal Capillary Refill, Other (Right BKA with healthy appearing stump) Neurological: Alert, Oriented, No Motor/Sensory Deficits Psychiatric: Normal Affect, Normal Mood Skin Exam: Warm, Dry, Intact, Normal Color, No Rash Course - Vital Signs Last Recorded V/S: Last Vital Signs Temp 98.2 F 09/12/20 13:24 Pulse 76 09/12/20 13:24 Resp 18 09/12/20 13:24 BP 155/79 H 09/12/20 13:24 Pulse Ox 100 09/12/20 13:24 - Orders/Labs/Meds Orders: Active Orders 24 hr Category Date Time Status Bladder Scan [RC] ASDIRECTED Care 09/12/20 13:58 Active UA RFX SIM AND CULT IF INDIC [URIN] Stat Lab 09/12/20 13:13 Received Labs: Laboratory Tests 09/12/20 Range/Units 13:13 Urine Color Yellow (YELLOW) Urine Appearance Clear (CLEAR) Urine pH 6.5 (5.0-9.0) Ur Specific [place] 1.025 (1.005-1.030) Urine Protein 100 H (NEGATIVE) Urine Glucose (UA) Negative (NEGATIVE) Urine Ketones Negative (NEGATIVE) Urine Occult Blood Negative (NEGATIVE) Urine Nitrite Negative (NEGATIVE) Urine Bilirubin Negative (NEGATIVE) Urine Urobilinogen 0.2 (0.2-1.0) mg/dL Ur Leukocyte Esterase Negative (NEGATIVE) Urine RBC 0-5 /HPF Urine WBC 0-5 (0-5/HPF) /HPF Ur Epithelial Cells Rare (NOT SEEN) /HPF Urine Bacteria Not seen (0-FEW/HPF) /HPF - Re-Assessments/Exams Free Text/Narrative Re-Assessment/Exam: 09/12/20 14:06 Bladder scanner 30 mins. after urinatincc/125cc/122cc Departure - Departure Time of Disposition: 14:07 Disposition: Home, Self-Care 01 Condition: Good Clinical Impression: Incomplete bladder emptying, Benign prostatic hyperplasia with urinary frequency - Discharge Information *PRESCRIPTION DRUG MONITORING PROGRAM REVIEWED*: Not Applicable *COPY OF PRESCRIPTION DRUG MONITORING REPORT IN PATIENT GUANACO: Not Applicable Instructions: Acute Urinary Retention, Male, Benign Prostatic Hyperplasia Forms: ED Department Discharge Additional Instructions: Follow up with Dr. Isbell this week for recheck and referral to a urologist. Inform your doctor that you have to urinate every couple of hours and that you do not completely empty your bladder. Sepsis Event Note (ED) - Focused Exam Vital Signs: Vital Signs Temp Pulse Resp BP Pulse Ox 09/12/20 13:24 98.2 F 76 18 155/79 H 100 09/12/20 13:11 98.2 F 76 18 155/79 H 100 - My Orders Last 24 Hours: My Active Orders 09/12/20 13:13 UA RFX SIM AND CULT IF INDIC [URIN] Stat 09/12/20 13:58 Bladder Scan [RC] ASDIRECTED - Assessment/Plan Last 24 Hours: My Active Orders 09/12/20 13:13 UA RFX SIM AND CULT IF INDIC [URIN] Stat 09/12/20 13:58 Bladder Scan [RC] ASDIRECTED I have read and agree with the documentation that has been completed regarding this visit. By signing this record, I attest that the documentation was completed in my physical presence and is an accurate record of the encounter.
== END 2020-09-12 14:15 | disposition home or self-care (01) ==
LOC: DL.ED 13:04
DX: N40.1 Benign prostatic hyperplasia with lower urinary tract symptoms (principal); R35.0 Frequency of micturition; R39.14 Feeling of incomplete bladder emptying; I25.10 Atherosclerotic heart disease of native coronary artery without angina pectoris; I11.0 Hypertensive heart disease with heart failure; I50.9 Heart failure, unspecified; I25.2 Old myocardial infarction; E11.9 Type 2 diabetes mellitus without complications; Z95.0 Presence of cardiac pacemaker; Z79.899 Other long term (current) drug therapy; Z95.5 Presence of coronary angioplasty implant and graft
CPT/HCPCS: 51798; 81001; 99283; 99283-25

== ENCOUNTER 2020-12-29 21:26 | Emergency (ER) | payer MEDICAID ==
[2020-12-29 21:48] VITALS: BP 160/85; PULSE 79
--- NOTE | 2020-12-29 23:37 | EDM.PDOC ---
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 The patient states he was attempting to take a Tessalon [place] without water about an hour ago and noted this pill became caught in his throat. He then developed shortness of breath and had to take a dose of his albuterol inhaler. He states his shortness of breath has dissipated and he is now feeling well. The patient states he has experienced cough for about four days; he was evaluated in the clinic yesterday and was diagnosed with an upper respiratory infection. He denies fever, shaking chills, sore throat, chest pain, palpitations, dyspepsia, nausea, vomiting, or abdominal pain. - Related Data Allergies Allergy/AdvReac Type Severity Reaction Status Date / Time No Known Allergies Allergy Verified 06/27/20 11:33 Home Meds: Home Meds Nitroglycerin 0.4 mg PO .[id number] PRN 11/20/18 [History] amLODIPine [Norvasc] 5 mg PO DAILY 10/25/19 [History] Acetaminophen [Tylenol] 650 mg PO Q4H PRN tablet 06/30/20 [Rx] Albuterol Sulfate [Proair Hfa] 1 - 2 inh INH Q4HR PRN 30 Days #1 inh 06/30/20 [Rx] Bumetanide [Bumex] 1 mg PO BIDDIURETIC tablet 06/30/20 [Rx] Cholecalciferol (Vitamin D3) [Vitamin D3] 1,000 unit PO DAILY 30 Days #30 06/30/20 [Rx] Ciprofloxacin HCl [Cipro] 250 mg PO BID 7 Days #14 tablet 06/30/20 [Rx] Magnesium Oxide 500 mg PO WITHBREAKFAST tablet 06/30/20 [Rx] Sennosides [Senna] 8.6 mg PO BID PRN 30 Days #60 06/30/20 [Rx] Sertraline [Zoloft] 25 mg PO DAILY tablet 06/30/20 [Rx] Tamsulosin HCl [Flomax] 0.4 mg PO BEDTIME 30 Days #30 06/30/20 [Rx] atorvaSTATin [Lipitor] 40 mg PO BEDTIME tablet 06/30/20 [Rx] metOLazone [Zaroxolyn] 2.5 mg PO Q48H tablet 06/30/20 [Rx] Past Medical History HEENT History: Reports: Cataract, Glaucoma, Impaired Vision Other HEENT History: Will obtain new glasses after cataract surgery Cardiovascular History: Reports: CAD, Heart Failure, Hypertension, [place], Pacemaker, Stents Other Cardiovascular History: LBBB Respiratory History: Reports: Pneumonia, Recurrent, SOB Other Respiratory History: with CHF Gastrointestinal History: Reports: None Genitourinary History: Reports: Renal Disease Other Genitourinary History: stage 3 renal failure Musculoskeletal History: Reports: Back Pain, Chronic, Other (See Below) Neurological History: Reports: Neuropathy, Diabetic Other Neuro History: memory lapses rarely Psychiatric History: Reports: Anxiety, Depression Other Psychiatric History: Pt states that he has an appt with mental health in [place] this coming week Endocrine/Metabolic History: Reports: Diabetes, Type II Hematologic History: Reports: None Immunologic History: Reports: None Oncologic (Cancer) History: Reports: None Dermatologic History: Reports: Other (See Below) Other Dermatologic History: Diabetic foot ulcer. Pt states 6 months of skin itching to the back, arms and legs - Infectious Disease History Infectious Disease History: Reports: Other (See Below) Other Infectious Disease History: ecoli - Past Surgical History Head Surgeries/Procedures: Reports: None HEENT Surgical History: Reports: Cataract Surgery Other HEENT Surgeries/Procedures: scheduled for 2017 Cardiovascular Surgical History: Reports: None Other Cardiovascular Surgeries/Procedures: in June Respiratory Surgical History: Reports: None GI Surgical History: Reports: None Male Surgical History: Reports: None Other Male Surgeries/Procedures: kidney biopsy done Endocrine Surgical History: Reports: None Neurological Surgical History: Reports: None Musculoskeletal Surgical History: Reports: Amputation, Other (See Below) Other Musculoskeletal Surgeries/Procedures:: 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 ED EXAM, GENERAL - Physical Exam Exam: See Below Exam Limited By: No Limitations General Appearance: Alert, No Apparent Distress Eye Exam: Bilateral Eye: EOMI, Normal Inspection, PERRL (3mm) Ears: Normal External Exam, Hearing Grossly Normal Nose: Normal Inspection, Normal Mucosa, No Blood Throat/Mouth: Normal Inspection, Normal Oropharynx, Normal Voice, No Airway Compromise Head: Atraumatic, Normocephalic Neck: Normal Inspection, Supple, Non-Tender, Full Range of Motion. No: Lymphadenopathy (L), Lymphadenopathy (R) Respiratory/Chest: No Respiratory Distress, No Accessory Muscle Use, Chest Non- Tender, Rales (To left lower lobe). No: Crackles, Rhonchi, Wheezing, Stridor Cardiovascular: Normal Peripheral Pulses, Regular Rate, Rhythm, No Gallop, No Murmur, No Rub Peripheral Pulses: 2+: Radial (L), Radial (R) GI/Abdominal: Normal Bowel Sounds, Soft, No Distention, No Abnormal Bruit, No Mass, Pelvis Stable (Male) Exam: Deferred Rectal (Males) Exam: Deferred Back Exam: Normal Inspection, Full Range of Motion Extremities: Normal Range of Motion, Normal Capillary Refill, Other (R BKA) Neurological: Alert, Oriented, CN II-XII Intact, Normal Cognition, No Motor/Sensory Deficits, Abnormal Gait (Wheelchair for mobility d/t R BKA) Psychiatric: Normal Affect, Normal Mood Skin Exam: Warm, Dry, Intact, Normal Color, No Rash. No: Cyanosis, Jaundice, Mottled, Pallor Course - Vital Signs Last Recorded V/S: Last Vital Signs Temp 97.7 F 12/29/20 21:41 Pulse 79 12/29/20 21:41 Resp 18 12/29/20 21:41 BP 160/85 H 12/29/20 21:41 Pulse Ox 95 12/29/20 21:41 - Orders/Labs/Meds Meds: Medications Discontinued Medications Generic Name Dose Route Start Last Admin Trade Name Freq PRN Reason Stop Dose Admin Amoxicillin 1,000 mg 12/30/20 00:23 12/30/20 00:52 Amoxicillin 500 Mg Cap PO 12/30/20 00:24 1,000 mg ONETIME ONE Administration Azithromycin 500 mg 12/30/20 00:24 12/30/20 00:51 Azithromycin 250 Mg Tab PO 12/30/20 00:25 500 mg ONETIME ONE Administration - Radiology Interpretation Free Text/Narrative:: [facility] [place] [facility] Final Radiology Report Call: [phone] assistance Online chat: [email or web address] Name: MIAH CAIN Age: 60Years M Date: 12/29/2020 SSN: -- : 1960 Study: CR CHEST 1V FRONTAL Requesting Physician: Re Sanabria Images: 1 Addl Studies: Provided Clinical History: Cough; SOB Contrast: Contrast Medium: Contrast Amount: Contrast Method: Page 1 of 2 PROCEDURE INFORMATION: Exam: XR Chest Exam date and time: 12/29/2020 10:59 PM Age: 60 years old Clinical indication: Cough and shortness of breath; Prior surgery; Surgery date: 6+ months; Additional info: Cough; SOB TECHNIQUE: Imaging protocol: XR of the chest. Views: 1 view. COMPARISON: CR Chest 1V Frontal 06/27/2020 9:38 AM FINDINGS: Tubes, catheters and devices: A defibrillator device is present, and its leads are in appropriate position. Lungs: There is a somewhat shallow inspiratory effort. No definite parenchymal opacification is noted on the right. Somewhat increased density behind the heart is suggestive of small area of parenchymal opacification in that location. Pleural spaces: Unremarkable. No pleural effusion. No pneumothorax. Heart/Mediastinum: The heart is enlarged but without evidence of failure. Bones/joints: Unremarkable. IMPRESSION: Cardiomegaly but without evidence of failure. 2. A small left basilar infiltrate cannot be excluded. Thank you for allowing us to participate in the care of your patient. Dictated and Authenticated by: Benny Antunez MD 12/30/2020 12:18 AM Central Time ([place] & [place]) - Re-Assessments/Exams Free Text/Narrative Re-Assessment/Exam: 12/29/20 CXR obtained. Findings of examination and imaging reviewed with patient and . Will treat CAP with Augmentin and azithromycin. Supportive cares for CAP and cough discussed. Red flag signs and symptoms which would warrant reevaluation reviewed. Patient and verbalized understanding and agreement with the plan of care. Departure - Departure Time of Disposition: 00:27 Disposition: Home, Self-Care 01 Condition: Good Clinical Impression: Community acquired bacterial pneumonia - Discharge Information *PRESCRIPTION DRUG MONITORING PROGRAM REVIEWED*: Not Applicable *COPY OF PRESCRIPTION DRUG MONITORING REPORT IN PATIENT GUANACO: Not Applicable Instructions: Community-Acquired Pneumonia, Adult Referrals: PCP,None [Primary Care Provider] - Forms: ED Department Discharge Additional Instructions: Rx: amoxicillin Rx: azithromycin Rx: Ewa Bowman 1.) Take all of your antibiotics until gone, even as symptoms improve. 2.) Drink frequent sips of water to stay hydrated. 3.) Eat a yogurt daily while taking antibiotics for gut health; Take medication with food. 4.) Follow up with your primary care provider, or return to the emergency department, with any persist or worsening symptoms despite medication. Sepsis Event Note (ED) - Focused Exam Vital Signs: Vital Signs Temp Pulse Resp BP Pulse Ox 12/29/20 21:41 97.7 F 79 18 160/85 H 95
--- NOTE | 2020-12-30 00:18 | CR ---
PROCEDURE INFORMATION: Exam: XR Chest Exam date and time: 12/29/2020 10:59 PM Age: 60 years old Clinical indication: Cough and shortness of breath; Prior surgery; Surgery date: 6+ months; Additional info: Cough; SOB TECHNIQUE: Imaging protocol: XR of the chest. Views: 1 view. COMPARISON: CR Chest 1V Frontal 06/27/2020 9:38 AM FINDINGS: Tubes, catheters and devices: A defibrillator device is present, and its leads are in appropriate position. Lungs: There is a somewhat shallow inspiratory effort. No definite parenchymal opacification is noted on the right. Somewhat increased density behind the heart is suggestive of small area of parenchymal opacification in that location. Pleural spaces: Unremarkable. No pleural effusion. No pneumothorax. Heart/Mediastinum: The heart is enlarged but without evidence of failure. Bones/joints: Unremarkable. IMPRESSION: Cardiomegaly but without evidence of failure. 2. A small left basilar infiltrate cannot be excluded.
[2020-12-30] MEDS ORDERED: Amoxicillin 500 MG Cap PO ONE (00:23)
[2020-12-30] MEDS ORDERED: Azithromycin 250 MG Tab PO ONE (00:24)
== END 2020-12-30 00:53 | disposition home or self-care (01) ==
LOC: DL.ED 21:26
DX: J18.9 Pneumonia, unspecified organism (principal); I11.0 Hypertensive heart disease with heart failure; I50.9 Heart failure, unspecified; I25.10 Atherosclerotic heart disease of native coronary artery without angina pectoris; I25.2 Old myocardial infarction; E11.40 Type 2 diabetes mellitus with diabetic neuropathy, unspecified; Z79.899 Other long term (current) drug therapy
CPT/HCPCS: 71045; 99284; A9270

== ENCOUNTER 2021-03-01 11:35 | Emergency (ER) | payer MEDICAID ==
[2021-03-01] MEDS ORDERED: Benzonatate 100 MG Cap PO ONE (11:36)
[2021-03-01] MEDS ORDERED: Levofloxacin 500 MG Tab PO ONE (11:36)
[2021-03-01 13:21] VITALS: BP 150/87; PULSE 70
--- NOTE | 2021-03-01 17:27 | EDM.PDOC ---
ED HPI GENERAL MEDICAL PROBLEM - General Chief Complaint: Respiratory Problem Stated Complaint: PNEUMONIA Time Seen by Provider: 03/01/21 17:05 Source of Information: Reports: Patient History Limitations: Reports: No Limitations - History of Present Illness INITIAL COMMENTS - FREE TEXT/NARRATIVE: ED with c/o cough and congestion x 3 weeks. Has completed doxycycline and prednisone. Unable to sleep last night due to cough. No chills but feels warm at times. Cough productive yellow/ green phlegm. Throat sore. Has been to [facility] x 3 last week. Covid negative x 2 swabs last week. No chest pain or swelling. Non smoker. Throat Pain Score (Numeric/FACES): 4 - Related Data Allergies Allergy/AdvReac Type Severity Reaction Status Date / Time No Known Allergies Allergy Verified 03/01/21 13:21 Home Meds: Home Meds Nitroglycerin 0.4 mg PO .[id number] PRN 11/20/18 [History] amLODIPine [Norvasc] 5 mg PO DAILY 10/25/19 [History] Acetaminophen [Tylenol] 650 mg PO Q4H PRN tablet 06/30/20 [Rx] Albuterol Sulfate [Proair Hfa] 1 - 2 inh INH Q4HR PRN 30 Days #1 inh 06/30/20 [Rx] Bumetanide [Bumex] 1 mg PO BIDDIURETIC tablet 06/30/20 [Rx] Cholecalciferol (Vitamin D3) [Vitamin D3] 1,000 unit PO DAILY 30 Days #30 06/30/20 [Rx] Magnesium Oxide 500 mg PO WITHBREAKFAST tablet 06/30/20 [Rx] Sennosides [Senna] 8.6 mg PO BID PRN 30 Days #60 06/30/20 [Rx] Sertraline [Zoloft] 25 mg PO DAILY tablet 06/30/20 [Rx] Tamsulosin HCl [Flomax] 0.4 mg PO BEDTIME 30 Days #30 06/30/20 [Rx] atorvaSTATin [Lipitor] 40 mg PO BEDTIME tablet 06/30/20 [Rx] metOLazone [Zaroxolyn] 2.5 mg PO Q48H tablet 06/30/20 [Rx] Past Medical History HEENT History: Reports: Cataract, Glaucoma, Impaired Vision Other HEENT History: Will obtain new glasses after cataract surgery Cardiovascular History: Reports: CAD, Heart Failure, Hypertension, [place], Pacemaker, Stents Other Cardiovascular History: LBBB Respiratory History: Reports: Pneumonia, Recurrent, SOB Other Respiratory History: with CHF Gastrointestinal History: Reports: None Genitourinary History: Reports: Renal Disease Other Genitourinary History: stage 3 renal failure Musculoskeletal History: Reports: Back Pain, Chronic, Other (See Below) Neurological History: Reports: Neuropathy, Diabetic Other Neuro History: memory lapses rarely Psychiatric History: Reports: Anxiety, Depression Other Psychiatric History: Pt states that he has an appt with mental [facility] in [place] this coming week Endocrine/Metabolic History: Reports: Diabetes, Type II Hematologic History: Reports: None Immunologic History: Reports: None Oncologic (Cancer) History: Reports: None Dermatologic History: Reports: Other (See Below) Other Dermatologic History: Diabetic foot ulcer. Pt states 6 months of skin itching to the back, arms and legs - Infectious Disease History Infectious Disease History: Reports: Chicken Pox, Mumps, Other (See Below) Other Infectious Disease History: ecoli - Past Surgical History Head Surgeries/Procedures: Reports: None HEENT Surgical History: Reports: Cataract Surgery Other HEENT Surgeries/Procedures: scheduled for 2017 Cardiovascular Surgical History: Reports: None Other Cardiovascular Surgeries/Procedures: in June Respiratory Surgical History: Reports: None GI Surgical History: Reports: None Male Surgical History: Reports: None Other Male Surgeries/Procedures: kidney biopsy done Endocrine Surgical History: Reports: None Neurological Surgical History: Reports: None Musculoskeletal Surgical History: Reports: Amputation, Other (See Below) Other Musculoskeletal Surgeries/Procedures:: 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 ED EXAM, GENERAL - Physical Exam Exam: See Below Exam Limited By: No Limitations General Appearance: Alert, Mild Distress Eye Exam: Bilateral Eye: EOMI Ears: Normal External Exam, Hearing Grossly Normal Nose: Normal Inspection. No: Nasal Drainage Throat/Mouth: Normal Inspection Head: Atraumatic, Normocephalic Neck: Normal Inspection Respiratory/Chest: No Respiratory Distress, Decreased Breath Sounds, Rhonchi (bilateral mid to base). No: Rales, Wheezing Cardiovascular: Regular Rate, Rhythm GI/Abdominal: Normal Bowel Sounds Back Exam: Other Extremities: Other (BKA right) Neurological: Alert, Oriented, Normal Cognition Psychiatric: Normal Affect, Normal Mood Skin Exam: Warm, Dry, Intact, Normal Color Course - Vital Signs Last Recorded V/S: Last Vital Signs Temp 97.9 F 03/01/21 13:15 Pulse 70 03/01/21 13:15 Resp 16 03/01/21 13:15 BP 150/87 H 03/01/21 13:15 Pulse Ox 97 03/01/21 13:15 - Orders/Labs/Meds Orders: Active Orders 24 hr Category Date Time Status CULTURE BLOOD [BC] Stat Lab 03/01/21 17:20 Received CULTURE SPUTUM + SMEAR [RM] Stat Lab 03/01/21 18:50 Received Labs: Laboratory Tests 03/01/21 03/01/21 03/01/21 Range/Units 17:20 17:20 17:20 WBC 9.3 (5.0-10.0) 10^3/uL RBC 3.76 L (4.6-6.2) 10^6/uL Hgb 11.3 L (14.0-18.0) g/dL Hct 34.3 L (40.0-54.0) % MCV 91.2 (80-100) fL MCH 30.1 (27.0-34.0) pg MCHC 32.9 L (33.0-35.0) g/dL Plt Count 171 (150-450) 10^3/uL Neut % (Auto) 73.6 (42.2-75.2) % Lymph % (Auto) 9.3 L (20.5-50.1) % [place] % (Auto) 10.1 H (2-8) % Eos % (Auto) 6.8 H (1.0-3.0) % Baso % (Auto) 0.2 (0.0-1.0) % Sodium 141 (136-145) mmol/L Potassium 4.4 (3.5-5.1) mmol/L Chloride 107 (98-107) mmol/L Carbon Dioxide 27 (21-32) mmol/L Anion Gap 11.4 (7-13) mEq/L BUN 54 H (7-18) mg/dL Creatinine 2.04 H (0.70-1.30) mg/dL Est Cr Clr Drug Dosing 41.01 mL/min Estimated GFR (MDRD) 33 BUN/Creatinine Ratio 26.5 (No establ ref range) Glucose 124 H (70-99) mg/dL Lactic Acid 0.6 (0.4-2.0) mmol/L Calcium 8.1 L (8.5-10.1) mg/dL Total Bilirubin 0.3 (0.2-1.0) mg/dL AST 25 (15-37) U/L ALT 27 (16-63) U/L Alkaline Phosphatase 96 (46-116) U/L B-Natriuretic Peptide (0-100) pg/ml Total Protein 6.9 (6.4-8.2) g/dL Albumin 3.1 L (3.4-5.0) g/dL Globulin 3.8 Albumin/Globulin Ratio 0.82 Influenza Type A RNA (NEGATIVE) Influenza Type B RNA (NEGATIVE) SARS-CoV-2 RNA ([place]) (NEGATIVE) 03/01/21 03/01/21 Range/Units 17:20 17:22 WBC (5.0-10.0) 10^3/uL RBC (4.6-6.2) 10^6/uL Hgb (14.0-18.0) g/dL Hct (40.0-54.0) % MCV (80-100) fL MCH (27.0-34.0) pg MCHC (33.0-35.0) g/dL Plt Count (150-450) 10^3/uL Neut % (Auto) (42.2-75.2) % Lymph % (Auto) (20.5-50.1) % [place] % (Auto) (2-8) % Eos % (Auto) (1.0-3.0) % Baso % (Auto) (0.0-1.0) % Sodium (136-145) mmol/L Potassium (3.5-5.1) mmol/L Chloride (98-107) mmol/L Carbon Dioxide (21-32) mmol/L Anion Gap (7-13) mEq/L BUN (7-18) mg/dL Creatinine (0.70-1.30) mg/dL Est Cr Clr Drug Dosing mL/min Estimated GFR (MDRD) BUN/Creatinine Ratio (No establ ref range) Glucose (70-99) mg/dL Lactic Acid (0.4-2.0) mmol/L Calcium (8.5-10.1) mg/dL Total Bilirubin (0.2-1.0) mg/dL AST (15-37) U/L ALT (16-63) U/L Alkaline Phosphatase (46-116) U/L B-Natriuretic Peptide 741 H (0-100) pg/ml Total Protein (6.4-8.2) g/dL Albumin (3.4-5.0) g/dL Globulin Albumin/Globulin Ratio Influenza Type A RNA Negative (NEGATIVE) Influenza Type B RNA Negative (NEGATIVE) SARS-CoV-2 RNA ([place]) Negative (NEGATIVE) Meds: Medications Discontinued Medications Generic Name Dose Route Start Last Admin Trade Name Freq PRN Reason Stop Dose Admin Benzonatate Confirm 03/01/21 18:37 Benzonatate 100 Mg Cap Administered 03/01/21 18:38 Dose 400 mg .ROUTE .STK-MED ONE Levofloxacin Confirm 03/01/21 18:38 Levofloxacin 500 Mg Tab Administered 03/01/21 18:39 Dose 500 mg .ROUTE .STK-MED ONE Departure - Departure Time of Disposition: 18:22 Disposition: Home, Self-Care 01 Condition: Good Clinical Impression: Bronchitis, Cough - Discharge Information *PRESCRIPTION DRUG MONITORING PROGRAM REVIEWED*: No *COPY OF PRESCRIPTION DRUG MONITORING REPORT IN PATIENT GUANACO: No Instructions: Acute Bronchitis, Adult, [id number], Upper Respiratory Infection, Adult, [id number] Referrals: Hannah Rivera NP [Primary Care Provider] - Forms: ED Department Discharge Additional Instructions: Tessalon 200mg every 8 hours as needed for cough levaquin 250mg every day for 7 days continue home medications recheck clinic this week urgent follow up if severe difficulty breathig , fever and chills Sepsis Event Note (ED) - Evaluation Sepsis Screening Result: No Definite Risk - Focused Exam Vital Signs: Vital Signs Temp Pulse Resp BP Pulse Ox 03/01/21 13:15 97.9 F 70 16 150/87 H 97 - My Orders Last 24 Hours: My Active Orders 03/01/21 17:20 CULTURE BLOOD [BC] Stat 03/01/21 18:50 CULTURE SPUTUM + SMEAR [RM] Stat - Assessment/Plan Last 24 Hours: My Active Orders 03/01/21 17:20 CULTURE BLOOD [BC] Stat 03/01/21 18:50 CULTURE SPUTUM + SMEAR [RM] Stat
[2021-03-01 17:57] LABS: ANION GAP 11.4 mEq/L (7-13)
--- NOTE | 2021-03-01 18:10 | CR ---
PROCEDURE INFORMATION: Exam: XR Chest Exam date and time: 03/01/2021 5:39 PM Age: 60 years old Clinical indication: Other: Cough TECHNIQUE: Imaging protocol: XR of the chest. Views: 1 view. COMPARISON: CR Chest 1V Frontal 06/27/2020 9:38 AM FINDINGS: Lungs: Hypoventilatory study. No focal consolidation. Findings suggest bronchitis with central peribronchial cuffing. Pleural spaces: Unremarkable. No pleural effusion. No pneumothorax. Heart/Mediastinum: Pacer again noted. Mild cardiac enlargement again seen. Bones/joints: Unremarkable. IMPRESSION: The findings suggest bronchitis
[2021-03-01 18:21] LABS: CORONAVIRUS COVID-19 NAA NEGATIVE (NEGATIVE)
[2021-03-01] MEDS ORDERED: Benzonatate 100 MG Cap ONE (18:37)
[2021-03-01] MEDS ORDERED: Levofloxacin 500 MG Tab ONE (18:38)
== END 2021-03-01 18:45 | disposition home or self-care (01) ==
LOC: DL.ED 11:35
DX: J40 Bronchitis, not specified as acute or chronic (principal); I11.0 Hypertensive heart disease with heart failure; I50.9 Heart failure, unspecified; I25.10 Atherosclerotic heart disease of native coronary artery without angina pectoris; I25.2 Old myocardial infarction; E11.40 Type 2 diabetes mellitus with diabetic neuropathy, unspecified; Z89.511 Acquired absence of right leg below knee; Z79.899 Other long term (current) drug therapy; Z20.822 Contact with and (suspected) exposure to COVID-19
CPT/HCPCS: 0240U; 36415; 71045; 80053; 83605; 83880; 85025; 87040; 87070; 87205; 99283; A9270

== ENCOUNTER 2021-04-13 21:52 | Emergency (ER) | payer MEDICAID ==
[2021-04-13 23:41] VITALS: BP 175/99; PULSE 90
[2021-04-14 00:49] LABS: ANION GAP 16.9 mEq/L (7-13); CHLORIDE,CL 108 mmol/L (98-107); SODIUM,NA 143 mmol/L (136-145)
[2021-04-14] MEDS ORDERED: Bumetanide 1 MG/4 ML MDV IVPUSH ONE (01:25)
[2021-04-14] MEDS ORDERED: Piperacillin/Tazobactam 3.375 GM in Sodium Chloride 0.9% 100 ML IV ONE (01:28)
[2021-04-14] MEDS ORDERED: Acetaminophen 325 MG Tab PO ONE (01:29)
== END 2021-04-14 03:00 | disposition home or self-care (01) ==
LOC: DL.ED 21:52
DX: U07.1 COVID-19 (principal); I11.0 Hypertensive heart disease with heart failure; I50.9 Heart failure, unspecified; I25.10 Atherosclerotic heart disease of native coronary artery without angina pectoris; I25.2 Old myocardial infarction; E11.40 Type 2 diabetes mellitus with diabetic neuropathy, unspecified; Z95.0 Presence of cardiac pacemaker; Z79.899 Other long term (current) drug therapy
CPT/HCPCS: 36415; 71045; 80053; 81001; 82009; 82150; 83605; 83690; 83880; 85025; 87040; 96365; 96375; 99285; A9270; J2543; J3490

== ENCOUNTER 2021-05-15 22:07 | Emergency (ER) | payer MEDICAID ==
[2021-05-15] MEDS ORDERED: Sodium Chloride 0.9% 10 ML Syringe FLUSH PRN (23:38)
[2021-05-16 00:01] VITALS: BP 168/102; PULSE 91
[2021-05-16 00:11] LABS: ANION GAP 13.1 mEq/L (7-13)
[2021-05-16 00:31] LABS: CORONAVIRUS COVID-19 NAA NEGATIVE (NEGATIVE)
[2021-05-16] MEDS ORDERED: Bumetanide 1 MG/4 ML MDV IVPUSH ONE (00:32)
== END 2021-05-16 01:15 | disposition home or self-care (01) ==
LOC: DL.ED 22:07
DX: I11.0 Hypertensive heart disease with heart failure (principal); I50.9 Heart failure, unspecified; I25.10 Atherosclerotic heart disease of native coronary artery without angina pectoris; I25.2 Old myocardial infarction; E11.9 Type 2 diabetes mellitus without complications; Z95.0 Presence of cardiac pacemaker; Z79.899 Other long term (current) drug therapy; Z20.822 Contact with and (suspected) exposure to COVID-19
CPT/HCPCS: 0240U; 36415; 71045; 80053; 83605; 83880; 85025; 86140; 93005; 96374; 99285-25; J3490

== ENCOUNTER 2021-06-16 17:34 | Inpatient (IN) | payer MEDICAID ==
[2021-06-16] MEDS ORDERED: Acetaminophen 500 MG Tab PO ONE (18:27)
[2021-06-16] MEDS ORDERED: Nystatin Topical Powder 30 GM Bottle TOP ONE (18:27)
[2021-06-16] MEDS: Sodium Chloride 0.9% 10 ML Syringe FLUSH PRN (18:44)
[2021-06-16] MEDS ORDERED: Albuterol 0.083% 2.5 MG/3 ML Neb Soln NEB ONE (18:58)
[2021-06-16] MEDS ORDERED: Albuterol 0.083% 2.5 MG/3 ML Neb Soln ONE (19:07)
[2021-06-16 19:19] LABS: ANION GAP 16.3 mEq/L (7-13)
[2021-06-16] MEDS ORDERED: Bumetanide 1 MG/4 ML MDV IVPUSH ONE (19:43)
[2021-06-16] MEDS ORDERED: cefTRIAXone 2 GM in Sodium Chloride 0.9% 100 ML IV ONE (19:45)
[2021-06-16] MEDS ORDERED: Nitroglycerin 0.4 MG Tab.SL SL PRN (21:16)
[2021-06-16] MEDS ORDERED: Albuterol/Ipratropium 3.0-0.5 MG/3 ML Neb Soln NEB PRN (21:17)
[2021-06-16] MEDS ORDERED: Polyethylene Glycol 3350 Powder 17 GM Packet PO PRN (21:17)
[2021-06-16] MEDS ORDERED: Acetaminophen 325 MG Tab PO PRN (21:17)
[2021-06-16] MEDS ORDERED: HYDROmorphone 0.5 MG/0.5 ML Syringe IVPUSH PRN (21:17)
[2021-06-16] MEDS ORDERED: Zolpidem 5 MG Tab PO PRN (21:17)
[2021-06-16] MEDS ORDERED: Acetaminophen/HYDROcodone 325-10 MG Tab PO PRN (21:17)
[2021-06-16] MEDS ORDERED: Ondansetron 4 MG/2 ML SDV IVPUSH PRN (21:17)
[2021-06-16] MEDS ORDERED: Glucagon,Human Recombinant 1 MG Vial IM PRN (21:34)
[2021-06-16] MEDS ORDERED: 50% Dextrose in Water 50 ML Syringe IVPUSH PRN (21:34)
[2021-06-16] MEDS ORDERED: Nystatin Topical Powder 30 GM Bottle TOP PRN (21:49)
[2021-06-16] MEDS: Furosemide 100 MG in Sodium Chloride 0.9% 90 ML IV SCH (23:50)
[2021-06-16] MEDS: Sodium Chloride 0.9% 1,000 ML IV SCH (23:52)
[2021-06-16] MEDS: Piperacillin/Tazobactam 3.375 GM in Sodium Chloride 0.9% 100 ML IV SCH (23:57)
[2021-06-17] MEDS: Acetaminophen 325 MG Tab PO PRN ×3 (05:40→21:36)
[2021-06-17] MEDS: Piperacillin/Tazobactam 3.375 GM in Sodium Chloride 0.9% 100 ML IV SCH (05:42)
[2021-06-17 08:36] LABS: ANION GAP 16.4 mEq/L (7-13)
[2021-06-17] MEDS: Oseltamivir 30 MG Cap PO SCH ×2 (09:20→20:40)
[2021-06-17] MEDS: Insulin Lispro 100 Units/ML 3 ML Vial SUBCUT SCH ×3 (09:22→16:58)
[2021-06-17] MEDS: Saccharomyces Boulardii (Probiotic) 250 MG Cap PO SCH ×2 (10:16→20:40)
[2021-06-17] MEDS: Piperacillin/Tazobactam 2.25 GM in Sodium Chloride 0.9% 50 ML IV SCH ×2 (12:35→17:30)
[2021-06-17] MEDS: atorvaSTATin 20 MG Tab PO SCH (20:40)
[2021-06-17] MEDS: Sertraline 50 MG Tab PO SCH (20:41)
[2021-06-17] MEDS: Furosemide 100 MG in Sodium Chloride 0.9% 90 ML IV SCH (21:41)
[2021-06-18] MEDS: Piperacillin/Tazobactam 2.25 GM in Sodium Chloride 0.9% 50 ML IV SCH ×5 (00:05→23:39)
[2021-06-18] MEDS: Acetaminophen 325 MG Tab PO PRN (01:13)
[2021-06-18 06:38] LABS: ANION GAP 14.2 mEq/L (7-13)
[2021-06-18] MEDS: Insulin Lispro 100 Units/ML 3 ML Vial SUBCUT SCH ×3 (08:22→16:59)
[2021-06-18] MEDS: Saccharomyces Boulardii (Probiotic) 250 MG Cap PO SCH ×2 (09:10→20:40)
[2021-06-18] MEDS: Oseltamivir 30 MG Cap PO SCH ×2 (09:11→20:41)
[2021-06-18] MEDS: Sertraline 50 MG Tab PO SCH (20:40)
[2021-06-18] MEDS: atorvaSTATin 20 MG Tab PO SCH (20:41)
[2021-06-18] MEDS: Enoxaparin 40 MG/0.4 ML Syringe SUBCUT SCH (20:42)
[2021-06-18] MEDS: Furosemide 100 MG in Sodium Chloride 0.9% 90 ML IV SCH (20:44)
[2021-06-18] MEDS: Tamsulosin 0.4 MG Cap.ER PO SCH (22:25)
[2021-06-19] MEDS: Acetaminophen 325 MG Tab PO PRN (01:56)
[2021-06-19] MEDS: Piperacillin/Tazobactam 2.25 GM in Sodium Chloride 0.9% 50 ML IV SCH ×3 (05:29→18:22)
[2021-06-19] MEDS: Sodium Chloride 0.9% 10 ML Syringe FLUSH PRN (06:12)
[2021-06-19 07:05] LABS: ANION GAP 15.1 mEq/L (7-13)
[2021-06-19] MEDS: Multivitamins with Iron/Calcium/Folic Acid/Minerals Tab PO SCH (09:06)
[2021-06-19] MEDS: Oxybutynin 5 MG Tab.ER PO SCH (09:06)
[2021-06-19] MEDS: Calcium Carbonate/Vitamin D3 1250 MG-5 MCG Tab PO SCH (09:06)
[2021-06-19] MEDS: Ferrous Sulfate 325 MG Tab PO SCH (09:06)
[2021-06-19] MEDS: Saccharomyces Boulardii (Probiotic) 250 MG Cap PO SCH ×2 (09:06→21:36)
[2021-06-19] MEDS: Oseltamivir 30 MG Cap PO SCH ×2 (09:07→21:37)
[2021-06-19] MEDS: Enoxaparin 40 MG/0.4 ML Syringe SUBCUT SCH (09:07)
[2021-06-19] MEDS: Insulin Lispro 100 Units/ML 3 ML Vial SUBCUT SCH ×3 (09:17→18:21)
[2021-06-19] MEDS: Sodium Chloride 0.9% 1,000 ML IV SCH (18:23)
[2021-06-19] MEDS: Furosemide 100 MG in Sodium Chloride 0.9% 90 ML IV SCH (18:30)
[2021-06-19] MEDS: Sertraline 50 MG Tab PO SCH (21:36)
[2021-06-19] MEDS: Latanoprost 0.005% Ophth Soln 2.5 ML Bottle EYEBOTH SCH (21:37)
[2021-06-19] MEDS: Tamsulosin 0.4 MG Cap.ER PO SCH (21:37)
[2021-06-19] MEDS: atorvaSTATin 20 MG Tab PO SCH (21:37)
[2021-06-20] MEDS: Piperacillin/Tazobactam 2.25 GM in Sodium Chloride 0.9% 50 ML IV SCH ×2 (00:16→05:35)
[2021-06-20] MEDS ORDERED: Bumetanide 1 MG Tab PO SCH (06:00)
[2021-06-20] MEDS: Insulin Lispro 100 Units/ML 3 ML Vial SUBCUT SCH ×3 (09:35→18:10)
[2021-06-20] MEDS: Saccharomyces Boulardii (Probiotic) 250 MG Cap PO SCH ×2 (09:36→20:30)
[2021-06-20] MEDS: Oseltamivir 30 MG Cap PO SCH ×2 (09:36→20:30)
[2021-06-20] MEDS: Oxybutynin 5 MG Tab.ER PO SCH (09:36)
[2021-06-20] MEDS: Enoxaparin 40 MG/0.4 ML Syringe SUBCUT SCH (09:36)
[2021-06-20] MEDS: Multivitamins with Iron/Calcium/Folic Acid/Minerals Tab PO SCH (09:36)
[2021-06-20] MEDS: Metolazone 2.5 MG Tab PO SCH (09:36)
[2021-06-20] MEDS: Ferrous Sulfate 325 MG Tab PO SCH (09:37)
[2021-06-20] MEDS: Calcium Carbonate/Vitamin D3 1250 MG-5 MCG Tab PO SCH (09:37)
[2021-06-20] MEDS: Cholecalciferol (Vitamin D3) 25 MCG Tab PO SCH (09:37)
[2021-06-20] MEDS: Levofloxacin/Dextrose 5%-Water 750 MG in Premix Bag 1 BAG IV SCH (11:37)
[2021-06-20] MEDS: atorvaSTATin 20 MG Tab PO SCH (20:30)
[2021-06-20] MEDS: Tamsulosin 0.4 MG Cap.ER PO SCH (20:30)
[2021-06-20] MEDS: Sertraline 50 MG Tab PO SCH (20:31)
[2021-06-20] MEDS: guaiFENesin/Dextromethorphan 100-10 MG/5 ML Soln 5 ML Cup PO PRN (20:31)
[2021-06-20] MEDS: Latanoprost 0.005% Ophth Soln 2.5 ML Bottle EYEBOTH SCH (20:33)
[2021-06-21] MEDS ORDERED: Bumetanide 1 MG Tab PO SCH (06:00)
[2021-06-21 06:38] LABS: ANION GAP 14.2 mEq/L (7-13)
[2021-06-21] MEDS: Bumetanide 1 MG Tab PO SCH (07:53)
[2021-06-21] MEDS: guaiFENesin/Dextromethorphan 100-10 MG/5 ML Soln 5 ML Cup PO PRN (07:53)
[2021-06-21] MEDS: Loperamide 2 MG Cap PO PRN ×3 (07:53→23:14)
[2021-06-21] MEDS: Insulin Lispro 100 Units/ML 3 ML Vial SUBCUT SCH ×3 (08:45→16:59)
[2021-06-21] MEDS: Oxybutynin 5 MG Tab.ER PO SCH (08:46)
[2021-06-21] MEDS: Calcium Carbonate/Vitamin D3 1250 MG-5 MCG Tab PO SCH (08:46)
[2021-06-21] MEDS: Ferrous Sulfate 325 MG Tab PO SCH (08:47)
[2021-06-21] MEDS: Multivitamins with Iron/Calcium/Folic Acid/Minerals Tab PO SCH (08:47)
[2021-06-21] MEDS: Cholecalciferol (Vitamin D3) 25 MCG Tab PO SCH (08:47)
[2021-06-21] MEDS: Saccharomyces Boulardii (Probiotic) 250 MG Cap PO SCH ×2 (08:47→20:28)
[2021-06-21] MEDS: Enoxaparin 40 MG/0.4 ML Syringe SUBCUT SCH (08:48)
[2021-06-21] MEDS: Oseltamivir 30 MG Cap PO SCH ×2 (08:48→20:28)
[2021-06-21] MEDS: Sertraline 50 MG Tab PO SCH (20:28)
[2021-06-21] MEDS: atorvaSTATin 20 MG Tab PO SCH (20:28)
[2021-06-21] MEDS: Tamsulosin 0.4 MG Cap.ER PO SCH (20:28)
[2021-06-21] MEDS: Latanoprost 0.005% Ophth Soln 2.5 ML Bottle EYEBOTH SCH (20:29)
[2021-06-22 06:42] LABS: ANION GAP 11.8 mEq/L (7-13)
[2021-06-22] MEDS: Bumetanide 1 MG Tab PO SCH (09:57)
[2021-06-22] MEDS: Ferrous Sulfate 325 MG Tab PO SCH (09:58)
[2021-06-22] MEDS: Saccharomyces Boulardii (Probiotic) 250 MG Cap PO SCH (09:58)
[2021-06-22] MEDS: Insulin Lispro 100 Units/ML 3 ML Vial SUBCUT SCH ×2 (09:58→13:49)
[2021-06-22] MEDS: Calcium Carbonate/Vitamin D3 1250 MG-5 MCG Tab PO SCH (09:58)
[2021-06-22] MEDS: Oxybutynin 5 MG Tab.ER PO SCH (09:59)
[2021-06-22] MEDS: Enoxaparin 40 MG/0.4 ML Syringe SUBCUT SCH (09:59)
[2021-06-22] MEDS: Multivitamins with Iron/Calcium/Folic Acid/Minerals Tab PO SCH (10:00)
[2021-06-22] MEDS: Metolazone 2.5 MG Tab PO SCH (10:00)
[2021-06-22] MEDS: Cholecalciferol (Vitamin D3) 25 MCG Tab PO SCH (10:00)
[2021-06-22] MEDS: Levofloxacin/Dextrose 5%-Water 750 MG in Premix Bag 1 BAG IV SCH (10:31)
[2021-06-22 11:56] VITALS: BP 112/60; PULSE 78
== END 2021-06-22 15:05 | disposition home health service (06) | DRG 871 ==
LOC: DL.ED 17:34 → DL.MS 20:36
PROVIDERS: ADMIT Internal Medicine; ATTEND Internal Medicine
PROC: 0W993ZZ Drainage of Right Pleural Cavity, Percutaneous Approach (ICD-10-PCS; principal; 2021-06-17)
DX: J18.9 Pneumonia, unspecified organism (principal); A41.02 Sepsis due to Methicillin resistant Staphylococcus aureus; I50.23 Acute on chronic systolic (congestive) heart failure; H26.9 Unspecified cataract; J15.212 Pneumonia due to Methicillin resistant Staphylococcus aureus; I13.0 Hypertensive heart and chronic kidney disease with heart failure and stage 1 through stage 4 chronic kidney disease, or unspecified chronic kidney disease; J90 Pleural effusion, not elsewhere classified; J91.8 Pleural effusion in other conditions classified elsewhere; I42.8 Other cardiomyopathies; N18.4 Chronic kidney disease, stage 4 (severe); H40.9 Unspecified glaucoma; I25.10 Atherosclerotic heart disease of native coronary artery without angina pectoris; I25.2 Old myocardial infarction; Z95.5 Presence of coronary angioplasty implant and graft; Z95.0 Presence of cardiac pacemaker; I44.7 Left bundle-branch block, unspecified; G89.29 Other chronic pain; M54.9 Dorsalgia, unspecified; F32.A Depression, unspecified; F41.9 Anxiety disorder, unspecified; E11.22 Type 2 diabetes mellitus with diabetic chronic kidney disease; E11.40 Type 2 diabetes mellitus with diabetic neuropathy, unspecified; D64.9 Anemia, unspecified; Z86.16 Personal history of COVID-19; Z87.01 Personal history of pneumonia (recurrent); Z20.822 Contact with and (suspected) exposure to COVID-19; Z98.890 Other specified postprocedural states; B37.9 Candidiasis, unspecified; I25.5 Ischemic cardiomyopathy; J10.1 Influenza due to other identified influenza virus with other respiratory manifestations; N18.9 Chronic kidney disease, unspecified; H54.7 Unspecified visual loss; Z79.899 Other long term (current) drug therapy; Z98.49 Cataract extraction status, unspecified eye; Z91.19 Patient's noncompliance with other medical treatment and regimen; D50.9 Iron deficiency anemia, unspecified; D63.1 Anemia in chronic kidney disease; E66.9 Obesity, unspecified; Z68.33 Body mass index [BMI] 33.0-33.9, adult; B37.2 Candidiasis of skin and nail
CPT/HCPCS: 36415; 51702; 71045; 80053; 81001; 82306; 83605; 83735; 83880; 84439; 84443; 85025; 85379; 86140; 87040 ×2; 87635; 87804 ×2; 93005; 94640; 99285; A9270 ×2; J3490; 80048; 82947; 87070; 87077; 87081; 87186; 87205; 93970; 94010; 94618; 94667; 94668; 97161-GP; 97165-GO; J0696; J1650; J1940; J1956; J2405; J2543; J3475; J7030; J7613-GY; U0002

== ENCOUNTER 2021-11-17 20:58 | Emergency (ER) | payer MEDICARE, MEDICAID ==
[2021-11-17 21:37] VITALS: BP 148/101; PULSE 82
[2021-11-17] MEDS ORDERED: Bumetanide 1 MG/4 ML MDV IVPUSH ONE (21:54)
[2021-11-17 22:17] LABS: CORONAVIRUS COVID-19 NAA NEGATIVE (NEGATIVE)
[2021-11-17 22:57] LABS: ANION GAP 14.7 mEq/L (7-13); CHLORIDE,CL 110 mmol/L (98-107); SODIUM,NA 144 mmol/L (136-145)
[2021-11-17 23:02] LABS: ESTIMATED GFR 32 mL/min (>=60)
[2021-11-17] MEDS ORDERED: Cephalexin 250 MG/5 ML Susp 200 ML Bottle PO ONE (23:57)
[2021-11-18] MEDS ORDERED: Cephalexin 500 MG Cap ONE (00:05)
== END 2021-11-18 00:25 | disposition home or self-care (01) ==
LOC: DL.ED 20:58
DX: J90 Pleural effusion, not elsewhere classified (principal); L03.116 Cellulitis of left lower limb; E11.621 Type 2 diabetes mellitus with foot ulcer; L97.529 Non-pressure chronic ulcer of other part of left foot with unspecified severity; I13.0 Hypertensive heart and chronic kidney disease with heart failure and stage 1 through stage 4 chronic kidney disease, or unspecified chronic kidney disease; E11.22 Type 2 diabetes mellitus with diabetic chronic kidney disease; I43 Cardiomyopathy in diseases classified elsewhere; N18.30 Chronic kidney disease, stage 3 unspecified; I50.9 Heart failure, unspecified; I25.10 Atherosclerotic heart disease of native coronary artery without angina pectoris; I25.2 Old myocardial infarction; Z95.0 Presence of cardiac pacemaker; Z86.16 Personal history of COVID-19; Z20.822 Contact with and (suspected) exposure to COVID-19
CPT/HCPCS: 0240U; 36415; 71045; 73620-LT; 80053; 83605; 83735; 83880; 84145; 84484; 85025; 86140; 93005; 93010; 96374; 99284; 99285-25; A9270-GY; J3490

== ENCOUNTER 2021-11-23 17:23 | Emergency (ER) | payer MEDICAID ==
[2021-11-23] MEDS ORDERED: Sodium Chloride 0.9% 10 ML Syringe FLUSH PRN (17:35)
[2021-11-23 18:12] VITALS: BP 150/96; PULSE 82
[2021-11-23 18:13] LABS: ANION GAP 15.4 mEq/L (7-13); CHLORIDE,CL 108 mmol/L (98-107); ESTIMATED GFR 30 mL/min (>=60); SODIUM,NA 144 mmol/L (136-145)
[2021-11-23] MEDS ORDERED: Bumetanide 1 MG/4 ML MDV IVPUSH ONE (19:51)
== END 2021-11-23 20:07 | disposition left against medical advice (07) ==
LOC: DL.ED 17:23
DX: I13.0 Hypertensive heart and chronic kidney disease with heart failure and stage 1 through stage 4 chronic kidney disease, or unspecified chronic kidney disease (principal); I25.10 Atherosclerotic heart disease of native coronary artery without angina pectoris; E11.22 Type 2 diabetes mellitus with diabetic chronic kidney disease; N18.30 Chronic kidney disease, stage 3 unspecified; I50.9 Heart failure, unspecified; I25.2 Old myocardial infarction; Z95.0 Presence of cardiac pacemaker; Z79.899 Other long term (current) drug therapy; Z86.16 Personal history of COVID-19; Z20.822 Contact with and (suspected) exposure to COVID-19; Z91.19 Patient's noncompliance with other medical treatment and regimen
CPT/HCPCS: 36415; 71045; 80053; 83605; 83735; 83880; 85025; 86140; 93005; 99285; U0002

== ENCOUNTER 2021-11-27 16:15 | Inpatient (IN) | payer MEDICARE, MEDICAID ==
[2021-11-27] MEDS ORDERED: Bumetanide 1 MG/4 ML MDV IVPUSH ONE (16:54)
[2021-11-27 16:55] LABS: ANION GAP 16.3 mEq/L (7-13)
[2021-11-27] MEDS ORDERED: Acetaminophen 500 MG Tab PO ONE (18:13)
[2021-11-27] MEDS ORDERED: HYDROmorphone 0.5 MG/0.5 ML Syringe IVPUSH PRN (19:54)
[2021-11-27] MEDS ORDERED: Ondansetron 4 MG/2 ML SDV IVPUSH PRN (19:54)
[2021-11-27] MEDS ORDERED: Polyethylene Glycol 3350 Powder 17 GM Packet PO PRN (19:54)
[2021-11-27] MEDS ORDERED: Albuterol/Ipratropium 3.0-0.5 MG/3 ML Neb Soln NEB PRN (19:54)
[2021-11-27] MEDS ORDERED: Magnesium Hydroxide 400 MG/5 ML Susp 30 ML Cup PO PRN (19:54)
[2021-11-27] MEDS: Sodium Chloride 0.9% 10 ML Syringe FLUSH SCH (20:29)
[2021-11-27] MEDS ORDERED: Lidocaine 1% 30 ML SDV INJECT ONE (20:59)
[2021-11-27] MEDS ORDERED: Lidocaine 1% 5 ML VIAL INJECT ONE (21:13)
[2021-11-27] MEDS ORDERED: Ziprasidone Mesylate 20 MG Vial IM ONE (21:54)
[2021-11-27] MEDS ORDERED: Water For Injection, Sterile 10 ML ONE (22:08)
[2021-11-27] MEDS: Nystatin Topical Powder 30 GM Bottle TOP PRN (22:21)
[2021-11-27] MEDS: Acetaminophen/HYDROcodone 325-5 MG Tab PO PRN (22:22)
[2021-11-27] MEDS ORDERED: Nitroglycerin 0.4 MG Tab.SL SL PRN (22:51)
[2021-11-27] MEDS ORDERED: Docusate Sodium 100 MG Cap PO PRN (22:51)
[2021-11-27] MEDS ORDERED: Metolazone 2.5 MG Tab PO SCH (23:00)
[2021-11-28] MEDS: Acetaminophen/HYDROcodone 325-5 MG Tab PO PRN ×2 (03:45→20:10)
[2021-11-28] MEDS ORDERED: hydrALAZINE 20 MG/ML SDV IVPUSH PRN (05:19)
[2021-11-28 06:42] LABS: ANION GAP 15.1 mEq/L (7-13)
[2021-11-28] MEDS: Acetaminophen 325 MG Tab PO PRN ×3 (07:37→15:56)
[2021-11-28] MEDS: Cholecalciferol (Vitamin D3) 25 MCG Tab PO SCH (08:31)
[2021-11-28] MEDS: amLODIPine 5 MG Tab PO SCH (08:31)
[2021-11-28] MEDS: Calcium Carbonate/Vitamin D3 1250 MG-5 MCG Tab PO SCH (08:32)
[2021-11-28] MEDS: Oxybutynin 5 MG Tab.ER PO SCH (08:32)
[2021-11-28] MEDS: Ferrous Sulfate 325 MG Tab PO SCH (08:32)
[2021-11-28] MEDS: Sodium Chloride 0.9% 10 ML Syringe FLUSH SCH ×2 (08:33→20:49)
[2021-11-28] MEDS: Saccharomyces Boulardii (Probiotic) 250 MG Cap PO SCH ×2 (08:43→20:08)
[2021-11-28] MEDS ORDERED: Non-Formulary Medication 1 Each (Magnesium Oxide [Magnesium Oxide] 400 MG Tablet) PO SCH (09:00)
[2021-11-28] MEDS ORDERED: Metolazone 2.5 MG Tab PO ONE (11:00)
[2021-11-28] MEDS: Piperacillin/Tazobactam 3.375 GM in Sodium Chloride 0.9% 100 ML IV SCH ×2 (11:26→17:41)
[2021-11-28] MEDS: Sodium Chloride 0.9% 10 ML Syringe FLUSH PRN (17:42)
[2021-11-28] MEDS ORDERED: cefTRIAXone 2 GM in Sodium Chloride 0.9% 100 ML IV SCH (18:15)
[2021-11-28] MEDS: Sertraline 50 MG Tab PO SCH (20:08)
[2021-11-28] MEDS: Tamsulosin 0.4 MG Cap.ER PO SCH (20:09)
[2021-11-28] MEDS: atorvaSTATin 20 MG Tab PO SCH (20:09)
[2021-11-28] MEDS: Latanoprost 0.005% Ophth Soln 2.5 ML Bottle EYEBOTH SCH (20:12)
[2021-11-28] MEDS: cefTRIAXone 2 GM in Sodium Chloride 0.9% 100 ML IV SCH (20:18)
[2021-11-28] MEDS: Nystatin Topical Powder 30 GM Bottle TOP PRN (20:25)
[2021-11-29] MEDS: Piperacillin/Tazobactam 3.375 GM in Sodium Chloride 0.9% 100 ML IV SCH ×5 (00:05→23:34)
[2021-11-29] MEDS: Acetaminophen/HYDROcodone 325-5 MG Tab PO PRN ×3 (03:56→17:46)
[2021-11-29 06:46] LABS: ANION GAP 15.7 mEq/L (7-13)
[2021-11-29] MEDS: amLODIPine 5 MG Tab PO SCH (09:06)
[2021-11-29] MEDS: Oxybutynin 5 MG Tab.ER PO SCH (09:08)
[2021-11-29] MEDS: Saccharomyces Boulardii (Probiotic) 250 MG Cap PO SCH ×2 (09:08→22:42)
[2021-11-29] MEDS: Calcium Carbonate/Vitamin D3 1250 MG-5 MCG Tab PO SCH (09:08)
[2021-11-29] MEDS: Ferrous Sulfate 325 MG Tab PO SCH (09:09)
[2021-11-29] MEDS: Sodium Chloride 0.9% 10 ML Syringe FLUSH SCH ×2 (09:09→21:36)
[2021-11-29] MEDS: Cholecalciferol (Vitamin D3) 25 MCG Tab PO SCH (09:09)
[2021-11-29] MEDS: cefTRIAXone 2 GM in Sodium Chloride 0.9% 100 ML IV SCH (21:41)
[2021-11-29] MEDS: Latanoprost 0.005% Ophth Soln 2.5 ML Bottle EYEBOTH SCH (21:45)
[2021-11-29] MEDS: Nystatin Topical Powder 30 GM Bottle TOP PRN (21:47)
[2021-11-29] MEDS: Sertraline 50 MG Tab PO SCH (22:41)
[2021-11-29] MEDS: Tamsulosin 0.4 MG Cap.ER PO SCH (22:41)
[2021-11-29] MEDS: atorvaSTATin 20 MG Tab PO SCH (22:43)
[2021-11-29] MEDS: Sodium Chloride 0.9% 10 ML Syringe FLUSH PRN (23:34)
[2021-11-30 03:28] VITALS: BP 99/56; PULSE 88
[2021-11-30] MEDS: Sodium Chloride 0.9% 10 ML Syringe FLUSH PRN (05:37)
[2021-11-30] MEDS: Piperacillin/Tazobactam 3.375 GM in Sodium Chloride 0.9% 100 ML IV SCH ×2 (05:38→12:18)
[2021-11-30 08:07] LABS: ANION GAP 13.2 mEq/L (7-13)
[2021-11-30] MEDS ORDERED: Morphine 2 MG/ML SYRINGE IVPUSH PRN (08:30)
[2021-11-30] MEDS ORDERED: LORazepam 2 MG/ML SDV IVPUSH PRN (08:30)
[2021-11-30] MEDS ORDERED: Metolazone 2.5 MG Tab PO SCH (09:00)
[2021-11-30] MEDS: Saccharomyces Boulardii (Probiotic) 250 MG Cap PO SCH (11:43)
[2021-11-30] MEDS: Ferrous Sulfate 325 MG Tab PO SCH (11:43)
[2021-11-30] MEDS: Calcium Carbonate/Vitamin D3 1250 MG-5 MCG Tab PO SCH (11:43)
[2021-11-30] MEDS: Oxybutynin 5 MG Tab.ER PO SCH (11:44)
[2021-11-30] MEDS: Cholecalciferol (Vitamin D3) 25 MCG Tab PO SCH (11:44)
[2021-11-30] MEDS: amLODIPine 5 MG Tab PO SCH (11:44)
[2021-11-30] MEDS: Sodium Chloride 0.9% 10 ML Syringe FLUSH SCH (11:44)
== END 2021-11-30 09:53 | disposition expired | DRG 291 ==
LOC: DL.ED 16:15 → DL.OB 17:58 → DL.MS 18:51 → UNDOADMIN 18:51 → DL.MS 11-30 19:30 → UNDOADMIN 11-30 19:30 → UNDODISIN 11-30 19:32 → DL.OB 11-30 19:32
PROVIDERS: ADMIT Internal Medicine; ATTEND Internal Medicine
PROC: 0W993ZZ Drainage of Right Pleural Cavity, Percutaneous Approach (ICD-10-PCS; principal; 2021-11-27)
DX: I13.0 Hypertensive heart and chronic kidney disease with heart failure and stage 1 through stage 4 chronic kidney disease, or unspecified chronic kidney disease (principal); I50.23 Acute on chronic systolic (congestive) heart failure; J98.11 Atelectasis; N18.4 Chronic kidney disease, stage 4 (severe); I42.8 Other cardiomyopathies; Z51.5 Encounter for palliative care; Z66 Do not resuscitate; Z20.822 Contact with and (suspected) exposure to COVID-19; E66.9 Obesity, unspecified; F43.21 Adjustment disorder with depressed mood; B37.9 Candidiasis, unspecified; E88.09 Other disorders of plasma-protein metabolism, not elsewhere classified; E87.8 Other disorders of electrolyte and fluid balance, not elsewhere classified; D50.9 Iron deficiency anemia, unspecified; D72.819 Decreased white blood cell count, unspecified; E83.42 Hypomagnesemia; E80.6 Other disorders of bilirubin metabolism; H54.7 Unspecified visual loss; E78.5 Hyperlipidemia, unspecified; I25.10 Atherosclerotic heart disease of native coronary artery without angina pectoris; M89.9 Disorder of bone, unspecified; E11.621 Type 2 diabetes mellitus with foot ulcer; L97.509 Non-pressure chronic ulcer of other part of unspecified foot with unspecified severity; E11.319 Type 2 diabetes mellitus with unspecified diabetic retinopathy without macular edema; E11.22 Type 2 diabetes mellitus with diabetic chronic kidney disease; N32.81 Overactive bladder; N40.0 Benign prostatic hyperplasia without lower urinary tract symptoms; F41.9 Anxiety disorder, unspecified; F32.A Depression, unspecified; D63.8 Anemia in other chronic diseases classified elsewhere; G89.29 Other chronic pain; R09.02 Hypoxemia; M54.9 Dorsalgia, unspecified; E11.42 Type 2 diabetes mellitus with diabetic polyneuropathy; H40.9 Unspecified glaucoma; Z89.422 Acquired absence of other left toe(s); Z68.36 Body mass index [BMI] 36.0-36.9, adult; Z91.14 Patient's other noncompliance with medication regimen; I25.2 Old myocardial infarction; Z89.511 Acquired absence of right leg below knee; Z86.16 Personal history of COVID-19; Z95.5 Presence of coronary angioplasty implant and graft; Z87.01 Personal history of pneumonia (recurrent); Z89.432 Acquired absence of left foot; Z79.899 Other long term (current) drug therapy; Z98.49 Cataract extraction status, unspecified eye; Z28.82 Immunization not carried out because of caregiver refusal; D69.6 Thrombocytopenia, unspecified; Z91.19 Patient's noncompliance with other medical treatment and regimen; Z99.81 Dependence on supplemental oxygen
CPT/HCPCS: 36415; 51702; 71045; 80053; 81001; 82140; 82947; 83605; 83735; 83880; 84145; 84484; 85025; 85651; 86140; 93005; 93010; 93306; 96374; 99285; 99285-25; A9270-GY; J0696; J1170; J2405; J2543; J3486; J3490; U0002